=== PATIENT | female | born 1980 | race African-American/Black ===

== ENCOUNTER 2017-08-16 21:47 | Emergency (ER) | payer BC ==
--- OUTSIDE RECORDS SUMMARY | 2017-08-16 21:49 | XMS REPORT | Clinical Summary ---
:1980 Author Organization [facility] Address [address] [place] [address] Phone Care Team Providers Name Role Phone Unavailable Primary Care Provider Unavailable Allergies Not on File Current Medications Not on file Active Problems Not on file Social History Tobacco Use Types Packs/Day Years Used Date Never Assessed Sex Assigned at Date Recorded Not on file Last Filed Vital Signs Not on file Plan of Treatment Health Maintenance Due Date Last Done Comments INFLUENZA VACCINE 01/15/2018 Results Not on fileafter 08/15/2016
--- NOTE | 2017-08-16 23:08 | RAD REPORT ---
EXAM DESCRIPTION: RAD - Chest Single View - 08/16/2017 10:57 pm CLINICAL HISTORY: Chest pain. COMPARISON: 05/14/2017 FINDINGS: Portable technique limits examination quality. The lungs are underinflated but grossly clear. The heart is normal in size. No displaced fractures. IMPRESSION: No acute intrathoracic process suspected.
[2017-08-16] MEDS ORDERED: ONDANSETRON 4 MG/2 ML VIAL ONE (23:26)
[2017-08-16] MEDS ORDERED: NA CHLORIDE 0.9% 1,000 ML ONE (23:26)
[2017-08-16] MEDS ORDERED: METRONIDAZOLE 500mg IVPB 500 MG/100 ML BAG IV ONE (23:27)
[2017-08-16] MEDS ORDERED: CIPROFLOXACIN 400mg IV 400 MG/200 ML BAG IV ONE (23:27)
[2017-08-16] MEDS ORDERED: MORPHINE 4 MG/ML SYR ONE (23:28)
[2017-08-17 00:51] LABS: Absolute Lymphocytes (CBC) 3.3 K/uL (0.7-4.9); Absolute Monocytes 0.6 K/uL (0.1-1.3); Absolute Neutrophil 4.7 K/uL (1.8-8.0); Basophils % 0.9 % (0-1.3); Eosinophils % 1.9 % (0-4.4); Hematocrit 42.1 % (36.0-45.0); Lymphocytes % 36.8 % (15.3-44.8); MCH 29.6 pg (27.0-35.0); MCV 89.1 fL (80-100); MPV 8.8 fL (7.6-11.3); RBC Red Blood Cell Count 4.73 M/uL (3.86-4.86)
[2017-08-17 00:54] LABS: Protime INR 1.03
[2017-08-17] MEDS ORDERED: MORPHINE 4 MG/ML SYR ONE (01:13)
[2017-08-17 01:41] LABS: Bicarbonate 26 mEq/L (21-31); CKMB Creatine Kinase MB 1.3 ng/ml (0.3-4.0); Glucose Level 159 mg/dL (65-120); Lipase 40 U/L (22-51); Potassium 3.8 mEq/L (3.6-5.0); Sodium Level 138 mEq/L (135-145)
[2017-08-17 01:47] LABS: Albumin 4.3 g/dL (3.2-5.5); Alkaline Phosphatase 53 IU/L (42-121); BUN Blood Urea Nitrogen 10 mg/dL (6-20); Bilirubin Direct 0.2 mg/dL (0-0.2); Bilirubin Total 0.6 mg/dL (0.3-1.2); Protein, Total 7.6 g/dL (6.0-8.3)
[2017-08-17 01:53] LABS: ALT/SGPT 23 IU/L (10-60); AST/SGOT 30 IU/L (10-42); Creatine Phosphokinase 196 IU/L (22-269)
[2017-08-17 02:00] LABS: Urine Blood NEGATIVE (NEG); Urine Glucose NEGATIVE (NEG); Urine Protein NEGATIVE (NEG); Urine Specific Gravity >1.030 (1.005-1.030)
--- NOTE | 2017-08-17 03:31 | ER ---
Nurse's Notes [facility] Name: Silvina Cohen Age: 36 yrs Sex: Female : 1980 Arrival Date: 08/16/2017 Time: 21:50 Bed 28 Private MD: Diagnosis: Abdominal tenderness;Diarrhea, unspecified;Type 2 diabetes mellitus;Diverticular disease of intestine Presentation: 08/16 21:51 Presenting complaint: Patient states: Upper abdominal pain that started today. 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 Transition of care: patient was not received from another setting of care. Onset of symptoms was August 16, 2017. Initial Sepsis Screen: Does the patient meet any 2 criteria? No. Patient's initial sepsis screen is negative. Does the patient have a suspected source of infection? No. Patient's initial sepsis screen is negative. Care prior to arrival: None. 21:51 Method Of Arrival: Ambulatory aj 21:51 Acuity: CORTEZ 3 aj Triage Assessment: 21:55 General: Appears in no apparent distress. comfortable, Behavior is calm, cooperative, aj appropriate for age. Pain: Complains of pain in right upper quadrant and left upper quadrant. Neuro: Level of Consciousness is awake, alert, obeys commands, Oriented to person, place, time, situation. Respiratory: Airway is patent Trachea midline Respiratory effort is even, unlabored, Respiratory pattern is regular, symmetrical. GI: Abdomen is non-distended, obese, Reports upper abdominal pain, bloody stool. Derm: Skin is intact, is healthy with good turgor, Skin is pink, warm \T\ dry. normal. 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 aj Historical: - Allergies: 21:55 Codeine; aj 21:55 Flexeril; aj 21:55 Naproxen; aj - Home Meds: 21:55 gabapentin 300 mg Oral cap 1 cap daily [Active]; metformin 500 mg Oral Tb24 1 tab 2 aj times per day [Active]; metoprolol tartrate 50 mg Oral tab 1 tab once daily [Active]; [place] 10-325 mg Oral tab as needed [Active]; Phenergan Oral 25 mg as needed [Active]; Trulicity 0.75 mg/0.5 mL subcutaneous pnij 0.5 mL once wkly [Active]; Xanax 0.5 mg Oral tab 1 tab as needed [Active]; Victoza 2-Marvel subcutaneous subcutaneous [Active]; - PMHx: 21:55 Anxiety; Back pain; Diabetes - NIDDM; HYPERGLYCEMIA; Hypertension; aj - PSHx: 21:55 cyst removal; Cholecystectomy; Hernia repair; Hysterectomy; aj - Immunization history:: Adult Immunizations up to date. - Social history:: Smoking status: Patient/guardian denies using tobacco, Patient uses alcohol, occasionally. - Family history:: not pertinent. Screenin:30 Abuse screen: Denies threats or abuse. rk2 23:30 Nutritional screening: No deficits noted. Tuberculosis screening: No symptoms or risk rk2 factors identified. Fall Risk None identified. Assessment: 23:30 General: Appears in no apparent distress. well groomed, well developed, well nourished, rk2 Behavior is calm, cooperative. 23:30 Pain: Complains of pain in left lower quadrant and epigastric area and abdomen and left rk2 upper quadrant and right upper quadrant. Neuro: Level of Consciousness is alert, obeys commands, Oriented to person, place, time, situation. Cardiovascular: Rhythm is sinus rhythm. Respiratory: Airway is patent Respiratory effort is even, unlabored, Respiratory pattern is regular, symmetrical. GI: Bowel sounds Abd is soft Abdomen is tender to palpation in right upper quadrant and left upper quadrant. Derm: Skin is pink, warm \T\ dry. 23:37 Reassessment: Per queenie Monsivais to change pt. pain med order to morphine. rk2 08/17 01:18 Reassessment: Pt. resting in room, \T\ bedside... pt. called out c/o pain, same rk2 pain that she came in with. Verbal order given by Dr. Singer to repeat morphine 4mg. Pt. iv fluids and antibiotics infusing. No other needs \T\ this time. 01:56 Reassessment: Pt. taken to CT by tech. rk2 02:17 Reassessment: Pt. returned from CT. rk2 03:38 Reassessment: Patient appears in no apparent distress at this time. Patient is alert, aa1 oriented x 3, equal unlabored respirations, skin warm/dry/pink. Discussed d/c \T\ f/u instructions with pt and significant other; denies questions or concerns at this time Patient states feeling better. Vital Signs: 08/16 21:55 BP 150 / 97; Pulse 94; Resp 16; Temp 97.2; Pulse Ox 99% on R/A; Weight 142.88 kg; aj Height 5 ft. 10 in. (177.80 cm); Pain 7/10; 08/17 00:00 BP 138 / 93; Pulse 76; Resp 17; Pulse Ox 97% on R/A; rk2 00:30 BP 126 / 92; Pulse 76; Resp 16; Pulse Ox 97% on R/A; rk2 01:30 BP 135 / 81; Pulse 72; Resp 17; Pulse Ox 96% on R/A; rk2 08/16 21:55 Body Mass Index 45.20 (142.88 kg, 177.80 cm) aj ED Course: 08/16 21:50 Patient arrived in ED. aj 21:54 Triage completed. aj 21:55 Arm band placed on right wrist. Patient placed in an exam room. aj 22:30 Clementine Underwood RN is Primary Nurse. rk2 22:34 Alessandro Singer MD is Attending Physician. frandy 22:54 X-ray completed. Portable x-ray completed in exam room. Patient tolerated procedure kc2 well. 22:55 XRAY Chest (1 view) In Process Unspecified. EDMS 23:30 Patient has correct armband on for positive identification. Placed in gown. Bed in low rk2 position. Call light in reach. personnel monitor on. Pulse ox on. 08/17 00:16 Radiology exam delayed due to Still waiting for lab results to return for CT. vr 02:33 CT Abd/Pelvis - W/Contrast In Process Unspecified. EDMS 03:30 Fran Castano MD is Referral Physician. frandy 03:38 No provider procedures requiring assistance completed. IV discontinued, intact, aa1 bleeding controlled, No redness/swelling at site. Administered Medications: 08/16 23:36 CANCELLED (Not in stock): fentaNYL (PF) 25 mcg IVP once rk2 23:47 Drug: Flagyl 500 mg Volume: 100 ml; Route: IVPB; Rate: 200 ml/hr; Infused Over: 30 rk2 mins; Site: left forearm; 08/17 00:15 Follow up: Response: No adverse reaction; IV Status: Completed infusion rk2 08/16 23:47 Drug: morphine 4 mg Route: IVP; Site: left forearm; rk2 08/17 00:57 Follow up: Response: No adverse reaction; Pain is decreased rk2 08/16 23:48 Drug: Zofran 4 mg Route: IVP; Site: left forearm; rk2 08/17 00:58 Follow up: Response: No adverse reaction rk2 08/16 23:54 Drug: NS 0.9% 1000 ml Route: IV; Rate: 1 bolus; Site: left forearm; rk2 08/17 03:39 Follow up: IV Status: Completed infusion aa1 00:47 Drug: Cipro 400 mg Volume: 200 ml; Route: IVPB; Infused Over: 60 mins; Site: left rk2 forearm; 01:16 Drug: morphine 4 mg Route: IVP; Site: right forearm; rk2 01:56 Follow up: Response: No adverse reaction; Pain is decreased rk2 Outcome: 03:31 Discharge ordered by MD. wise 03:38 Discharged to home ambulatory, with significant other. aa1 03:38 Condition: good 03:38 Discharge instructions given to patient, significant other, Instructed on discharge instructions, follow up and referral plans. medication usage, Demonstrated understanding of instructions, follow-up care, medications, Prescriptions given X 5 03:39 Patient left the ED. aa1 Signatures: Dispatcher [employer] EDMS Felisha Clemente RN RN [email or web address] Risa Saul RN Alessandro Lisa MD MD cha Davis, Victoria vr Carr, Kelsie kc2 Kidder, Rhonda, RN RN rk2
--- NOTE | 2017-08-17 03:31 | EDPHYS ---
Physician Documentation [facility] Name: Silvina Cohen Age: 36 yrs Sex: Female : 1980 Arrival Date: 08/16/2017 Time: 21:50 Bed 28 Private MD: ED Physician Alessandro Singer HPI: 08/16 23:44 This 36 yrs old Black Female presents to ER via Ambulatory with complaints of Abdominal frandy Pain. 23:44 The patient presents with abdominal pain abdominal distention. Onset: The frandy symptoms/episode began/occurred just prior to arrival. The patient presents to the emergency department with rectal bleeding, with multiple such episodes. Onset: The symptoms/episode began/occurred just prior to arrival. Abdominal pain: none is appreciated. Modifying factors: The symptoms are alleviated by nothing, the symptoms are aggravated by nothing. Modifying factors: The symptoms are alleviated by nothing, the symptoms are aggravated by movement. 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/A - Hysterectomy aj Historical: - Allergies: 21:55 Codeine; aj 21:55 Flexeril; aj 21:55 Naproxen; aj - Home Meds: 21:55 gabapentin 300 mg Oral cap 1 cap daily [Active]; metformin 500 mg Oral Tb24 1 tab 2 aj times per day [Active]; metoprolol tartrate 50 mg Oral tab 1 tab once daily [Active]; [place] 10-325 mg Oral tab as needed [Active]; Phenergan Oral 25 mg as needed [Active]; Trulicity 0.75 mg/0.5 mL subcutaneous pnij 0.5 mL once wkly [Active]; Xanax 0.5 mg Oral tab 1 tab as needed [Active]; Victoza 2-Marvel subcutaneous subcutaneous [Active]; - PMHx: 21:55 Anxiety; Back pain; Diabetes - NIDDM; HYPERGLYCEMIA; Hypertension; aj - PSHx: 21:55 cyst removal; Cholecystectomy; Hernia repair; Hysterectomy; aj - Immunization history:: Adult Immunizations up to date. - Social history:: Smoking status: Patient/guardian denies using tobacco, Patient uses alcohol, occasionally. - Family history:: not pertinent. ROS: 23:44 Constitutional: Negative for fever, chills, and weight loss, Eyes: Negative for injury, frandy pain, redness, and discharge, ENT: Negative for injury, pain, and discharge, Neck: Negative for injury, pain, and swelling, Cardiovascular: Negative for chest pain, palpitations, and edema, Respiratory: Negative for shortness of breath, cough, wheezing, and pleuritic chest pain, Back: Negative for injury and pain, : Negative for injury, bleeding, discharge, and swelling, MS/Extremity: Negative for injury and deformity, Skin: Negative for injury, rash, and discoloration, Neuro: Negative for headache, weakness, numbness, tingling, and seizure, Psych: Negative for depression, anxiety, suicide ideation, homicidal ideation, and hallucinations, Allergy/Immunology: Negative for hives, rash, and allergies, Endocrine: Negative for neck swelling, polydipsia, polyuria, polyphagia, and marked weight changes, Hematologic/Lymphatic: Negative for swollen nodes, abnormal bleeding, and unusual bruising. 23:44 Abdomen/GI: Positive for abdominal pain, abdominal cramps, abdominal distension, rectal bleeding, of the epigastric area, right upper quadrant, left upper quadrant and left lower quadrant. Exam: 23:44 Constitutional: This is a well developed, well nourished patient who is awake, alert, frandy and in no acute distress. Head/Face: Normocephalic, atraumatic. Eyes: Pupils equal round and reactive to light, extra-ocular motions intact. Lids and lashes normal. Conjunctiva and sclera are non-icteric and not injected. Cornea within normal limits. Periorbital areas with no swelling, redness, or edema. ENT: Nares patent. No nasal discharge, no septal abnormalities noted. Tympanic membranes are normal and external auditory canals are clear. Oropharynx with no redness, swelling, or masses, exudates, or evidence of obstruction, uvula midline. Mucous membranes moist. Neck: Trachea midline, no thyromegaly or masses palpated, and no cervical lymphadenopathy. Supple, full range of motion without nuchal rigidity, or vertebral point tenderness. No Meningismus. Chest/axilla: Normal chest wall appearance and motion. Nontender with no deformity. No lesions are appreciated. Cardiovascular: Regular rate and rhythm with a normal S1 and S2. No gallops, murmurs, or rubs. Normal PMI, no JVD. No pulse deficits. Respiratory: Lungs have equal breath sounds bilaterally, clear to auscultation and percussion. No rales, rhonchi or wheezes noted. No increased work of breathing, no retractions or nasal flaring. Back: No spinal tenderness. No costovertebral tenderness. Full range of motion. Skin: Warm, dry with normal turgor. Normal color with no rashes, no lesions, and no evidence of cellulitis. MS/ Extremity: Pulses equal, no cyanosis. Neurovascular intact. Full, normal range of motion. Neuro: Awake and alert, GCS 15, oriented to person, place, time, and situation. Cranial nerves II-XII grossly intact. Motor strength 5/5 in all extremities. Sensory grossly intact. Cerebellar exam normal. Normal gait. Psych: Awake, alert, with orientation to person, place and time. Behavior, mood, and affect are within normal limits. 23:44 Abdomen/GI: Inspection: abdomen appears normal, Bowel sounds: normal, Palpation: mild abdominal tenderness, in the right upper quadrant, left upper quadrant and left lower quadrant, Liver: no appreciated palpable abnormalities, Hernia: not appreciated. Vital Signs: 21:55 BP 150 / 97; Pulse 94; Resp 16; Temp 97.2; Pulse Ox 99% on R/A; Weight 142.88 kg; aj Height 5 ft. 10 in. (177.80 cm); Pain 7/10; 08/17 00:00 BP 138 / 93; Pulse 76; Resp 17; Pulse Ox 97% on R/A; rk2 00:30 BP 126 / 92; Pulse 76; Resp 16; Pulse Ox 97% on R/A; rk2 01:30 BP 135 / 81; Pulse 72; Resp 17; Pulse Ox 96% on R/A; rk2 08/16 21:55 Body Mass Index 45.20 (142.88 kg, 177.80 cm) MDM: 08/16 22:37 Patient medically screened. [facility] 23:47 Data reviewed: vital signs, nurses notes, lab test result(s), EKG, radiologic studies, [facility] CT scan, plain films. 08/16 22:36 Order name: Basic Metabolic Panel [facility] 08/16 22:36 Order name: BNP [facility] 08/16 22:36 Order name: CBC with Diff [facility] 08/16 22:36 Order name: Ckmb [facility] 08/16 22:36 Order name: CPK [facility] 08/16 22:36 Order name: LFT's [facility] 08/16 22:36 Order name: Magnesium [facility] 08/16 22:36 Order name: PT-INR [facility] 08/16 22:36 Order name: Ptt, Activated; Complete Time: 01:43 [facility] 08/16 22:36 Order name: Troponin (emerg Dept Use Only); Complete Time: 01:14 [facility] 08/16 22:36 Order name: Lipase; Complete Time: 01:58 [facility] 08/16 22:36 Order name: Occult Blood [facility] 08/16 22:36 Order name: XRAY Chest (1 view); Complete Time: 23:48 [facility] 08/16 22:36 Order name: CT Abd/Pelvis - W/Contrast [facility] 08/16 22:37 Order name: Basic Metabolic Panel; Complete Time: 01:58 EDMS 08/16 22:37 Order name: BNP B-Type Natriuretic Peptide; Complete Time: 01:43 EDIL 08/16 22:37 Order name: CBC with Automated Diff; Complete Time: 01:43 [facility] 08/16 22:37 Order name: CKMB Creatine Kinase MB; Complete Time: 01:58 [facility]IL 08/16 22:37 Order name: Creatine Phosphokinase; Complete Time: 01:58 [facility]IL 08/16 22:37 Order name: Liver (Hepatic) Function; Complete Time: 01:58 EDMS 08/16 22:37 Order name: Magnesium; Complete Time: 01:58 [facility] 08/16 22:37 Order name: Protime (+INR); Complete Time: 01:43 [facility] 08/16 23:56 Order name: Urine Dipstick--Ancillary (enter results); Complete Time: 03:[address] [facility] 08/16 23:56 Order name: Urine --Ancillary (enter results); Complete Time: 03:[address] [facility] 08/16 22:36 Order name: EKG; Complete Time: 22:37 [facility] 08/16 22:36 Order name: Cardiac monitoring; Complete Time: 23:53 [facility] 08/16 22:36 Order name: EKG - Nurse/Tech; Complete Time: 23:53 [facility] 08/16 22:36 Order name: IV Saline Lock; Complete Time: 23:53 [facility] 08/16 22:36 Order name: Labs collected and sent; Complete Time: 23:53 [facility] 08/16 22:36 Order name: O2 Per Protocol; Complete Time: 23:53 [facility] 08/16 22:36 Order name: O2 Sat Monitoring; Complete Time: 23:53 [facility] 08/16 22:36 Order name: Urine Dipstick-Ancillary (obtain specimen); Complete Time: 23:53 [facility] Administered Medications: 23:36 CANCELLED (Not in stock): fentaNYL (PF) 25 mcg IVP once rk2 23:47 Drug: Flagyl 500 mg Volume: 100 ml; Route: IVPB; Rate: 200 ml/hr; Infused Over: 30 rk2 mins; Site: left forearm; 08/17 00:15 Follow up: Response: No adverse reaction; IV Status: Completed infusion rk2 08/16 23:47 Drug: morphine 4 mg Route: IVP; Site: left forearm; rk2 08/17 00:57 Follow up: Response: No adverse reaction; Pain is decreased 2 08/16 23:48 Drug: Zofran 4 mg Route: IVP; Site: left forearm; rk2 08/17 00:58 Follow up: Response: No adverse reaction [facility] 08/16 23:54 Drug: NS 0.9% 1000 ml Route: IV; Rate: 1 bolus; Site: left forearm; rk2 08/17 03:39 Follow up: IV Status: Completed infusion aa1 00:47 Drug: Cipro 400 mg Volume: 200 ml; Route: IVPB; Infused Over: 60 mins; Site: left rk2 forearm; 01:16 Drug: morphine 4 mg Route: IVP; Site: right forearm; rk2 01:56 Follow up: Response: No adverse reaction; Pain is decreased rk2 Disposition: 08/17/17 03:31 Discharged to Home. Impression: Abdominal tenderness, Diarrhea, unspecified, Type 2 diabetes mellitus, Diverticular disease of intestine. - Condition is Stable. - Discharge Instructions: Abdominal Pain, Adult, Food Choices to Help Relieve Diarrhea, Adult, Type 2 Diabetes Mellitus, Adult, Diarrhea, Hernia, Abdominal Pain, Adult, [id number], Diarrhea, [id number], Type 2 Diabetes Mellitus, Adult, [id number]. - Prescriptions for Bentyl 20 mg Oral Tablet - take 1 tablet by ORAL route every 6 hours As needed; 20 tablet. Flagyl 500 mg Oral Tablet - take 1 tablet by ORAL route every 8 hours for 7 days; 21 tablet. Pepcid 20 mg Oral Tablet - take 1 tablet by ORAL route every 12 hours for 10 days; 20 tablet. Zofran 4 mg Oral Tablet - take 1 tablet by ORAL route every 12 hours As needed; 20 tablet. Cipro 500 mg Oral Tablet - take 1 tablet by ORAL route every 12 hours for 7 days; 14 tablet. - Medication Reconciliation Form, Thank You Letter, Antibiotic Education, Prescription Opioid Use form. - Follow up: Private Physician; When: 2 - 3 days; Reason: Recheck today's complaints, Continuance of care, Re-evaluation by your physician. Follow up: Fran Castano; When: 2 - 3 days; Reason: Recheck today's complaints, Re-evaluation by your physician. - Problem is new. - Symptoms have improved. Signatures: Dispatcher [employer] EDMS Felisha Clemente RN RN aa1 Risa Saul RN RN aj Anderson, Corey, MD MD cha Kidder, Rhonda, RN RN rk2 Corrections: (The following items were deleted from the chart) 08/16 23:36 22:36 fentaNYL (PF) 25 mcg IVP once ordered. frandy perdue 08/17 03:39 03:31 08/17/2017 03:31 Discharged to Home. Impression: Abdominal tenderness; Diarrhea, aa1 unspecified; Type 2 diabetes mellitus; Diverticular disease of intestine. Condition is Stable. Discharge Instructions: Abdominal Pain, Adult, Food Choices to Help Relieve Diarrhea, Adult, Type 2 Diabetes Mellitus, Adult, Diarrhea, Abdominal Pain, Adult, [id number], Diarrhea, Fzfy-[id number], Type 2 Diabetes Mellitus, Adult, Mrgi-if-[id number]. Prescriptions for Bentyl 20 mg Oral Tablet - take 1 tablet by ORAL route every 6 hours As needed; 20 tablet, Flagyl 500 mg Oral Tablet - take 1 tablet by ORAL route every 8 hours for 7 days; 21 tablet, Pepcid 20 mg Oral Tablet - take 1 tablet by ORAL route every 12 hours for 10 days; 20 tablet, Zofran 4 mg Oral Tablet - take 1 tablet by ORAL route every 12 hours As needed; 20 tablet, Cipro 500 mg Oral Tablet - take 1 tablet by ORAL route every 12 hours for 7 days; 14 tablet. and Forms are Medication Reconciliation Form, Thank You Letter, Antibiotic Education, Prescription Opioid Use. Follow up: Private Physician; When: 2 - 3 days; Reason: Recheck today's complaints, Continuance of care, Re-evaluation by your physician. Follow up: Fran Castano; When: 2 - 3 days; Reason: Recheck today's complaints, Re-evaluation by your physician. Problem is new. Symptoms have improved. frandy
[2017-08-17 03:43] VITALS: TEMP 97.2
[2017-08-17 03:47] VITALS: BP 135/81; O2SAT 96
--- NOTE | 2017-08-17 08:49 | RAD REPORT ---
EXAM DESCRIPTION: CTAbdomen Pelvis W Contrast - 08/17/2017 7:31 am CLINICAL HISTORY: Abdominal pain. COMPARISON: 06/10/2017, 01/20/2017 TECHNIQUE: Biphasic CT imaging of the abdomen and pelvis was performed with 100 ml non-ionic IV cont rast. All CT scans are performed using dose optimization technique as appropriate and may include automated exposure control or mA/KV adjustment according to patient size. FINDINGS: The lung bases are clear. Diffuse fatty liver is present. The liver is also prominent in size. The spleen, adrenal glands and k idneys are within normal limits. 12 mm nonspecific cystic lesion in the pancreatic head appears uncha nged since comparative studies. No bowel obstruction, free air, free fluid or abscess. Fat containing ventral hernia is noted, unchan ged. The appendix is normal. No evidence of significant lymphadenopathy. No suspicious bony findings. IMPRESSION: Prominent fatty liver. 12 mm cystic lesion in the pancreatic head appears unchanged. Follow-up CT can be obtained for survei llance purposes in 6-12 months. Diverticulosis coli without diverticulitis.
--- NOTE | 2017-08-17 10:04 | EKG ---
Test Date: 2017-08-16 Test Time: 23:18:59 Card Seller: JEANNINE MEASUREMENT RESULTS: Intervals: Rate: 78 DE: 162 QRSD: 84 QT: 380 QTc: 433 [place]: P: 34 DE: 162 QRS: 53 T: 10 INTERPRETIVE STATEMENTS: Normal sinus rhythm T wave abnormality, consider anterior ischemia Abnormal ECG Compared to ECG 05/14/2017 18:13:16 Sinus tachycardia no longer present T-wave abnormality still present Possible ischemia still present Electronically Signed On 08-17-17 10:02:56 CDT by Kt Ernst
== END 2017-08-17 03:39 | disposition home or self-care (01) ==
LOC: ER 21:47
DX: R19.7 Diarrhea, unspecified (principal); K57.90 Diverticulosis of intestine, part unspecified, without perforation or abscess without bleeding; I10 Essential (primary) hypertension; E11.9 Type 2 diabetes mellitus without complications; Z79.4 Long term (current) use of insulin; F41.9 Anxiety disorder, unspecified; Z88.5 Allergy status to narcotic agent; Z88.6 Allergy status to analgesic agent; Z88.8 Allergy status to other drugs, medicaments and biological substances
CPT/HCPCS: 36415; 71045; 74177; 80048; 80076; 81003; 81025; 82550; 82553; 83690; 83735; 83880; 84484; 85025; 85610; 85730; 93005; 99284; J0744; J2405; J7030; Q9967

== ENCOUNTER 2018-01-01 16:44 | Emergency (ER) | payer BC, SELFPAY ==
--- OUTSIDE RECORDS SUMMARY | 2018-01-01 16:46 | XMS REPORT | Clinical Summary ---
:[address] [facility] Address [address] [place] [address] Phone Care Team Providers Name Role Phone [...] INFLUENZA VACCINE 01/15/2018 Results Not on fileafter 12/31/2016
[2018-01-01] MEDS ORDERED: ALBUTEROL 2.5 MG/3 ML NEB SOL ONE (18:02)
[2018-01-01] MEDS ORDERED: IPRATROPIUM BROM 0.5MG/2.5ML ONE (18:02)
[2018-01-01] MEDS ORDERED: NA CHLORIDE 0.9% 1,000 ML ONE (18:02)
[2018-01-01 19:20] LABS: Absolute Lymphocytes (CBC) 1.9 K/uL (0.7-4.9); Absolute Monocytes 0.8 K/uL (0.1-1.3); Absolute Neutrophil 5.5 K/uL (1.8-8.0); Basophils % 0.5 % (0-1.3); Eosinophils % 1.6 % (0-4.4); Hematocrit 47.3 % (36.0-45.0); Lymphocytes % 22.4 % (15.3-44.8); MCH 30.7 pg (27.0-35.0); MCV 92.1 fL (80-100); MPV 8.6 fL (7.6-11.3); Monocytes % 9.6 % (3.3-12.3); RBC Red Blood Cell Count 5.14 M/uL (3.86-4.86)
[2018-01-01 19:39] LABS: Albumin 4.2 g/dL (3.4-5.0); Bilirubin Direct 0.2 mg/dL (0-0.2); Bilirubin Total 0.6 mg/dL (0.2-1.0); Potassium 3.8 mmol/L (3.5-5.1); Protein, Total 8.8 g/dL (6.4-8.2)
[2018-01-01 20:04] LABS: Urine Blood NEGATIVE (NEG); Urine Glucose NEGATIVE (NEG); Urine Protein TRACE (NEG); Urine Specific Gravity >1.030 (1.005-1.030); Urine pH 5.5 (5.0-7.0)
[2018-01-01 20:05] LABS: Urine Bacteria 20-50 /HPF (<20); Urine Culture Reflex Order REFLEXED; Urine Mucus 2+ /HPF (NONE SEEN); Urine RBC NONE SEEN /HPF (NONE SEEN)
--- NOTE | 2018-01-01 20:06 | RAD REPORT ---
EXAM DESCRIPTION: RAD - Chest Pa And Lat (2 Views) - 01/01/2018 7:54 pm CLINICAL HISTORY: COUGH Chest pain. COMPARISON: Chest Single View dated 08/16/2017; Chest Single View dated 05/14/2017; Chest Single View d ated 01/20/2017; Chest Single View dated 11/14/2016 FINDINGS: Right lower lobe infiltrate is present compatible with developing pneumonia. The heart is normal in size. No displaced fractures. IMPRESSION: Right lower lobe developing pneumonia.
--- NOTE | 2018-01-01 20:18 | ER ---
Nurse's Notes [facility] Name: Silvina Cohen Age: 37 yrs Sex: Female : 1980 Arrival Date: 01/01/2018 Time: 16:45 Bed 16 Private MD: Elie Hyde H Diagnosis: Acute Right Lower Lobe Pneumonia Presentation: 01/01 17:09 Presenting complaint: Patient states: Having difficulty maintaining my blood sugar, at sg about one today it was 320, mohinder had fever tmax of 100, reports having taken tylenol and motrin, no relief to pain in body aches, denies cough/sob, reports dizziness. Transition of care: patient was not received from another setting of care. Onset of symptoms was January 01, 2018. Risk Assessment: Do you want to hurt yourself or someone else? Patient reports no desire to harm self or others. Initial Sepsis Screen: Does the patient meet any 2 criteria? HR > 90 bpm. Does the patient have a suspected source of infection? No. Patient's initial sepsis screen is negative. Care prior to arrival: None. 17:09 Method Of Arrival: Ambulatory sg 17:09 Acuity: CORTEZ 3 sg Triage Assessment: 17:15 General: Appears in no apparent distress. uncomfortable, obese, well groomed, Behavior kr2 is calm, cooperative, appropriate for age. Pain: Complains of pain in entire body. Historical: - Allergies: 16:54 Codeine; iw 16:54 Flexeril; iw 16:54 Naproxen; iw - PMHx: 16:54 Anxiety; Back pain; Diabetes - NIDDM; HYPERGLYCEMIA; Hypertension; iw - PSHx: 16:54 cyst removal; Cholecystectomy; Hysterectomy; Hernia repair; iw - Immunization history:: Adult Immunizations up to date. - Social history:: The patient lives with spouse, Smoking status: Patient/guardian denies using tobacco. - Ebola Screening: : Patient negative for fever greater than or equal to 101.5 degrees Fahrenheit, and additional compatible Ebola Virus Disease symptoms Patient denies exposure to infectious person Patient denies travel to an Ebola-affected area in the 21 days before illness onset No symptoms or risks identified at this time. - Family history:: not pertinent. - Hospitalizations: : No recent hospitalization is reported. Screenin:15 Abuse screen: Denies threats or abuse. Denies injuries from another. Nutritional kr2 screening: No deficits noted. Tuberculosis screening: No symptoms or risk factors identified. Fall Risk None identified. Assessment: 17:15 General: Appears in no apparent distress. uncomfortable, obese, well groomed, Behavior kr2 is calm, cooperative, appropriate for age. Pain: Complains of pain in entire body Pain currently is 8 out of 10 on a pain scale. Quality of pain is described as aching, Is continuous, Alleviated by rest, Aggravated by increased activity. Neuro: Level of Consciousness is awake, alert, obeys commands, Oriented to person, place, time, situation, Appropriate for age. Cardiovascular: Capillary refill < 3 seconds in bilateral fingers Patient's skin is warm and dry. Respiratory: Reports cough that is non-productive, Airway is patent Respiratory effort is even, unlabored, Respiratory pattern is regular, symmetrical. GI: Abdomen is non-distended, obese, Reports nausea, vomiting. : Urine is clear. EENT: Oral mucosa is moist. Derm: Skin is intact, is healthy with good turgor. Musculoskeletal: Circulation, motion, and sensation intact. 18:15 Reassessment: Patient appears in no apparent distress at this time. Patient and/or kr2 family updated on plan of care and expected duration. Pain level reassessed. Patient is alert, oriented x 3, equal unlabored respirations, skin warm/dry/pink. 19:15 Reassessment: Patient appears in no apparent distress at this time. Patient and/or kr2 family updated on plan of care and expected duration. Pain level reassessed. Patient is alert, oriented x 3, equal unlabored respirations, skin warm/dry/pink. MD aware of difficulty obtaining IV access and per Dr. Honeycutt hold IV access attempts at this time. 20:30 Reassessment: Patient appears in no apparent distress at this time. Patient and/or kr2 family updated on plan of care and expected duration. Pain level reassessed. Patient is alert, oriented x 3, equal unlabored respirations, skin warm/dry/pink. Vital Signs: 17:11 Pulse 102; Resp 18; Temp 97.7; Pulse Ox 96% on R/A; Weight 145.15 kg (R); Height 5 ft. sg 9 in. (175.26 cm); Pain 8/10; 17:11 Body Mass Index 47.26 (145.15 kg, 175.26 cm) ED Course: 16:45 Patient arrived in ED. sb2 16:46 Elie Hyde DO is Private Physician. sb2 16:54 Arm band placed on. iw 17:11 Triage completed. sg 17:15 Patient has correct armband on for positive identification. Bed in low position. Call kr2 light in reach. Side rails up X 1. Adult w/ patient. Pulse ox on. NIBP on. Door closed. Warm blanket given. Head of bed elevated. 17:22 Giuliano Honeycutt MD is Attending Physician. wa 17:40 Missed attempt(s): 22 gauge in left antecubital area. kr2 17:51 Crista Castaneda, ELLYN is Primary Nurse. kr2 18:15 Radiology exam delayed due to patient is not appropriately dressed for the exam at this jr1 time. 18:25 Missed attempt(s): 20 gauge in right forearm. Bleeding controlled, band aid applied, dh3 catheter tip intact. 18:28 Flu and/or RSV swab sent to lab. dh3 18:35 Missed attempt(s): 24 gauge in left antecubital area. Bleeding controlled, band aid iw applied, catheter tip intact. 19:54 Chest Pa And Lat (2 Views) XRAY In Process Unspecified. EDMS 20:40 No provider procedures requiring assistance completed. Patient did not have IV access kr2 during this emergency room visit. Administered Medications: 18:14 Drug: Albuterol 2.5 mg Route: Inhalation; kr2 18:14 Drug: AtroVENT Aerosol 0.5 mg Route: Inhalation; kr2 20:31 Drug: Zofran 4 mg Route: PO; kr2 20:32 Follow up: Response: Medication administered at discharge. kr2 20:32 Not Given (Physician Discretion): NS 0.9% 1000 ml IV at 1 bolus Per protocol; 1000 mL kr2 bolus 20:32 Drug: LevaQUIN 500 mg Route: PO; kr2 20:32 Follow up: Response: Medication administered at discharge. kr2 Outcome: 20:18 Discharge ordered by . wa 20:40 Discharged to home ambulatory, with family. kr2 20:40 Condition: stable 20:40 Discharge instructions given to patient, Instructed on discharge instructions, follow up and referral plans. medication usage, Demonstrated understanding of instructions, follow-up care, medications, Prescriptions given X 3. 20:46 Patient left the ED. kr2 Signatures: Dispatcher [employer] EDMS Regan Romero RN RN Claire Quinteros 1 Sarahi Cruz RN Charlene Hernandez 3 Giuliano Honeycutt MD MD wa Reaves, Karey, RN RN kr2 Natalee Barfield sb2 Corrections: (The following items were deleted from the chart) 01/02 00:48 01/01 18:15 General: Appears in no apparent distress. uncomfortable, obese, well kr2 groomed, Behavior is calm, cooperative, appropriate for age, kr2 01/02 00:48 01/01 18:15 Pain: Complains of pain in entire body Pain currently is 8 out of 10 on a kr2 pain scale. Quality of pain is described as aching, Is continuous, Alleviated by rest, Aggravated by increased activity, kr2 01/02 00:48 01/01 18:15 Neuro: Level of Consciousness is awake, alert, obeys commands, Oriented to kr2 person, place, time, situation, Appropriate for age kr2 01/02 00:48 01/01 18:15 Cardiovascular: Capillary refill < 3 seconds in bilateral fingers Patient's kr2 skin is warm and dry. kr2 01/02 00:48 01/01 18:15 Respiratory: Reports cough that is non-productive, Airway is patent kr2 Respiratory effort is even, unlabored, Respiratory pattern is regular, symmetrical, kr2 01/02 00:48 01/01 18:15 GI: Abdomen is non-distended, obese, Reports nausea, vomiting, kr2 kr2 01/02 00:48 01/01 18:15 : Urine is clear, kr2 kr2 01/02 00:48 01/01 18:15 EENT: Oral mucosa is moist. kr2 kr2 01/02 00:48 01/01 18:15 Derm: Skin is intact, is healthy with good turgor, kr2 kr2 01/02 00:48 01/01 18:15 Musculoskeletal: Circulation, motion, and sensation intact. kr2 kr2 01/02 00:56 01/01 17:40 Missed attempt(s): 22 gauge in left antecubital area. kr2 kr2
--- NOTE | 2018-01-01 20:18 | EDPHYS ---
Physician Documentation [facility] Name: Silvina Cohen Age: 37 yrs Sex: Female : 1980 Arrival Date: 01/01/2018 Time: 16:45 Bed 16 Private MD: Elie Hyde H ED Physician Giuliano Honeycutt HPI: 01/01 19:56 This 37 yrs old Black Female presents to ER via Ambulatory with complaints of Fever, wa BODY ACHES. 19:56 The patient reports fever, not measured (subjective). Onset: The symptoms/episode wa began/occurred 3 day(s) ago. Modifying factors: there are no obvious modifying factors. Associated signs and symptoms: Pertinent positives: cough, myalgias, runny nose, sinus congestion, sore throat, Pertinent negatives: abdominal pain, diarrhea. Severity of symptoms: At their worst the symptoms were moderate in the emergency department the symptoms are worse moderately. The patient has not experienced similar symptoms in the past. The patient has not recently seen a physician. states h/o DM. blood glucose is high. Historical: - Allergies: 16:54 Codeine; iw 16:54 Flexeril; iw 16:54 Naproxen; iw - PMHx: 16:54 Anxiety; Back pain; Diabetes - NIDDM; HYPERGLYCEMIA; Hypertension; iw - PSHx: 16:54 cyst removal; Cholecystectomy; Hysterectomy; Hernia repair; iw - Immunization history:: Adult Immunizations up to date. - Social history:: The patient lives with spouse, Smoking status: Patient/guardian denies using tobacco. - Ebola Screening: : Patient negative for fever greater than or equal to 101.5 degrees Fahrenheit, and additional compatible Ebola Virus Disease symptoms Patient denies exposure to infectious person Patient denies travel to an Ebola-affected area in the 21 days before illness onset No symptoms or risks identified at this time. - Family history:: not pertinent. - Hospitalizations: : No recent hospitalization is reported. ROS: 19:57 Eyes: Negative for injury, pain, redness, and discharge, Neck: Negative for injury, wa pain, and swelling, Cardiovascular: Negative for chest pain, palpitations, and edema, Abdomen/GI: Negative for abdominal pain, nausea, vomiting, diarrhea, and constipation, Back: Negative for injury and pain, : Negative for injury, bleeding, discharge, and swelling, MS/Extremity: Negative for injury and deformity, Skin: Negative for injury, rash, and discoloration, Neuro: Negative for headache, weakness, numbness, tingling, and seizure, Psych: Negative for depression, anxiety, suicide ideation, homicidal ideation, and hallucinations. 19:57 Constitutional: Positive for body aches, chills, fatigue, fever, malaise, Negative for weight loss. 19:57 ENT: Positive for rhinorrhea, sore throat, Negative for difficulty swallowing. Exam: 19:58 Constitutional: This is a well developed, well nourished patient who is awake, alert, wa and in no acute distress. Head/Face: Normocephalic, atraumatic. Eyes: Pupils equal round and reactive to light, extra-ocular motions intact. Lids and lashes normal. Conjunctiva and sclera are non-icteric and not injected. Cornea within normal limits. Periorbital areas with no swelling, redness, or edema. Neck: Trachea midline, no thyromegaly or masses palpated, and no cervical lymphadenopathy. Supple, full range of motion without nuchal rigidity, or vertebral point tenderness. No Meningismus. Cardiovascular: Regular rate and rhythm with a normal S1 and S2. No gallops, murmurs, or rubs. Normal PMI, no JVD. No pulse deficits. Abdomen/GI: Soft, non-tender, with normal bowel sounds. No distension or tympany. No guarding or rebound. No evidence of tenderness throughout. Back: No spinal tenderness. No costovertebral tenderness. Full range of motion. Skin: Warm, dry with normal turgor. Normal color with no rashes, no lesions, and no evidence of cellulitis. MS/ Extremity: Pulses equal, no cyanosis. Neurovascular intact. Full, normal range of motion. Neuro: Awake and alert, GCS 15, oriented to person, place, time, and situation. Cranial nerves II-XII grossly intact. Motor strength 5/5 in all extremities. Sensory grossly intact. Cerebellar exam normal. Normal gait. Psych: Awake, alert, with orientation to person, place and time. Behavior, mood, and affect are within normal limits. 19:58 ENT: Nose: nasal drainage, and is seen coming from both nares, that is clear. 19:58 Respiratory: the patient does not display signs of respiratory distress, Respirations: normal, Breath sounds: coarse bilaterally, Respiratory rate: normal Vital Signs: 17:11 Pulse 102; Resp 18; Temp 97.7; Pulse Ox 96% on R/A; Weight 145.15 kg (R); Height 5 ft. sg 9 in. (175.26 cm); Pain 8/10; 17:11 Body Mass Index 47.26 (145.15 kg, 175.26 cm) MDM: 17:22 Patient medically screened. pa 20:00 Differential diagnosis: viral Infection, bacterial infection, URI, pneumonia. Data pa reviewed: vital signs, nurses notes. 20:15 Test interpretation: by ED physician or midlevel provider: CXR: R lower lobe pneumonia. pa 20:15 Test interpretation: by ED physician or midlevel provider: labs noted within normal pa limits. Response to treatment: the patient's symptoms have markedly improved after treatment. ED course: po abx given. will d/c home with meds. advised close f/u. return for any worsening concerns. 01/01 17:47 Order name: Urine Microscopic Only; Complete Time: 20:08 pa 01/01 17:47 Order name: Basic Metabolic Panel; Complete Time: 19:41 pa 01/01 17:47 Order name: CBC with Diff; Complete Time: 19:41 pa 01/01 17:47 Order name: LFT's; Complete Time: 19:41 pa 01/01 17:47 Order name: Flu; Complete Time: 19:41 pa 01/01 19:52 Order name: Urine Dipstick--Ancillary (enter results); Complete Time: 20:08 [facility] 01/01 17:47 Order name: Urine Test (obtain specimen); Complete Time: 20:33 pa 01/01 17:47 Order name: Chest Pa And Lat (2 Views) XRAY; Complete Time: 20:08 pa 01/01 20:06 Order name: Urine Culture EDVT 01/01 17:47 Order name: Urine Dipstick-Ancillary (obtain specimen); Complete Time: 20:33 pa Administered Medications: 18:14 Drug: Albuterol 2.5 mg Route: Inhalation; kr2 18:14 Drug: AtroVENT Aerosol 0.5 mg Route: Inhalation; kr2 20:31 Drug: Zofran 4 mg Route: PO; kr2 20:32 Follow up: Response: Medication administered at discharge. kr2 20:32 Not Given (Physician Discretion): NS 0.9% 1000 ml IV at 1 bolus Per protocol; 1000 mL kr2 bolus 20:32 Drug: LevaQUIN 500 mg Route: PO; kr2 20:32 Follow up: Response: Medication administered at discharge. kr2 Disposition: 01/01/18 20:18 Discharged to Home. Impression: Acute Right Lower Lobe Pneumonia. - Condition is Stable. - Discharge Instructions: Community-Acquired Pneumonia, Adult, [id number]. - Prescriptions for Augmentin 875- 125 mg Oral Tablet - take 1 tablet by ORAL route 2 times per day for 7 days; 14 tablet. Zofran 4 mg Oral Tablet - take 1 tablet by ORAL route every 12 hours As needed; 20 tablet. Albuterol Sulfate 90 mcg/actuation - inhale 1-2 puff by INHALATION route every 4-6 hours; 1 Inhaler. - Medication Reconciliation Form, Thank You Letter, Antibiotic Education, Prescription Opioid Use form. - Follow up: Private Physician; When: 1 - 2 days; Reason: Recheck today's complaints. - Problem is new. - Symptoms have improved. - Notes: take antibiotics as prescribed. return to ER for any worsening concerns you may have. You need to be reassessed by your doctor within 1-2 days Signatures: Dispatcher [employer] Sarahi Flynn RN RN Giuliano Honeycutt MD MD wa Reaves, Karey, RN RN kr2 Corrections: (The following items were deleted from the chart) 20:33 17:47 IV Saline Lock ordered. pa kr2 20:46 20:18 01/01/2018 20:18 Discharged to Home. Impression: Acute Right Lower Lobe kr2 Pneumonia. Condition is Stable. Forms are Medication Reconciliation Form, Thank You Letter, Antibiotic Education, Prescription Opioid Use. Follow up: Private Physician; When: 1 - 2 days; Reason: Recheck today's complaints. Problem is new. Symptoms have improved. pa
[2018-01-01] MEDS ORDERED: ONDANSETRON 4 MG (ODT) TAB ONE (20:35)
[2018-01-01] MEDS ORDERED: levoFLOXacin 500 MG TAB ONE (20:35)
[2018-01-01 20:56] VITALS: TEMP 97.7; O2SAT 96
== END 2018-01-01 20:46 | disposition home or self-care (01) ==
LOC: ER 16:44
DX: J18.9 Pneumonia, unspecified organism (principal); Z88.6 Allergy status to analgesic agent; Z88.8 Allergy status to other drugs, medicaments and biological substances
CPT/HCPCS: 36415; 71046; 80048; 80076; 81003; 81015; 82962; 85025; 87086; 87088; 87804; 99284; J7030

== ENCOUNTER 2018-01-29 02:03 | Emergency (ER) | payer BC, SELFPAY ==
--- OUTSIDE RECORDS SUMMARY | 2018-01-29 02:04 | XMS REPORT | Clinical Summary ---
:1980 Author Organization [facility] Address [address] [place] [address] Phone Care Team Providers Name Role Phone [...] INFLUENZA VACCINE 01/15/2018 Results Not on fileafter 01/28/2017
[2018-01-29] MEDS ORDERED: DERMABOND SKIN ADHESIVE TOP ONE (02:28)
--- NOTE | 2018-01-29 02:39 | EDPHYS ---
Physician Documentation [facility] Name: Silvina Cohen Age: 37 yrs Sex: Female : 1980 Arrival Date: 01/29/2018 Time: 02:04 Bed 8 Private MD: Elie Hyde H ED Physician Damian Velasco HPI: 01/29 02:35 This 37 yrs old Black Female presents to ER via Ambulatory with complaints of gs Laceration - to Finger. 02:35 The patient has a laceration related to: cooking, from a knife, occurred at home. The gs laceration(s) is(are) located on the palmar aspect of distal phalanx of left little finger. Onset: The symptoms/episode began/occurred acutely, just prior to arrival. Associated signs and symptoms: Pertinent negatives: loss of consciousness, numbness distal to injury. The patient has not experienced similar symptoms in the past. Historical: - Allergies: 02:19 Codeine; aa1 02:19 Flexeril; aa1 02:19 Naproxen; aa1 - Home Meds: 02:19 gabapentin 300 mg Oral cap 1 cap daily [Active]; metformin 500 mg Oral Tb24 1 tab 2 aa1 times per day [Active]; metoprolol tartrate 50 mg Oral tab 1 tab once daily [Active]; [place] 10-325 mg Oral tab as needed [Active]; Phenergan Oral 25 mg as needed [Active]; Trulicity 0.75 mg/0.5 mL subcutaneous pnij 0.5 mL once wkly [Active]; Victoza 2-Marvel subcutaneous [Active]; Xanax 0.5 mg Oral tab 1 tab as needed [Active]; - PMHx: 02:19 Anxiety; Back pain; Diabetes - NIDDM; HYPERGLYCEMIA; Hypertension; aa1 - PSHx: 02:19 cyst removal; Cholecystectomy; Hysterectomy; Hernia repair; aa1 - Immunization history:: Last tetanus immunization: < 5 years ago. - Social history:: Smoking status: Patient/guardian denies using tobacco. - Ebola Screening: : No symptoms or risks identified at this time. ROS: 02:35 All other systems are negative. gs Exam: 02:35 Constitutional: The patient appears alert, awake. gs 02:35 Musculoskeletal/extremity: ROM: no acute changes, Circulation is intact in all extremities. Sensation intact. 02:35 Skin: injury, laceration(s), the wound is approximately 0.5 cm(s), with a depth of .25 cm(s), of the palmar aspect of distal phalanx of left little finger, small flap laceration. Vital Signs: 02:19 BP 150 / 103; Pulse 81; Resp 18; Temp 97.0; Pulse Ox 96% on R/A; Weight 167.83 kg; aa1 Height 5 ft. 9 in. (175.26 cm); Pain 3/10; 02:19 Body Mass Index 54.64 (167.83 kg, 175.26 cm) aa1 Laceration: 02:35 Wound Repair of .5cm ( 0.2in ) subcutaneous laceration to palmar aspect of distal gs phalanx of left little finger. Distal neuro/vascular/tendon intact. Wound prep: Wound irrigation by me. Skin closed with 1-0 Adhesive skin closure using simple sutures and sterile technique. Dressed with steri strips. Patient tolerated well. MDM: 02:29 Patient medically screened. 02:35 Differential diagnosis: superficial laceration. Data reviewed: vital signs, nurses gs notes. Response to treatment: the patient's symptoms have markedly improved after treatment, and as a result, I will discharge patient. 01/29 02:51 Order name: Dermabond; Complete Time: 02:52 lp1 Administered Medications: No medications were administered Disposition: 01/29/18 02:39 Discharged to Home. Impression: Laceration without foreign body of left hand. - Condition is Stable. - Discharge Instructions: Laceration Care, Adult, [id number]. - Prescriptions for Keflex 500 mg Oral Capsule - take 1 capsule by ORAL route every 12 hours .; 10 capsule. - Medication Reconciliation Form, Thank You Letter, Antibiotic Education, Prescription Opioid Use form. - Follow up: Emergency Department; When: 1 week; Reason: Re-evaluation by your physician. Signatures: Felisha Clemente RN RN aa1 Nicolasa Singh RN RN lp1 Damian Velasco MD MD Corrections: (The following items were deleted from the chart) 02:55 02:39 01/29/2018 02:39 Discharged to Home. Impression: Laceration without foreign body lp1 of left hand. Condition is Stable. Forms are Medication Reconciliation Form, Thank You Letter, Antibiotic Education, Prescription Opioid Use. Follow up: Emergency Department; When: 1 week; Reason: Re-evaluation by your physician. gs
--- NOTE | 2018-01-29 02:39 | ER ---
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 Small circular laceration noted with bleeding controlled. CMS intact. Transition of care: patient was not received from another setting of care. Complicating Factors: There are no complicating factors for this patient. Onset of symptoms was January 29, 2018. Risk Assessment: Do you want to hurt yourself or someone else? Patient reports no desire to harm self or others. Initial Sepsis Screen: Does the patient meet any 2 criteria? No. Patient's initial sepsis screen is negative. Does the patient have a suspected source of infection? Yes: Skin breakdown/wound. Care prior to arrival: None. 02:16 Method Of Arrival: Ambulatory aa1 02:16 Acuity: CORTEZ 4 aa1 Historical: - Allergies: 02:19 Codeine; aa1 02:19 Flexeril; aa1 02:19 Naproxen; aa1 - Home Meds: 02:19 gabapentin 300 mg Oral cap 1 cap daily [Active]; metformin 500 mg Oral Tb24 1 tab 2 aa1 times per day [Active]; metoprolol tartrate 50 mg Oral tab 1 tab once daily [Active]; [place] 10-325 mg Oral tab as needed [Active]; Phenergan Oral 25 mg as needed [Active]; Trulicity 0.75 mg/0.5 mL subcutaneous pnij 0.5 mL once wkly [Active]; Victoza 2-Marvel subcutaneous [Active]; Xanax 0.5 mg Oral tab 1 tab as needed [Active]; - PMHx: 02:19 Anxiety; Back pain; Diabetes - NIDDM; HYPERGLYCEMIA; Hypertension; aa1 - PSHx: 02:19 cyst removal; Cholecystectomy; Hysterectomy; Hernia repair; aa1 - Immunization history:: Last tetanus immunization: < 5 years ago. - Social history:: Smoking status: Patient/guardian denies using tobacco. - Ebola Screening: : No symptoms or risks identified at this time. Screenin:15 Abuse screen: Denies threats or abuse. Denies injuries from another. Nutritional aa1 screening: No deficits noted. Tuberculosis screening: No symptoms or risk factors identified. Fall Risk None identified. Assessment: 02:15 General: Appears in no apparent distress. comfortable, Behavior is calm, cooperative, aa1 appropriate for age. Pain: Complains of pain in palmar aspect of distal phalanx of left little finger. Neuro: Level of Consciousness is awake, alert, obeys commands, Oriented to person, place, time, situation. Respiratory: Respiratory effort is even, unlabored. Derm: Skin is intact, is healthy with good turgor, Skin is pink, warm \T\ dry. Musculoskeletal: Circulation, motion, and sensation intact. Capillary refill < 3 seconds, Range of motion: intact in all extremities. Injury Description: Laceration sustained to palmar aspect of distal phalanx of left little finger is clean, 0.5 to 2.5 cm long, not bleeding. Vital Signs: 02:19 BP 150 / 103; Pulse 81; Resp 18; Temp 97.0; Pulse Ox 96% on R/A; Weight 167.83 kg; aa1 Height 5 ft. 9 in. (175.26 cm); Pain 3/10; 02:19 Body Mass Index 54.64 (167.83 kg, 175.26 cm) aa1 ED Course: 02:04 Patient arrived in ED. ds1 02:04 Elie Hyde DO is Private Physician. ds1 02:10 Arm band placed on right wrist. Patient placed in an exam room, on a stretcher. aa1 02:15 Felisha Clemente, RN is Primary Nurse. aa1 02:15 Patient has correct armband on for positive identification. Bed in low position. Call aa1 light in reach. Pulse ox on. NIBP on. 02:16 Damian Velasco MD is Attending Physician. 02:17 Triage completed. aa1 02:52 No provider procedures requiring assistance completed. Patient did not have IV access lp1 during this emergency room visit. Administered Medications: No medications were administered Outcome: 02:39 Discharge ordered by . 02:52 Discharged to home ambulatory. lp1 02:52 Condition: good 02:52 Discharge instructions given to patient, Instructed on discharge instructions, follow up and referral plans. medication usage, Demonstrated understanding of instructions, follow-up care, medications, Prescriptions given X 1. 02:55 Patient left the ED. lp1 Signatures: Felisha Clemente, RN RN aa1 Ca Abernathy ds1 Nicolasa Singh RN RN lp1 Damian Velasco MD MD
[2018-01-30 14:19] VITALS: BP 150/103; TEMP 97; O2SAT 96
== END 2018-01-29 02:55 | disposition home or self-care (01) ==
LOC: ER 02:03
PROC: 0JQK0ZZ Repair Left Hand Subcutaneous Tissue and Fascia, Open Approach (ICD-10-PCS; principal; 2018-01-29)
DX: S61.217A Laceration without foreign body of left little finger without damage to nail, initial encounter (principal); W26.0XXA Contact with knife, initial encounter; Y93.G3 Activity, cooking and baking; Y92.009 Unspecified place in unspecified non-institutional (private) residence as the place of occurrence of the external cause; Z79.4 Long term (current) use of insulin; Z88.5 Allergy status to narcotic agent; Z88.6 Allergy status to analgesic agent; Z88.8 Allergy status to other drugs, medicaments and biological substances; I10 Essential (primary) hypertension; E11.9 Type 2 diabetes mellitus without complications; F41.9 Anxiety disorder, unspecified
CPT/HCPCS: 99283

== ENCOUNTER 2018-08-18 23:18 | Emergency (ER) | payer BC ==
--- OUTSIDE RECORDS SUMMARY | 2018-08-18 23:20 | XMS REPORT | Clinical Summary ---
:1980 Author Organization [facility] Address [address] [place] [address] Care Team Providers Name Role Phone Unavailable Primary Care Provider Unavailable Allergies Not on File Medications Not on file Active Problems Not on file Social History Tobacco Use Types Packs/Day Years Used Date Never Assessed Sex Assigned at Date Recorded Not on file Job Start Date Occupation Industry Not on file Not on file Not on file Travel History Travel Start Travel End No recent travel history available. Last Filed Vital Signs Not on file Plan of Treatment Health Maintenance Due Date Last Done Comments INFLUENZA VACCINE 01/15/2018 Results Not on fileafter 08/17/2017 Insurance Payer Benefit Plan / Subscriber ID Type Phone Address Group BLUE CROSS/BLUE BCBS PPO POS EPO xxxxxxxxxxxx PPO [phone] [address] [place] [address] (Home) [place] [address]
[2018-08-19] MEDS ORDERED: MEPERIDINE HCL 25 MG/0.5 ML ONE (00:54)
[2018-08-19] MEDS ORDERED: ONDANSETRON 4 MG/2 ML VIAL ONE (00:54)
[2018-08-19 01:32] LABS: Urine Blood NEGATIVE (NEG); Urine Glucose NEGATIVE (NEG); Urine Protein TRACE (NEG); Urine Specific Gravity 1.015 (1.005-1.030); Urine pH 5.5 (5.0-7.0)
[2018-08-19 01:36] LABS: Absolute Lymphocytes (CBC) 2.9 K/uL (0.7-4.9); Absolute Monocytes 0.6 K/uL (0.1-1.3); Absolute Neutrophil 4.5 K/uL (1.8-8.0); Eosinophils % 1.9 % (0-4.4); Hematocrit 42.9 % (36.0-45.0); Lymphocytes % 35.6 % (15.3-44.8); MPV 9.1 fL (7.6-11.3); Monocytes % 6.9 % (3.3-12.3); RBC Red Blood Cell Count 4.69 M/uL (3.86-4.86)
[2018-08-19 02:43] LABS: Albumin 3.8 g/dL (3.4-5.0); Bilirubin Direct 0.1 mg/dL (0-0.2); Bilirubin Total 0.6 mg/dL (0.2-1.0); Potassium 3.5 mmol/L (3.5-5.1); Protein, Total 7.5 g/dL (6.4-8.2)
[2018-08-19] MEDS ORDERED: MAGNE/ALUM HYDROXD 30 ML UCUP ONE (02:46)
[2018-08-19] MEDS ORDERED: LIDOCAINE VISCOUS 2% SOLN 15 ML UDC ONE (02:46)
--- NOTE | 2018-08-19 03:10 | ER ---
Nurse's Notes [facility] Name: Silvina Choen Age: 37 yrs Sex: Female : 1980 Arrival Date: 08/18/2018 Time: 23:29 Bed 8 Private MD: Diagnosis: Diarrhea, unspecified;Unspecified abdominal pain Presentation: 08/18 23:38 Presenting complaint: Patient states: My stomach started hurting two days ago and I am ed1 nauseated. Transition of care: patient was not received from another setting of care. Onset of symptoms was August 16, 2018. Risk Assessment: Do you want to hurt yourself or someone else? Patient reports no desire to harm self or others. Initial Sepsis Screen: Does the patient meet any 2 criteria? No. Patient's initial sepsis screen is negative. Does the patient have a suspected source of infection? No. Patient's initial sepsis screen is negative. Care prior to arrival: Medication(s) given: Motrin. 23:38 Method Of Arrival: Ambulatory ed1 23:38 Acuity: CORTEZ 3 ed1 Triage Assessment: 23:41 General: Appears uncomfortable, Behavior is calm, cooperative. Pain: Complains of pain ed1 in abdomen Pain currently is 7 out of 10 on a pain scale. GI: Reports nausea, Patient currently denies diarrhea, vomiting. 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 ed1 Historical: - Allergies: 23:41 Codeine; ed1 23:41 Flexeril; ed1 23:41 Naproxen; ed1 - Home Meds: 23:41 metoprolol tartrate 50 mg Oral tab 1 tab 2 times per day [Active]; Ambien 10 mg Oral ed1 tab 1 tab once daily [Active]; Xanax 2 mg oral tab 1 tab [Active]; Victoza 2-Marvel subcutaneous [Active]; metformin 500 mg Oral Tb24 1 tab 2 times per day [Active]; [place] 10-325 mg Oral tab as needed [Active]; - PMHx: 23:41 Anxiety; Back pain; Diabetes - NIDDM; HYPERGLYCEMIA; Hypertension; ed1 - PSHx: 23:41 Hysterectomy; Hernia repair; Cholecystectomy; cyst removal; ed1 - Immunization history:: Adult Immunizations up to date. - Social history:: Smoking status: Patient/guardian denies using tobacco. - Ebola Screening: : Patient negative for fever greater than or equal to 101.5 degrees Fahrenheit, and additional compatible Ebola Virus Disease symptoms Patient denies exposure to infectious person Patient denies travel to an Ebola-affected area in the 21 days before illness onset No symptoms or risks identified at this time. - Family history:: not pertinent. - Hospitalizations: : No recent hospitalization is reported. Screenin/05 00:45 Abuse screen: Denies threats or abuse. Denies injuries from another. Nutritional aa1 screening: No deficits noted. Tuberculosis screening: No symptoms or risk factors identified. Fall Risk None identified. Assessment: 00:45 General: Appears in no apparent distress. comfortable, Behavior is calm, cooperative, aa1 appropriate for age. Pain: Complains of pain in abdomen Pain began 2-3 days ago. Is continuous. Neuro: Level of Consciousness is awake, alert, obeys commands, Oriented to person, place, time, situation, Moves all extremities. Full function Gait is steady, Speech is normal. Cardiovascular: Denies chest pain, palpitations, shortness of breath. Respiratory: Airway is patent Respiratory effort is even, unlabored, Respiratory pattern is regular, symmetrical. GI: Abdomen is non-distended, Bowel sounds present X 4 quads. Abd is soft X 4 quads Reports lower abdominal pain, upper abdominal pain, nausea, Patient currently denies constipation, diarrhea, vomiting. : No signs and/or symptoms were reported regarding the genitourinary system. EENT: No signs and/or symptoms were reported regarding the EENT system. Derm: Skin is intact, is healthy with good turgor, Skin is pink, warm \T\ dry. Musculoskeletal: Circulation, motion, and sensation intact. Capillary refill < 3 seconds. 01:40 Reassessment: Patient appears in no apparent distress at this time. Patient and/or aa1 family updated on plan of care and expected duration. Pain level reassessed. Patient is alert, oriented x 3, equal unlabored respirations, skin warm/dry/pink. Labs sent, awaiting results. 02:16 Reassessment: Patient appears in no apparent distress at this time. Patient and/or aa1 family updated on plan of care and expected duration. Pain level reassessed. Patient is alert, oriented x 3, equal unlabored respirations, skin warm/dry/pink. Labs recollected and sent. 02:31 Reassessment: Patient appears in no apparent distress at this time. Patient and/or aa1 family updated on plan of care and expected duration. Pain level reassessed. Patient is alert, oriented x 3, equal unlabored respirations, skin warm/dry/pink. Pt requesting something else for pain since the demerol did not help. Dr. Francis notified. 03:29 Reassessment: Patient appears in no apparent distress at this time. Patient is alert, aa1 oriented x 3, equal unlabored respirations, skin warm/dry/pink. Discussed d/c \T\ f/u instructions with pt; denies questions or concerns at this time. Amb to lob with steady gait. Patient states feeling better. Vital Signs: 08/18 23:41 BP 114 / 87; Pulse 74; Resp 18; Temp 96.9(TE); Pulse Ox 99% on R/A; Weight 131.54 kg; ed1 Height 5 ft. 9 in. (175.26 cm); Pain 7/10; 08/19 01:40 BP 119 / 70; Pulse 69; Resp 14; Pulse Ox 100% on R/A; aa1 02:31 BP 111 / 76; Pulse 70; Resp 16; Temp 97.2; Pulse Ox 99% on R/A; Pain 7/10; aa1 03:29 BP 114 / 75; Pulse 73; Resp 16; Temp 97.0; Pulse Ox 100% on R/A; Pain 3/10; aa1 08/18 23:41 Body Mass Index 42.83 (131.54 kg, 175.26 cm) ed1 ED Course: 08/18 23:29 Patient arrived in ED. es 23:39 Triage completed. ed1 23:41 Arm band placed on left wrist. ed1 08/19 00:27 Steven Francis MD is Attending Physician. rn 00:27 Patient's name was called from ER [employer]. No response. aa1 00:29 Steven Francis MD is Attending Physician. rn 00:37 Felisha Cooper RN is Primary Nurse. aa1 00:45 Patient has correct armband on for positive identification. Placed in gown. Bed in low aa1 position. Call light in reach. Pulse ox on. NIBP on. 00:50 Missed attempt(s): 22 gauge in left antecubital area. kj1 01:20 Initial lab(s) drawn, by me, sent to lab. Inserted 18 gauge 10 cm midline to right fc basilic vein on first attempt. Line with good blood return and flushes well. 03:29 No provider procedures requiring assistance completed. IV discontinued, intact, aa1 bleeding controlled, No redness/swelling at site. Pressure dressing applied. Administered Medications: 01:37 Drug: Zofran 4 mg Route: IVP; Site: right upper arm; aa1 02:38 Follow up: Response: No adverse reaction; Nausea is decreased aa1 01:37 Drug: Demerol 25 mg Route: IVP; Site: right upper arm; aa1 02:38 Follow up: Response: No adverse reaction; Pain is unchanged, physician notified aa1 02:38 Drug: GI Cocktail without - (Maalox Suspension 30 ml, Lidocaine Liquid 2 % 15 aa1 ml) Route: PO; 03:28 Follow up: Response: No adverse reaction; Pain is decreased aa1 Outcome: 03:09 Discharge ordered by . rn 03:29 Discharged to home ambulatory. aa1 03:29 Condition: good 03:29 Discharge instructions given to patient, Instructed on discharge instructions, follow up and referral plans. Demonstrated understanding of instructions, follow-up care. 03:31 Patient left the ED. aa1 Signatures: Felisha Cooper RN RN aa1 Marlene Rosales Felicia, RN RN Steven Francis MD MD rn Riggs, Erika, RN RN ed1 Amber Gonzalez kj1
--- NOTE | 2018-08-19 03:10 | EDPHYS ---
Physician Documentation [facility] Name: Silvina Cohen Age: 37 yrs Sex: Female : 1980 Arrival Date: 08/18/2018 Time: 23:29 Bed 8 Private MD: ED Physician Steven Francis HPI: 08/19 01:00 This 37 yrs old Black Female presents to ER via Ambulatory with complaints of Abdominal rn Pain. 01:00 The patient presents with abdominal pain in the left upper quadrant. Onset: The rn symptoms/episode began/occurred 2 day(s) ago. The symptoms do not radiate. Associated signs and symptoms: Pertinent positives: diarrhea. The symptoms are described as achy, crampy, intermittent. Modifying factors: The symptoms are alleviated by nothing, the symptoms are aggravated by touching the area. Severity of pain: At its worst the pain was mild in the emergency department the pain has improved. The patient has not experienced similar symptoms in the past. The patient has not recently seen a physician. 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/A - Hysterectomy ed1 Historical: - Allergies: 23:41 Codeine; ed1 23:41 Flexeril; ed1 23:41 Naproxen; ed1 - Home Meds: 23:41 metoprolol tartrate 50 mg Oral tab 1 tab 2 times per day [Active]; Ambien 10 mg Oral ed1 tab 1 tab once daily [Active]; Xanax 2 mg oral tab 1 tab [Active]; Victoza 2-Marvel subcutaneous [Active]; metformin 500 mg Oral Tb24 1 tab 2 times per day [Active]; [place] 10-325 mg Oral tab as needed [Active]; - PMHx: 23:41 Anxiety; Back pain; Diabetes - NIDDM; HYPERGLYCEMIA; Hypertension; ed1 - PSHx: 23:41 Hysterectomy; Hernia repair; Cholecystectomy; cyst removal; ed1 - Immunization history:: Adult Immunizations up to date. - Social history:: Smoking status: Patient/guardian denies using tobacco. - Ebola Screening: : Patient negative for fever greater than or equal to 101.5 degrees Fahrenheit, and additional compatible Ebola Virus Disease symptoms Patient denies exposure to infectious person Patient denies travel to an Ebola-affected area in the 21 days before illness onset No symptoms or risks identified at this time. - Family history:: not pertinent. - Hospitalizations: : No recent hospitalization is reported. ROS: 08/19 01:00 Constitutional: Negative for fever, chills, and weight loss, Eyes: Negative for injury, rn pain, redness, and discharge, Neck: Negative for injury, pain, and swelling, Cardiovascular: Negative for chest pain, palpitations, and edema, Respiratory: Negative for shortness of breath, cough, wheezing, and pleuritic chest pain, Abdomen/GI: + LUQ abd pain Back: Negative for injury and pain, : Negative for injury, bleeding, discharge, and swelling, MS/Extremity: Negative for injury and deformity, Skin: Negative for injury, rash, and discoloration, Neuro: Negative for headache, weakness, numbness, tingling, and seizure. Exam: 01:00 Constitutional: This is a well developed, well nourished patient who is awake, alert, rn and in no acute distress. Walked to room without assistance Head/Face: Normocephalic, atraumatic. Eyes: Pupils equal round and reactive to light, extra-ocular motions intact. Lids and lashes normal. Conjunctiva and sclera are non-icteric and not injected. Cornea within normal limits. Periorbital areas with no swelling, redness, or edema. ENT: MMM Abdomen/GI: Soft, non-tender, non-distended Skin: Warm, dry with normal turgor. Normal color with no rashes, no lesions, and no evidence of cellulitis. MS/ Extremity: Pulses equal, no cyanosis. Neurovascular intact. Full, normal range of motion. Equal circumference. Neuro: Awake and alert, GCS 15, oriented to person, place, time, and situation. Cranial nerves II-XII grossly intact. Motor strength 5/5 in all extremities. Sensory grossly intact. Cerebellar exam normal. Normal gait. Vital Signs: 08/18 23:41 BP 114 / 87; Pulse 74; Resp 18; Temp 96.9(TE); Pulse Ox 99% on R/A; Weight 131.54 kg; ed1 Height 5 ft. 9 in. (175.26 cm); Pain 7/10; 08/19 01:40 BP 119 / 70; Pulse 69; Resp 14; Pulse Ox 100% on R/A; aa1 02:31 BP 111 / 76; Pulse 70; Resp 16; Temp 97.2; Pulse Ox 99% on R/A; Pain 7/10; aa1 03:29 BP 114 / 75; Pulse 73; Resp 16; Temp 97.0; Pulse Ox 100% on R/A; Pain 3/10; aa1 08/18 23:41 Body Mass Index 42.83 (131.54 kg, 175.26 cm) ed1 MDM: 00:27 Patient medically screened. rn 03:08 Differential diagnosis: diverticulitis, gastritis, gastroesophageal reflux disease, rn non-specific abd pain, pancreatitis, Peptic Ulcer Disease. Data reviewed: vital signs, nurses notes, lab test result(s), and as a result, I will discharge patient. 03:08 Counseling: I had a detailed discussion with the patient and/or guardian regarding: the rn historical points, exam findings, and any diagnostic results supporting the discharge/admit diagnosis, lab results, the need for outpatient follow up, to return to the emergency department if symptoms worsen or persist or if there are any questions or concerns that arise at home. Special discussion: Based on the patient's Hx, exam, and Dx evaluation, there is no indication for emergent surgery or inpatient Tx. It is understood by the patient/guardian that if the Sx's persist or worsen they need to return immediately for re-evaluation. I discussed with the patient/guardian in detail that at this point there is no indication for admission to the hospital. It is understood, however, that if the symptoms persist or worsen the patient needs to return immediately for re-evaluation. 03:08 ED course: Pt with diarrhea and intermittent abd cramping, most likely viral syndrome, rn normal WBC and other bloodwork, normal lipase, will dc home with return precautions.. 08/19 00:36 Order name: Basic Metabolic Panel; Complete Time: 03:08 rn 08/19 00:36 Order name: CBC with Diff; Complete Time: 01:55 rn 08/19 00:36 Order name: Hepatic Function; Complete Time: 03:08 rn 08/19 00:36 Order name: Lipase; Complete Time: 03:08 rn 08/19 01:12 Order name: Urine Dipstick--Ancillary (enter results); Complete Time: 01:55 mw2 08/19 01:12 Order name: Urine --Ancillary (enter results); Complete Time: 01:55 mw2 08/19 00:36 Order name: IV Saline Lock; Complete Time: 01:37 rn 08/19 00:36 Order name: Labs collected and sent; Complete Time: 01:37 rn 08/19 00:36 Order name: Urine Dipstick-Ancillary (obtain specimen); Complete Time: 01:10 rn 08/19 00:36 Order name: Urine Test (obtain specimen); Complete Time: 01:10 rn Administered Medications: 01:37 Drug: Zofran 4 mg Route: IVP; Site: right upper arm; aa1 02:38 Follow up: Response: No adverse reaction; Nausea is decreased aa1 01:37 Drug: Demerol 25 mg Route: IVP; Site: right upper arm; aa1 02:38 Follow up: Response: No adverse reaction; Pain is unchanged, physician notified aa1 02:38 Drug: GI Cocktail without - (Maalox Suspension 30 ml, Lidocaine Liquid 2 % 15 aa1 ml) Route: PO; 03:28 Follow up: Response: No adverse reaction; Pain is decreased aa1 Disposition: 08/19/18 03:09 Discharged to Home. Impression: Diarrhea, unspecified, Unspecified abdominal pain. - Condition is Stable. - Discharge Instructions: Abdominal Pain, Adult, Diarrhea, Adult. - Work release form, Medication Reconciliation Form, Thank You Letter, Antibiotic Education, Prescription Opioid Use form. - Follow up: Private Physician; When: As needed; Reason: Recheck today's complaints, Re-evaluation by your physician. - Problem is new. - Symptoms have improved. Signatures: Dispatcher [employer] EDMS Felisha Cooper RN RN aa1 Steven Francis MD MD rn Riggs, Erika, RN RN ed1 Corrections: (The following items were deleted from the chart) 03:31 03:09 08/19/2018 03:09 Discharged to Home. Impression: Diarrhea, unspecified; aa1 Unspecified abdominal pain. Condition is Stable. Forms are Medication Reconciliation Form, Thank You Letter, Antibiotic Education, Prescription Opioid Use. Follow up: Private Physician; When: As needed; Reason: Recheck today's complaints, Re-evaluation by your physician. Problem is new. Symptoms have improved. rn
[2018-08-19 03:59] VITALS: BP 114/75; TEMP 97; O2SAT 100
== END 2018-08-19 03:31 | disposition home or self-care (01) ==
LOC: ER 23:18
DX: R19.7 Diarrhea, unspecified (principal); I10 Essential (primary) hypertension; E11.9 Type 2 diabetes mellitus without complications; F41.9 Anxiety disorder, unspecified; Z88.6 Allergy status to analgesic agent; Z88.8 Allergy status to other drugs, medicaments and biological substances
CPT/HCPCS: 36415; 80048; 80076; 81003; 81025; 83690; 85025; 96374; 96375; 99284; J2175; J2405

== ENCOUNTER 2018-10-08 18:42 | Emergency (ER) | payer BC ==
--- OUTSIDE RECORDS SUMMARY | 2018-10-08 18:45 | XMS REPORT ---
:1980 [facility] Address [address] [place] [address] Dr. Morales [address] [place] [id number] Care Team Providers Name Role Phone Unavailable Unavailable Unavailable Problems This patient has no known problems. Allergies, Adverse Reactions, Alerts This patient has no known allergies or adverse reactions. Medications This patient has no known medications.
--- OUTSIDE RECORDS SUMMARY | 2018-10-08 18:45 | XMS REPORT | Clinical Summary ---
:1980 Author Organization [facility] Address [address] [place] [address] Care Team Providers Name Role Phone Unavailable [...] INFLUENZA VACCINE 01/15/2018 Results Not on fileafter 10/07/2017 Insurance Payer Benefit Plan / Subscriber ID Type Phone Address Group BLUE CROSS/BLUE BCBS PPO POS EPO xxxxxxxxxxxx PPO [phone] [address] [place] [address] (Home) [place] [address]
[2018-10-08] MEDS ORDERED: METHYLPREDNISOLONE 125 MG INJ ONE (19:50)
[2018-10-08] MEDS ORDERED: LEVALBUTEROL 1.25 MG/3 ML NEB ONE (19:50)
[2018-10-08] MEDS ORDERED: NA CHLORIDE 0.9% 2,000 ML ONE (19:51)
[2018-10-08 20:11] LABS: Absolute Lymphocytes (CBC) 2.8 K/uL (0.7-4.9); Eosinophils % 2.2 % (0-4.4); Hematocrit 47.8 % (36.0-45.0); Lymphocytes % 33.6 % (15.3-44.8); MPV 9.2 fL (7.6-11.3); Monocytes % 6.7 % (3.3-12.3); RBC Red Blood Cell Count 5.21 M/uL (3.86-4.86)
[2018-10-08 20:15] LABS: Protime INR 0.96
[2018-10-08 20:30] LABS: ALT/SGPT 26 U/L (12-78); AST/SGOT 17 U/L (15-37); Albumin 4.2 g/dL (3.4-5.0); Alkaline Phosphatase 62 U/L (45-117); BUN Blood Urea Nitrogen 9 mg/dL (7-18); Bicarbonate 25 mmol/L (21-32); Bilirubin Direct 0.1 mg/dL (0-0.2); Bilirubin Total 0.4 mg/dL (0.2-1.0); CKMB Creatine Kinase MB < 1.0 ng/mL (0.3-3.6); Creatine Phosphokinase 122 U/L (26-192); Glucose Level 141 mg/dL (74-106); Lipase 142 U/L (73-393); Potassium 3.6 mmol/L (3.5-5.1); Protein, Total 8.4 g/dL (6.4-8.2); Sodium Level 141 mmol/L (136-145)
[2018-10-08] MEDS ORDERED: KETOROLAC 30 MG/ML INJ ONE (20:45)
[2018-10-08] MEDS ORDERED: MORPHINE 4 MG/ML SYR ONE (21:01)
[2018-10-08] MEDS ORDERED: ENOXAPARIN 100 MG/ML SYR SQ ONE (21:19)
[2018-10-08] MEDS ORDERED: ENOXAPARIN 30 MG/0.3 ML SQ ONE (21:19)
[2018-10-08] MEDS ORDERED: HYDROMORPHONE HCL 1 MG/ML INJ ONE ×2 (22:01→23:21)
[2018-10-08] MEDS ORDERED: LORazepam 2 MG/ML VIAL ONE (22:13)
--- NOTE | 2018-10-08 22:52 | ER ---
Nurse's Notes [facility] Name: Silvina Cohen Age: 37 yrs Sex: Female : 1980 Arrival Date: 10/08/2018 Time: 18:45 Bed 15 Private MD: Diagnosis: Chest pain, unspecified-wall;Type 2 diabetes mellitus;Anxiety disorder, unspecified Presentation: 10/08 18:45 Presenting complaint: Patient states: when i cough, my chest hurts and it started today hj and my L lower back hurts; reports nausea; denies fever and chills;. Transition of care: patient was not received from another setting of care. Onset of symptoms was October 08, 2018. Risk Assessment: Do you want to hurt yourself or someone else? Patient reports no desire to harm self or others. Initial Sepsis Screen: Does the patient meet any 2 criteria? No. Patient's initial sepsis screen is negative. Does the patient have a suspected source of infection? No. Patient's initial sepsis screen is negative. Care prior to arrival: None. 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 - Social history:: Smoking status: unknown. - Ebola Screening: : Patient negative for fever greater than or equal to 101.5 degrees Fahrenheit, and additional compatible Ebola Virus Disease symptoms. Screenin:27 Abuse screen: Denies threats or abuse. Nutritional screening: No deficits noted. jd3 Tuberculosis screening: No symptoms or risk factors identified. Fall Risk Ambulatory Aid- None/Bed Rest/Nurse Assist (0 pts). Gait- Normal/Bed Rest/Wheelchair (0 pts) Mental Status- Oriented to own ability (0 pts). Total Thomas Fall Scale indicates No Risk (0-24 pts). Assessment: 19:40 General: Appears uncomfortable, Behavior is cooperative, appropriate for age, anxious. jd3 Pain: Complains of pain in chest Pain does not radiate. Quality of pain is described as sharp, Pain began gradually. Neuro: Level of Consciousness is awake, alert, obeys commands, Oriented to person, place, time, situation. Cardiovascular: Reports chest pain, Heart tones S1 S2 present Capillary refill < 3 seconds Patient's skin is warm and dry. Rhythm is regular. Respiratory: Reports shortness of breath at rest Airway is patent Respiratory effort is even, unlabored, Respiratory pattern is regular, symmetrical, Breath sounds are clear bilaterally. GI: Abdomen is round non-distended, obese, Abd is soft and non tender X 4 quads. Reports nausea, Patient currently denies constipation, diarrhea. : No signs and/or symptoms were reported regarding the genitourinary system. EENT: No signs and/or symptoms were reported regarding the EENT system. Derm: Skin is intact, Skin is dry, Skin is normal, Skin temperature is warm. Musculoskeletal: Circulation, motion, and sensation intact. Range of motion: intact in all extremities. 20:45 Reassessment: Patient and/or family updated on plan of care and expected duration. Pain jd3 level reassessed. pt reporting worsening chest pain and difficulty breathing. nurse and provider at bedside. non-rebreathe mask applied. oxygen at 100%. 21:15 Reassessment: Patient and/or family updated on plan of care and expected duration. Pain jd3 level reassessed. Patient is alert, oriented x 3, equal unlabored respirations, skin warm/dry/pink. pt reporting easing of shortness of breath. nurse and sister at bedside. pt took off non- re breather mask, oxygen at 100% room air. pt agreed to be placed on nasal canula. 100% on 2 L. 22:03 Reassessment: pt reporting extreme anxiety at CT with oil bay technician. provider notified. new jd3 order received. pt medicated in CT room. 22:26 Reassessment: Patient and/or family updated on plan of care and expected duration. Pain jd3 level reassessed. Patient is alert, oriented x 3, equal unlabored respirations, skin warm/dry/pink. reporting decreased anxiety and decreased pain. 23:29 Reassessment: Patient appears in no apparent distress at this time. Patient and/or jd3 family updated on plan of care and expected duration. Pain level reassessed. Patient is alert, oriented x 3, equal unlabored respirations, skin warm/dry/pink. pt with even and steady gait. even and unlabored respirations. reported decreased pain. reported understanding of discharge instructions. Vital Signs: 18:47 BP 132 / 92; Pulse 69; Resp 18; Temp 97.9(O); Pulse Ox 97% on R/A; Weight 131.09 kg; hj Height 5 ft. 9 in. (175.26 cm); Pain 9/10; 19:31 BP 102 / 61; Pulse 63; Resp 19 S; Pulse Ox 94% on R/A; Pain 9/10; jd3 20:37 BP 137 / 71; Pulse 72; Resp 18 S; Pulse Ox 100% on R/A; jd3 21:25 BP 116 / 68; Pulse 91; Resp 18 S; Pulse Ox 100% on R/A; Pain 8/10; jd3 22:27 BP 138 / 70; Pulse 83; Resp 19 S; Pulse Ox 97% on R/A; jd3 23:26 BP 145 / 81; Pulse 71; Resp 19 S; Pulse Ox 96% on R/A; Pain 5/10; jd3 18:47 Body Mass Index 42.68 (131.09 kg, 175.26 cm) ED Course: 18:45 Patient arrived in ED. hj 18:46 Triage completed. hj 18:47 Arm band placed on left wrist. hj 19:16 Brad Del Valle MD is Attending Physician. kdr 19:32 Xavi Jj, ELLYN is Primary Nurse. jd3 19:46 Chest Single View XRAY In Process Unspecified. EDMS 19:50 monitoring analyst on. Pulse ox on. NIBP on. jd3 20:32 Inserted saline lock: 18 gauge in right antecubital area, using aseptic technique. bb Missed attempt(s): 20 gauge in right antecubital area. Bleeding controlled, band aid applied, catheter tip intact. 21:[address] nj 21:52 Attending Physician role handed off by Brad Del Valle MD frandy 21:52 Alessandro Singer MD is Attending Physician. frandy 22:19 CT Chest For PE Angio In Process Unspecified. EDMS 23:27 Patient has correct armband on for positive identification. Placed in gown. Bed in low jd3 position. Call light in reach. Side rails up X2. Adult w/ patient. 23:28 No provider procedures requiring assistance completed. IV discontinued, intact, jd3 bleeding controlled, No redness/swelling at site. Pressure dressing applied. Patient maintains SpO2 saturation greater than 95% on room air. Administered Medications: 19:43 Drug: Xopenex (3) 1.25 mg Route: Inhalation; jd3 21:40 Follow up: Response: No adverse reaction jd3 20:32 Drug: SOLU-Medrol 125 mg Route: IVP; Site: right antecubital; bb 21:30 Follow up: Response: No adverse reaction jd3 20:33 Drug: NS 0.9% (30 ml/kg) 30 ml/kg Route: IV; Rate: bolus; Site: right antecubital; bb 23:30 Follow up: Response: No adverse reaction; IV Status: Order to discontinue infusion; IV jd3 Intake: 2000ml 20:41 Drug: TORadol - Ketorolac 15 mg Route: IVP; Site: right antecubital; jd3 21:40 Follow up: Response: No change in condition jd3 20:59 Drug: morphine 2 mg Route: IVP; Site: right antecubital; jd3 21:55 Follow up: Response: No adverse reaction jd3 21:09 Drug: Lovenox 1 mg/kg Route: Sub-Q; Site: abdomen; jd3 22:05 Follow up: Response: No adverse reaction jd3 22:01 Drug: Dilaudid 1 mg Route: IVP; Site: right antecubital; jd3 23:00 Follow up: Response: No adverse reaction jd3 22:03 Drug: Ativan 1 mg Route: IVP; Site: right antecubital; jd3 23:00 Follow up: Response: No adverse reaction; Anxiety decreased jd3 23:11 Drug: Dilaudid 1 mg Route: IVP; Site: right antecubital; jd3 23:30 Follow up: Response: No adverse reaction jd3 23:12 Drug: Aspirin 81 mg Route: PO; jd3 23:30 Follow up: Response: No adverse reaction jd3 23:12 Drug: Zofran 4 mg Route: IVP; Site: right antecubital; jd3 23:30 Follow up: Response: No adverse reaction jd3 Intake: 23:30 IV: 2000ml; Total: 2000ml. jd3 Outcome: 22:51 Discharge ordered by . frandy 23:28 Discharged to home ambulatory, with family. jd3 23:28 Condition: stable 23:28 Discharge instructions given to patient, family, Instructed on discharge instructions, follow up and referral plans. medication usage, Demonstrated understanding of instructions, follow-up care, medications, Prescriptions given X 2. 23:30 Patient left the ED. jd3 Signatures: Dispatcher [employer] EDMS Alessandro Singer MD MD cha Rittger, Kevin, MD MD kdr Ballard, Brenda RN RN Denver Brunson RN RN Lucius Aragon Jonathon, RN RN jd3 Corrections: (The following items were deleted from the chart) 18:49 18:47 Pulse 69bpm; Resp 18bpm; Pulse Ox 97% RA; Temp 97.9F Oral; 131.09 kg; Height 5 hj ft. 9 in.; BMI: 42.6; Pain 9/10; hj 21:34 20:58 Reassessment: pt reporting easing of shortness of breath. nurse and sister at [facility] bedside. pt took off non- re breather mask, oxygen at 100% room air. jd3 22:06 20:45 Reassessment: pt reporting worsening chest pain and difficulty breathing. nurse [facility] and provider at bedside. non-rebreathe mask applied. oxygen at 100%. jd3 22:06 21:15 Reassessment: Patient and/or family updated on plan of care and expected jd3 duration. Pain level reassessed. Patient is alert, oriented x 3, equal unlabored respirations, skin warm/dry/pink. pt reporting easing of shortness of breath. nurse and sister at bedside. pt took off non- re breather mask, oxygen at 100% room air. pt agreed to be placed on nasal canula. 100% on 2 L. jd3
--- NOTE | 2018-10-08 22:52 | EDPHYS ---
Physician Documentation [facility] Name: Silvina Cohen Age: 37 yrs Sex: Female : 1980 Arrival Date: 10/08/2018 Time: 18:45 Bed 15 Private MD: ED Physician Alessandro Singer HPI: 10/08 20:43 This 37 yrs old Black Female presents to ER via Ambulatory with complaints of Chest kdr Pain, Shortness Of Breath. 20:43 The patient or guardian reports chest pain that is located primarily in the substernal kdr area. The pain does not radiate. Associated signs and symptoms: Pertinent positives: None. headache, Pertinent negatives: abdominal pain, cough, diaphoresis, dizziness, lower extremity pain, lightheadedness, nausea, near syncope, palpitations, recent travel, shortness of breath, syncope. The chest pain is described as aching. Duration: The patient or guardian reports a single episode, that is still ongoing, and unchanged. Modifying factors: The symptoms are alleviated by nothing. the symptoms are aggravated by breathing, cough, deep breath, emotionally stressful situations. Severity of pain: At its worst the pain was moderate in the emergency department the pain. 20:55 The patient has not experienced similar symptoms in the past. The patient has not kdr recently seen a physician. 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 - Social history:: Smoking status: unknown. - Ebola Screening: : Patient negative for fever greater than or equal to 101.5 degrees Fahrenheit, and additional compatible Ebola Virus Disease symptoms. ROS: 20:55 Constitutional: Negative for fever, chills, and weight loss, Eyes: Negative for injury, kdr pain, redness, and discharge, Neck: Negative for injury, pain, and swelling, Abdomen/GI: Negative for abdominal pain, nausea, vomiting, diarrhea, and constipation, : Negative for injury, bleeding, discharge, and swelling, MS/Extremity: Negative for injury and deformity, Skin: Negative for injury, rash, and discoloration, Neuro: Negative for headache, weakness, numbness, tingling, and seizure activity. Psych: Negative for depression, anxiety, suicide ideation, homicidal ideation, and hallucinations, Allergy/Immunology: Negative for hives, rash, and allergies, Endocrine: Negative for neck swelling, polydipsia, polyuria, polyphagia, and marked weight changes, Hematologic/Lymphatic: Negative for swollen nodes, abnormal bleeding, and unusual bruising. 20:55 Cardiovascular: Positive for chest pain, with cough, with movement, of the mid-sternal area, Negative for edema, orthopnea, palpitations. 20:55 Respiratory: Positive for dyspnea on exertion, shortness of breath, at rest. Negative for hemoptysis, orthopnea. 20:55 Back: Positive for flank pain, on the left. Exam: 20:55 Constitutional: This is a well developed, well nourished patient who is awake, alert, kdr and in mild to moderate distress. Head/Face: Normocephalic, atraumatic. Eyes: Pupils equal round and reactive to light, extra-ocular motions intact. Lids and lashes normal. Conjunctiva and sclera are non-icteric and not injected. Cornea within normal limits. Periorbital areas with no swelling, redness, or edema. Neck: Trachea midline, no thyromegaly or masses palpated, and no cervical lymphadenopathy. Supple, full range of motion without nuchal rigidity, or vertebral point tenderness. No Meningismus. Chest/axilla: Normal chest wall appearance and motion. Nontender with no deformity. No lesions are appreciated. Abdomen/GI: Soft, non-tender, with normal bowel sounds. No distension or tympany. No guarding or rebound. No evidence of tenderness throughout. Back: No spinal tenderness. No costovertebral tenderness. Full range of motion. Skin: Warm, dry with normal turgor. Normal color with no rashes, no lesions, and no evidence of cellulitis. MS/ Extremity: Pulses equal, no cyanosis. Neurovascular intact. Full, normal range of motion. Neuro: Awake and alert, GCS 15, oriented to person, place, time, and situation. Cranial nerves II-XII grossly intact. Motor strength 5/5 in all extremities. Sensory grossly intact. Cerebellar exam normal. Normal gait. Psych: Awake, alert, with orientation to person, place and time. Behavior, mood, and affect are within normal limits. 20:55 Cardiovascular: Rate: normal, Rhythm: regular, Pulses: no pulse deficits are appreciated, Heart sounds: normal, Edema: is not appreciated. 20:55 Respiratory: mild respiratory distress is noted, Respirations: labored breathing, that is mild, Breath sounds: are clear throughout. 21:02 ECG was reviewed by the Attending Physician. kdr 22:48 Musculoskeletal/extremity: Extremities: all appear grossly normal, with no appreciated frandy pain with palpation, ROM: intact in all extremities, full active range of motion, full passive range of motion, Circulation is intact in all extremities. Sensation intact. Compartment Syndrome exam of affected extremity: is normal. no pain, no numbness, no tingling, no sensation deficit, no palor, no weak pulses, DVT Exam: No signs of deep vein thrombosis. no pain, no swelling, no tenderness, negative Homans' sign noted on exam, no appreciated bluish discoloration, no erythema, no increased warmth. Vital Signs: 18:47 BP 132 / 92; Pulse 69; Resp 18; Temp 97.9(O); Pulse Ox 97% on R/A; Weight 131.09 kg; hj Height 5 ft. 9 in. (175.26 cm); Pain 9/10; 19:31 BP 102 / 61; Pulse 63; Resp 19 S; Pulse Ox 94% on R/A; Pain 9/10; jd3 20:37 BP 137 / 71; Pulse 72; Resp 18 S; Pulse Ox 100% on R/A; jd3 21:25 BP 116 / 68; Pulse 91; Resp 18 S; Pulse Ox 100% on R/A; Pain 8/10; jd3 22:27 BP 138 / 70; Pulse 83; Resp 19 S; Pulse Ox 97% on R/A; jd3 23:26 BP 145 / 81; Pulse 71; Resp 19 S; Pulse Ox 96% on R/A; Pain 5/10; jd3 18:47 Body Mass Index 42.68 (131.09 kg, 175.26 cm) MDM: 20:55 Data reviewed: vital signs, nurses notes, lab test result(s), EKG, radiologic studies. kdr 21:52 Patient medically screened. [facility] 10/08 19:23 Order name: Basic Metabolic Panel [facility] 10/08 19:23 Order name: Blood Culture Adult (2) kdr 10/08 19:23 Order name: CBC with Diff [facility] 10/08 19:23 Order name: Ckmb [facility] 10/08 19:23 Order name: CPK [facility] 10/08 19:23 Order name: Lactate [facility] 10/08 19:23 Order name: LFT's [facility] 10/08 19:23 Order name: Lipase; Complete Time: 20:54 [facility] 10/08 19:23 Order name: Procalcitonin; Complete Time: 22:08 [facility] 10/08 19:23 Order name: Protime (+inr); Complete Time: 22:08 [facility] 10/08 19:23 Order name: Ptt, Activated; Complete Time: 22:08 [facility] 10/08 19:23 Order name: Troponin (emerg Dept Use Only); Complete Time: 20:54 [facility] 10/08 19:24 Order name: Basic Metabolic Panel; Complete Time: 20:54 [facility] 10/08 19:23 Order name: Chest Single View XRAY [facility] 10/08 19:24 Order name: Blood Culture [facility] 10/08 19:24 Order name: CBC with Automated Diff; Complete Time: 20:54 ED[facility] 10/08 19:24 Order name: CKMB Creatine Kinase MB; Complete Time: 20:54 [facility] 10/08 19:24 Order name: Creatine Phosphokinase; Complete Time: 20:54 [facility] 10/08 19:24 Order name: Lactate; Complete Time: 20:54 [facility] 10/08 19:24 Order name: Liver (Hepatic) Function; Complete Time: 20:54 [facility] 10/08 20:54 Order name: CT Chest For PE Angio [facility] 10/08 20:59 Order name: D-Dimer; Complete Time: 22:08 [facility] 10/08 19:23 Order name: Cardiac monitoring; Complete Time: 20:43 [facility] 10/08 19:23 Order name: EKG - Nurse/Tech; Complete Time: 20:43 [facility] 10/08 19:23 Order name: IV Saline Lock - Large Bore; Complete Time: 20:34 [facility] 10/08 19:23 Order name: Labs collected and sent; Complete Time: 20:03 [facility] 10/08 19:23 Order name: O2 Per Protocol; Complete Time: 20:03 [facility] 10/08 19:23 Order name: O2 Sat Monitoring; Complete Time: 20:03 kdr EC:02 Rate is 82 beats/min. Rhythm is regular. Left axis deviation noted. VA interval is kdr normal. QRS interval is normal. QT interval is normal. No Q waves. Clinical impression: NSR w/ Non-specific ST/T Changes. Administered Medications: 19:43 Drug: Xopenex (3) 1.25 mg Route: Inhalation; jd3 21:40 Follow up: Response: No adverse reaction jd3 20:32 Drug: SOLU-Medrol 125 mg Route: IVP; Site: right antecubital; bb 21:30 Follow up: Response: No adverse reaction jd3 20:33 Drug: NS 0.9% (30 ml/kg) 30 ml/kg Route: IV; Rate: bolus; Site: right antecubital; bb 23:30 Follow up: Response: No adverse reaction; IV Status: Order to discontinue infusion; IV jd3 Intake: 2000ml 20:41 Drug: TORadol - Ketorolac 15 mg Route: IVP; Site: right antecubital; jd3 21:40 Follow up: Response: No change in condition jd3 20:59 Drug: morphine 2 mg Route: IVP; Site: right antecubital; jd3 21:55 Follow up: Response: No adverse reaction jd3 21:09 Drug: Lovenox 1 mg/kg Route: Sub-Q; Site: abdomen; jd3 22:05 Follow up: Response: No adverse reaction jd3 22:01 Drug: Dilaudid 1 mg Route: IVP; Site: right antecubital; jd3 23:00 Follow up: Response: No adverse reaction jd3 22:03 Drug: Ativan 1 mg Route: IVP; Site: right antecubital; jd3 23:00 Follow up: Response: No adverse reaction; Anxiety decreased jd3 23:11 Drug: Dilaudid 1 mg Route: IVP; Site: right antecubital; jd3 23:30 Follow up: Response: No adverse reaction jd3 23:12 Drug: Aspirin 81 mg Route: PO; jd3 23:30 Follow up: Response: No adverse reaction jd3 23:12 Drug: Zofran 4 mg Route: IVP; Site: right antecubital; jd3 23:30 Follow up: Response: No adverse reaction jd3 Disposition: 10/08/18 22:51 Discharged to Home. Impression: Chest pain, unspecified - wall, Type 2 diabetes mellitus, Anxiety disorder, unspecified. - Condition is Stable. - Discharge Instructions: Chest Wall Pain, [id number], Aspirin and Your Heart. - Prescriptions for Skelaxin 800 mg Oral Tablet - take 1 tablet by ORAL route every 8 hours As needed; 21 tablet. Tramadol 50 mg Oral Tablet - take 1 tablet by ORAL route every 8 hours as needed; 24 tablet. - Medication Reconciliation Form, Thank You Letter, Antibiotic Education, Prescription Opioid Use, Work release form form. - Follow up: Private Physician; When: 2 - 3 days; Reason: Recheck today's complaints, Continuance of care, Re-evaluation by your physician. - Problem is new. - Symptoms have improved. Signatures: Dispatcher [employer] [facility] Alessandro Singer MD MD cha Rittger, Kevin, MD MD kdr Ballard, Brenda, RN RN Denver Brunson RN RN hj Davies, Jonathon, RN RN jd3 Corrections: (The following items were deleted from the chart) 20:59 20:55 D-DIMER+[id number].LAB.BRZ ordered. [facility] 23:30 22:51 10/08/2018 22:51 Discharged to Home. Impression: Chest pain, unspecified - wall; jd3 Type 2 diabetes mellitus; Anxiety disorder, unspecified. Condition is Stable. Forms are Medication Reconciliation Form, Thank You Letter, Antibiotic Education, Prescription Opioid Use. Follow up: Private Physician; When: 2 - 3 days; Reason: Recheck today's complaints, Continuance of care, Re-evaluation by your physician. Problem is new. Symptoms have improved. frandy
[2018-10-08] MEDS ORDERED: ASPIRIN 81 MG CHEWABLE TABLET ONE (23:20)
[2018-10-08] MEDS ORDERED: ONDANSETRON 4 MG/2 ML VIAL ONE (23:21)
[2018-10-09 01:20] VITALS: TEMP 97.9
[2018-10-09 01:29] VITALS: BP 145/81; O2SAT 96
--- NOTE | 2018-10-09 08:38 | RAD REPORT ---
EXAM DESCRIPTION: RAD - Chest Single View - 10/08/2018 7:46 pm CLINICAL HISTORY: Chest pain COMPARISON: December 2017 TECHNIQUE: AP portable chest image was obtained 1934 hours . FINDINGS: Lungs are clear. Heart and vasculature are normal. No measurable pleural effusion and no p neumothorax. No acute bony abnormality seen. No acute aortic findings suspected. IMPRESSION: No acute cardiopulmonary process. No suspicious change from comparison.
--- NOTE | 2018-10-09 11:21 | RAD REPORT ---
EXAM DESCRIPTION: CT - Chest For Pe Angio - 10/09/2018 1:16 am CLINICAL HISTORY: 37 years Female, Chest pain;SOB COMPARISON: 05/06/2017.. TECHNIQUE: 3 mm axial images of the thorax were obtained with IV contrast. 3 mm coronal and sagittal reformatted images were obtained. 2 mm right and left coronal oblique images were obtained. This exam was performed according to our departmental dose-optimization program, which includes autom ated exposure control, adjustment of the mA and/or kV according to patient size and/or use of iterati ve reconstruction technique.. INTRAVENOUS CONTRAST: Not documented. Please refer to medical record. FINDINGS: LUNG MALDONADO: No active infiltrates. No mass lesions. Minimal MEDIASTINAL STRUCTURES: There is no evidence of aortic aneurysm or dissection. There is no evidence of pericardial effusion. There is no adenopathy. PULMONARY ARTERIES: No evidence of pulmonary embolus. PLEURAL SPACE: Normal. UPPER ABDOMEN: Hepatomegaly with diffuse fatty liver infiltration. AXILLAE: No adenopathy. BONY STRUCTURES: Unremarkable. IMPRESSION: 1. Normal study. Electronically signed by: Dashawn Rowland MD 10/08/2018 10:27 PM CDT Due to temporary technical issues with the PACS/Fluency reporting system, reports are being signed by the in house radiologist as a courtesy to ensure prompt reporting. The interpreting radiologist is f ully responsible for the content of the report.
--- NOTE | 2018-10-09 14:50 | EKG ---
Test Date: 2018-10-08 Test Time: 20:34:11 Cook Frozen Dessert: NICKOLAS MEASUREMENT RESULTS: Intervals: Rate: 85 AK: 162 QRSD: 86 QT: 390 QTc: 464 Willis: P: 33 AK: 162 QRS: 30 T: 5 INTERPRETIVE STATEMENTS: Normal sinus rhythm Possible Left atrial enlargement Cannot rule out Anterior infarct, age undetermined Abnormal ECG Compared to ECG 08/16/2017 23:18:59 Myocardial infarct finding now present T-wave abnormality no longer present Possible ischemia no longer present Electronically Signed On 10-09-18 14:47:25 CDT by Kt Ernst
== END 2018-10-08 23:30 | disposition home or self-care (01) ==
LOC: ER 18:42
DX: R07.9 Chest pain, unspecified (principal); F41.9 Anxiety disorder, unspecified; E11.9 Type 2 diabetes mellitus without complications; I10 Essential (primary) hypertension; Z88.5 Allergy status to narcotic agent; Z88.8 Allergy status to other drugs, medicaments and biological substances
CPT/HCPCS: 36415; 71045; 71275; 80048; 80076; 82550; 82553; 83605; 83690; 84145; 84484; 85025; 85379; 85610; 85730; 87040; 93005; 96365; 96366; 96372; 96375; 99285; J1170; J1650; J2405; J2930; J7030; Q9967

== ENCOUNTER 2019-04-08 07:34 | Emergency (ER) | payer BC ==
--- OUTSIDE RECORDS SUMMARY | 2019-04-08 07:35 | XMS REPORT ---
:1980 [facility] Address [address] [place] [address] Dr. Morales [address] [place] [id number] Care Team Providers Name Role Phone Unavailable Unavailable Unavailable Payers Payer Name Policy Type Policy Number Effective Date Expiration Date Problems This patient has no known problems. Allergies, Adverse Reactions, Alerts Allergy Allergy Status Severity Reaction(s) Onset Inactive Treating Comments Name Type Date Date Clinician NAPROXEN DA Active U 2007-04 00:00:0 0 No Known DA Active U 2007-04 Contrast -20 Allergies 00:00:0 0 No Known DA Active U 2007-04 Food -20 Allergies 00:00:0 0 No Known DA Active U 2007-04 Other -20 Allergies 00:00:0 0 ZOFRAN DA Active U 2007-04 00:00:0 0 Medications This patient has no known medications.
[2019-04-08] MEDS ORDERED: ONDANSETRON 4 MG/2 ML VIAL ONE (09:34)
[2019-04-08] MEDS ORDERED: MORPHINE 2 MG/ML SYR ONE ×2 (09:34→10:33)
[2019-04-08] MEDS ORDERED: NA CHLORIDE 0.9% 1,000 ML ONE (09:34)
[2019-04-08] MEDS ORDERED: MAGNE/ALUM HYDROXD 30 ML UCUP ONE (09:34)
[2019-04-08] MEDS ORDERED: LIDOCAINE VISCOUS 2% SOLN 15 ML UDC ONE (09:35)
[2019-04-08] MEDS ORDERED: FAMOTIDINE 20 MG/2 ML VIAL IV ONE (09:35)
--- NOTE | 2019-04-08 11:21 | ER ---
Nurse's Notes [facility] Name: Silvina Cohen Age: 38 yrs Sex: Female : 1980 Arrival Date: 04/08/2019 Time: 07:35 Bed 5 Private MD: Diagnosis: Gastritis, unspecified Presentation: 04/08 07:44 Presenting complaint: Patient states: RUQ pain, N/V and diarrhea since 0100, states, " ph There was some bright red in my stool at first and then it got dark looking." Reports hx of diverticulitis. Transition of care: patient was not received from another setting of care. Onset of symptoms was April 08, 2019. Risk Assessment: Do you want to hurt yourself or someone else? Patient reports no desire to harm self or others. Initial Sepsis Screen: Does the patient meet any 2 criteria? No. Patient's initial sepsis screen is negative. Does the patient have a suspected source of infection? No. Patient's initial sepsis screen is negative. Care prior to arrival: None. 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 ph Historical: - Allergies: 07:51 Flexeril; ph 07:51 Naproxen; ph - Home Meds: 07:51 Ambien 10 mg Oral tab 1 tab once daily [Active]; gabapentin 300 mg Oral cap 1 cap daily ph [Active]; metformin 500 mg Oral Tb24 1 tab 2 times per day [Active]; metoprolol tartrate 50 mg Oral tab 1 tab 2 times per day [Active]; [place] 10-325 mg Oral tab as needed [Active]; Phenergan Oral 25 mg as needed [Active]; Trulicity 0.75 mg/0.5 mL subcutaneous pnij 0.5 mL once wkly [Active]; Victoza 2-Marvel subcutaneous [Active]; Xanax 2 mg Oral tab 1 tab [Active]; - PMHx: 07:51 Anxiety; Back pain; Diabetes - NIDDM; HYPERGLYCEMIA; Hypertension; ph - PSHx: 07:51 Hysterectomy; Hernia repair; Cholecystectomy; cyst removal; ph - Immunization history:: Adult Immunizations unknown. - Social history:: Smoking status: Patient/guardian denies using tobacco, Patient/guardian denies using alcohol, street drugs, The patient lives with family. - Ebola Screening: : No symptoms or risks identified at this time. - Family history:: not pertinent. Screenin:52 Abuse screen: Denies threats or abuse. Denies injuries from another. Nutritional ph screening: No deficits noted. Tuberculosis screening: No symptoms or risk factors identified. Fall Risk None identified. Assessment: 07:55 General: Appears in no apparent distress. uncomfortable, obese, well groomed, Behavior ph is calm, cooperative, appropriate for age, Reports chills for 0-12 hours. 07:55 Pain: Complains of pain in right upper quadrant Pain radiates to left upper quadrant ph Pain began at approx 1 am. Neuro: Level of Consciousness is awake, alert, obeys commands, Oriented to person, place, time, situation. Cardiovascular: Capillary refill < 3 seconds in bilateral fingers Patient's skin is warm and dry. Respiratory: Airway is patent Respiratory effort is even, unlabored, Respiratory pattern is regular, symmetrical. GI: Abdomen is non-distended, obese, Bowel sounds present X 4 quads. Abd is soft X 4 quads Reports upper abdominal pain, diarrhea, bloody stool, nausea, vomiting. Derm: Skin is intact, Skin is pink, warm \\T\\ dry. Musculoskeletal: Circulation, motion, and sensation intact. Range of motion: intact in all extremities. 09:00 Reassessment: Patient appears in no apparent distress at this time. Patient and/or ph family updated on plan of care and expected duration. Pain level reassessed. Patient is alert, oriented x 3, equal unlabored respirations, skin warm/dry/pink. Having difficulty obtaining IV access, ERP notified. 09:55 Reassessment: Patient appears in no apparent distress at this time. Patient and/or ph family updated on plan of care and expected duration. Pain level reassessed. Patient is alert, oriented x 3, equal unlabored respirations, skin warm/dry/pink. Sheep Sorter at bedside to draw blood. 10:30 Reassessment: Lab remains at bedside, attempting to collect blood, dripping from finger ph into pediatric tubes. 11:06 Reassessment: Responded to pt call light, pt states, " I rolled over and my IV came ph out." IV appears intact, bleeding controlled, pt states, " I don't want to be poked again. Recollect also ordered for labs, ERP notified. Vital Signs: 07:51 BP 141 / 76; Pulse 63; Resp 20; Temp 97.7; Pulse Ox 98% on R/A; Weight 130.63 kg; ph Height 5 ft. 9 in. (175.26 cm); Pain 8/10; 08:50 BP 149 / 84; Pulse 65; Resp 18; Pulse Ox 97% on R/A; ph 09:54 BP 138 / 78; Pulse 67; Resp 18; Pulse Ox 99% on R/A; ph 11:12 BP 147 / 78; Pulse 65; Resp 18; Pulse Ox 99% on R/A; ph 07:51 Body Mass Index 42.53 (130.63 kg, 175.26 cm) ph ED Course: 07:35 Patient arrived in ED. as 07:37 Louise Francisco, RN is Primary Nurse. ph 07:38 Reny Salazar MD is Attending Physician. ma2 07:48 Triage completed. ph 07:52 Arm band placed on. ph 07:53 Patient has correct armband on for positive identification. Bed in low position. Call ph light in reach. Side rails up X 1. Pulse ox on. NIBP on. Door closed. Noise minimized. Warm blanket given. Pillow given. 08:11 Missed attempt(s): 22 gauge in left antecubital area. Bleeding controlled, band aid ph applied, catheter tip intact. 08:30 Missed attempt(s): 22 gauge in right antecubital area. vc 08:35 Missed attempt(s): 24 gauge in right antecubital area. vc 09:15 Missed attempt(s): 22 gauge in left antecubital area. Bleeding controlled, band aid sv applied, catheter tip intact. 09:35 Accessed peripheral vein via ultrasound, utilizing dynamic ultrasound technique using ph 20G Nexia IV catheter ,sterile technique, per hospital protocol. Clean \\T\\ dry. Dressing intact. No blood return. Flushes easily. inserted by Dr Salazar. 11:37 No provider procedures requiring assistance completed. IV discontinued, intact, ph bleeding controlled, No redness/swelling at site. Pressure dressing applied. Administered Medications: 09:47 Drug: NS 0.9% 1000 ml Route: IV; Rate: 1 bolus; Site: left antecubital; ph 11:15 Follow up: Response: No adverse reaction; IV Status: IV infiltrated; IV Intake: 600ml ph 09:48 Drug: Zofran 4 mg Route: IVP; Site: left antecubital; ph 10:30 Follow up: Response: No adverse reaction; Nausea is decreased ph 09:49 Drug: Pepcid 20 mg Route: IVP; Site: left antecubital; ph 10:30 Follow up: Response: No adverse reaction ph 09:49 Drug: morphine 2 mg Route: IVP; Site: left antecubital; ph 10:33 Drug: morphine 2 mg Route: IVP; Site: left antecubital; ph 11:00 Follow up: Response: No adverse reaction; Pain is decreased; RASS: Alert and Calm (0) ph 10:45 Drug: GI Cocktail without - (Maalox Suspension 30 ml, Lidocaine Liquid 2 % 15 ph ml) Route: PO; 11:15 Follow up: Response: No adverse reaction ph Intake: 11:15 IV: 600ml; Total: 600ml. ph Outcome: 11:19 Discharge ordered by . montse 11:37 Patient left the ED. ph 11:37 Discharged to home ambulatory. ph 11:37 Condition: good 11:37 Discharge instructions given to patient, Instructed on discharge instructions, follow up and referral plans. medication usage, Demonstrated understanding of instructions, follow-up care, medications, Prescriptions given X 4. Signatures: Audrey Robert RN Ángela Raman Patricia, RN RN Reny Salazar MD MD ma2 Calcote, Vanessa, RN RN vc Corrections: (The following items were deleted from the chart) 09:52 07:55 General: Appears in no apparent distress. uncomfortable, obese, well groomed, ph Behavior is calm, cooperative, appropriate for age, Reports chills for ph
--- NOTE | 2019-04-08 11:21 | EDPHYS ---
Physician Documentation [facility] Name: Silvina Cohen Age: 38 yrs Sex: Female : 1980 Arrival Date: 04/08/2019 Time: 07:35 Bed 5 Private MD: ED Physician Reny Salazar HPI: 04/08 11:17 This 38 yrs old Black Female presents to ER via Ambulatory with complaints of Abdominal ma2 Pain, Nausea/Vomiting. 11:17 The patient presents to the emergency department with nausea, vomiting. Onset: The ma2 symptoms/episode began/occurred gradually, 1 day(s) ago. Associated signs and symptoms: Pertinent negatives: belching, diarrhea, fever, GI bleeding, hematuria. Severity of symptoms: At their worst the symptoms were mild in the emergency department the symptoms are unchanged. The patient has not experienced similar symptoms in the past. 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 - Hysterectomy ph Historical: - Allergies: 07:51 Flexeril; ph 07:51 Naproxen; ph - Home Meds: 07:51 Ambien 10 mg Oral tab 1 tab once daily [Active]; gabapentin 300 mg Oral cap 1 cap daily ph [Active]; metformin 500 mg Oral Tb24 1 tab 2 times per day [Active]; metoprolol tartrate 50 mg Oral tab 1 tab 2 times per day [Active]; [place] 10-325 mg Oral tab as needed [Active]; Phenergan Oral 25 mg as needed [Active]; Trulicity 0.75 mg/0.5 mL subcutaneous pnij 0.5 mL once wkly [Active]; Victoza 2-Marvel subcutaneous [Active]; Xanax 2 mg Oral tab 1 tab [Active]; - PMHx: 07:51 Anxiety; Back pain; Diabetes - NIDDM; HYPERGLYCEMIA; Hypertension; ph - PSHx: 07:51 Hysterectomy; Hernia repair; Cholecystectomy; cyst removal; ph - Immunization history:: Adult Immunizations unknown. - Social history:: Smoking status: Patient/guardian denies using tobacco, Patient/guardian denies using alcohol, street drugs, The patient lives with family. - Ebola Screening: : No symptoms or risks identified at this time. - Family history:: not pertinent. ROS: 11:17 Constitutional: Negative for fever, chills, and weight loss. ma2 11:17 All other systems are negative. Exam: 11:17 Constitutional: This is a well developed, well nourished patient who is awake, alert, ma2 and in no acute distress. Chest/axilla: Normal chest wall appearance and motion. Nontender with no deformity. No lesions are appreciated. Cardiovascular: Regular rate and rhythm with a normal S1 and S2. No gallops, murmurs, or rubs. Normal PMI, no JVD. No pulse deficits. Respiratory: Lungs have equal breath sounds bilaterally, clear to auscultation and percussion. No rales, rhonchi or wheezes noted. No increased work of breathing, no retractions or nasal flaring. Abdomen/GI: Soft, non-tender, with normal bowel sounds. No distension or tympany. No guarding or rebound. No evidence of tenderness throughout. Female : Normal external genitalia. Skin: Warm, dry with normal turgor. Normal color with no rashes, no lesions, and no evidence of cellulitis. MS/ Extremity: Pulses equal, no cyanosis. Neurovascular intact. Full, normal range of motion. Vital Signs: 07:51 BP 141 / 76; Pulse 63; Resp 20; Temp 97.7; Pulse Ox 98% on R/A; Weight 130.63 kg; ph Height 5 ft. 9 in. (175.26 cm); Pain 8/10; 08:50 BP 149 / 84; Pulse 65; Resp 18; Pulse Ox 97% on R/A; ph 09:54 BP 138 / 78; Pulse 67; Resp 18; Pulse Ox 99% on R/A; ph 11:12 BP 147 / 78; Pulse 65; Resp 18; Pulse Ox 99% on R/A; ph 07:51 Body Mass Index 42.53 (130.63 kg, 175.26 cm) ph MDM: 07:38 Patient medically screened. ma2 11:17 Differential diagnosis: Nonspecific abd pain, gastritis, viral gastroenteritis, ma2 gastroenteritis. Data reviewed: vital signs, nurses notes. Counseling: I had a detailed discussion with the patient and/or guardian regarding: the historical points, exam findings, and any diagnostic results supporting the discharge/admit diagnosis, the presence of at least one elevated blood pressure reading (>120/80) during this emergency department visit, the need for outpatient follow up. Response to treatment: the patient's symptoms have resolved after treatment. 04/08 07:55 Order name: Creatinine for Radiology ma2 04/08 07:55 Order name: IV Saline Lock; Complete Time: 09:50 ma2 Administered Medications: 09:47 Drug: NS 0.9% 1000 ml Route: IV; Rate: 1 bolus; Site: left antecubital; ph 11:15 Follow up: Response: No adverse reaction; IV Status: IV infiltrated; IV Intake: 600ml ph 09:48 Drug: Zofran 4 mg Route: IVP; Site: left antecubital; ph 10:30 Follow up: Response: No adverse reaction; Nausea is decreased ph 09:49 Drug: Pepcid 20 mg Route: IVP; Site: left antecubital; ph 10:30 Follow up: Response: No adverse reaction ph 09:49 Drug: morphine 2 mg Route: IVP; Site: left antecubital; ph 10:33 Drug: morphine 2 mg Route: IVP; Site: left antecubital; ph 11:00 Follow up: Response: No adverse reaction; Pain is decreased; RASS: Alert and Calm (0) ph 10:45 Drug: GI Cocktail without - (Maalox Suspension 30 ml, Lidocaine Liquid 2 % 15 ph ml) Route: PO; 11:15 Follow up: Response: No adverse reaction ph Disposition: 04/08/19 11:19 Discharged to Home. Impression: Gastritis, unspecified. - Condition is Stable. - Discharge Instructions: Gastritis, Adult. - Prescriptions for Pepcid 20 mg Oral Tablet - take 1 tablet by ORAL route every 12 hours for 10 days; 20 tablet. Zofran 4 mg Oral Tablet - take 1 tablet by ORAL route every 12 hours As needed; 6 tablet. Tylenol- Codeine #3 300-30 mg Oral Tablet - take 2 tablet by ORAL route every 6 hours As needed; 30 tablet. promethazine 25 mg Oral Tablet - take 1 tablet by ORAL route every 6 hours As needed; 20 tablet. - Work release form, Medication Reconciliation Form, Thank You Letter, Antibiotic Education, Prescription Opioid Use form. - Follow up: Private Physician; When: Tomorrow; Reason: Continuance of care. Signatures: Dispatcher [employer] EDSjeal Navarro Patricia, RN RN ph Reny Salazar MD MD ma2 Corrections: (The following items were deleted from the chart) 11:37 11:19 04/08/2019 11:19 Discharged to Home. Impression: Gastritis, unspecified. ph Condition is Stable. Prescriptions for Pepcid 20 mg Oral Tablet - take 1 tablet by ORAL route every 12 hours for 10 days; 20 tablet, Zofran 4 mg Oral Tablet - take 1 tablet by ORAL route every 12 hours As needed; 6 tablet. and Forms are Medication Reconciliation Form, Thank You Letter, Antibiotic Education, Prescription Opioid Use. Follow up: Private Physician; When: Tomorrow; Reason: Continuance of care. ma2
[2019-04-08 11:50] VITALS: TEMP 97.7
[2019-04-08 11:53] VITALS: O2SAT 99
[2019-04-08 11:54] VITALS: BP 147/78
== END 2019-04-08 11:37 | disposition home or self-care (01) ==
LOC: ER 07:34
DX: K29.70 Gastritis, unspecified, without bleeding (principal); I10 Essential (primary) hypertension; E11.9 Type 2 diabetes mellitus without complications; F41.9 Anxiety disorder, unspecified; Z88.6 Allergy status to analgesic agent
CPT/HCPCS: 96361; 96375; 96374; 99284; J2270 ×2; J7030; J2405

== ENCOUNTER 2019-06-29 00:23 | Emergency (ER) | payer BC ==
--- OUTSIDE RECORDS SUMMARY | 2019-06-29 00:28 | XMS REPORT ---
:1980 [facility] [address] [place] [address] Care Team Providers Name Role Phone POWER BUCK Unavailable Unavailable Payers Payer Name Policy Type Policy Number Effective Date Expiration Date Problems This patient has no known problems. Allergies, Adverse Reactions, Alerts Allergy Allergy Status Severity Reaction(s) Onset Inactive Treating Comments Name Type Date Date Clinician NAPROXEN DA Active U 2007-04 00:00:0 0 No Known DA Active U 2007-04 Contrast - Allergies 00:00:0 0 No Known DA Active U 2007-04 Food -20 Allergies 00:00:0 0 No Known DA Active U 2007-04 Other - Allergies 00:00:0 0 ZOFRAN DA Active U 2007-04 00:00:0 0 Medications This patient has no known medications. Results Test Description Test Time Test Comments Text Results Atomic Results Result Comments BLOOD CULTURE 2019-06-24 14:00:00 Test Item Value Reference Range Comments CULTURE (BEAKER) (test wlsu=0941) No growth in 5 days BLOOD [id number] 14:00:00 Test Item Value Reference Range Comments CULTURE (BEAKER) (test pkss=1050) No growth in 5 days ANG, NON-TUNNELED CATH/PICC >5 Y.O. WITH [id number] 15:20:00Reason for exam:->FDC antibioticsFINAL REPORT PICC LINE PLACEMENT, UNDER FLUOROSCOPY History provided: Need for long-term IV antibiotics PROCEDURE: Informed consent was obtained. Patient's medication list was reviewed. Timeout procedure was performed. All elements of strict sterile barrier were employed, including cap, mask, sterile gloves, and sterile drape. Skin was prepped with ChloraPrep. 1% Xylocaine anesthesia utilized. Ultrasound evaluation of potential access sites was performed. Sterile ultrasound techniques were employed, including sterile gel and sterile probe cover. After successfully identifyinga patent right basilic vein , real-time ultrasound guidance was used to puncture the vessel. A permanent recording was created for the patient's record. Over a guidewire, a peel-away sheath was placed, through which a dual lumen 5 American PICC line trimmed to 43 cm length was advanced and positioned with tip at the cavoatrial junction. Spot film performed for documentation. Catheter flushed and secured in place with 2-0 silk sutures. Sterile dressing applied. Catheter is ready for immediate use. Fluoroscopy time: 0.9 minutes Number of exposures performed: Two Radiation dose (Ka,r): 56.83 mGy Signed: Jorge Alberto Byrnes MDReport Verified Date/Time: 06/21/2019 15:20:38 Reading Location: [facility] Radiology Reading Room POCT-GLUCOSE [id number] 12: 29:00 Test Item Value Reference Range Comments POC-GLUCOSE METER (BEAKER) 140 mg/dL 70-110 : TESTED AT [address] (test gogp=7991) [place] [address]: Cement Conveyor Operator/Body Wirer [id number] for Yasmin Major POCT-GLUCOSE [id number] 07:52:00 Test Item Value Reference Range Comments POC-GLUCOSE METER (BEAKER) 157 mg/dL 70-110 : TESTED AT [address] (test fkdq=8463) [place] [id number]: Cement Conveyor Operator/Body Wirer [id number] for Yasmin Major BASIC METABOLIC [id number] 06:16:00 Test Item Value Reference Range Comments SODIUM (BEAKER) (test 140 meq/L 135-148 priz=218) POTASSIUM (BEAKER) (test 3.7 meq/L 3.6-5.5 roet=359) CHLORIDE (BEAKER) (test 104 meq/L 98-106 amzg=430) CO2 (BEAKER) (test 26 meq/L 20-29 huxm=701) BLOOD UREA NITROGEN 4 mg/dL 10-26 (BEAKER) (test pbsx=474) CREATININE (BEAKER) (test 0.81 mg/dL 0.50-1.20 pibm=032) GLUCOSE RANDOM (BEAKER) 156 mg/dL 70-110 (test gyyt=713) CALCIUM (BEAKER) (test 9.0 mg/dL 8.5-10.5 tnyx=912) EGFR (BEAKER) (test 95 mL/min/1.73 sq m ESTIMATED GFR IS NOT eepn=8471) ACCURATE CREATININE CLEARANCE IN PREDICTING GLOMERULAR FILTRATION RATE. ESTIMATED GFR IS NOT APPLICABLE FOR DIALYSIS PATIENTS. Cement Conveyor Operator ID - [id number] W/PLT COUNT & AUTO [id number] 05:55:00 Test Item Value Reference Range Comments WHITE BLOOD CELL COUNT (BEAKER) (test kyry=955) 6.6 K/ L 4.0-10.0 RED BLOOD CELL COUNT (BEAKER) (test sjxa=823) 4.32 M/ L 4.00-5.00 HEMOGLOBIN (BEAKER) (test emmy=628) 13.2 GM/DL 12.0-15.5 HEMATOCRIT (BEAKER) (test csex=463) 39.5 % 36.0-46.0 MEAN CORPUSCULAR VOLUME (BEAKER) (test zybf=090) 91.4 fL 82.0-99.0 MEAN CORPUSCULAR HEMOGLOBIN (BEAKER) (test 30.6 pg 27.0-33.0 fjyb=103) MEAN CORPUSCULAR HEMOGLOBIN CONC (BEAKER) (test 33.4 GM/DL 32.0-36.0 wvhe=034) RED CELL DISTRIBUTION WIDTH (BEAKER) (test 12.4 % 12.0-15.0 snut=570) PLATELET COUNT (BEAKER) (test anln=816) 278 K/CU MM 150-430 MEAN PLATELET VOLUME (BEAKER) (test fqig=589) 10.3 fL 6.0-11.5 NUCLEATED RED BLOOD CELLS (BEAKER) (test 0 /100 WBC 0-0 bbbl=866) NEUTROPHILS RELATIVE PERCENT (BEAKER) (test 60 % yajm=097) LYMPHOCYTES RELATIVE PERCENT (BEAKER) (test 26 % fpjx=259) MONOCYTES RELATIVE PERCENT (BEAKER) (test 10 % rbha=721) EOSINOPHILS RELATIVE PERCENT (BEAKER) (test 3 % chkr=613) BASOPHILS RELATIVE PERCENT (BEAKER) (test 1 % vpge=154) NEUTROPHILS ABSOLUTE COUNT (BEAKER) (test 3.96 K/ L 1.80-8.00 dnle=174) LYMPHOCYTES ABSOLUTE COUNT (BEAKER) (test 1.70 K/ L 1.48-4.50 petg=850) MONOCYTES ABSOLUTE COUNT (BEAKER) (test 0.65 K/ L 0.00-1.30 enhx=206) EOSINOPHILS ABSOLUTE COUNT (BEAKER) (test 0.22 K/ L 0.00-0.50 ujad=098) BASOPHILS ABSOLUTE COUNT (BEAKER) (test 0.04 K/ L 0.00-0.20 jdgu=497) IMMATURE GRANULOCYTES-RELATIVE PERCENT (BEAKER) 0 % 0-0 (test eume=0624) POCT-GLUCOSE [id number] 22:16:00 Test Item Value Reference Range Comments POC-GLUCOSE METER (BEAKER) 161 mg/dL 70-110 : TESTED AT [address] (test vkuz=2512) [place] [address]: Cement Conveyor Operator/Body Wirer KF=[id number] for virginia Melchoricity POCT-GLUCOSE [id number] 17:08:00 Test Item Value Reference Range Comments POC-GLUCOSE METER (BEAKER) 196 mg/dL 70-110 : Notified RN/MD: TESTED AT (test ssfo=9454) [place] [id number]: Cement Conveyor Operator/Body Wirer JC=[id number] for Austin Milanben POCT-GLUCOSE [id number] 12:11:00 Test Item Value Reference Range Comments POC-GLUCOSE METER (BEAKER) 162 mg/dL 70-110 : Notified RN/MD: TESTED AT (test djta=6719) [place] [address]: Cement Conveyor Operator/Body Wirer ZQ=[id number] for Kayli, Jermainitaben POCT-GLUCOSE [id number] 08:57:00 Test Item Value Reference Range Comments POC-GLUCOSE METER (BEAKER) 203 mg/dL 70-110 : Notified RN/MD: TESTED AT (test cfba=9958) [address] [address]: Cement Conveyor Operator/Body Wirer BF=[id number] for Adelaide Milan BASIC METABOLIC [id number] 06:22:00 Test Item Value Reference Range Comments SODIUM (BEAKER) (test 139 meq/L 135-148 ovcy=192) POTASSIUM (BEAKER) (test 4.1 meq/L 3.6-5.5 Specimen slightly wyrb=074) hemolyzed CHLORIDE (BEAKER) (test 108 meq/L 98-106 wfma=237) CO2 (BEAKER) (test 22 meq/L 20-29 hnla=109) BLOOD UREA NITROGEN 3 mg/dL 10-26 (BEAKER) (test aaco=907) CREATININE (BEAKER) (test 0.77 mg/dL 0.50-1.20 Specimen slightly tvcq=128) hemolyzed GLUCOSE RANDOM (BEAKER) 112 mg/dL 70-110 (test pgss=436) CALCIUM (BEAKER) (test 9.1 mg/dL 8.5-10.5 ycww=180) EGFR (BEAKER) (test 101 mL/min/1.73 sq m ESTIMATED GFR IS NOT pbpq=7591) ACCURATE CREATININE CLEARANCE IN PREDICTING GLOMERULAR FILTRATION RATE. ESTIMATED GFR IS NOT APPLICABLE FOR DIALYSIS PATIENTS. Cement Conveyor Operator ID - [id number] 21:15:00 Test Item Value Reference Range Comments POC-GLUCOSE METER (BEAKER) 132 mg/dL 70-110 : TESTED AT [address] (test qevu=5570) [facility] [address]: Cement Conveyor Operator/Body Wirer OU=[id number] for Sharyn Cruz CT, CHEST WITH IV CONTRAST- PE TEST [id number] 17:05:00FINAL REPORT History: Dyspnea. TECHNIQUE: Helical CT of the chest was performed following the uneventful administration of intravenous contrast utilizing a pulmonary embolus protocol, multiple windows, sagittal and coronal reformations. This exam was performed according to our departmental dose optimization program which includes automated exposure control, adjustment of the mAand/or KV according to the patient's size and/or use of iterative reconstruction technique. FINDINGS: Chest CT: No previous chest CTs are available for comparison. The heart, mediastinum and great vessels are unremarkable. Specifically, there are no filling defects identified in the pulmonary arteriesto suggest acute pulmonary embolus. However, the contrast bolus is suboptimal and therefore, only large central emboli can be excluded. More distal segmental or subsegmental pulmonary emboli would be difficult to exclude. No mediastinal or hilar adenopathy. Central airways are patent. Thyroid gland isunremarkable. The lungs are clear, free of edema, focal consolidation or visible effusions. No pneumothorax. Bones are unremarkable. Images obtained through the upper abdomen are except for mild nondependent pneumobilia and diffusely decreased attenuation the liver, likely fatty infiltration. IMPRESSION: 1. No acute cardiopulmonary abnormalities. No large central pulmonary emboli are present. More distal emboli would be impossible to exclude due to suboptimal contrast bolus. Signed: Nicolás Leonardo Verified Date/Time: 06/19/2019 17:05:27 Reading Location: [facility] Radiology Reading Room POCT-GLUCOSE [id number] 16:56:00 Test Item Value Reference Range Comments POC-GLUCOSE METER (BEAKER) 147 mg/dL 70-110 : TESTED AT [address] (test ikcy=0081) [facility] [address]: Cement Conveyor Operator/Body Wirer IY=[id number] for Charlene Branch BLOOD [id number] 09:46:00 Test Item Value Reference Range Comments CULTURE (BEAKER) From Aerobic And Anaerobic (test xrfx=4912) Bottles Same organism has been isolated from culture(s) of the same body site and collection date. Repeat identification performed only after consultation with the clinical microbiology laboratory.Refer to previous culture ofEscherichia coli GRAM STAIN RESULT From aerobic and (BEAKER) (test anaerobic bottles: ekss=1126) gram negative rods BLOOD [id number] 09:45:00 Test Item Value Reference Range Comments CULTURE (BEAKER) (test ESCHERICHIA COLI From Aerobic And vrwt=5945) Anaerobic Bottles Escherichia coli Amikacin (test code=1) Ampicillin + Sulbactam (test code=6) Aztreonam (test code=32) Cefazolin (test code=9) Cefepime (test code=51) Cefoxitin (test code=68) Ceftazidime (test code=27) Ceftriaxone (test code=52) Ertapenem (test code=38) Gentamicin (test code=18) Levofloxacin (test code=22) Meropenem (test code=34) Nitrofurantoin (test code=23) Piperacillin + Tazobactam (test code=29) Tetracycline (test code=2) Tigecycline (test kvxc=871) Tobramycin (test code=25) Trimethoprim + Sulfamethoxazole (test code=47) GRAM STAIN RESULT (BEAKER) From aerobic and (test hxod=5052) anaerobic bottles: gram negative rods POCT-GLUCOSE [id number] 07:53:00 Test Item Value Reference Range Comments POC-GLUCOSE METER (BEAKER) 131 mg/dL 70-110 : TESTED AT [address] (test adlo=4982) [facility] [address]: Cement Conveyor Operator/Body Wirer PX=[id number] for Charlene Branch COMPREHENSIVE METABOLIC [id number] 06:08:00 Test Item Value Reference Range Comments TOTAL PROTEIN (BEAKER) 6.4 gm/dL 6.0-8.5 (test ckvm=047) ALBUMIN (BEAKER) (test 3.5 g/dL 3.5-5.0 wlju=9846) ALKALINE PHOSPHATASE 56 U/L 30-115 (BEAKER) (test zdxr=579) BILIRUBIN TOTAL (BEAKER) 0.4 mg/dL 0.1-1.2 (test ihok=968) SODIUM (BEAKER) (test 140 meq/L 135-148 ltji=306) POTASSIUM (BEAKER) (test 3.5 meq/L 3.6-5.5 kyhk=982) CHLORIDE (BEAKER) (test 108 meq/L 98-106 xemq=191) CO2 (BEAKER) (test 21 meq/L 20-29 hzfu=220) BLOOD UREA NITROGEN 7 mg/dL 10-26 (BEAKER) (test mtaa=407) CREATININE (BEAKER) (test 0.89 mg/dL 0.50-1.20 ruwf=923) GLUCOSE RANDOM (BEAKER) 195 mg/dL 70-110 (test povl=310) CALCIUM (BEAKER) (test 8.2 mg/dL 8.5-10.5 rhys=019) AST (SGOT) (BEAKER) (test 41 U/L 5-40 vdlz=765) ALT (SGPT) (BEAKER) (test 52 U/L 5-50 xjod=605) EGFR (BEAKER) (test 86 mL/min/1.73 sq m ESTIMATED GFR IS NOT gtun=6093) ACCURATE CREATININE CLEARANCE IN PREDICTING GLOMERULAR FILTRATION RATE. ESTIMATED GFR IS NOT APPLICABLE FOR DIALYSIS PATIENTS. Cement Conveyor Operator ID - [id number] W/PLT COUNT & AUTO [id number] 05:43:00 Test Item Value Reference Range Comments WHITE BLOOD CELL COUNT (BEAKER) (test vwak=713) 9.5 K/ L 4.0-10.0 RED BLOOD CELL COUNT (BEAKER) (test swaf=114) 3.83 M/ L 4.00-5.00 HEMOGLOBIN (BEAKER) (test dmxn=871) 11.9 GM/DL 12.0-15.5 HEMATOCRIT (BEAKER) (test ldoc=226) 36.0 % 36.0-46.0 MEAN CORPUSCULAR VOLUME (BEAKER) (test goxn=107) 94.0 fL 82.0-99.0 MEAN CORPUSCULAR HEMOGLOBIN (BEAKER) (test 31.1 pg 27.0-33.0 psdt=438) MEAN CORPUSCULAR HEMOGLOBIN CONC (BEAKER) (test 33.1 GM/DL 32.0-36.0 prbm=576) RED CELL DISTRIBUTION WIDTH (BEAKER) (test 12.9 % 12.0-15.0 qkdl=576) PLATELET COUNT (BEAKER) (test jdmi=861) 198 K/CU MM 150-430 MEAN PLATELET VOLUME (BEAKER) (test idyu=663) 11.0 fL 6.0-11.5 NUCLEATED RED BLOOD CELLS (BEAKER) (test 0 /100 WBC 0-0 hfmf=868) NEUTROPHILS RELATIVE PERCENT (BEAKER) (test 70 % wqoo=066) LYMPHOCYTES RELATIVE PERCENT (BEAKER) (test 19 % msdv=505) MONOCYTES RELATIVE PERCENT (BEAKER) (test 9 % kdzy=422) EOSINOPHILS RELATIVE PERCENT (BEAKER) (test 1 % kcgd=236) BASOPHILS RELATIVE PERCENT (BEAKER) (test 0 % zwyn=783) NEUTROPHILS ABSOLUTE COUNT (BEAKER) (test 6.64 K/ L 1.80-8.00 myji=403) LYMPHOCYTES ABSOLUTE COUNT (BEAKER) (test 1.81 K/ L 1.48-4.50 utdp=577) MONOCYTES ABSOLUTE COUNT (BEAKER) (test 0.87 K/ L 0.00-1.30 fmyw=194) EOSINOPHILS ABSOLUTE COUNT (BEAKER) (test 0.09 K/ L 0.00-0.50 ymck=540) BASOPHILS ABSOLUTE COUNT (BEAKER) (test 0.03 K/ L 0.00-0.20 heqk=502) IMMATURE GRANULOCYTES-RELATIVE PERCENT (BEAKER) 0 % 0-0 (test enir=9925) POCT-GLUCOSE [id number] 21:12:00 Test Item Value Reference Range Comments POC-GLUCOSE METER (BEAKER) 195 mg/dL 70-110 : TESTED AT [address] (test ybrk=0832) [place] [address]: Cement Conveyor Operator/Body Wirer JX=[id number] for Anthony Sharyn POCT-GLUCOSE [id number] 18:06:00 Test Item Value Reference Range Comments POC-GLUCOSE METER (BEAKER) 109 mg/dL 70-110 : TESTED AT [address] (test dljq=8000) [place] [address]: Cement Conveyor Operator/Body Wirer UQ=[id number] for Charlene Branch TROPONIN [id number] 14:37:00 Test Item Value Reference Range Comments TROPONIN I (BEAKER) (test nsds=756) < ng/mL 0.00-0.15 Troponin I (TnI) levels must be interpreted in the context of the presenting symptoms and the clinical findings. Elevated TnI levels indicate myocardial damage, but are not specific for ischemic heart disease. Elevated TnI levels are seen in patients with other cardiac conditions (including myocarditis and congestive heart failure), and slight TnI elevations occur in patients with other conditions, including sepsis, renal failure, acidosis, acute neurological disease, and persistent tachyarrhythmia.Cement Conveyor Operator ID - [id number] 11:28:00 Test Item Value Reference Range Comments POC-GLUCOSE METER (BEAKER) 135 mg/dL 70-110 : TESTED AT [address] (test oxzg=3729) [place] [address]: Cement Conveyor Operator/Body Wirer KD=[id number] for Charlene Branch POCT-GLUCOSE [id number] 07:54:00 Test Item Value Reference Range Comments POC-GLUCOSE METER (BEAKER) 243 mg/dL 70-110 : TESTED AT [facility] (test aztg=2548) [facility] [address]: Cement Conveyor Operator/Body Wirer VL=[id number] for Charlene Branch BASIC METABOLIC [id number] 04:55:00 Test Item Value Reference Range Comments SODIUM (BEAKER) (test 137 meq/L 135-148 vvxb=119) POTASSIUM (BEAKER) (test 3.4 meq/L 3.6-5.5 wgws=284) CHLORIDE (BEAKER) (test 103 meq/L 98-106 tbbj=994) CO2 (BEAKER) (test 23 meq/L 20-29 kibh=339) BLOOD UREA NITROGEN 9 mg/dL 10-26 (BEAKER) (test eqfy=972) CREATININE (BEAKER) (test 1.13 mg/dL 0.50-1.20 soot=753) GLUCOSE RANDOM (BEAKER) 197 mg/dL 70-110 (test htoo=601) CALCIUM (BEAKER) (test 8.5 mg/dL 8.5-10.5 ujef=717) EGFR (BEAKER) (test 65 mL/min/1.73 sq m ESTIMATED GFR IS NOT xpkk=3482) ACCURATE CREATININE CLEARANCE IN PREDICTING GLOMERULAR FILTRATION RATE. ESTIMATED GFR IS NOT APPLICABLE FOR DIALYSIS PATIENTS. COMPREHENSIVE METABOLIC [id number] 04:54:00 Test Item Value Reference Range Comments TOTAL PROTEIN (BEAKER) 6.9 gm/dL 6.0-8.5 (test pzcd=393) ALBUMIN (BEAKER) (test 3.9 g/dL 3.5-5.0 gjsa=5688) ALKALINE PHOSPHATASE 59 U/L 30-115 (BEAKER) (test hdwa=864) BILIRUBIN TOTAL (BEAKER) 1.1 mg/dL 0.1-1.2 (test wvre=827) SODIUM (BEAKER) (test 137 meq/L 135-148 izug=487) POTASSIUM (BEAKER) (test 3.4 meq/L 3.6-5.5 ukpl=186) CHLORIDE (BEAKER) (test 103 meq/L 98-106 mqgz=947) CO2 (BEAKER) (test 23 meq/L 20-29 gala=445) BLOOD UREA NITROGEN 9 mg/dL 10-26 (BEAKER) (test wdsc=707) CREATININE (BEAKER) (test 1.13 mg/dL 0.50-1.20 lvtu=656) GLUCOSE RANDOM (BEAKER) 197 mg/dL 70-110 (test nnoz=842) CALCIUM (BEAKER) (test 8.5 mg/dL 8.5-10.5 dhsr=284) AST (SGOT) (BEAKER) (test 76 U/L 5-40 qmoy=932) ALT (SGPT) (BEAKER) (test 77 U/L 5-50 ieso=071) EGFR (BEAKER) (test 65 mL/min/1.73 sq m ESTIMATED GFR IS NOT ybzj=4840) ACCURATE CREATININE CLEARANCE IN PREDICTING GLOMERULAR FILTRATION RATE. ESTIMATED GFR IS NOT APPLICABLE FOR DIALYSIS PATIENTS. Cement Conveyor Operator ID - [id number] 04:47:00 Test Item Value Reference Range Comments PROTIME (BEAKER) (test jwwn=205) 13.7 sec 9.3-12.0 INR (BEAKER) (test ffms=326) 1.3 <=5.9 RECOMMENDED COUMADIN/WARFARIN INR THERAPY RANGESSTANDARD DOSE: 2.0 - 3.0 Includes: PROPHYLAXIS forvenous thrombosis, systemic embolization; TREATMENT for venous thrombosis and/or pulmonary embolus.HIGH RISK: Target INR is 2.5-3.5 for patients with mechanical heart valves.Final Information (Auto Output)Final Information (Auto Output)[id number] 04:47:00 Test Item Value Reference Range Comments PARTIAL THROMBOPLASTIN TIME (BEAKER) (test 31.2 sec 23.0-35.0 jshr=596) Final Information (Auto Output)CBC W/PLT COUNT & AUTO [id number] 04:34:00 Test Item Value Reference Range Comments WHITE BLOOD CELL COUNT (BEAKER) (test sbfe=227) 13.8 K/ L 4.0-10.0 RED BLOOD CELL COUNT (BEAKER) (test ssjx=312) 4.36 M/ L 4.00-5.00 HEMOGLOBIN (BEAKER) (test zniw=258) 13.3 GM/DL 12.0-15.5 HEMATOCRIT (BEAKER) (test jtvh=183) 40.2 % 36.0-46.0 MEAN CORPUSCULAR VOLUME (BEAKER) (test xmnm=752) 92.2 fL 82.0-99.0 MEAN CORPUSCULAR HEMOGLOBIN (BEAKER) (test 30.5 pg 27.0-33.0 cdmp=817) MEAN CORPUSCULAR HEMOGLOBIN CONC (BEAKER) (test 33.1 GM/DL 32.0-36.0 qqup=303) RED CELL DISTRIBUTION WIDTH (BEAKER) (test 12.7 % 12.0-15.0 isfu=810) PLATELET COUNT (BEAKER) (test zlxh=163) 242 K/CU MM 150-430 MEAN PLATELET VOLUME (BEAKER) (test rqhs=478) 10.2 fL 6.0-11.5 NUCLEATED RED BLOOD CELLS (BEAKER) (test 0 /100 WBC 0-0 ujxf=706) NEUTROPHILS RELATIVE PERCENT (BEAKER) (test 82 % dcmp=690) LYMPHOCYTES RELATIVE PERCENT (BEAKER) (test 10 % spdc=854) MONOCYTES RELATIVE PERCENT (BEAKER) (test 7 % ajvz=442) EOSINOPHILS RELATIVE PERCENT (BEAKER) (test 0 % mncr=137) BASOPHILS RELATIVE PERCENT (BEAKER) (test 0 % gkmv=567) NEUTROPHILS ABSOLUTE COUNT (BEAKER) (test 11.29 K/ L 1.80-8.00 gzbg=721) LYMPHOCYTES ABSOLUTE COUNT (BEAKER) (test 1.37 K/ L 1.48-4.50 ywja=608) MONOCYTES ABSOLUTE COUNT (BEAKER) (test 0.99 K/ L 0.00-1.30 ggwl=897) EOSINOPHILS ABSOLUTE COUNT (BEAKER) (test 0.02 K/ L 0.00-0.50 qymw=374) BASOPHILS ABSOLUTE COUNT (BEAKER) (test 0.03 K/ L 0.00-0.20 xvtc=089) IMMATURE GRANULOCYTES-RELATIVE PERCENT (BEAKER) 1 % 0-0 (test jwco=9197) LACTIC ACID, [id number] 04:23:00 Test Item Value Reference Range Comments LACTATE BLOOD VENOUS (2) 1.7 mmol/L 0.5-2.0 Specimen slightly hemolyzed (BEAKER) (test ryql=4059) Cement Conveyor Operator ID - [id number] 21:15:00 Test Item Value Reference Range Comments POC-GLUCOSE METER (BEAKER) 201 mg/dL 70-110 : TESTED AT [address] (test mywz=9333) [place] [address]: Cement Conveyor Operator/Body Wirer [id number] for Sharyn Cruz POCT-GLUCOSE [id number] 17:16:00 Test Item Value Reference Range Comments POC-GLUCOSE METER (BEAKER) 163 mg/dL 70-110 : Notified RN/MD: TESTED AT (test apfc=0278) [place] [id number]: Cement Conveyor Operator/Body Wirer EV=[id number] for Vince Milann POCT-GLUCOSE [id number] 13:42:00 Test Item Value Reference Range Comments POC-GLUCOSE METER (BEAKER) 224 mg/dL 70-110 : Notified RN/MD: TESTED AT (test bsxv=8427) [place] [address]: Cement Conveyor Operator/Body Wirer JN=[id number] for Vince Milanboubacar LACTIC ACID, [id number] 13:12:00 Test Item Value Reference Range Comments LACTATE BLOOD VENOUS (2) (AKER) (test 8.8 mmol/L 0.5-2.0 inum=5012) Cement Conveyor Operator ID - [id number], [id number] 10:42:00Reason for exam:-> epigastric pain left flank painReason for exam:->CHILLSReason for exam:-> FEVERReason for exam:->ABDOMINAL PAINReason for exam:->EMESISIs the patient ?->UnknownWhat is the patient's sedation requirement?->No SedationFINAL REPORT CT abdomen and pelvis without contrast History: Epigastric pain,left flank pain Comparison: none Technique: serial axial imaging was performed without intravenous contrast as per departmental protocol. Multiplanar images are reconstructed and reviewed when indicated. This CT examination is performed using one or more of the following dose reduction techniques: Automated exposure control, adjustment of the mA and /or kV according to patient size, and/or use of iterative reconstruction technique. Findings:Evaluation limited by lack of intravenous contrast. Diffuse fatty infiltration of the liver is noted. The gallbladder is not visualized. Grossly unremarkable appearance of unenhanced pancreas, spleen, and adrenal glands. No urinary calculus. No hydronephrosis. No apparent bladder wall thickening. A small focus of air within the nondependent bladder is probably related to recent instrumentation. No small or large bowel obstruction. No apparent bowel wall thickening. No findings to indicate acute appendicitis. No free fluid or adenopathy. Small fat-containing umbilical hernia. No aggressive osseous lesion. Impression: 1. No acute findings in the abdomen or pelvis by unenhanced CT scan.2. Diffuse fatty infiltration of the liver.3. The gallbladder is absent.4. Small focus of air within the nondependent bladder is probably related to recent instrumentation. Suggest clinical correlation. Signed: Reagan De Dios Verified Date/Time: 05/2019 10:42:41 Reading Location: [facility] Diagnostic Imaging Reading Room - [place] [id number] RAD, CHEST, 1 VIEW, NON [id number] 10:26:00Reason for exam:-> CHILLSReason for exam:->FEVERReason for exam:->ABDOMINAL PAINReason for exam:->EMESISIs the patient ?->UnknownShould this be performed at the bedside?->YesFINAL REPORT INDICATION: CHILLSFEVERABDOMINAL PAINEMESIS COMPARISON: None TECHNIQUE: Single frontal view of the chest. FINDINGS: Lungs and pleura: Hazy airspace opacity throughout the right lung. No effusion.Heart and mediastinum: Normal heart size. Unremarkable mediastinal contours.Osseous structures: No acute abnormality.Other: None. IMPRESSION: Hazy airspace opacity throughout the right lung which may represent lobar pneumonia and/or asymmetric edema Signed: Justin rByant Verified Date/Time: 06/17/2019 10:26:56 Reading Location: [facility] Radiology ReadingRoom RAPID INFLUENZA A&B [id number] 10:22:00 Test Item Value Reference Range Comments RAPID INFLUENZA A AG (BEAKER) (test Negative Negative, Inconclusive umrt=9491) RAPID INFLUENZA B AG (BEAKER) (test Negative Negative, Inconclusive nsnz=5788) LACTIC ACID, [id number] 10:20:00 Test Item Value Reference Range Comments LACTATE BLOOD VENOUS (2) 2.7 mmol/L 0.5-2.0 Specimen slightly hemolyzed (BEAKER) (test hgpe=1848) [employer] Conveyor Operator ID - [id number] METABOLIC [id number] 10:20:00 Test Item Value Reference Range Comments TOTAL PROTEIN (BEAKER) 8.0 gm/dL 6.0-8.5 (test osmm=416) ALBUMIN (BEAKER) (test 4.5 g/dL 3.5-5.0 fxwy=5709) ALKALINE PHOSPHATASE 74 U/L 30-115 (BEAKER) (test agop=633) BILIRUBIN TOTAL (BEAKER) 1.2 mg/dL 0.1-1.2 (test xbkp=054) SODIUM (BEAKER) (test 136 meq/L 135-148 jugs=176) POTASSIUM (BEAKER) (test 3.8 meq/L 3.6-5.5 kypx=287) CHLORIDE (BEAKER) (test 102 meq/L 98-106 uolv=553) CO2 (BEAKER) (test 21 meq/L 20-29 iomg=579) BLOOD UREA NITROGEN 7 mg/dL 10-26 (BEAKER) (test xkkq=527) CREATININE (BEAKER) (test 0.93 mg/dL 0.50-1.20 ipvv=450) GLUCOSE RANDOM (BEAKER) 230 mg/dL 70-110 (test rnvp=604) CALCIUM (BEAKER) (test 9.2 mg/dL 8.5-10.5 aauq=752) AST (SGOT) (BEAKER) (test 62 U/L 5-40 ssmm=255) ALT (SGPT) (BEAKER) (test 49 U/L 5-50 vgfw=802) EGFR (BEAKER) (test 81 mL/min/1.73 sq m ESTIMATED GFR IS NOT bxwi=6504) ACCURATE CREATININE CLEARANCE IN PREDICTING GLOMERULAR FILTRATION RATE. ESTIMATED GFR IS NOT APPLICABLE FOR DIALYSIS PATIENTS. Cement Conveyor Operator ID - [id number] 10:12:00 Test Item Value Reference Range Comments PARTIAL THROMBOPLASTIN TIME (BEAKER) (test 22.4 sec 23.0-35.0 xltk=884) Final Information (Auto Output)PROTHROMBIN [id number] 10:11:00 Test Item Value Reference Range Comments PROTIME (BEAKER) (test ykui=969) 10.7 sec 9.3-12.0 INR (BEAKER) (test weuo=123) 1.0 <=5.9 RECOMMENDED COUMADIN/WARFARIN INR THERAPY RANGESSTANDARD DOSE: 2.0 - 3.0 Includes: PROPHYLAXIS forvenous thrombosis, systemic embolization; TREATMENT for venous thrombosis and/or pulmonary embolus.HIGH RISK: Target INR is 2.5-3.5 for patients with mechanical heart valves.Final Information (Auto Output)Final Information (Auto Output)URINALYSIS W/ [id number] 10:10:00 Test Item Value Reference Range Comments COLOR (BEAKER) (test hxih=666) Yellow CLARITY (BEAKER) (test vaqd=323) Clear SPECIFIC GRAVITY UA (BEAKER) (test pncv=608) 1.010 1.001-1.035 PH UA (BEAKER) (test gmpk=491) 6.0 5.0-8.0 PROTEIN UA (BEAKER) (test fctt=579) Negative Negative GLUCOSE UA (BEAKER) (test lfqg=657) Negative Negative KETONES UA (BEAKER) (test gqlj=225) Negative Negative BILIRUBIN UA (BEAKER) (test ifnp=632) Negative Negative BLOOD UA (BEAKER) (test yafo=230) Negative Negative NITRITE UA (BEAKER) (test dsmt=927) Negative Negative LEUKOCYTE ESTERASE UA (BEAKER) (test tqcu=238) Negative Negative UROBILINOGEN UA (BEAKER) (test azir=372) 0.2 mg/dL 0.2-1.0 BACTERIA (BEAKER) (test fkxp=495) Occasional RBC UA-MANUAL (BEAKER) (test obgy=4101) <5 /HPF WBC UA-MANUAL (BEAKER) (test difm=8133) <5 /HPF SQUAMOUS EPITHELIAL MANUAL (BEAKER) (test <5 /HPF dgga=1843) SOURCE(BEAKER) (test qbur=0814) RAPID STREP A [id number] 10:09:00 Test Item Value Reference Range Comments STREP A ANTIGEN (BEAKER) (test fmhm=388) Negative SCREEN, [id number] 10:06:00 Test Item Value Reference Range Comments TEST URINE (BEAKER) (test jzxt=255) Negative CBC W/PLT COUNT & AUTO [id number] 09:58:00 Test Item Value Reference Range Comments WHITE BLOOD CELL COUNT (BEAKER) (test xymz=457) 10.7 K/ L 4.0-10.0 RED BLOOD CELL COUNT (BEAKER) (test faxm=179) 4.99 M/ L 4.00-5.00 HEMOGLOBIN (BEAKER) (test ldkg=548) 15.3 GM/DL 12.0-15.5 HEMATOCRIT (BEAKER) (test rjcs=720) 45.3 % 36.0-46.0 MEAN CORPUSCULAR VOLUME (BEAKER) (test kqtd=709) 90.8 fL 82.0-99.0 MEAN CORPUSCULAR HEMOGLOBIN (BEAKER) (test 30.7 pg 27.0-33.0 pawe=251) MEAN CORPUSCULAR HEMOGLOBIN CONC (BEAKER) (test 33.8 GM/DL 32.0-36.0 tddx=021) RED CELL DISTRIBUTION WIDTH (BEAKER) (test 12.4 % 12.0-15.0 vwbw=537) PLATELET COUNT (BEAKER) (test xhnm=886) 289 K/CU MM 150-430 MEAN PLATELET VOLUME (BEAKER) (test ydtm=977) 10.4 fL 6.0-11.5 NUCLEATED RED BLOOD CELLS (BEAKER) (test 0 /100 WBC 0-0 uzvn=770) NEUTROPHILS RELATIVE PERCENT (BEAKER) (test 89 % oeyj=591) LYMPHOCYTES RELATIVE PERCENT (BEAKER) (test 8 % gnxt=106) MONOCYTES RELATIVE PERCENT (BEAKER) (test 1 % oddo=740) EOSINOPHILS RELATIVE PERCENT (BEAKER) (test 1 % lvel=484) BASOPHILS RELATIVE PERCENT (BEAKER) (test 0 % hiqw=085) NEUTROPHILS ABSOLUTE COUNT (BEAKER) (test 9.50 K/ L 1.80-8.00 ixau=449) LYMPHOCYTES ABSOLUTE COUNT (BEAKER) (test 0.90 K/ L 1.48-4.50 lnyc=680) MONOCYTES ABSOLUTE COUNT (BEAKER) (test 0.14 K/ L 0.00-1.30 ixyo=812) EOSINOPHILS ABSOLUTE COUNT (BEAKER) (test 0.07 K/ L 0.00-0.50 ykkz=759) BASOPHILS ABSOLUTE COUNT (BEAKER) (test 0.03 K/ L 0.00-0.20 zbes=585) IMMATURE GRANULOCYTES-RELATIVE PERCENT (BEAKER) 0 % 0-0 (test vvzq=4423)
[2019-06-29] MEDS ORDERED: HEPARIN 500 UNIT/5 ML SYR IV ONE (01:01)
--- NOTE | 2019-06-29 01:02 | ER ---
Nurse's Notes [facility] Name: Silvina Cohen Age: 38 yrs Sex: Female : 1980 Arrival Date: 06/29/2019 Time: 00:26 Bed 14 Private MD: Diagnosis: Displacement of infusion catheter Presentation: 06/28 00:34 Chief complaint: Patient states: I was taking a long sleeved shirt off, when the sleeve sg caught the dressing and tugged the PICC line from the insertion site, there is redness but I do not think that it has moved, the sutures are still intact, denies pain or bleeding. Coronavirus screen: The patient has NOT traveled to a country currently being monitored by the [facility] within the last 14 days. The patient has NOT had contact with any known and/or suspected case of coronavirus. Ebola Screen: Patient negative for fever greater than or equal to 101.5 degrees Fahrenheit, and additional compatible Ebola Virus Disease symptoms Patient denies exposure to infectious person. Patient denies travel to an Ebola-affected area in the 21 days before illness onset. No symptoms or risks identified at this time. Initial Sepsis Screen: Does the patient meet any 2 criteria? No. Patient's initial sepsis screen is negative. Does the patient have a suspected source of infection? No. Patient's initial sepsis screen is negative. Risk Assessment: Do you want to hurt yourself or someone else? Patient reports no desire to harm self or others. 00:34 Method Of Arrival: Ambulatory sg 00:34 Acuity: CORTEZ 4 sg Triage Assessment: 00:36 General: Appears in no apparent distress. well groomed, well developed, well nourished, sg Behavior is calm, cooperative, appropriate for age. Pain: Denies pain. Historical: - Allergies: 00:37 Flexeril; sg 00:37 Naproxen; sg - PMHx: 00:37 Anxiety; Back pain; Diabetes - NIDDM; HYPERGLYCEMIA; Hypertension; sg - PSHx: 00:37 Hysterectomy; Hernia repair; Cholecystectomy; cyst removal; sg - Immunization history:: Adult Immunizations. - Social history:: Smoking status: Patient denies any tobacco usage or history of. Screenin:09 Abuse screen: Denies threats or abuse. Denies injuries from another. Nutritional lw1 screening: No deficits noted. Tuberculosis screening: No symptoms or risk factors identified. Fall Risk IV access (20 points). Assessment: 00:30 General: Appears in no apparent distress. well groomed, well developed, well nourished, sg Behavior is calm, cooperative, appropriate for age. Pain: Denies pain. Neuro: Level of Consciousness is awake, alert, obeys commands, Oriented to person, place, time, Pug Mill Operator Helper are equal bilaterally Moves all extremities. Full function Gait is steady, Speech is normal, Facial symmetry appears normal. Cardiovascular: Capillary refill is brisk in bilateral fingers Patient's skin is warm and dry. Chest pain is denied. Respiratory: Airway is patent Respiratory effort is even, unlabored, Respiratory pattern is regular, symmetrical. GI: No signs and/or symptoms were reported involving the gastrointestinal system. : No signs and/or symptoms were reported regarding the genitourinary system. EENT: No signs and/or symptoms were reported regarding the EENT system. Derm: Skin is pink, warm \T\ dry. Musculoskeletal: Circulation, motion, and sensation intact. Range of motion: intact in all extremities. 01:00 Reassessment: Patient appears in no apparent distress at this time. at bedside assessing PICC line, and insertion site. Orders to clean and apply new dressing per hospital protocol to the [facility] PICC pt reports having HEP lock to bilateral ports at home with 5 mL of heparin, verbal order received to HEP lock as performed at home. Vital Signs: 00:37 BP 135 / 95; Pulse 88; Resp 20; Temp 99.0(O); Pulse Ox 98% ; lt1 ED Course: 00:26 Patient arrived in ED. es 00:29 Shira Childs, RN is Primary Nurse. lw1 00:36 Triage completed. sg 00:36 Arm band placed on. sg 00:36 Accessed PICC line. Clean \T\ dry. Dressing loose. Site reddened. Good blood return. sg Flushes easily. 00:56 Joni Flores MD is Attending Physician. tw4 01:09 No provider procedures requiring assistance completed. IV is patent, is intact, is lw1 reddened, with fluids infusing freely, with good blood return, Changed dressing on right PICC line 01:13 Patient has correct armband on for positive identification. Side rails up X 1. lw1 01:20 Dressings: RUE cleaned with Chlorahexidene, allowed to dry, biopatch applied, tegaderm sg x1 applied, marizol wrap x1 to RUE. Administered Medications: No medications were administered Outcome: 01:02 Discharge ordered by . tw4 01:11 Discharged to home ambulatory. lw1 01:11 Condition: stable 01:11 Discharge instructions given to patient, Instructed on discharge instructions, follow up and referral plans. Demonstrated understanding of instructions, follow-up care. 01:13 Patient left the ED. mg2 Signatures: Regan Romero RN RN sg Marlene Rosales Terrence, MD MD tw4 Octavio Joseph RN RN mg2 Esparza, [place] 1 Shira Childs RN RN lw1 Corrections: (The following items were deleted from the chart) 01:11 01:09 Patient did not have IV access during this emergency room visit. lw1 lw1
[2019-06-29 01:19] VITALS: BP 135/95; TEMP 99; O2SAT 98
--- NOTE | 2019-06-30 01:19 | EDPHYS ---
Physician Documentation [facility] Name: Silvina Cohen Age: 38 yrs Sex: Female : 1980 Arrival Date: 06/29/2019 Time: 00:26 Bed 14 Private MD: ED Physician Joni Flores HPI: 06/28 07:18 This 38 yrs old Black Female presents to ER via Ambulatory with complaints of PIC LINE tw4 COMING OUT. 07:18 Onset: The symptoms/episode began/occurred today. Severity of symptoms: At their worst tw4 the symptoms were mild in the emergency department the symptoms are unchanged. The patient has not experienced similar symptoms in the past. Historical: - Allergies: 00:37 Flexeril; sg 00:37 Naproxen; sg - PMHx: 00:37 Anxiety; Back pain; Diabetes - NIDDM; HYPERGLYCEMIA; Hypertension; sg - PSHx: 00:37 Hysterectomy; Hernia repair; Cholecystectomy; cyst removal; sg - Immunization history:: Adult Immunizations. - Social history:: Smoking status: Patient denies any tobacco usage or history of. ROS: 07:18 Constitutional: Negative for fever, chills, and weight loss, Eyes: Negative for injury, tw4 pain, redness, and discharge, Cardiovascular: Negative for chest pain, palpitations, and edema, Respiratory: Negative for shortness of breath, cough, wheezing, and pleuritic chest pain, Abdomen/GI: Negative for abdominal pain, nausea, vomiting, diarrhea, and constipation, Skin: Negative for injury, rash, and discoloration, Neuro: Negative for headache, weakness, numbness, tingling, and seizure. 07:18 MS/extremity: Positive for picc line dysfucntion. Exam: 07:18 Constitutional: This is a well developed, well nourished patient who is awake, alert, tw4 and in no acute distress. Head/Face: Normocephalic, atraumatic. Chest/axilla: Normal chest wall appearance and motion. Nontender with no deformity. No lesions are appreciated. Cardiovascular: Regular rate and rhythm with a normal S1 and S2. No gallops, murmurs, or rubs. Normal PMI, no JVD. No pulse deficits. Respiratory: Lungs have equal breath sounds bilaterally, clear to auscultation and percussion. No rales, rhonchi or wheezes noted. No increased work of breathing, no retractions or nasal flaring. Abdomen/GI: Soft, non-tender, with normal bowel sounds. No distension or tympany. No guarding or rebound. No evidence of tenderness throughout. 07:18 Musculoskeletal/extremity: Extremities: PICC line right AC site appears well, ROM: no acute changes, Circulation is intact in all extremities. Vital Signs: 00:37 BP 135 / 95; Pulse 88; Resp 20; Temp 99.0(O); Pulse Ox 98% ; lt1 MDM: 00:56 Patient medically screened. tw4 07:18 Differential Diagnosis altered mental status. Data reviewed: vital signs, nurses notes. tw4 Data interpreted: Pulse oximetry: Interpretation: normal. Counseling: I had a detailed discussion with the patient and/or guardian regarding: the historical points, exam findings, and any diagnostic results supporting the discharge/admit diagnosis. Special discussion: I discussed with the patient/guardian in detail that at this point there is no indication for admission to the hospital. It is understood, however, that if the symptoms persist or worsen the patient needs to return immediately for re-evaluation. ED course: PICC line flushes well and draws blood without difficulty . Administered Medications: No medications were administered Disposition: 07:25 Chart complete. tw Disposition: 06/29/19 01:02 Discharged to Home. Impression: Displacement of infusion catheter. - Condition is Stable. - Discharge Instructions: PICC Home Guide, PICC Insertion, Care After, PICC Insertion. - Medication Reconciliation Form, Thank You Letter, Antibiotic Education, Prescription Opioid Use form. - Follow up: Private Physician; When: Upon discharge from the Emergency Department; Reason: Recheck today's complaints, Continuance of care. - Problem is new. - Symptoms have improved. Signatures: Regan Romero RN RN sg Joni Flores MD MD tw4 Octavio Joseph RN RN mg2 Corrections: (The following items were deleted from the chart) 01:13 01:02 06/29/2019 01:02 Discharged to Home. Impression: Displacement of infusion mg2 catheter. Condition is Stable. Forms are Medication Reconciliation Form, Thank You Letter, Antibiotic Education, Prescription Opioid Use. Follow up: Private Physician; When: Upon discharge from the Emergency Department; Reason: Recheck today's complaints, Continuance of care. Problem is new. Symptoms have improved. tw4
== END 2019-06-29 01:13 | disposition home or self-care (01) ==
LOC: ER 00:23
DX: T82.524A Displacement of infusion catheter, initial encounter (principal); Z88.8 Allergy status to other drugs, medicaments and biological substances
CPT/HCPCS: 99284; J1642

== ENCOUNTER 2019-08-13 01:25 | Emergency (ER) | payer BC ==
--- OUTSIDE RECORDS SUMMARY | 2019-08-13 01:30 | XMS REPORT ---
:1980 Author Organization [facility] t Address Formerly [facility]3 Jaiden Morales [address] [place] [id number] Care Team Providers Name Role Phone NEGRA BUCK Unavailable Unavailable Payers Payer Name Policy Type Policy Number Effective Date Expiration D ate Problems This patient has no known problems. Allergies, Adverse Reactions, Alerts Allergy Allergy Status Severity Reaction(s) Onset Inactive Treating C omments Name Type Date Date Clinician NAPROXEN DA [...] Value Reference Range Comments CULTURE (BEAKER) (test code = 1095) No growth in 5 days BLOOD [id number] 14:00:00 Test Item Value Reference Range Comments CULTURE (BEAKER) (test code = 1095) No growth in 5 days ANG, NON-TUNNELED CATH/PICC >5 Y.O. WITH [id number] 15:20:00Reason for exam:->MCC antibioticsFINAL REPORT PICC LINE PLACEMENT, UNDER FLUOROSCOPY History provided: Need for long-term IV antibiotics PROCEDURE: Informed consent was obtained. Patient's medication list was rev iewed. Timeout procedure was performed. All elements of [...] placed, through which a dual lumen 5 Salvadorean PICC line trimmed to 43 cm length was advanced and positioned wi th tip at the cavoatrial junction. Spot film performed for documentation. Catheter flushed and secured in place with 2-0 silk sutures. Sterile dressing applied. Catheter is ready for immediate use. Fluoroscopy time: 0.9 minutes Number of exposures performed: Two Radiation dose (Ka,r): 56.83 mGy Signed: Jorge Alberto Byrnes MDRepsaint mary's [facility] Verified Date/Time: 06/21/2019 15:20:38 Reading Location: [facility] Radiology Reading Room POCT-GLUCOSE [id number] 12:29:00 Test Item Value Reference Range Comments POC-GLUCOSE METER (BEAKER) 140 mg/dL 70-110 : CRISTEL DARELL AT [address] (test code = 1538) [facility] [address]: Correspondence Representative/Technic kalli ID = [id number] for Elaina Major POCT-GLUCOSE [id number] 07:52:00 Test Item Value Reference Range Comments POC-GLUCOSE METER (BEAKER) 157 mg/dL 70-110 : CRISTEL DARELL AT [address] (test code = 1538) [facility] [address]: Correspondence Representative/Technic kalli ID = [id number] for Elaina Major n BASIC METABOLIC [id number] 06:16:00 Test Item Value Reference Range Comments SODIUM (BEAKER) (test 140 meq/L 135-148 code = 381) POTASSIUM (BEAKER) (test 3.7 meq/L 3.6-5.5 code = 379) CHLORIDE (BEAKER) (test 104 meq/L 98-106 code = 382) CO2 (BEAKER) (test code = 26 meq/L 20-29 355) BLOOD UREA NITROGEN 4 mg/dL 10-26 (BEAKER) (test code = 354) CREATININE (BEAKER) (test 0.81 mg/dL 0.50-1.20 code = 358) GLUCOSE RANDOM (BEAKER) 156 mg/dL 70-110 (test code = 652) CALCIUM (BEAKER) (test 9.0 mg/dL 8.5-10.5 code = 697) EGFR (BEAKER) (test code 95 mL/min/1.73 sq m EST IMATED GFR IS NOT = 1092) ACCURATE CREA TININE CLEARANCE IN PRE DICTING GLOMERULAR FILTR ATION RATE. ESTIMATED GFR IS NOT APPLICABLE F OR DIALYSIS PATIENT S. Correspondence Representative ID - [id number] W/PLT COUNT & AUTO [id number] 05:55:00 Test Item Value Reference Range Comments WHITE BLOOD CELL COUNT (BEAKER) (test code = 6.6 K/ L 4.0 -10.0 775) RED BLOOD CELL COUNT (BEAKER) (test code = 761) 4.32 M/ L 4.00-5.00 HEMOGLOBIN (BEAKER) (test code = 410) 13.2 GM/DL 12.0-15.5 HEMATOCRIT (BEAKER) (test code = 411) 39.5 % 36.0-46.0 MEAN CORPUSCULAR VOLUME (BEAKER) (test code = 91.4 fL 82 .0-99.0 753) MEAN CORPUSCULAR HEMOGLOBIN (BEAKER) (test code 30.6 pg 27.0-33.0 = 751) MEAN CORPUSCULAR HEMOGLOBIN CONC (BEAKER) (test 33.4 GM/DL 32.0-36.0 code = 752) RED CELL DISTRIBUTION WIDTH (BEAKER) (test code 12.4 % 12.0-15.0 = 412) PLATELET COUNT (BEAKER) (test code = 756) 278 K/CU MM 150-43 0 MEAN PLATELET VOLUME (BEAKER) (test code = 754) 10.3 fL 6.0-11.5 NUCLEATED RED BLOOD CELLS (BEAKER) (test code = 0 /100 WBC 0-0 413) NEUTROPHILS RELATIVE PERCENT (BEAKER) (test code 60 % = 429) LYMPHOCYTES RELATIVE PERCENT (BEAKER) (test code 26 % = 430) MONOCYTES RELATIVE PERCENT (BEAKER) (test code = 10 % 431) EOSINOPHILS RELATIVE PERCENT (BEAKER) (test code 3 % = 432) BASOPHILS RELATIVE PERCENT (BEAKER) (test code = 1 % 437) NEUTROPHILS ABSOLUTE COUNT (BEAKER) (test code = 3.96 K/ L 1.80-8.00 670) LYMPHOCYTES ABSOLUTE COUNT (BEAKER) (test code = 1.70 K/ L 1.48-4.50 414) MONOCYTES ABSOLUTE COUNT (BEAKER) (test code = 0.65 K/ L 0 .00-1.30 415) EOSINOPHILS ABSOLUTE COUNT (BEAKER) (test code = 0.22 K/ L 0.00-0.50 416) BASOPHILS ABSOLUTE COUNT (BEAKER) (test code = 0.04 K/ L 0 .00-0.20 417) IMMATURE GRANULOCYTES-RELATIVE PERCENT (BEAKER) 0 % 0-0 (test code = 2801) POCT-GLUCOSE [id number] 22:16:00 Test Item Value Reference Range Comments POC-GLUCOSE METER (BEAKER) 161 mg/dL 70-110 : CRISTEL DARELL AT [address] (test code = 1538) [facility] [address]: Correspondence Representative/Technic kalli ID = [id number] for gio Melchor POCT-GLUCOSE [id number] 17:08:00 Test Item Value Reference Range Comments POC-GLUCOSE METER (BEAKER) 196 mg/dL 70-110 : Not ified RN/MD: TESTED AT (test code = 1538) [facility] [address] [place] [address]: Correspondence Representative/Technic kalli ID = [id number] for Neelima Milan POCT-GLUCOSE [id number] 12:11:00 Test Item Value Reference Range Comments POC-GLUCOSE METER (BEAKER) 162 mg/dL 70-110 : Not ified RN/MD: TESTED AT (test code = 1538) [facility] [address] [place] [address] 78: Correspondence Representative/Technic kalli ID = [id number] for Neelima Milan taben POCT-GLUCOSE [id number] 08:57:00 Test Item Value Reference Range Comments POC-GLUCOSE METER (BEAKER) 203 mg/dL 70-110 : Not ified RN/MD: TESTED AT (test code = 1538) [facility] [address] [facility] [place] [address]: Correspondence Representative/Technic kalli ID = [id number] for Neelima Milan BASIC METABOLIC [id number] 06:22:00 Test Item Value Reference Range Comments SODIUM (BEAKER) (test 139 meq/L 135-148 code = 381) POTASSIUM (BEAKER) (test 4.1 meq/L 3.6-5.5 Specime n slightly code = 379) hemolyzed CHLORIDE (BEAKER) (test 108 meq/L 98-106 code = 382) CO2 (BEAKER) (test code = 22 meq/L 20-29 355) BLOOD UREA NITROGEN 3 mg/dL 10-26 (BEAKER) (test code = 354) CREATININE (BEAKER) (test 0.77 mg/dL 0.50-1.20 Specim en slightly code = 358) hemolyzed GLUCOSE RANDOM (BEAKER) 112 mg/dL 70-110 (test code = 652) CALCIUM (BEAKER) (test 9.1 mg/dL 8.5-10.5 code = 697) EGFR (BEAKER) (test code 101 mL/min/1.73 sq m ES TIMATED GFR IS NOT = 1092) ACCURATE CREA TININE CLEARANCE IN PRE DICTING GLOMERULAR FILTR ATION RATE. ESTIMATED GFR IS NOT APPLICABLE F OR DIALYSIS PATIENT S. Correspondence Representative ID - [id number] 21:15:00 Test Item Value Reference Range Comments POC-GLUCOSE METER (BEAKER) 132 mg/dL 70-110 : CRISTEL DARELL AT [facility] [address] (test code = 1538) [facility] [place] [address]: Correspondence Representative/Technic kalli ID = [id number] for Do bhavin Cruz CT, CHEST WITH IV CONTRAST- PE TEST [id number] 17:05:00FINAL REPORT History: Dyspnea. TECHNIQUE: Helical CT [...] decreased attenuation the liver, likely fatty infiltration. IMPRESSIO N: 1. No acute cardiopulmonary abnormalities. No large central pulmonary emboli are present. More distal emboli would be impossible to exclude due to suboptimal contrast bolus. Signed: Nicolás Esparzaeport Verified Date/Time: 06/19/2019 17:05:27 Reading Location: [facility] Radiology Reading Room POCT-GLUCOSE METER 2019-06-19 16:56:00 Test Item Value Reference Range Comments POC-GLUCOSE METER (BEAKER) 147 mg/dL 70-110 : CRISTEL DARELL AT [address] (test code = 1538) [facility] [place] [address]: Correspondence Representative/Technic kalli ID = [id number] for Glenna Branch mitchell BLOOD [id number] 09:46:00 Test Item Value Reference Range Comments CULTURE (BEAKER) From Aerobic An d Anaerobic (test code = 1095) Bottles Same organism has been isolated fr om culture(s) of th e same body site and collect ion date. Repeat identific ation performed only a fter consultation wit the [facility].Refer to previous culture ofEscherichia co li GRAM STAIN RESULT From aerobic and (BEAKER) (test code anaerobic bottles: = 1123) gram negative rods BLOOD [id number] 09:45:00 Test Item Value Reference Range Comments CULTURE (BEAKER) (test code ESCHERICHIA COLI Fro m Aerobic And = 1095) Anaerobic Bottle s Escherichia coli Amikacin (test code = 1) Ampicillin + Sulbactam (test code = 6) Aztreonam (test code = 32) Cefazolin (test code = 9) Cefepime (test code = 51) Cefoxitin (test code = 68) Ceftazidime (test code = 27) Ceftriaxone (test code = 52) Ertapenem (test code = 38) Gentamicin (test code = 18) Levofloxacin (test code = 22) Meropenem (test code = 34) Nitrofurantoin (test code = 23) Piperacillin + Tazobactam (test code = 29) Tetracycline (test code = 2) Tigecycline (test code = 133) Tobramycin (test code = 25) Trimethoprim + Sulfamethoxazole (test code = 47) GRAM STAIN RESULT (BEAKER) From aerobic and (test code = 1123) anaerobic bottles: gram negative rods POCT-GLUCOSE [id number] 07:53:00 Test Item Value Reference Range Comments POC-GLUCOSE METER (BEAKER) 131 mg/dL 70-110 : CRISTEL DARELL AT [facility] (test code = 1538[facility] [place] [address]: Correspondence Representative/Technic kalli ID = [id number] for Glenna Branch COMPREHENSIVE METABOLIC [id number] 06:08:00 Test Item Value Reference Range Comments TOTAL PROTEIN (BEAKER) 6.4 gm/dL 6.0-8.5 (test code = 770) ALBUMIN (BEAKER) (test 3.5 g/dL 3.5-5.0 code = 1145) ALKALINE PHOSPHATASE 56 U/L 30-115 (BEAKER) (test code = 346) BILIRUBIN TOTAL (BEAKER) 0.4 mg/dL 0.1-1.2 (test code = 377) SODIUM (BEAKER) (test code 140 meq/L 135-148 = 381) POTASSIUM (BEAKER) (test 3.5 meq/L 3.6-5.5 code = 379) CHLORIDE (BEAKER) (test 108 meq/L 98-106 code = 382) CO2 (BEAKER) (test code = 21 meq/L 20-29 355) BLOOD UREA NITROGEN 7 mg/dL 10-26 (BEAKER) (test code = 354) CREATININE (BEAKER) (test 0.89 mg/dL 0.50-1.20 code = 358) GLUCOSE RANDOM (BEAKER) 195 mg/dL 70-110 (test code = 652) CALCIUM (BEAKER) (test 8.2 mg/dL 8.5-10.5 code = 697) AST (SGOT) (BEAKER) (test 41 U/L 5-40 code = 353) ALT (SGPT) (BEAKER) (test 52 U/L 5-50 code = 347) EGFR (BEAKER) (test code = 86 mL/min/1.73 sq m E STIMATED GFR IS NOT 1092) ACCURATE CREA TININE CLEARANCE IN PRE DICTING GLOMERULAR FILTR ATION RATE. ESTIMATED GFR IS NOT APPLICABLE F OR DIALYSIS PATIENT S. Correspondence Representative ID - [id number] W/PLT COUNT & AUTO [id number] 05:43:00 Test Item Value Reference Range Comments WHITE BLOOD CELL COUNT (BEAKER) (test code = 9.5 K/ L 4.0 -10.0 775) RED BLOOD CELL COUNT (BEAKER) (test code = 761) 3.83 M/ L 4.00-5.00 HEMOGLOBIN (BEAKER) (test code = 410) 11.9 GM/DL 12.0-15.5 HEMATOCRIT (BEAKER) (test code = 411) 36.0 % 36.0-46.0 MEAN CORPUSCULAR VOLUME (BEAKER) (test code = 94.0 fL 82 .0-99.0 753) MEAN CORPUSCULAR HEMOGLOBIN (BEAKER) (test code 31.1 pg 27.0-33.0 = 751) MEAN CORPUSCULAR HEMOGLOBIN CONC (BEAKER) (test 33.1 GM/DL 32.0-36.0 code = 752) RED CELL DISTRIBUTION WIDTH (BEAKER) (test code 12.9 % 12.0-15.0 = 412) PLATELET COUNT (BEAKER) (test code = 756) 198 K/CU MM 150-43 0 MEAN PLATELET VOLUME (BEAKER) (test code = 754) 11.0 fL 6.0-11.5 NUCLEATED RED BLOOD CELLS (BEAKER) (test code = 0 /100 WBC 0-0 413) NEUTROPHILS RELATIVE PERCENT (BEAKER) (test code 70 % = 429) LYMPHOCYTES RELATIVE PERCENT (BEAKER) (test code 19 % = 430) MONOCYTES RELATIVE PERCENT (BEAKER) (test code = 9 % 431) EOSINOPHILS RELATIVE PERCENT (BEAKER) (test code 1 % = 432) BASOPHILS RELATIVE PERCENT (BEAKER) (test code = 0 % 437) NEUTROPHILS ABSOLUTE COUNT (BEAKER) (test code = 6.64 K/ L 1.80-8.00 670) LYMPHOCYTES ABSOLUTE COUNT (BEAKER) (test code = 1.81 K/ L 1.48-4.50 414) MONOCYTES ABSOLUTE COUNT (BEAKER) (test code = 0.87 K/ L 0 .00-1.30 415) EOSINOPHILS ABSOLUTE COUNT (BEAKER) (test code = 0.09 K/ L 0.00-0.50 416) BASOPHILS ABSOLUTE COUNT (BEAKER) (test code = 0.03 K/ L 0 .00-0.20 417) IMMATURE GRANULOCYTES-RELATIVE PERCENT (BEAKER) 0 % 0-0 (test code = 2801) POCT-GLUCOSE [id number] 21:12:00 Test Item Value Reference Range Comments POC-GLUCOSE METER (BEAKER) 195 mg/dL 70-110 : CRISTEL LOZOYA AT [address] (test code = 1538) [facility] [address]: Correspondence Representative/Technic kalli ID = [id number] for Do bhavin Cruz POCT-GLUCOSE [id number] 18:06:00 Test Item Value Reference Range Comments POC-GLUCOSE METER (BEAKER) 109 mg/dL 70-110 : CRISTEL LOZOYA AT [address] (test code = 1538) [facility] [address]: Correspondence Representative/Technic kalli ID = [id number] for Glenna Branch TROPONIN [id number] 14:37:00 Test Item Value Reference Range Comments TROPONIN I (BEAKER) (test code = 397) < ng/mL 0.00-0.15 Troponin I (TnI) levels [...] failure, acidosis, acute neurological disease, and persistent tachyarrhythmia.Correspondence Representative ID - [id number] [id number] 2019-06-18 11:28:00 Test Item Value Reference Range Comments POC-GLUCOSE METER (BEAKER) 135 mg/dL 70-110 : CRISTEL DARELL AT [facility] (test code = 1538) [facility] [address]: Correspondence Representative/Technic kalli ID = [id number] for Glenna Branch a POCT-GLUCOSE [id number] 07:54:00 Test Item Value Reference Range Comments POC-GLUCOSE METER (BEAKER) 243 mg/dL 70-110 : CRISTEL DARELL AT [facility] [address] (test code = 1538) [facility] [address]: Correspondence Representative/Technic kalli ID = [id number] for Glenna Branch BASIC METABOLIC [id number] 04:55:00 Test Item Value Reference Range Comments SODIUM (BEAKER) (test 137 meq/L 135-148 code = 381) POTASSIUM (BEAKER) (test 3.4 meq/L 3.6-5.5 code = 379) CHLORIDE (BEAKER) (test 103 meq/L 98-106 code = 382) CO2 (BEAKER) (test code = 23 meq/L 20-29 355) BLOOD UREA NITROGEN 9 mg/dL 10-26 (BEAKER) (test code = 354) CREATININE (BEAKER) (test 1.13 mg/dL 0.50-1.20 code = 358) GLUCOSE RANDOM (BEAKER) 197 mg/dL 70-110 (test code = 652) CALCIUM (BEAKER) (test 8.5 mg/dL 8.5-10.5 code = 697) EGFR (BEAKER) (test code 65 mL/min/1.73 sq m EST IMATED GFR IS NOT = 1092) ACCURATE CREA TININE CLEARANCE IN PRE DICTING GLOMERULAR FILTR ATION RATE. ESTIMATED GFR IS NOT APPLICABLE F OR DIALYSIS PATIENT S. COMPREHENSIVE METABOLIC [id number] 04:54:00 Test Item Value Reference Range Comments TOTAL PROTEIN (BEAKER) 6.9 gm/dL 6.0-8.5 (test code = 770) ALBUMIN (BEAKER) (test 3.9 g/dL 3.5-5.0 code = 1145) ALKALINE PHOSPHATASE 59 U/L 30-115 (BEAKER) (test code = 346) BILIRUBIN TOTAL (BEAKER) 1.1 mg/dL 0.1-1.2 (test code = 377) SODIUM (BEAKER) (test code 137 meq/L 135-148 = 381) POTASSIUM (BEAKER) (test 3.4 meq/L 3.6-5.5 code = 379) CHLORIDE (BEAKER) (test 103 meq/L 98-106 code = 382) CO2 (BEAKER) (test code = 23 meq/L 20-29 355) BLOOD UREA NITROGEN 9 mg/dL 10-26 (BEAKER) (test code = 354) CREATININE (BEAKER) (test 1.13 mg/dL 0.50-1.20 code = 358) GLUCOSE RANDOM (BEAKER) 197 mg/dL 70-110 (test code = 652) CALCIUM (BEAKER) (test 8.5 mg/dL 8.5-10.5 code = 697) AST (SGOT) (BEAKER) (test 76 U/L 5-40 code = 353) ALT (SGPT) (BEAKER) (test 77 U/L 5-50 code = 347) EGFR (BEAKER) (test code = 65 mL/min/1.73 sq m E STIMATED GFR IS NOT 1092) ACCURATE CREA TININE CLEARANCE IN PRE DICTING GLOMERULAR FILTR ATION RATE. ESTIMATED GFR IS NOT APPLICABLE F OR DIALYSIS PATIENT S. Correspondence Representative ID - [id number] 04:47:00 Test Item Value Reference Range Comments PROTIME (BEAKER) (test code = 759) 13.7 sec 9.3-12.0 INR (BEAKER) (test code = 370) 1.3 <=5.9 RECOMMENDED COUMADIN/WARFARIN INR THERAPY RANGESSTANDARD DOSE: 2.0 - 3.0 Includes: PROPHYLAXIS forvenous thrombosis, systemic embolization; TREATMENT for venous thrombosis and/or pulmonary embolus.HIGH RISK: Target INR is 2.5-3.5 for patients with mechanical heart valves.Final Information (Auto Output)Final Information (Auto Output)[id number] 04:47:00 Test Item Value Reference Range Comments PARTIAL THROMBOPLASTIN TIME (BEAKER) (test code = 31.2 sec 23.0-35.0 760) Final Information (Auto Output)CBC W/PLT COUNT & AUTO [id number] 04:34:00 Test Item Value Reference Range Comments WHITE BLOOD CELL COUNT (BEAKER) (test code = 13.8 K/ L 4.0 -10.0 775) RED BLOOD CELL COUNT (BEAKER) (test code = 761) 4.36 M/ L 4.00-5.00 HEMOGLOBIN (BEAKER) (test code = 410) 13.3 GM/DL 12.0-15.5 HEMATOCRIT (BEAKER) (test code = 411) 40.2 % 36.0-46.0 MEAN CORPUSCULAR VOLUME (BEAKER) (test code = 92.2 fL 82 .0-99.0 753) MEAN CORPUSCULAR HEMOGLOBIN (BEAKER) (test code 30.5 pg 27.0-33.0 = 751) MEAN CORPUSCULAR HEMOGLOBIN CONC (BEAKER) (test 33.1 GM/DL 32.0-36.0 code = 752) RED CELL DISTRIBUTION WIDTH (BEAKER) (test code 12.7 % 12.0-15.0 = 412) PLATELET COUNT (BEAKER) (test code = 756) 242 K/CU MM 150-43 0 MEAN PLATELET VOLUME (BEAKER) (test code = 754) 10.2 fL 6.0-11.5 NUCLEATED RED BLOOD CELLS (BEAKER) (test code = 0 /100 WBC 0-0 413) NEUTROPHILS RELATIVE PERCENT (BEAKER) (test code 82 % = 429) LYMPHOCYTES RELATIVE PERCENT (BEAKER) (test code 10 % = 430) MONOCYTES RELATIVE PERCENT (BEAKER) (test code = 7 % 431) EOSINOPHILS RELATIVE PERCENT (BEAKER) (test code 0 % = 432) BASOPHILS RELATIVE PERCENT (BEAKER) (test code = 0 % 437) NEUTROPHILS ABSOLUTE COUNT (BEAKER) (test code = 11.29 K/ L 1.80-8.00 670) LYMPHOCYTES ABSOLUTE COUNT (BEAKER) (test code = 1.37 K/ L 1.48-4.50 414) MONOCYTES ABSOLUTE COUNT (BEAKER) (test code = 0.99 K/ L 0 .00-1.30 415) EOSINOPHILS ABSOLUTE COUNT (BEAKER) (test code = 0.02 K/ L 0.00-0.50 416) BASOPHILS ABSOLUTE COUNT (BEAKER) (test code = 0.03 K/ L 0 .00-0.20 417) IMMATURE GRANULOCYTES-RELATIVE PERCENT (BEAKER) 1 % 0-0 (test code = 2801) LACTIC ACID, [id number] 04:23:00 Test Item Value Reference Range Comments LACTATE BLOOD VENOUS (2) 1.7 mmol/L 0.5-2.0 Specime n slightly hemolyzed (BEAKER) (test code = 2872) Correspondence Representative ID - [id number] 21:15:00 Test Item Value Reference Range Comments POC-GLUCOSE METER (BEAKER) 201 mg/dL 70-110 : CRISTEL DARELL AT [address] (test code = 1538) [facility] [address]: Correspondence Representative/Technic kalli ID = [id number] for Do bhavin Cruz POCT-GLUCOSE [id number] 17:16:00 Test Item Value Reference Range Comments POC-GLUCOSE METER (BEAKER) 163 mg/dL 70-110 : Not ified RN/MD: TESTED AT (test code = 1538) [place] [address]: Correspondence Representative/Technic kalli ID = [id number] for Neelima Milan POCT-GLUCOSE [id number] 13:42:00 Test Item Value Reference Range Comments POC-GLUCOSE METER (BEAKER) 224 mg/dL 70-110 : Not ified RN/MD: TESTED AT (test code = 1538) [place] [address]: Correspondence Representative/Technic kalli ID = [id number] for KayliNeelima shearerdalia LACTIC ACID, [id number] 13:12:00 Test Item Value Reference Range Comments LACTATE BLOOD VENOUS (2) (BEAKER) (test code = 8.8 mmol/L 0 .5-2.0 2872) Correspondence Representative ID - [id number], [id number] 10:42:00Reason for exam:- >epigastric pain left flank painReason for exam:->CHILLSReason for exam:->FEVERReason for exam:->ABDOMINAL PAINReason for exam:->EMESISIs the patient ?->UnknownWhat is the patient's sedation requirement?- >No SedationFINAL REPORT CT abdomen and pelvis without [...] Findings:Evaluation limited by lack of intravenous contrast. Di ffuse fatty infiltration of the liver is noted. [...] Suggest clinical correlation. Signed: Reagan De Dios MDReport Verified Date/Time: 06/17/2019 10:42:41 Reading Location: [facility] Diagnostic Imaging Reading Room - [place] [address] RAD, CHEST, 1 VIEW, NON [id number] 10:26:00Reason for exam:->CHILLSReason for exam:- >FEVERReason for exam:->ABDOMINAL PAINReason for exam:->EMESISIs the patient ?->UnknownShould this be performed at the bedside?->Yes FINAL REPORT INDICATION: CHILLSFEVERABDOMINAL PAINEMESIS COMPARISON: None TECHNIQUE: Single frontal view of the chest. FINDINGS: Lungs and pleura: Hazy airspace opacity throughout the right lung. No effusion.Heart and mediastinum: Normal heart size. Unremarkable mediastinal contours.Osseous structures: No acute abnormality.Other: None. IMPRESSION: Hazy airspace opacity throughout the right lung which may represent lobar pneumonia and/or asymmetric edema Signed: Justin Durán MDReport Verified Date/Time: 06/17/2019 10:26:56 Reading Location: [facility] Radiology ReadingRoom RAPID INFLUENZA A&B [id number] 10:22:00 Test Item Value Reference Range Comments RAPID INFLUENZA A AG (BEAKER) (test code = Negative Negat mohinder, Inconclusive 1622) RAPID INFLUENZA B AG (BEAKER) (test code = Negative Negat mohinder, Inconclusive 1623) LACTIC ACID, [id number] 10:20:00 Test Item Value Reference Range Comments LACTATE BLOOD VENOUS (2) 2.7 mmol/L 0.5-2.0 Specime n slightly hemolyzed (BEAKER) (test code = 2872) Correspondence Representative ID - [id number] METABOLIC [id number] 10:20:00 Test Item Value Reference Range Comments TOTAL PROTEIN (BEAKER) 8.0 gm/dL 6.0-8.5 (test code = 770) ALBUMIN (BEAKER) (test 4.5 g/dL 3.5-5.0 code = 1145) ALKALINE PHOSPHATASE 74 U/L 30-115 (BEAKER) (test code = 346) BILIRUBIN TOTAL (BEAKER) 1.2 mg/dL 0.1-1.2 (test code = 377) SODIUM (BEAKER) (test code 136 meq/L 135-148 = 381) POTASSIUM (BEAKER) (test 3.8 meq/L 3.6-5.5 code = 379) CHLORIDE (BEAKER) (test 102 meq/L 98-106 code = 382) CO2 (BEAKER) (test code = 21 meq/L 20-29 355) BLOOD UREA NITROGEN 7 mg/dL 10-26 (BEAKER) (test code = 354) CREATININE (BEAKER) (test 0.93 mg/dL 0.50-1.20 code = 358) GLUCOSE RANDOM (BEAKER) 230 mg/dL 70-110 (test code = 652) CALCIUM (BEAKER) (test 9.2 mg/dL 8.5-10.5 code = 697) AST (SGOT) (BEAKER) (test 62 U/L 5-40 code = 353) ALT (SGPT) (BEAKER) (test 49 U/L 5-50 code = 347) EGFR (BEAKER) (test code = 81 mL/min/1.73 sq m E STIMATED GFR IS NOT 1092) ACCURATE CREA TININE CLEARANCE IN PRE DICTING GLOMERULAR FILTR ATION RATE. ESTIMATED GFR IS NOT APPLICABLE F OR DIALYSIS PATIENT S. Correspondence Representative ID - [id number] 10:12:00 Test Item Value Reference Range Comments PARTIAL THROMBOPLASTIN TIME (BEAKER) (test code = 22.4 sec 23.0-35.0 760) Final Information (Auto Output)PROTHROMBIN [id number] 10:11:00 Test Item Value Reference Range Comments PROTIME (BEAKER) (test code = 759) 10.7 sec 9.3-12.0 INR (BEAKER) (test code = 370) 1.0 <=5.9 RECOMMENDED COUMADIN/WARFARIN INR THERAPY RANGESSTANDARD DOSE: 2.0 - 3.0 Includes: PROPHYLAXIS forvenous thrombosis, systemic embolization; TREATMENT for venous thrombosis and/or pulmonary embolus.HIGH RISK: Target INR is 2.5-3.5 for patients with mechanical heart valves.Final Information (Auto Output)Final Information (Auto Output)URINALYSIS W/ [id number] 10:10:00 Test Item Value Reference Range Comments COLOR (BEAKER) (test code = 470) Yellow CLARITY (BEAKER) (test code = 469) Clear SPECIFIC GRAVITY UA (BEAKER) (test code = 468) 1.010 1 .001-1.035 PH UA (BEAKER) (test code = 467) 6.0 5.0-8.0 PROTEIN UA (BEAKER) (test code = 464) Negative Negative GLUCOSE UA (BEAKER) (test code = 365) Negative Negative KETONES UA (BEAKER) (test code = 371) Negative Negative BILIRUBIN UA (BEAKER) (test code = 462) Negative Negative BLOOD UA (BEAKER) (test code = 461) Negative Negative NITRITE UA (BEAKER) (test code = 465) Negative Negative LEUKOCYTE ESTERASE UA (BEAKER) (test code = 466) Negative Negative UROBILINOGEN UA (BEAKER) (test code = 463) 0.2 mg/dL 0.2-1 .0 BACTERIA (BEAKER) (test code = 517) Occasional RBC UA-MANUAL (BEAKER) (test code = 1659) <5 /HPF WBC UA-MANUAL (BEAKER) (test code = 1661) <5 /HPF SQUAMOUS EPITHELIAL MANUAL (BEAKER) (test code = <5 /HPF 1663) SOURCE(BEAKER) (test code = 2795) RAPID STREP A [id number] 10:09:00 Test Item Value Reference Range Comments STREP A ANTIGEN (BEAKER) (test code = 556) Negative SCREEN, [id number] 10:06:00 Test Item Value Reference Range Comments TEST URINE (BEAKER) (test code = 583) Negative CBC W/PLT COUNT & AUTO [id number] 09:58:00 Test Item Value Reference Range Comments WHITE BLOOD CELL COUNT (BEAKER) (test code = 10.7 K/ L 4.0 -10.0 775) RED BLOOD CELL COUNT (BEAKER) (test code = 761) 4.99 M/ L 4.00-5.00 HEMOGLOBIN (BEAKER) (test code = 410) 15.3 GM/DL 12.0-15.5 HEMATOCRIT (BEAKER) (test code = 411) 45.3 % 36.0-46.0 MEAN CORPUSCULAR VOLUME (BEAKER) (test code = 90.8 fL 82 .0-99.0 753) MEAN CORPUSCULAR HEMOGLOBIN (BEAKER) (test code 30.7 pg 27.0-33.0 = 751) MEAN CORPUSCULAR HEMOGLOBIN CONC (BEAKER) (test 33.8 GM/DL 32.0-36.0 code = 752) RED CELL DISTRIBUTION WIDTH (BEAKER) (test code 12.4 % 12.0-15.0 = 412) PLATELET COUNT (BEAKER) (test code = 756) 289 K/CU MM 150-43 0 MEAN PLATELET VOLUME (BEAKER) (test code = 754) 10.4 fL 6.0-11.5 NUCLEATED RED BLOOD CELLS (BEAKER) (test code = 0 /100 WBC 0-0 413) NEUTROPHILS RELATIVE PERCENT (BEAKER) (test code 89 % = 429) LYMPHOCYTES RELATIVE PERCENT (BEAKER) (test code 8 % = 430) MONOCYTES RELATIVE PERCENT (BEAKER) (test code = 1 % 431) EOSINOPHILS RELATIVE PERCENT (BEAKER) (test code 1 % = 432) BASOPHILS RELATIVE PERCENT (BEAKER) (test code = 0 % 437) NEUTROPHILS ABSOLUTE COUNT (BEAKER) (test code = 9.50 K/ L 1.80-8.00 670) LYMPHOCYTES ABSOLUTE COUNT (BEAKER) (test code = 0.90 K/ L 1.48-4.50 414) MONOCYTES ABSOLUTE COUNT (BEAKER) (test code = 0.14 K/ L 0 .00-1.30 415) EOSINOPHILS ABSOLUTE COUNT (BEAKER) (test code = 0.07 K/ L 0.00-0.50 416) BASOPHILS ABSOLUTE COUNT (BEAKER) (test code = 0.03 K/ L 0 .00-0.20 417) IMMATURE GRANULOCYTES-RELATIVE PERCENT (BEAKER) 0 % 0-0 (test code = 2801)
--- NOTE | 2019-08-13 02:25 | EDPHYS ---
Physician Documentation [facility] Name: Silvina Cohen Age: 38 yrs Sex: Female : 1980 Arrival Date: 08/13/2019 Time: 01:27 Bed 19 Private MD: LESLIE Physician Alessandro Singer HPI: 08/12 01:38 This 38 yrs old Black Female presents to ER via Unassigned with complaints of Pelvic pm1 Pain, Low Back Pain. 01:38 The patient presents with pain that is acute, with no known mechanism of injury. The pm1 symptoms are located in the low back. The pain radiates to the suprapubic area. The problem was sustained from unknown cause. Onset: The symptoms/episode began/occurred this morning. Modifying factors: The patient symptoms are alleviated by nothing, the patient symptoms are aggravated by nothing. Associated signs and symptoms: Pertinent negatives: abdominal pain, chest pain, dysuria, fever, nausea, vomiting. Severity of symptoms: in the emergency department the symptoms are actually worse. The patient has not experienced similar symptoms in the past. 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 - Social history:: Smoking status: Patient denies any tobacco usage or history of. Patient uses alcohol, occasionally. Patient/guardian denies using street drugs, IV drugs. ROS: 01:39 Constitutional: Negative for fever, chills, and weight loss, Cardiovascular: Negative pm1 for chest pain, palpitations, and edema, Respiratory: Negative for shortness of breath, cough, wheezing, and pleuritic chest pain. 01:39 MS/Extremity: Negative for injury and deformity, Skin: Negative for injury, rash, and discoloration. 01:39 Neuro: Negative for headache, weakness, numbness, tingling, and seizure. 01:39 Abdomen/GI: Positive for abdominal pain, of the suprapubic area, Negative for nausea, vomiting, and diarrhea, constipation. 01:39 Back: Positive for flank pain, bilaterally. 01:39 : Positive for pelvic pain, Negative for burning with urination. Exam: 01:40 Constitutional: This is a well developed, well nourished patient who is awake, alert, pm1 and in no acute distress. Head/Face: Normocephalic, atraumatic. Chest/axilla: Normal chest wall appearance and motion. Nontender with no deformity. No lesions are appreciated. 01:40 Back: No spinal tenderness. No costovertebral tenderness. Full range of motion. Skin: Warm, dry with normal turgor. Normal color with no rashes, no lesions, and no evidence of cellulitis. MS/ Extremity: Pulses equal, no cyanosis. Neurovascular intact. Full, normal range of motion. 01:40 Cardiovascular: Exam negative for acute changes, Rate: normal, Pulses: no pulse deficits are appreciated. 01:40 Respiratory: Exam negative for acute changes, the patient does not display signs of respiratory distress. 01:40 Abdomen/GI: Inspection: obese Palpation: soft, mild abdominal tenderness, in the suprapubic area, mass, is not appreciated, rebound tenderness, is not appreciated. 01:40 Neuro: Exam negative for acute changes, Orientation: is normal, Mentation: is normal, Motor: is normal, moves all fours, Sensation: is normal, no obvious gross deficits. Vital Signs: 01:47 BP 125 / 78; Pulse 78; Resp 18; Temp 98.2; Pulse Ox 100% on R/A; Weight 138.35 kg; mg2 Height 5 ft. 7 in. (170.18 cm); Pain 8/10; 01:47 Body Mass Index 47.77 (138.35 kg, 170.18 cm) mg2 MDM: 01:30 Patient medically screened. frandy 02:20 Refusal of service: The patient/guardian displays adequate decision making capability pm1 and despite a detailed discussion of alternatives, benefits, risks, and consequences refuses: CT Scan, blood work. Patient just wants to provide urine sample because she believes that it is a urinary tract infection. Will treat for UTI. Educated on return precautions . 02:23 Data reviewed: vital signs. Data interpreted: Pulse oximetry: on room air is 100 %. pm1 Interpretation: normal. Counseling: I had a detailed discussion with the patient and/or guardian regarding: the historical points, exam findings, and any diagnostic results supporting the discharge/admit diagnosis, the need for outpatient follow up, to return to the emergency department if symptoms worsen or persist or if there are any questions or concerns that arise at home. 08/12 01:37 Order name: Urine Microscopic Only pm1 08/12 01:37 Order name: Urine Dipstick-Ancillary (obtain specimen) pm1 08/12 01:37 Order name: IV Saline Lock pm1 08/12 01:37 Order name: Labs collected and sent pm08/12 02:07 Order name: Urine Dipstick--Ancillary (enter results) mt 08/12 02:07 Order name: Urine --Ancillary (enter results) mt Administered Medications: 02:25 Drug: Rocephin (cefTRIAXone) 1 grams Route: IM; Site: right gluteus; mg2 02:47 Follow up: Response: No adverse reaction; Medication administered at discharge. mg2 02:41 Not Given (Patient Refused): NS 0.9% 1000 ml IV at 1000 ml once mg2 Disposition: 11:06 Co-signature as Attending Physician, Alessandro Singer MD I agree with the assessment and main campus medical center plan of care. Disposition: 08/13/19 02:24 Discharged to Home. Impression: Urinary tract infection, site not specified. - Condition is Stable. - Discharge Instructions: Urinary Tract Infection, Adult. - Prescriptions for Macrobid 100 mg Oral Capsule - take 1 capsule by ORAL route every 12 hours for 10 days; 20 capsule. - Medication Reconciliation Form, Thank You Letter, Antibiotic Education, Prescription Opioid Use, Work release form form. - Follow up: Emergency Department; When: As needed; Reason: Worsening of condition. Follow up: Private Physician; When: 2 - 3 days; Reason: Recheck today's complaints, Continuance of care, Re-evaluation by your physician. - Problem is new. - Symptoms have improved. Signatures: Dispatcher [employer] Alessandro Benjamin MD MD cha Marinas, Patrick, MEDICATION NURSE MEDICATION NURSE pm1 Octavio Joseph RN RN mg2 Corrections: (The following items were deleted from the chart) 02:48 02:24 08/13/2019 02:24 Discharged to Home. Impression: Urinary tract infection, site mg2 not specified. Condition is Stable. Forms are Medication Reconciliation Form, Thank You Letter, Antibiotic Education, Prescription Opioid Use. Follow up: Emergency Department; When: As needed; Reason: Worsening of condition. Follow up: Private Physician; When: 2 - 3 days; Reason: Recheck today's complaints, Continuance of care, Re-evaluation by your physician. Problem is new. Symptoms have improved. pm1
--- NOTE | 2019-08-13 02:25 | ER ---
Nurse's Notes [facility] Name: Silvina Cohen Age: 38 yrs Sex: Female : 1980 Arrival Date: 08/13/2019 Time: : Bed 19 Private MD: Diagnosis: Urinary tract infection, site not specified Presentation: 08/12 01:47 Chief complaint: Patient states: i have lower back pain and suprapubic pain since mg2 yesterday. denies nausea. she vomited once yesterday. Coronavirus screen: Proceed with normal triage. Patient denies a cough. Patient denies shortness of breath or difficulty breathing. Patient denies measured and/or subjective temperature greater than 100.4F prior to today's visit. Patient denies travel on a cruise ship or to a country the [facility] currently lists as an affected area. Patient denies contact with known and/or suspected case of COVID-19. Ebola Screen: No symptoms or risks identified at this time. Initial Sepsis Screen: Does the patient meet any 2 criteria? No. Patient's initial sepsis screen is negative. Does the patient have a suspected source of infection? No. Patient's initial sepsis screen is negative. Risk Assessment: Do you want to hurt yourself or someone else? Patient reports no desire to harm self or others. Onset of symptoms was August 12, 2019. 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 - Social history:: Smoking status: Patient denies any tobacco usage or history of. Patient uses alcohol, occasionally. Patient/guardian denies using street drugs, IV drugs. Screenin:20 Abuse screen: Denies threats or abuse. Denies injuries from another. Nutritional mg2 screening: No deficits noted. Tuberculosis screening: No symptoms or risk factors identified. Fall Risk None identified. Assessment: 02:10 General: Appears in no apparent distress. comfortable, Behavior is calm, cooperative. mg2 Pain: Complains of pain in back and abdomen. Neuro: Level of Consciousness is awake, alert, obeys commands, Oriented to person, place, time, situation. Cardiovascular: Capillary refill < 3 seconds Patient's skin is warm and dry. Respiratory: Airway is patent Respiratory effort is even, Respiratory pattern is regular, symmetrical. GI: Reports lower abdominal pain. : Reports pain in lower back. EENT: No signs and/or symptoms were reported regarding the EENT system. Derm: Skin is intact, is healthy with good turgor, Skin is pink, warm \T\ dry. normal. Musculoskeletal: Circulation, motion, and sensation intact. Capillary refill < 3 seconds. 02:20 Reassessment: patient refused blood work and ct scan. provider informed. mg2 Vital Signs: 01:47 BP 125 / 78; Pulse 78; Resp 18; Temp 98.2; Pulse Ox 100% on R/A; Weight 138.35 kg; mg2 Height 5 ft. 7 in. (170.18 cm); Pain 8/10; 01:47 Body Mass Index 47.77 (138.35 kg, 170.18 cm) mg2 ED Course: 01:27 Patient arrived in ED. ds1 01:29 Maldonado Coreas NP is PHCP. pm1 01:29 Alessandro Singer MD is Attending Physician. pm1 01:30 Octavio Joseph, ELLYN is Primary Nurse. mg2 01:50 Triage completed. mg2 01:50 Arm band placed on. mg2 02:21 Patient has correct armband on for positive identification. mg2 02:21 No provider procedures requiring assistance completed. Patient did not have IV access mg2 during this emergency room visit. Administered Medications: 02:25 Drug: Rocephin (cefTRIAXone) 1 grams Route: IM; Site: right gluteus; mg2 02:47 Follow up: Response: No adverse reaction; Medication administered at discharge. mg2 02:41 Not Given (Patient Refused): NS 0.9% 1000 ml IV at 1000 ml once mg2 Outcome: 02:24 Discharge ordered by . pm1 02:48 Discharged to home ambulatory. mg2 02:48 Condition: stable 02:48 Discharge instructions given to patient, Instructed on discharge instructions, follow up and referral plans. medication usage, Demonstrated understanding of instructions, follow-up care, medications, Prescriptions given X 1. 02:48 Patient left the ED. mg2 Signatures: Ca Abernathy ds1 Maldonado Coreas NP JOB SERVICE CONSULTANT pm1 Octavio Joseph, RN RN mg2 Corrections: (The following items were deleted from the chart) 02:48 01:47 Pulse 78bpm; Resp 18bpm; Pulse Ox 100% RA; Temp 98.2F; 138.35 kg; Height 5 ft. 7 mg2 in.; BMI: 47.7; Pain 8/10; mg2
[2019-08-13] MEDS ORDERED: CEFTRIAXONE 1000 MG/VIAL ONE (02:37)
[2019-08-13] MEDS ORDERED: WATER FOR INJ,STERILE 10 ML ONE (02:37)
[2019-08-13 03:05] VITALS: BP 125/78; TEMP 98.2; O2SAT 100
[2019-08-13 03:51] LABS: Urine Bacteria >50 /HPF (<20); Urine Culture Reflex Order REFLEXED; Urine RBC <5 /HPF (NONE SEEN)
[2019-08-13 03:52] LABS: Urine Blood NEGATIVE (NEG); Urine Glucose NEGATIVE (NEG); Urine Protein 1+ (NEG); Urine Specific Gravity >1.030 (1.005-1.030); Urine pH 5.5 (5.0-7.0)
== END 2019-08-13 02:48 | disposition home or self-care (01) ==
LOC: ER 01:25
DX: N39.0 Urinary tract infection, site not specified (principal); I10 Essential (primary) hypertension; E11.9 Type 2 diabetes mellitus without complications; Z88.5 Allergy status to narcotic agent; Z88.6 Allergy status to analgesic agent
CPT/HCPCS: 81003; 81015; 81025; 87086; 87088; 96372; 99283

== ENCOUNTER 2019-08-23 07:09 | Emergency (ER) | payer BC, OTHER ==
--- OUTSIDE RECORDS SUMMARY | 2019-08-23 07:25 | XMS REPORT | Clinical Summary ---
:1980 Author Organization [facility] Address [address] [place] [address] Care Team Providers Name Role Phone Pcp Primary Care Provider Unavailable Allergies Active Allergy Reactions Severity Noted Date Comments Naproxen 06/17/2019 Medications Medication Sig Dispensed Refills Start Date End Date Status ALPRAZolam (XANAX) Take 1 tablet 2 06/11/2019 Active 2 MG tablet by mouth every 8 (eight) hours as needed. metoprolol tartrate Take 1 tablet 5 06/03/2019 Active (LOPRESSOR) 50 MG by mouth tablet daily. omeprazole Take 20 mg by 0 Activ e (PRILOSEC) 20 MG mouth daily. capsule promethazine Take 1 tablet 0 04/29/2019 Ac tive (PHENERGAN) 25 MG by mouth tablet every 8 (eight) hours as needed. zolpidem (AMBIEN) Take 1 tablet 5 06/11/2019 Active 10 mg tablet by mouth every night as needed. liraglutide 0.6 Inject 0 Acti ve mg/0.1 mL (18 mg/3 subcutaneousl mL) PnIj y. HYDROcodone-acetami Take 1 tablet 0 12/18/200806/20 Discontinued nophen (NORCO by mouth 10-325) 10-325 mg every 6 (six) per tablet hours as needed. senna-docusate Take 2 120 tablet 0 06/21/2019 07/21/2019 Ex pired (SENOKOT S) 8.6-50 tablets by mg per tablet mouth 2 (two) times daily for 30 days. metroNIDAZOLE Take 1 tablet 42 tablet 0 06/21/2019 07/05/2019 (FLAGYL) 500 MG (500 mg tablet total) by mouth 3 (three) times daily for 14 days. Active Problems Problem Noted Date Sinus tachycardia 06/17/2019 Pneumonia 06/17/2019 Sepsis 06/17/2019 Febrile illness 06/17/2019 Encounters Date Type Specialty Care Team Description 06/17/2019 - Hospital Encounter General Internal Terrance Quiroz ebrile illness (Primary Dx); 06/21/2019 Medicine MD Lynn Sepsis (HCC); Roro Schroeder Dehydration; MD Lisa Pneumonia of right middle lobe due to infectious organism (HCC); Cough; Sinus tachycard ia; Sepsis without acute organ dysfunction, due to unspecified organism (HCC) 06/17/2019 Orders Only General Internal Medicine 06/17/2019 Travel after 08/22/2018 Social History Tobacco Use Types Packs/Day Years Used Date Never Smoker Smokeless Tobacco: Never Used Alcohol Use Drinks/Week oz/Week Comments No Alcohol Habits Answer Date Recorded How often do you have a drink containing alcohol? Never 06/17/2019 How many drinks containing alcohol do you have on a typical Not asked day when you are drinking? How often do you have six or more drinks on one occasion? No t asked Sex Assigned at Date Recorded Not on file Job Start Date Occupation Industry Not on file Not on file Not on file Travel History Travel Start Travel End No recent travel history available. Last Filed Vital Signs Vital Sign Reading Time Taken Blood Pressure 128/89 06/21/2019 12:00 PM BUSINESS DEVELOPMENT DIRECTOR Pulse 78 06/21/2019 2:25 PM BUSINESS DEVELOPMENT DIRECTOR Temperature 37.3 C (99.1 F) 06/21/2019 12:00 PM BUSINESS DEVELOPMENT DIRECTOR Respiratory Rate 18 06/21/2019 2:25 PM BUSINESS DEVELOPMENT DIRECTOR Oxygen Saturation 99% 06/21/2019 2:25 PM BUSINESS DEVELOPMENT DIRECTOR Inhaled Oxygen Concentration 21% 06/21/2019 2:25 PM BUSINESS DEVELOPMENT DIRECTOR Weight 127 kg (280 lb) 06/17/2019 9:05 AM BUSINESS DEVELOPMENT DIRECTOR Height 177.8 cm (5' 10") 06/17/2019 9:05 AM BUSINESS DEVELOPMENT DIRECTOR Body Mass Index 40.18 06/17/2019 9:05 AM BUSINESS DEVELOPMENT DIRECTOR Plan of Treatment Health Maintenance Due Date Last Done Comments PNEUMOCOCCAL VACCINE 2-64 YEARS AT RISK (1 of 1 - 11/08/1985 PPSV23) CERVICAL CANCER SCREENING PAP ONLY (Age 21-65) 11/08/2000 INFLUENZA VACCINE (#1) 2018 Procedures Procedure Name Priority Date/Time Associated Comments Diagnosis RHYTHM STRIP - SCAN 06/24/2019 3:12 PM CDT IR PICC LINE PLACEMENT Routine 06/21/2019 2:50 R esults for this OLDER THAN 5 YRS PM BUSINESS DEVELOPMENT DIRECTOR procedure a re in the results section. POCT-GLUCOSE METER Routine 06/21/2019 12:17 Resul ts for this PM BUSINESS DEVELOPMENT DIRECTOR procedure are i n the results section. POCT-GLUCOSE METER Routine 06/21/2019 7:40 Resul ts for this AM BUSINESS DEVELOPMENT DIRECTOR procedure are i n the results section. CBC W/PLT COUNT & AUTO Routine 06/21/2019 5:43 R esults for this DIFFERENTIAL AM BUSINESS DEVELOPMENT DIRECTOR procedure are i n the results section. BASIC METABOLIC PANEL Routine 06/21/2019 5:43 Re sults for this (7) AM BUSINESS DEVELOPMENT DIRECTOR procedure are i n the results section. CBC W/PLT COUNT & AUTO Routine 06/21/2019 5:43 R esults for this DIFFERENTIAL AM BUSINESS DEVELOPMENT DIRECTOR procedure are i n the results section. POCT-GLUCOSE METER Routine 06/20/2019 10:04 Resul ts for this PM BUSINESS DEVELOPMENT DIRECTOR procedure are i n the results section. POCT-GLUCOSE METER Routine 06/20/2019 4:41 Resul ts for this PM BUSINESS DEVELOPMENT DIRECTOR procedure are i n the results section. POCT-GLUCOSE METER Routine 06/20/2019 11:59 Resul ts for this AM BUSINESS DEVELOPMENT DIRECTOR procedure are i n the results section. POCT-GLUCOSE METER Routine 06/20/2019 8:46 Resul ts for this AM BUSINESS DEVELOPMENT DIRECTOR procedure are i n the results section. BASIC METABOLIC PANEL Routine 06/20/2019 4:50 Re sults for this (7) AM BUSINESS DEVELOPMENT DIRECTOR procedure are i n the results section. ECHOCARDIOGRAM REPORT - 06/19/2019 9:12 SCAN PM BUSINESS DEVELOPMENT DIRECTOR POCT-GLUCOSE METER Routine 06/19/2019 8:58 Resul ts for this PM BUSINESS DEVELOPMENT DIRECTOR procedure are i n the results section. POCT-GLUCOSE METER Routine 06/19/2019 4:44 Resul ts for this PM BUSINESS DEVELOPMENT DIRECTOR procedure are i n the results section. CT CHEST PE TEST DESIGN Routine 06/19/2019 3:23 Results for this PM BUSINESS DEVELOPMENT DIRECTOR procedure are i n the results section. REPORT OF PROCEDURE - 06/19/2019 10:52 ENDOSCOPY SCAN AM BUSINESS DEVELOPMENT DIRECTOR BLOOD CULTURE Routine 06/19/2019 9:31 Results fo r this AM BUSINESS DEVELOPMENT DIRECTOR procedure are i n the results section. BLOOD CULTURE Routine 06/19/2019 9:31 Results fo r this AM BUSINESS DEVELOPMENT DIRECTOR procedure are i n the results section. 2D ECHO W/ DOPPLER Routine 06/19/2019 7:41 Resul ts for this (CW/PW/COLOR) AM BUSINESS DEVELOPMENT DIRECTOR procedure are in the results section. POCT-GLUCOSE METER Routine 06/19/2019 7:41 Resul ts for this AM BUSINESS DEVELOPMENT DIRECTOR procedure are i n the results section. CBC W/PLT COUNT & AUTO Routine 06/19/2019 4:08 R esults for this DIFFERENTIAL AM BUSINESS DEVELOPMENT DIRECTOR procedure are i n the results section. COMPREHENSIVE METABOLIC Routine 06/19/2019 4:08 Results for this PANEL AM BUSINESS DEVELOPMENT DIRECTOR procedure are i n the results section. CBC W/PLT COUNT & AUTO Routine 06/19/2019 4:08 R esults for this DIFFERENTIAL AM BUSINESS DEVELOPMENT DIRECTOR procedure are i n the results section. POCT-GLUCOSE METER Routine 06/18/2019 9:01 Resul ts for this PM BUSINESS DEVELOPMENT DIRECTOR procedure are i n the results section. POCT-GLUCOSE METER Routine 06/18/2019 5:54 Resul ts for this PM BUSINESS DEVELOPMENT DIRECTOR procedure are i n the results section. POCT-GLUCOSE METER Routine 06/18/2019 11:17 Resul ts for this AM BUSINESS DEVELOPMENT DIRECTOR procedure are i n the results section. POCT-GLUCOSE METER Routine 06/18/2019 7:43 Resul ts for this AM BUSINESS DEVELOPMENT DIRECTOR procedure are i n the results section. CBC W/PLT COUNT & AUTO STAT 06/18/2019 3:59 R esults for this DIFFERENTIAL AM BUSINESS DEVELOPMENT DIRECTOR procedure are i n the results section. TROPONIN I Add-On 06/18/2019 3:59 Results for this AM BUSINESS DEVELOPMENT DIRECTOR procedure are i n the results section. COMPREHENSIVE METABOLIC STAT 06/18/2019 3:59 Results for this PANEL AM BUSINESS DEVELOPMENT DIRECTOR procedure are i n the results section. BASIC METABOLIC PANEL Routine 06/18/2019 3:59 Re sults for this (7) AM BUSINESS DEVELOPMENT DIRECTOR procedure are i n the results section. CBC W/PLT COUNT & AUTO STAT 06/18/2019 3:59 R esults for this DIFFERENTIAL AM BUSINESS DEVELOPMENT DIRECTOR procedure are i n the results section. LACTIC ACID, VENOUS Routine 06/18/2019 3:59 Resu lts for this AM BUSINESS DEVELOPMENT DIRECTOR procedure are i n the results section. APTT STAT 06/18/2019 3:33 Results for this AM BUSINESS DEVELOPMENT DIRECTOR procedure are i n the results section. PROTHROMBIN TIME/INR STAT 06/18/2019 3:33 Res ults for this AM BUSINESS DEVELOPMENT DIRECTOR procedure are i n the results section. POCT-GLUCOSE METER Routine 06/17/2019 9:00 Resul ts for this PM BUSINESS DEVELOPMENT DIRECTOR procedure are i n the results section. POCT-GLUCOSE METER Routine 06/17/2019 5:04 Resul ts for this PM BUSINESS DEVELOPMENT DIRECTOR procedure are i n the results section. POCT-GLUCOSE METER Routine 06/17/2019 1:31 Resul ts for this PM BUSINESS DEVELOPMENT DIRECTOR procedure are i n the results section. LACTIC ACID, VENOUS STAT 06/17/2019 12:39 Resu lts for this PM BUSINESS DEVELOPMENT DIRECTOR procedure are i n the results section. CT ABDOMEN/PELVIS STAT 06/17/2019 10:25 Result s for this WITHOUT IV CONTRAST AM BUSINESS DEVELOPMENT DIRECTOR procedur e are in the results section. XR CHEST 1 VIEW STAT 06/17/2019 9:49 Results for this PORTABLE/BEDSIDE AM BUSINESS DEVELOPMENT DIRECTOR procedure a re in the results section. SCREEN, URINE STAT 06/17/2019 9:38 Results for this AM BUSINESS DEVELOPMENT DIRECTOR procedure are i n the results section. URINALYSIS W/ STAT 06/17/2019 9:38 Results fo r this MICROSCOPIC AM BUSINESS DEVELOPMENT DIRECTOR procedure are i n the results section. CBC W/PLT COUNT & AUTO STAT 06/17/2019 9:37 R esults for this DIFFERENTIAL AM BUSINESS DEVELOPMENT DIRECTOR procedure are i n the results section. APTT STAT 06/17/2019 9:37 Results for this AM BUSINESS DEVELOPMENT DIRECTOR procedure are i n the results section. PROTHROMBIN TIME/INR STAT 06/17/2019 9:37 Res ults for this AM BUSINESS DEVELOPMENT DIRECTOR procedure are i n the results section. COMPREHENSIVE METABOLIC STAT 06/17/2019 9:37 Results for this PANEL AM BUSINESS DEVELOPMENT DIRECTOR procedure are i n the results section. LACTIC ACID, VENOUS STAT 06/17/2019 9:37 Resu lts for this AM BUSINESS DEVELOPMENT DIRECTOR procedure are i n the results section. CBC W/PLT COUNT & AUTO STAT 06/17/2019 9:37 R esults for this DIFFERENTIAL AM BUSINESS DEVELOPMENT DIRECTOR procedure are i n the results section. RAPID STREP A SCREEN STAT 06/17/2019 9:37 Res ults for this AM BUSINESS DEVELOPMENT DIRECTOR procedure are i n the results section. RAPID INFLUENZA A&B STAT 06/17/2019 9:37 Resu lts for this SCREEN AM BUSINESS DEVELOPMENT DIRECTOR procedure are i n the results section. BLOOD CULTURE STAT 06/17/2019 9:37 Results fo r this AM BUSINESS DEVELOPMENT DIRECTOR procedure are i n the results section. BLOOD CULTURE STAT 06/17/2019 9:36 Results fo r this AM BUSINESS DEVELOPMENT DIRECTOR procedure are i n the results section. after 08/22/2018 Results RHYTHM STRIP - SCAN (06/24/2019 3:12 PM CDT) Narrative Performed At This result has an attachment that is no t available. IR PICC line placement older than 5 yrs (06/21/2019 2:50 PM BUSINESS DEVELOPMENT DIRECTOR) Specimen Narrative Performed At FINAL REPORT [facility] PICC LINE PLACEMENT, UNDER FLUOROSCOPY History provided: Need for long-term IV antibiotics PROCEDURE: Informed consent was obtained. Patient's medication list was reviewed. Timeout procedure was performe d. All elements of strict sterile barrier were employed, including cap, mask, sterile gloves, and sterile drape. Skin was prepped with ChloraPrep. 1% Xylocaine anesthesia utilized. Ultrasound evaluation of potential acces s sites was performed. Sterile ultrasound techniques were emplo yed, including sterile gel and sterile probe cover. After successfu lly identifying a patent right basilic vein , real-time ultrasoun d guidance was used to puncture the vessel.A permanent darrel rding was created for the patient's record. Over a guidewire, a peel-away sheath was placed, through which a dual lumen 5 Turkmen PICC line trimmed to 43 c m length was advanced and positioned with tip at the cavoatrial ju nction. Spot film performed for documentation. Catheter flushed and secured in place with 2-0 silk sutures. Sterile dressing applied. Catheter is ready for immediate use. Fluoroscopy time: 0.9 minutes Number of exposures performed: Two Radiation dose (Ka,r): 56.83 mGy Signed: Jorge Alberto Byrnes MD Report Verified Date/Time:06/21/2019 15:20:38 Reading Location: [facility] Radiology [facility] Room Procedure Note Interface, External Ris In - 06/21/2019 3:22 PM BUSINESS DEVELOPMENT DIRECTOR FINAL REPORT PICC LINE PLACEMENT, UNDER FLUOROSCOPY History provided: Need for long-term IV antibiotics PROCEDURE: Informed consent was obtained. Patient's medication list was reviewed. Timeout procedure was performe d. All elements of strict sterile barrier were employed, including cap, mask, sterile gloves, and sterile drape. Skin was prepped with ChloraPrep. 1% Xylocaine anesthesia utilized. Ultrasound evaluation of potential acces s sites was performed. Sterile ultrasound techniques were emplo yed, including sterile gel and sterile probe cover. After successfu lly identifying a patent right basilic vein , real-time ultrasoun d guidance was used to puncture the vessel. A permanent record ing was created for the patient's record. Over a guidewire, a peel-away sheath was placed, through which a dual lumen 5 Turkmen PICC line trimmed to 43 c m length was advanced and positioned with tip at the cavoatrial ju nction. Spot film performed for documentation. Catheter flushed and secured in place with 2-0 silk sutures. Sterile dressing applied. Catheter is ready for immediate use. Fluoroscopy time: 0.9 minutes Number of exposures performed: Two Radiation dose (Ka,r): 56.83 mGy Signed: Jorge Alberto Byrnes MD Report Verified Date/Time: 06/21/2019 1 5:20:38 Reading Location: [facility] Radiology [facility] Room Performing Organization Address City/[facility]/Zipcode Phone Number [employer] POC-Glucose meter (06/21/2019 12:17 PM BUSINESS DEVELOPMENT DIRECTOR)Only the most recent of16 results within the time period is included. POC-Glucose Meter 140 (H)Comment: : TESTED 70 - 110 mg/dL [facility] [address] [place], [place] [address]: Job Spotter/Supervisor [employer] ID = [id number] for Yasmin Major Specimen Blood Performing Organization Address City/[facility]/Zipcode Phone Number [facility] [address] [place] [phone] CENTER CBC with platelet count + automated diff (06/21/2019 5:43 AM BUSINESS DEVELOPMENT DIRECTOR)Only the most recent of4 resultswithin the time period is included. WBC 6.6 4.0 - 10.0 K/L [facility] RBC 4.32 4.00 - 5.00 M/L [facility] Hemoglobin 13.2 12.0 - 15.5 GM/DL [facility] Hematocrit 39.5 36.0 - 46.0 % [facility] MCV 91.4 82.0 - 99.0 fL [facility] MCH 30.6 27.0 - 33.0 pg [facility] MCHC 33.4 32.0 - 36.0 GM/DL [facility] RDW 12.4 12.0 - 15.0 % [facility] Platelets 278 150 - 430 K/CU MM [facility] MPV 10.3 6.0 - 11.5 fL [facility] nRBC 0 0 - 0 /100 WBC [facility] % Neutros 60 % [facility] % Lymphs 26 % [facility] % Monos 10 % [facility] % Eos 3 % [facility] % Baso 1 % [facility] # Neutros 3.96 1.80 - 8.00 K/L [facility] # Lymphs 1.70 1.48 - 4.50 K/L [facility] # Monos 0.65 0.00 - 1.30 K/L [facility] # Eos 0.22 0.00 - 0.50 K/L [facility] # Baso 0.04 0.00 - 0.20 K/L [facility] Immature Granulocytes-Relative 0 0 - 0 % S [facility] Specimen Blood Performing Organization Address City/State/Zipcode Phone Number [facility] [address] [phone] Basic Metabolic Panel (06/21/2019 5:43 AM BUSINESS DEVELOPMENT DIRECTOR)Only the most recent of3 results within the time period is included. Sodium 140 135 - 148 meq/L [facility] Potassium 3.7 3.6 - 5.5 meq/L [facility] Chloride 104 98 - 106 meq/L [facility] CO2 26 20 - 29 meq/L [facility] BUN 4 (L) 10 - 26 mg/dL [facility] Creatinine 0.81 0.50 - 1.20 mg/dL [facility] Glucose 156 (H) 70 - 110 mg/dL [facility] Calcium 9.0 8.5 - 10.5 mg/dL [facility] EGFR 95Comment: ESTIMATED GFR IS NOT mL/min/1.73 s q m [facility] ACCURATE CREATININE CLEARANCE IN PREDICTING GLOMERULAR FILTRATION RATE. ESTIMATED GFR IS NOT APPLICABLE FOR DIALYSIS PATIENTS. Specimen Blood Narrative Performed At Job Spotter ID - [id number] [facility] Performing Organization Address City/State/Zipcode Phone Number [facility] [address] [facility] Yanelis Higgins [place] [phone] ECHOCARDIOGRAM REPORT - SCAN (06/19/2019 9:12 PM BUSINESS DEVELOPMENT DIRECTOR) Narrative Performed At This result has an attachment that is no t available. CT chest for pulmonary embolus (06/19/2019 3:23 PM BUSINESS DEVELOPMENT DIRECTOR) Specimen Narrative Performed At FINAL REPORT [employer] History: Dyspnea. TECHNIQUE: Helical CT of the chest was performed fo llowing the uneventful administration of intravenous contrast u tilizing a pulmonary embolus protocol, multiple windows, sagittal and coronal reformations. This exam was performed according to our departmental dose optimization program which includes auto mated exposure control, adjustment of the mA and/or KV according to the patient's size and/or use of iterative reconstruction techniqu e. FINDINGS: Chest CT: No previous chest CTs are avai lable for comparison. The heart, mediastinum and great vessels are unremarkable. Specifically, there are no filling defec ts identified in the pulmonary arteries to suggest acute pulm onary embolus. However, the contrast bolus is suboptimal and therefo re, only large central emboli can be excluded. More distal segmental o r subsegmental pulmonary emboli would be difficult to exclude. No mediastinal or hilar adenopathy. Central airways are patent. Thyroid gland is unremarkable. The lungs are clear, free of edema, focal consolidation or visible effusions. No pneumothorax. B ones are unremarkable. Images obtained through the upper abdomen are e xcept for mild nondependent pneumobilia and diffusely decreased atte nuation the liver, likely fatty infiltration. IMPRESSION: 1. No acute cardiopulmonary abnormalitie s. No large central pulmonary emboli are present. More distal emboli w ould be impossible to exclude due to suboptimal contrast bolus. Signed: Nicolás Esparza MD Report Verified Date/Time:06/19/2019 17:05:27 Reading Location: [facility] Radiology [facility] Room Procedure Note Interface, External Ris In - 06/19/2019 5:07 PM BUSINESS DEVELOPMENT DIRECTOR FINAL REPORT History: Dyspnea. TECHNIQUE: Helical CT of the chest was performed fo llowing the uneventful administration of intravenous contrast u tilizing a pulmonary embolus protocol, multiple windows, sagittal and coronal reformations. This exam was performed according to our departmental dose optimization program which includes auto mated exposure control, adjustment of the mA and/or KV according to the patient's size and/or use of iterative reconstruction techniqu e. FINDINGS: Chest CT: No previous chest CTs are avai lable for comparison. The heart, mediastinum and great vessels are unremarkable. Specifically, there are no filling defec ts identified in the pulmonary arteries to suggest acute pulm onary embolus. However, the contrast bolus is suboptimal and therefo re, only large central emboli can be excluded. More distal segmental o r subsegmental pulmonary emboli would be difficult to exclude. No mediastinal or hilar adenopathy. Central airways are patent. Thyroid gland is unremarkable. The lungs are clear, free of edema, focal consolidation or visible effusions. No pneumothorax. B ones are unremarkable. Images obtained through the upper abdomen are e xcept for mild nondependent pneumobilia and diffusely decreased atte nuation the liver, likely fatty infiltration. IMPRESSION: 1. No acute cardiopulmonary abnormalitie s. No large central pulmonary emboli are present. More distal emboli w ould be impossible to exclude due to suboptimal contrast bolus. Signed: Nicolás Esparza MD Report Verified Date/Time: 06/19/2019 7:05:27 Reading Location: [facility] Performing Organization Address City/State/Zipcode Phone Number [employer] RIS [id number] (06/19/2019 10:52 AM BUSINESS DEVELOPMENT DIRECTOR) Narrative Performed At This result has an attachment that is no t available. Blood culture (06/19/2019 9:31 AM BUSINESS DEVELOPMENT DIRECTOR)Only the most recent of4 resultswithin the time period is included. Result No growth in 5 days [employer] [facility] Specimen Blood Performing Organization Address City/State/Zipcode Phone Number [employer] [facility] [address] [facility] [place] [phone] Echo W/Doppler(CW/PW/Color) (06/19/2019 7:41 AM BUSINESS DEVELOPMENT DIRECTOR) Ejection Fraction [facility] ECHO HEAR [facility] Specimen Narrative Performed At Transthoracic Echocardiography Report (T TE) [facility] ECHO HEART[facility] Demographics Patient Name Shayna PIMENTEL of Study 06/19/2020 MADINA [id number] Gender Female Visit Number [id number] Jaya [id number] Room Number [id number] Number Date of Birth1980Referring Physician Age38 year(s)Jumpbasting Machine Operator Izabella Mario [facility] Interpreting Kal Zepeda, Physician . Procedure Type of Study TTE procedure:2DECHO W DOPPLER(CW/PW/COLOR) (Routine) Indications:Suspected infective endocarditis with positive cultures or new murmur. Clinical History DM HTN Height: 69 inches Weight: 132.9 kg (293 lbs) BSA: 2.43 m^2 BMI: 43.27 kg/m^2 HR: 90 bpm Summary Technically difficult study with poor endocardial delineation and limited views. Grossly normal LV systolic function with an estimated LVEF of 60-64%. Indeterminate left ventricular filling dynamics. Poor valve visualization and evaluation . No evidence of pulmonary hypertension; estimated PA systolic pressure of 25 mm Hg, assuming an RA pressure of 3 mm Hg. No pericardial effusion. No previous study to compare from. Signature Findings Technical Quality: Limited visualization due to body habitus. Left Ventricle The left ventricle is normal in size, wall th ickness, and contractility. Th e visual ejection fraction was estimated 60-64 %. In determinate left ventricular filling dyn amics. Left AtriumThe left atrium is not well visualized. LA is incompletely visualized, size based o n qu alitative assessment. Right VentricleThe right ventricular chamber size and systolic fu nction are within normal limits. Right Atrium RA size is indeterminate (not well seen). Aortic Valve The aortic valve is not well visualized. Mitral Valve The mitral valve is not well visualized. Tricuspid ValveThe tricuspid valve is not well visualized. Mi ld tricuspid regurgitation. Es timated peak systolic PA pressure is 20- 25 mmHg . Pulmonic Valve PV is not well visualized. AortaAortic root size (SInus of Valsalva diameter) i s no rmal . PericardiumNo pericardial effusion is visualized. IVC/SVC/PA/PV/PleuralThe inferior vena cava is not visualized. Chambers/Structures Left Atrium LA Dimension: 3.71 cm Left Ventricle LVIDd: 4.42 cm LVEDV:8 8.58 ml LVIDs: 3.1 cm LVES V:37.98 ml LV Septum Diastolic: 1.08 cm LV Septum Systolic: 1.23 cm LV PW Diastolic: 1.74 cm LV FS: 29.9 % LV PW Systolic: 1.37 cm LVOT Diameter: 1.69 cm LVEF: 57.1 % Right Atrium RA Systolic Pressure: 10 mmHg Right Ventricle RV Diast Dim.: 2.02 cm RV Systolic Pressure: 27.5 2 mmHg Aorta Ao Root S of Denae.: 2.61 cm Doppler/Quantitative Measurements Aortic Valve Cusp Separation: 1.36 cm LVOT LVOT Diameter: 1.69 cm LVOT Area: 2.24 cm^2 Tricuspid Valve Estimated RVSP: 27.52 mmHg Estimated RAP: 10 mmHg TR Velocity: 2.09 m/s TR Gradient: 17.52 mmHg Pulmonic Valve Peak Velocity: 0.8 m/s Peak Gradient: 2.54 mmHg Estimated PASP: 27.52 mmHg Procedure Note Interface, External Ris In - 06/19/2019 12:55 PM BUSINESS DEVELOPMENT DIRECTOR Transthoracic Echocardiography Report (TTE) Demographics Patient Name EMILEE PIMENTEL Date of Study 06/19/2019 MADINA Gend er Female Visit Number [id number] Race Black Room Number [id number] Number Date of 1980 Refe rring Physician Age 38 year(s) Sono germaine Truj[place]pec [facility] Inte rpreting Ankur Hand MD. Procedure Type of Study TTE procedure:2DECHO W DOPPLE R(CW/PW/COLOR) (Routine) Indications:Suspected infective endocard itis with positive cultures or new murmur. Clinical History DM HTN Height: 69 inches Weight: 132.9 kg (293 lbs) BSA: 2.43 m^2 BMI: 43.27 kg/m^2 HR: 90 bpm Summary Technically difficult study with poor e ndocardial delineation and limited views. Grossly normal LV systolic function wit h an estimated LVEF of 60-64%. Indeterminate left ventricular filling dynamics. Poor valve visualization and evaluation . No evidence of pulmonary hypertension; estimated PA systolic pressure of 25 mm Hg, assuming an RA pressure of 3 mm Hg. No pericardial effusion. No previous study to compare from. Signature Findings Technical Quality: Limited visualization due to body habitus. Left Ventricle The left ventric le is normal in size, wall thickness, and c ontractility. The visual eject ion fraction was estimated 60-64 %. Indeterminate le ft ventricular filling dynamics. Left Atrium The left atrium is not well visualized. LA is incomplete ly visualized, size based on qualitative asse ssment. Right Ventricle The right ventri cular chamber size and systolic function are wit hin normal limits. Right Atrium RA size is indet erminate (not well seen). Aortic Valve The aortic valve is not well visualized. Mitral Valve The mitral valve is not well visualized. Tricuspid Valve The tricuspid va lve is not well visualized. Mild tricuspid r egurgitation. Estimated peak s ystolic PA pressure is 20-25 mmHg . Pulmonic Valve PV is not well v isualized. Aorta Aortic root size (SInus of Valsalva diameter) is normal . Pericardium No pericardial e ffusion is visualized. IVC/SVC/PA/PV/Pleural The inferior domitila a cava is not visualized. Chambers/Structures Left Atrium LA Dimension: 3.71 cm Left Ventricle LVIDd: 4.42 cm LVEDV:88.58 ml LVIDs: 3.1 cm LVESV:37.98 ml LV Septum Diastolic: 1.08 cm LV Septum Systolic: 1.23 cm LV PW Diastolic: 1.74 cm LV FS: 29.9 % LV PW Systolic: 1.37 cm LVOT Diameter: 1.69 cm LVEF: 57.1 % Right Atrium RA Systolic Pressure: 10 mmHg Right Ventricle RV Diast Dim.: 2.02 cm RV Systo lic Pressure: 27.52 mmHg Aorta Ao Root S of Denae.: 2.61 cm Doppler/Quantitative Measurements Aortic Valve Cusp Separation: 1.36 cm LVOT LVOT Diameter: 1.69 cm LVOT Area: 2.24 cm^2 Tricuspid Valve Estimated RVSP: 27.52 mmHg Estimated RAP: 10 mmHg TR Velocity: 2.09 m/s TR Gradient: 17.52 mmHg Pulmonic Valve Peak Velocity: 0.8 m/s Peak G radient: 2.54 mmHg Estima delta PASP: 27.52 mmHg Performing Organization Address City/State/Zipcode Phone Number [facility] Comprehensive metabolic panel (06/19/2019 4:08 AM BUSINESS DEVELOPMENT DIRECTOR)Only the most recent of3 resultswithin the time period is included. Protein, Total 6.4 6.0 - 8.5 gm/dL [facility] Albumin 3.5 3.5 - 5.0 g/dL [facility] Alkaline Phosphatase 56 30 - 115 U/L [facility] Total Bilirubin 0.4 0.1 - 1.2 mg/dL [facility] Sodium 140 135 - 148 meq/L [facility] Potassium 3.5 (L) 3.6 - 5.5 meq/L [facility] Chloride 108 (H) 98 - 106 meq/L [facility] CO2 21 20 - 29 meq/L [facility] BUN 7 (L) 10 - 26 mg/dL [facility] Creatinine 0.89 0.50 - 1.20 mg/dL [facility] Glucose 195 (H) 70 - 110 mg/dL [facility] Calcium 8.2 (L) 8.5 - 10.5 mg/dL [facility] AST 41 (H) 5 - 40 U/L [facility] ALT 52 (H) 5 - 50 U/L [facility] EGFR 86Comment: ESTIMATED GFR mL/min/1.73 sq m [facility] IS NOT ACCURATE CREATININE CLEARANCE IN PREDICTING GLOMERULAR FILTRATION RATE. ESTIMATED GFR IS NOT APPLICABLE FOR DIALYSIS PATIENTS. Specimen Blood Narrative Performed At Job Spotter ID - [id number] [facility] Performing Organization Address [facility]/Zipcode Phone Number [facility] [address] [place], [place] [address] Troponin I (06/18/2019 3:59 AM BUSINESS DEVELOPMENT DIRECTOR) Troponin I <0.03 0.00 - 0.15 ng/mL [facility] Specimen Blood Narrative Performed At Troponin I (TnI) levels must be interpreted in the con text of [facility] the presenting symptoms and the clinical findings. Lazara vated TnI levels indicate myocardial damage, but are not specifi c for ischemic heart disease. Elevated TnI levels are seen i n patients with other cardiac conditions (including myoc arditis and congestive heart failure), and slight TnI elevatio ns occur in patients with other conditions, including sepsis, r enal failure, acidosis, acute neurological disease, and per sistent tachyarrhythmia. Job Spotter ID - [id number] Performing Organization Address [facility]/Zipcode Phone Number [facility] [address] [place], [place] [address] Lactic acid, venous (06/18/2019 3:59 AM BUSINESS DEVELOPMENT DIRECTOR)Only the most recent of3 results within the time period is included. Lactate, Venous 1.7Comment: Specimen slightly 0.5 - 2.0 mmol/L [facility] hemolyzed Specimen Blood Narrative Performed At Job Spotter ID - [id number] [facility] Performing Organization Address [facility]/Zipcode Phone Number [facility] [address], [place] [address] aPTT (06/18/2019 3:33 AM BUSINESS DEVELOPMENT DIRECTOR)Only the most recent of2 resultswithin the time period is included. PTT 31.2 23.0 - 35.0 sec [email or web address] Specimen Blood Narrative Performed At Final Information (Auto Output) [facility] Performing Organization Address [facility]/Zipcode Phone Number [facility] [address], [place] [address] Prothrombin time/INR (06/18/2019 3:33 AM BUSINESS DEVELOPMENT DIRECTOR)Only the most recent of2 results within the time period is included. Protime 13.7 (H) 9.3 - 12.0 sec [facility] INR 1.3 <=5.9 [email or web address] Specimen Blood Narrative Performed At RECOMMENDED COUMADIN/WARFARIN INR THERAP Y RANGES [facility] STANDARD DOSE: 2.0 - 3.0 Includes: PROPHYLAXIS for venous thrombosis, systemic embolization; TREATMENT for venou s thrombosis and/or pulmonary embolus. HIGH RISK: Target INR is 2.5-3.5 for patients with mec hanical heart valves. Final Information (Auto Output) Final Information (Auto Output) Performing Organization Address City/[facility]/Zipcode Phone Number [facility] [address] [place], [place] [address] CT abdomen pelvis without contrast (06/17/2019 10:25 AM BUSINESS DEVELOPMENT DIRECTOR) Specimen Narrative Performed At FINAL REPORT [employer] [facility] CT abdomen and pelvis without contrast History: Epigastric pain, left flank sarahy n Comparison: none Technique: serial axial imaging was perf ormed without intravenous contrast as per departmental protocol. Multiplanar images are reconstructed and reviewed when indicate d. This CT examination is performed using o ne or more of the following dose reduction techniques: Automated exposure control, adjustment o f the mA and /or kV according to patient size, and/or use of iterative reconstruction technique. Findings: Evaluation limited by lack of intravenou s contrast. Diffuse fatty infiltration of the liver is noted. The gallbladder is not visualized. Grossly unremarkable appearance of unenh anced pancreas, spleen, and adrenal glands. No urinary calculus.No hydronephrosi s.No apparent bladder wall thickening.A small focus of air with in the nondependent bladder is probably related to recent instrumentati on. No small or large bowel obstruction. No apparent bowel wall thickening.No findings to indicate a cute appendicitis. No free fluid or adenopathy. Small fat-containing umbilical hernia. No aggressive osseous lesion. Impression: 1. No acute findings in the abdomen or p [place] by unenhanced CT scan. 2. Diffuse fatty infiltration of the clover er. 3. The gallbladder is absent. 4. Small focus of air within the nondepe ndent bladder is probably related to recent instrumentation. Maribell iyer clinical correlation. Signed: Reagan De Dios MD Report Verified Date/Time:06/17/2019 10:42:41 Reading Location: [facility] BTC Trip[facility] Reading Room - [place] [id number] Procedure Note Interface, External Ris In - 06/17/2019 10:44 AM BUSINESS DEVELOPMENT DIRECTOR FINAL REPORT CT abdomen and pelvis without contrast History: Epigastric pain, left flank sarahy n Comparison: none Technique: serial axial imaging was perf ormed without intravenous contrast as per departmental protocol. Multiplanar images are reconstructed and reviewed when indicate d. This CT examination is performed using o ne or more of the following dose reduction techniques: Automated exposure control, adjustment o f the mA and /or kV according to patient size, and/or use of iterative reconstruction technique. Findings: Evaluation limited by lack of intravenou s contrast. Diffuse fatty infiltration of the liver is noted. The gallbladder is not visualized. Grossly unremarkable appearance of unenh anced pancreas, spleen, and adrenal glands. No urinary calculus. No hydronephrosis. No apparent bladder wall thickening. A small focus of air within the nondependent bladder is probably related to recent instrumentati on. No small or large bowel obstruction. No apparent bowel wall thickening. No findings to indicate acu te appendicitis. No free fluid or adenopathy. Small fat-containing umbilical hernia. No aggressive osseous lesion. Impression: 1. No acute findings in the abdomen or p [place] by unenhanced CT scan. 2. Diffuse fatty infiltration of the clover er. 3. The gallbladder is absent. 4. Small focus of air within the nondepe ndent bladder is probably related to recent instrumentation. Maribell iyer clinical correlation. Signed: Reagan De Dios MD Report Verified Date/Time: 06/17/2019 1 0:42:41 Reading Location: [facility] Diagnostic Imagin g Reading Room - [facility] F1 [id number] Performing Organization Address City/State/Zipcode Phone Number [facility] XR chest 1 view portable / bedside (06/17/2019 9:49 AM BUSINESS DEVELOPMENT DIRECTOR) Specimen Narrative Performed At FINAL REPORT [facility] INDICATION: CHILLS FEVER ABDOMINAL PAIN EMESIS COMPARISON: None TECHNIQUE: Single frontal view of the ch est. FINDINGS: Lungs and pleura: Hazy airspace opacity throughout the right lung. No effusion. Heart and mediastinum: Normal heart size . Unremarkable mediastinal contours. Osseous structures: No acute abnormality . Other: None. IMPRESSION: Hazy airspace opacity throughout the rig ht lung which may represent lobar pneumonia and/or asymmetric edema Signed: Justin Durán MD Report Verified Date/Time:06/17/2019 10:26:56 Reading Location: [facility] y Reading Room Procedure Note Interface, External Ris In - 06/17/2019 10:29 AM BUSINESS DEVELOPMENT DIRECTOR FINAL REPORT INDICATION: CHILLS FEVER ABDOMINAL PAIN EMESIS COMPARISON: None TECHNIQUE: Single frontal view of the ch est. FINDINGS: Lungs and pleura: Hazy airspace opacity throughout the right lung. No effusion. Heart and mediastinum: Normal heart size . Unremarkable mediastinal contours. Osseous structures: No acute abnormality . Other: None. IMPRESSION: Hazy airspace opacity throughout the rig ht lung which may represent lobar pneumonia and/or asymmetric edema Signed: Justin Durán MD Report Verified Date/Time: 06/17/2019 1 0:26:56 Reading Location: [employer] y Reading Room Performing Organization Address City/State/Zipcode Phone Number [facility] screen, urine (06/17/2019 9:38 AM BUSINESS DEVELOPMENT DIRECTOR) Preg Test, Ur Negative [facility] Specimen Urine Performing Organization Address City/State/Zipcode Phone Number [facility] [address], [place] [address] [facility] [phone] Urinalysis w/Microscopic (06/17/2019 9:38 AM BUSINESS DEVELOPMENT DIRECTOR) Color, UA Yellow [facility] Clarity, UA Clear [facility] Specific [place], UA 1.010 1.001 - 1.035 [facility] pH, UA 6.0 5.0 - 8.0 [facility] Protein, UA Negative Negative [facility] Glucose, UA Negative Negative [facility] Ketones, UA Negative Negative [facility] Bilirubin, UA Negative Negative [facility] Blood, UA Negative Negative [facility] Nitrite, UA Negative Negative [facility] Leukocytes, UA Negative Negative [facility] Urobilinogen, UA 0.2 0.2 - 1.0 mg/dL [facility] Bacteria, UA Occasional [facility] RBC, UA <5 /HPF [facility] WBC, UA <5 /HPF [facility] SQUAMOUS EPITHELIAL <5 /HPF [facility] Specimen Source [facility] Specimen Urine Performing Organization Address City/[facility]/Zipcode Phone Number [facility] [address] [place] [address] [facility] [phone] Rapid Strep A screen (06/17/2019 9:37 AM BUSINESS DEVELOPMENT DIRECTOR) Strep A Ag Negative [facility] Specimen Throat Performing Organization Address [facility]/Zipcode Phone Number [facility] [address] [place] [address] [facility] [phone] Rapid Influenza A&B Screen (06/17/2019 9:37 AM BUSINESS DEVELOPMENT DIRECTOR) Rapid Influenza A Antigen Negative Negative, Inconclusive [facility] Rapid influenza B Antigen Negative Negative, Inconclusive [facility] Specimen Nasopharyngeal Performing Organization Address [facility]/Zipcode Phone Number [facility] [address] [place] [address] after 08/22/2018 Insurance Payer Benefit Plan / Subscriber ID Type Phone Address Group BLUE CROSS/BLUE BCBS HMO xxxxxxxxxxxx HMO/POS [phone] [id number] SHIELD BL[employer]/[place] [phone] Advance Directives For more information, please contact:[address] [place], [place] [phone] Code Status Date Activated Date Inactivated Comments Full Code 06/17/2019 1:48 PM 06/21/2019 6:51 PM This code status was determined by: Patient Full Code 06/17/2019 10:39 AM 06/17/2019 1:48 PM This code status was determined by: Patient
--- OUTSIDE RECORDS SUMMARY | 2019-08-23 07:27 | XMS REPORT ---
:1980 Author Organization [facility] t Address [facility]3 Jaiden Morales [address] [place] [id number] Care Team Providers Name Role Phone NEGRA [...] 1095) No growth in 5 days BLOOD [id number] 14:00:00 Test Item Value Reference Range Comments CULTURE (BEAKER) (test code = 1095) No growth in 5 days ANG, NON-TUNNELED CATH/PICC >4 Y.O. WITH [id number] 15:20:00Reason for exam:->terminal superintendent antibioticsFINAL REPORT PICC LINE PLACEMENT, UNDER FLUOROSCOPY [...] placed, through which a dual lumen 5 Mosotho PICC line trimmed to 43 cm length was advanced and positioned wi th tip at the cavoatrial junction. Spot film performed for documentation. Catheter flushed and secured in place with 2-0 silk sutures. Sterile dressing applied. Catheter is ready for immediate use. Fluoroscopy time: 0.9 minutes Number of exposures performed: Two Radiation dose (Ka,r): 56.83 mGy Signed: Jorge Alberto Byrnes [facility] Verified Date/Time: 06/21/2019 15:20:38 Reading Location: [facility] Radiology Reading Room POCT-GLUCOSE [id number] 12:29:00 Test Item Value Reference Range Comments POC-GLUCOSE METER (BEAKER) 140 mg/dL 70-110 : CRISTEL DARELL AT [address] (test code = 1538) [facility] [place] [address]: Tactical Debriefer Officer/Technic kalli ID = [id number] for Elaina Major POCT-GLUCOSE [id number] 07:52:00 Test Item Value Reference Range Comments POC-GLUCOSE METER (BEAKER) 157 mg/dL 70-110 : CRISTEL DARELL AT [address] (test code = 1538) [facility] [place] [address]: Tactical Debriefer Officer/Technic kalli ID = [id number] for Elaina Major n BASIC METABOLIC [id number] 06:16:00 Test Item Value Reference Range Comments [...] NOT APPLICABLE F OR DIALYSIS PATIENT S. Tactical Debriefer Officer ID - [id number] W/PLT COUNT & AUTO [id number] 05:55:00 Test Item Value Reference Range Comments [...] % 0-0 (test code = 2801) POCT-GLUCOSE [id number] 22:16:00 Test Item Value Reference Range Comments POC-GLUCOSE METER (BEAKER) 161 mg/dL 70-110 : CRISTEL DARELL AT [address] (test code = 1538) [facility] [place] [address]: Tactical Debriefer Officer/Technic kalli ID = [id number] for gio Melchor POCT-GLUCOSE [id number] 17:08:00 Test Item Value Reference Range Comments POC-GLUCOSE METER (BEAKER) 196 mg/dL 70-110 : Not ified RN/MD: TESTED AT (test code = 1538) [facility] [address] [place] [address] 78: Tactical Debriefer Officer/Technic kalli ID = [id number] for Neelima Milan POCT-GLUCOSE [id number] 12:11:00 Test Item Value Reference Range Comments POC-GLUCOSE METER (BEAKER) 162 mg/dL 70-110 : Not ified RN/MD: TESTED AT (test code = 1538) [facility] [address] [place] [address] 78: Tactical Debriefer Officer/Technic kalli ID = [id number] for Neelima Milan taben POCT-GLUCOSE [id number] 08:57:00 Test Item Value Reference Range Comments POC-GLUCOSE METER (BEAKER) 203 mg/dL 70-110 : Not ified RN/MD: TESTED AT (test code = 1538) [facility] [address] [facility] [place] [address]: Tactical Debriefer Officer/Technic kalli ID = [id number] for Neelima Milan BASIC METABOLIC [id number] 06:22:00 Test Item Value Reference Range Comments [...] NOT APPLICABLE F OR DIALYSIS PATIENT S. Tactical Debriefer Officer ID - [id number] 21:15:00 Test Item Value Reference Range Comments POC-GLUCOSE METER (BEAKER) 132 mg/dL 70-110 : CRISTLE DARELL AT [facility] [address] (test code = 1538) [facility], [place] [address]: Tactical Debriefer Officer/Technic kalli ID = [id number] for Do bhavin Cruz CT, CHEST WITH IV CONTRAST- PE TEST [id number] 17:05:00FINAL REPORT History: Dyspnea. TECHNIQUE: Helical CT [...] [place] Verified Date/Time: 06/19/2019 17:05:27 Reading Location: [facility] Radiology Reading Room POCT-GLUCOSE METER 2019-06-19 16:56:00 Test Item Value Reference Range Comments POC-GLUCOSE METER (BEAKER) 147 mg/dL 70-110 : CRISTEL DARELL AT [address] (test code = 1538) [facility] [address]: Tactical Debriefer Officer/Technic kalli ID = [id number] for Glenna Branch mitchell BLOOD [id number] 09:46:00 Test Item Value Reference Range Comments CULTURE (BEAKER) From Aerobic An d Anaerobic (test code = 1095) Bottles Same organism has been isolated fr om culture(s) of th e same body site and collect ion date. Repeat identific ation performed only a fter consultation wit the clinical [facility] ology laboratory.Refer to previous culture ofEscherichia co li GRAM STAIN RESULT From aerobic and (BEAKER) (test code anaerobic bottles: = 1123) gram negative rods BLOOD [id number] 09:45:00 Test Item Value Reference Range Comments [...] 1123) anaerobic bottles: gram negative rods POCT-GLUCOSE [id number] 07:53:00 Test Item Value Reference Range Comments POC-GLUCOSE METER (BEAKER) 131 mg/dL 70-110 : CRISTEL DARELL AT [facility] (test code = 1538) [facility] [address]: Tactical Debriefer Officer/Technic kalli ID = [id number] for Glenna Branch COMPREHENSIVE METABOLIC [id number] 06:08:00 Test Item Value Reference Range Comments [...] NOT APPLICABLE F OR DIALYSIS PATIENT S. Tactical Debriefer Officer ID - [id number] W/PLT COUNT & AUTO [id number] 05:43:00 Test Item Value Reference Range Comments [...] % 0-0 (test code = 2801) POCT-GLUCOSE [id number] 21:12:00 Test Item Value Reference Range Comments POC-GLUCOSE METER (BEAKER) 195 mg/dL 70-110 : CRISTEL LOZOYA AT [address] (test code = 1538) [facility] [place] [address]: Tactical Debriefer Officer/Technic kalli ID = [id number] for Do bhavin Cruz POCT-GLUCOSE [id number] 18:06:00 Test Item Value Reference Range Comments POC-GLUCOSE METER (BEAKER) 109 mg/dL 70-110 : CRISTEL LOZOYA AT [address] (test code = 1538) [facility] [place] [address]: Tactical Debriefer Officer/Technic kalli ID = [id number] for Glenna Branch TROPONIN [id number] 14:37:00 Test Item Value Reference Range Comments [...] failure, acidosis, acute neurological disease, and persistent tachyarrhythmia.Tactical Debriefer Officer ID - [id number] [id number] 2019-06-18 11:28:00 Test Item Value Reference Range Comments POC-GLUCOSE METER (BEAKER) 135 mg/dL 70-110 : CRISTEL DARELL AT [facility] (test code = 1538) [facility] [place] [address]: Tactical Debriefer Officer/Technic kalli ID = [id number] for Glenna Branch a POCT-GLUCOSE [id number] 07:54:00 Test Item Value Reference Range Comments POC-GLUCOSE METER (BEAKER) 243 mg/dL 70-110 : CRISTEL DARELL AT [facility] (test code = 1538) [facility] [place] [address]: Tactical Debriefer Officer/Technic kalli ID = [id number] for Glenna Branch BASIC METABOLIC [id number] 04:55:00 Test Item Value Reference Range Comments [...] F OR DIALYSIS PATIENT S. COMPREHENSIVE METABOLIC [id number] 04:54:00 Test Item Value Reference Range Comments [...] NOT APPLICABLE F OR DIALYSIS PATIENT S. Tactical Debriefer Officer ID - [id number] 04:47:00 Test Item Value Reference Range Comments PROTIME (BEAKER) (test code = 759) 13.7 sec 9.3-12.0 INR (BEAKER) (test code = 370) 1.3 <=5.9 RECOMMENDED COUMADIN/WARFARIN INR THERAPY RANGESSTANDARD DOSE: 2.0 - 3.0 Includes: PROPHYLAXIS forvenous thrombosis, systemic embolization; TREATMENT for venous thrombosis and/or pulmonary embolus.HIGH RISK: Target INR is 2.5-3.5 for patients with mechanical heart valves.Final Information (Auto Output)Final Information (Auto Output)[id number] 04:47:00 Test Item Value Reference Range Comments PARTIAL THROMBOPLASTIN TIME (BEAKER) (test code = 31.2 sec 23.0-35.0 760) Final Information (Auto Output)CBC W/PLT COUNT & AUTO [id number] 04:34:00 Test Item Value Reference Range Comments [...] 0-0 (test code = 2801) LACTIC ACID, [id number] 04:23:00 Test Item Value Reference Range Comments LACTATE BLOOD VENOUS (2) 1.7 mmol/L 0.5-2.0 Specime n slightly hemolyzed (BEAKER) (test code = 2872) Tactical Debriefer Officer ID - [id number] 21:15:00 Test Item Value Reference Range Comments POC-GLUCOSE METER (BEAKER) 201 mg/dL 70-110 : CRISTEL DARELL AT [address] (test code = 1538) [facility] [place] [address]: Tactical Debriefer Officer/Technic kalli ID = [id number] for Do bhavin Cruz POCT-GLUCOSE [id number] 17:16:00 Test Item Value Reference Range Comments POC-GLUCOSE METER (BEAKER) 163 mg/dL 70-110 : Not ified RN/MD: TESTED AT (test code = 1538) [place] [address] 78: Tactical Debriefer Officer/Technic kalli ID = [id number] for Neelima Milan POCT-GLUCOSE [id number] 13:42:00 Test Item Value Reference Range Comments POC-GLUCOSE METER (BEAKER) 224 mg/dL 70-110 : Not ified RN/MD: TESTED AT (test code = 1538) [place] [address] 78: Tactical Debriefer Officer/Technic kalli ID = [id number] for KayliNeelima shearerdalia LACTIC ACID, [id number] 13:12:00 Test Item Value Reference Range Comments LACTATE BLOOD VENOUS (2) (BEAKER) (test code = 8.8 mmol/L 0 .5-2.0 2872) Tactical Debriefer Officer ID - [id number], [id number] 10:42:00Reason for exam:- >epigastric pain left flank [...] MDReport Verified Date/Time: 06/17/2019 10:42:41 Reading Location: [facility] Diagnostic Imaging Reading Room - [place] [address] RAD, CHEST, 1 VIEW, NON [id number] 10:26:00Reason for exam:->CHILLSReason for exam:- >FEVERReason for [...] MDReport Verified Date/Time: 06/17/2019 10:26:56 Reading Location: [facility] Radiology ReadingRoom RAPID INFLUENZA A&B [id number] 10:22:00 Test Item Value Reference Range Comments RAPID INFLUENZA A AG (BEAKER) (test code = Negative Negat mohinder, Inconclusive 1622) RAPID INFLUENZA B AG (BEAKER) (test code = Negative Negat mohinder, Inconclusive 1623) LACTIC ACID, [id number] 10:20:00 Test Item Value Reference Range Comments LACTATE BLOOD VENOUS (2) 2.7 mmol/L 0.5-2.0 Specime n slightly hemolyzed (BEAKER) (test code = 2872) Tactical Debriefer Officer ID - [id number] METABOLIC [id number] 10:20:00 Test Item Value Reference Range Comments [...] NOT APPLICABLE F OR DIALYSIS PATIENT S. Tactical Debriefer Officer ID - [id number] 10:12:00 Test Item Value Reference Range Comments PARTIAL THROMBOPLASTIN TIME (BEAKER) (test code = 22.4 sec 23.0-35.0 760) Final Information (Auto Output)PROTHROMBIN [id number] 10:11:00 Test Item Value Reference Range Comments [...] Information (Auto Output)Final Information (Auto Output)URINALYSIS W/ [id number] 10:10:00 Test Item Value Reference Range Comments [...] (test code = 2795) RAPID STREP A [id number] 10:09:00 Test Item Value Reference Range Comments STREP A ANTIGEN (BEAKER) (test code = 556) Negative SCREEN, [id number] 10:06:00 Test Item Value Reference Range Comments TEST URINE (BEAKER) (test code = 583) Negative CBC W/PLT COUNT & AUTO [id number] 09:58:00 Test Item Value Reference Range Comments [...]
[2019-08-23] MEDS ORDERED: NA CHLORIDE 0.9% 1,000 ML ONE (07:43)
[2019-08-23] MEDS ORDERED: ACETAMINOPHEN 500 MG TAB ONE ×2 (07:48→08:05)
[2019-08-23 08:25] LABS: Absolute Lymphocytes (CBC) 2.2 K/uL (0.7-4.9); Hematocrit 46.7 % (36.0-45.0); Lymphocytes % 36.6 % (15.3-44.8); RBC Red Blood Cell Count 5.21 M/uL (3.86-4.86)
[2019-08-23 08:38] LABS: ALT/SGPT 31 U/L (12-78); AST/SGOT 25 U/L (15-37); Albumin 3.9 g/dL (3.4-5.0); Alkaline Phosphatase 54 U/L (45-117); BUN Blood Urea Nitrogen 6 mg/dL (7-18); Bicarbonate 28 mmol/L (21-32); Bilirubin Total 0.4 mg/dL (0.2-1.0); Glucose Level 235 mg/dL (74-106); Potassium 3.9 mmol/L (3.5-5.1); Protein, Total 8.5 g/dL (6.4-8.2); Sodium Level 138 mmol/L (136-145)
--- NOTE | 2019-08-23 09:01 | RAD REPORT ---
EXAM DESCRIPTION: RAD - Chest Single View - 08/23/2019 8:49 am CLINICAL HISTORY: shortness of breath, feber Chest pain. COMPARISON: Chest Single View dated 10/08/2018; Chest Pa And Lat (2 Views) dated 01/01/2018; Chest Sin gle View dated 08/16/2017; Chest Single View dated 05/14/2017 FINDINGS: Portable technique limits examination quality. The lungs are grossly clear. The heart is normal in size. No displaced fractures. IMPRESSION: No acute intrathoracic process suspected.
[2019-08-23] MEDS ORDERED: ONDANSETRON 4 MG/2 ML VIAL ONE (09:18)
[2019-08-23] MEDS ORDERED: LORazepam 2 MG/ML VIAL ONE (09:18)
--- NOTE | 2019-08-23 09:53 | RAD REPORT ---
EXAM DESCRIPTION: CT - Chest For Pe Angio - 08/23/2019 9:41 am CLINICAL HISTORY: Chest pain. cough, shortness of breath, fever COMPARISON: Chest For Pe Angio dated 10/08/2018 TECHNIQUE: CT angiogram of the pulmonary arteries was performed with MIP. All CT scans are performed using dose optimization technique as appropriate and may include automated exposure control or mA/KV adjustment according to patient size. FINDINGS: No evidence of pulmonary thromboembolism. No acute aortic finding demonstrated. Multiple areas of focal ground-glass opacity is present in both lungs greatest in the lower lobes. No significant pericardial or pleural fluid. No concerning bony finding. IMPRESSION: No evidence of pulmonary thromboembolism. Multiple areas ground-glass opacity in both lungs, most pronounced in the lower lobes. This could rep resent interstitial pneumonitis or COVID pneumonia.
[2019-08-23] MEDS ORDERED: CEFTRIAXONE/SWI 1gm 1 GM/10 ML SYR ONE (10:15)
[2019-08-23] MEDS ORDERED: AZITHROMYCIN IV 500 MG in NA CHLORIDE 0.9% 250 ML IVPB ONE (10:15)
[2019-08-23 10:55] LABS: Urine Blood NEGATIVE (NEG); Urine Glucose NEGATIVE (NEG); Urine Protein NEGATIVE (NEG)
--- NOTE | 2019-08-23 11:52 | EDPHYS ---
Physician Documentation [facility] Name: Silvina Cohen Age: 38 yrs Sex: Female : 1980 Arrival Date: 08/23/2019 Time: 07:11 Bed 14 Private MD: Elie Hyde H ED Physician Alessandro Singer HPI: 08/22 07:52 This 38 yrs old Black Female presents to ER via Ambulatory with complaints of Cough, jmm Fever, Chills,Body aches. 07:52 The patient or guardian reports cough. Onset: The symptoms/episode began/occurred jmm gradually, 3 day(s) ago. Modifying factors: The symptoms are alleviated by nothing, the symptoms are aggravated by nothing. The patient has experienced similar episodes in the past. This is a 38 year old female with a history of dm, htn that presents to the ED with complaints of cough, back pain beginning approx 3 days ago. Patient states having similar symptoms when diagnosed with pneumonia approx 1 month ago. . Historical: - Allergies: 07:23 Codeine; aa5 07:23 Flexeril; aa5 07:23 Naproxen; aa5 - PMHx: 07:23 Anxiety; Back pain; Diabetes - NIDDM; Hypertension; aa5 - PSHx: 07:23 Hysterectomy; aa5 - Immunization history:: Flu vaccine is up to date. - Social history:: Smoking status: Patient denies any tobacco usage or history of. ROS: 07:52 Constitutional: Positive for body aches, fever. jmm 07:52 Respiratory: Positive for cough. 07:52 Back: Positive for pain at rest. 07:52 All other systems are negative. Exam: 07:52 Constitutional: This is a well developed, well nourished patient who is awake, alert, jmm and in no acute distress. Head/Face: atraumatic. Eyes: EOMI, no conjunctival erythema appreciated ENT: Moist Mucus Membranes Neck: Trachea midline, Supple Chest/axilla: Normal chest wall appearance and motion. 07:52 Cardiovascular: Rate: normal, Rhythm: regular. 07:52 Respiratory: the patient does not display signs of respiratory distress, Respirations: normal, Breath sounds: are clear throughout. 07:52 Abdomen/GI: Inspection: abdomen appears normal, Bowel sounds: normal. 07:52 Musculoskeletal/extremity: ROM: intact in all extremities. 07:52 Skin: Appearance: Color: normal in color. 07:52 Neuro: Orientation: is normal, Mentation: is normal, Memory: is normal. 07:52 Psych: Behavior/mood is pleasant, cooperative. Vital Signs: 07:23 BP 129 / 86; Pulse 98; Resp 20 S; Temp 100.6(O); Pulse Ox 95% on R/A; Weight 138.35 kg aa5 (R); Height 5 ft. 8 in. (172.72 cm) (R); Pain 8/10; 08:47 BP 109 / 82; Pulse 92; Resp 16; Pulse Ox 96% on R/A; em 10:00 BP 113 / 81; Pulse 90; Resp 18; Pulse Ox 97% on R/A; em 11:01 BP 120 / 78; Pulse 88; Resp 20; Temp 99.7(O); Pulse Ox 97% on R/A; em 07:23 Body Mass Index 46.37 (138.35 kg, 172.72 cm) aa5 MDM: 07:29 Patient medically screened. [facility] 11:49 Data reviewed: vital signs, nurses notes. Counseling: I had a detailed discussion with samir the patient and/or guardian regarding: the historical points, exam findings, and any diagnostic results supporting the discharge/admit diagnosis, lab results, radiology results, the need for outpatient follow up, to return to the emergency department if symptoms worsen or persist or if there are any questions or concerns that arise at home. ED course: Patient is alert and non toxic in appearance in the ED. Patient is advised to self quarantine for suspect COVID 19. Patient given strict return precautions for increased SHORTNESS OF BREATH. . 08/22 07:27 Order name: CBC with Diff [facility] 08/22 07:27 Order name: CMP [facility] 08/22 07:27 Order name: Procalcitonin; Complete Time: 09:13 [facility] 08/22 07:27 Order name: Lactate; Complete Time: 08:53 [facility] 08/22 07:28 Order name: CBC with Automated Diff; Complete Time: 08:53 [facility] 08/22 07:28 Order name: Comprehensive Metabolic Panel; Complete Time: 08:53 [facility] 08/22 07:28 Order name: Chest Single View XRAY; Complete Time: 09:02 [facility] 08/22 07:28 Order name: Flu; Complete Time: 08:53 [facility] 08/22 07:29 Order name: COVID-19 [facility] 08/22 09:14 Order name: CT Chest For PE Angio; Complete Time: 09:55 [facility] 08/22 09:53 Order name: Urine Microscopic Only [facility] 08/22 10:43 Order name: Urine Dipstick--Ancillary (enter results); Complete Time: 10:56 08/22 10:56 Order name: Blood Culture Adult (2) [facility] 08/22 07:27 Order name: Saline Lock; Complete Time: 08:15 [facility] 08/22 07:28 Order name: Urine Dipstick-Ancillary (obtain specimen); Complete Time: 10:41 [facility] Administered Medications: 07:55 Drug: Tylenol 1000 mg Route: PO; em 10:58 Follow up: Response: No adverse reaction; Temperature is decreased em 08:14 Not Given (Duplicate Order): Tylenol 1000 mg PO once em 08:16 Drug: NS 0.9% 1000 ml Route: IV; Rate: 1 bolus; Site: left forearm; em 10:42 Follow up: IV Status: Completed infusion; IV Intake: 1000ml em 09:14 Drug: Zofran (Ondansetron) 4 mg Route: IVP; Site: left forearm; em 10:41 Follow up: Response: No adverse reaction; Marked relief of symptoms; Nausea is decreasedem 09:16 Drug: Ativan 0.5 mg Route: IVP; Site: left forearm; em 10:41 Follow up: Response: No adverse reaction; Marked relief of symptoms; Pain is decreased em 11:00 Drug: Rocephin - (cefTRIAXone) 1 grams Route: IVPB; Infused Over: 30 mins; Site: left em forearm; 11:15 Follow up: Response: No adverse reaction; IV Status: Completed infusion; IV Intake: 10mlem 11:02 Drug: AZITHromycin 500 mg Route: IVPB; Infused Over: 1 hrs; Site: left forearm; em 12:10 Follow up: Response: No adverse reaction; IV Status: Completed infusion; IV Intake: em 250ml Disposition: 16:02 Co-signature as Attending Physician, Alessandro HOBBS I agree with the assessment and frandy plan of care. Disposition: 08/23/19 11:52 Discharged to Home. Impression: Other viral infections of unspecified site. - Condition is Stable. - Discharge Instructions: Viral Respiratory Infection. - Prescriptions for Zithromax Z- Marvel 250 mg Oral Tablet - take 1 tablet by ORAL route once daily for 3 days; 3 tablet. - Medication Reconciliation Form, Thank You Letter, Antibiotic Education, Prescription Opioid Use, Work release form form. - Follow up: Elie Hyde DO; When: 2 - 3 days; Reason: Recheck today's complaints, Continuance of care, Re-evaluation by your physician. Signatures: Dispatcher [employer] EDMS Alessandro Singer MD MD cha Mickail, Joel, PA PA jmm Munoz, Edgar, RN RN Ashley Francis RN RN aa5 Corrections: (The following items were deleted from the chart) 12:18 11:52 08/23/2019 11:52 Discharged to Home. Impression: Other viral infections of em unspecified site. Condition is Stable. Forms are Medication Reconciliation Form, Thank You Letter, Antibiotic Education, Prescription Opioid Use. Follow up: Elie Hyde; When: 2 - 3 days; Reason: Recheck today's complaints, Continuance of care, Re-evaluation by your physician. samir
--- NOTE | 2019-08-23 11:52 | ER ---
Nurse's Notes [facility] Name: Silvina Cohen Age: 38 yrs Sex: Female : 1980 Arrival Date: 08/23/2019 Time: 07:11 Bed 14 Private MD: Elie Hyde H Diagnosis: Other viral infections of unspecified site Presentation: 08/22 07:23 Chief complaint: Patient states: fever up to 104.0 F, chills, cough, body aches, and aa5 decreased appetite x 3 days. Pt denies SOB, denies sore throat. Pt states "I had Pneumonia back in June and they tested me for the coronavirus and it was negative", pt reports she did not follow-up. 07:23 Coronavirus screen: Surgical mask placed on patient. Patient moved to private room, aa5 placed in contact and droplet isolation with eye protection until further assessment. Patient reports a cough. Patient denies shortness of breath or difficulty breathing. Patient reports a measured and/or subjective temperature greater than 100.4F. Patient denies travel on a cruise ship or to a country the [facility] currently lists as an affected area. Patient denies contact with known and/or suspected case of COVID-19. Ebola Screen: Patient negative for fever greater than or equal to 101.5 degrees Fahrenheit, and additional compatible Ebola Virus Disease symptoms. Initial Sepsis Screen: Does the patient meet any 2 criteria? HR > 90 bpm. Does the patient have a suspected source of infection? Yes:. Risk Assessment: Do you want to hurt yourself or someone else? Patient reports no desire to harm self or others. Onset of symptoms was August 2019. 07:23 Acuity: CORTEZ 3 aa5 07:23 Method Of Arrival: Ambulatory aa5 Historical: - Allergies: 07:23 Codeine; aa5 07:23 Flexeril; aa5 07:23 Naproxen; aa5 - PMHx: 07:23 Anxiety; Back pain; Diabetes - NIDDM; Hypertension; aa5 - PSHx: 07:23 Hysterectomy; aa5 - Immunization history:: Flu vaccine is up to date. - Social history:: Smoking status: Patient denies any tobacco usage or history of. Screenin:50 Abuse screen: Denies threats or abuse. Nutritional screening: No deficits noted. em Tuberculosis screening: No symptoms or risk factors identified. Fall Risk None identified. Assessment: 07:50 General: Appears in no apparent distress. uncomfortable, Behavior is calm, cooperative, em appropriate for age, Reports fever for 2-3 days, fatigue for 2-3 days, body aches. Pain: Complains of pain in "body aches" Pain currently is 8 out of 10 on a pain scale. Neuro: Level of Consciousness is awake, alert, obeys commands, Oriented to person, place, time, situation, Appropriate for age. Cardiovascular: Denies chest pain, shortness of breath, Capillary refill < 3 seconds Patient's skin is warm and dry. Respiratory: Reports cough that is Airway is patent Respiratory effort is even, unlabored, Respiratory pattern is regular, symmetrical. GI: Abdomen is round non-distended. EENT: Nares with drainage noted bilaterally Reports nasal discharge. Derm: Skin is intact, is healthy with good turgor, Skin is pink, warm \\T\\ dry. Musculoskeletal: Capillary refill < 3 seconds, Range of motion: intact in all extremities. 09:00 Reassessment: reports nausea and back pain, pt crying, provider notified. em 11:00 Reassessment: Patient appears in no apparent distress at this time. Patient and/or em family updated on plan of care and expected duration. Pain level reassessed. Patient is alert, oriented x 3, equal unlabored respirations, skin warm/dry/pink. nausea and back pain have improved Patient states feeling better. Patient states symptoms have improved. 12:00 Reassessment: Patient appears in no apparent distress at this time. Patient and/or em family updated on plan of care and expected duration. Pain level reassessed. Patient is alert, oriented x 3, equal unlabored respirations, skin warm/dry/pink. Vital Signs: 07:23 BP 129 / 86; Pulse 98; Resp 20 S; Temp 100.6(O); Pulse Ox 95% on R/A; Weight 138.35 kg aa5 (R); Height 5 ft. 8 in. (172.72 cm) (R); Pain 8/10; 08:47 BP 109 / 82; Pulse 92; Resp 16; Pulse Ox 96% on R/A; em 10:00 BP 113 / 81; Pulse 90; Resp 18; Pulse Ox 97% on R/A; em 11:01 BP 120 / 78; Pulse 88; Resp 20; Temp 99.7(O); Pulse Ox 97% on R/A; em 07:23 Body Mass Index 46.37 (138.35 kg, 172.72 cm) aa5 ED Course: 07:11 Patient arrived in ED. mr 07:12 Mary Ellen Sylwia-NadeemDO [place] is Private Physician. mr 07:23 Arm band placed on Patient placed in an exam room, on a stretcher. aa5 07:24 Juan A Avila PA is PHCP. jmm 07:24 Alessandro Singer MD is Attending Physician. jmm 07:29 Triage completed. aa5 07:30 Shay Cool, RN is Primary Nurse. em 07:50 Patient has correct armband on for positive identification. Placed in gown. Bed in low em position. Call light in reach. Adult w/ patient. Pulse ox on. NIBP on. 08:05 Initial lab(s) drawn, by me, sent to lab. Inserted saline lock: 22 gauge in left em forearm, using aseptic technique. Blood collected. 08:50 Chest Single View XRAY In Process Unspecified. EDMS 09:41 CT Chest For PE Angio In Process Unspecified. EDMS 10:04 Urine Microscopic Only Sent. em 11:51 Elie Hyde DO is Referral Physician. [facility] 12:12 No provider procedures requiring assistance completed. IV discontinued, intact, em bleeding controlled, No redness/swelling at site. Pressure dressing applied. Administered Medications: 07:55 Drug: Tylenol 1000 mg Route: PO; em 10:58 Follow up: Response: No adverse reaction; Temperature is decreased em 08:14 Not Given (Duplicate Order): Tylenol 1000 mg PO once em 08:16 Drug: NS 0.9% 1000 ml Route: IV; Rate: 1 bolus; Site: left forearm; em 10:42 Follow up: IV Status: Completed infusion; IV Intake: 1000ml em 09:14 Drug: Zofran (Ondansetron) 4 mg Route: IVP; Site: left forearm; em 10:41 Follow up: Response: No adverse reaction; Marked relief of symptoms; Nausea is decreasedem 09:16 Drug: Ativan 0.5 mg Route: IVP; Site: left forearm; em 10:41 Follow up: Response: No adverse reaction; Marked relief of symptoms; Pain is decreased em 11:00 Drug: Rocephin - (cefTRIAXone) 1 grams Route: IVPB; Infused Over: 30 mins; Site: left em forearm; 11:15 Follow up: Response: No adverse reaction; IV Status: Completed infusion; IV Intake: 10mlem 11:02 Drug: AZITHromycin 500 mg Route: IVPB; Infused Over: 1 hrs; Site: left forearm; em 12:10 Follow up: Response: No adverse reaction; IV Status: Completed infusion; IV Intake: em 250ml Intake: 10:42 IV: 1000ml; Total: 1000ml. em 11:15 IV: 10ml; Total: 1010ml. em 12:10 IV: 250ml; Total: 1260ml. em Outcome: 11:52 Discharge ordered by MD. [facility] 12:13 Discharged to home ambulatory. em 12:13 Condition: good 12:13 Discharge instructions given to patient, Instructed on discharge instructions, follow up and referral plans. the need for admit, Demonstrated understanding of instructions, follow-up care, medications, Prescriptions given X 1. 12:18 Patient left the ED. em Addendum: 08/27/2019 11:00 Addendum: Other pt called looking for COVID -19 swab results. I spoke with Risa in [facility] our lab to find out if we have received results yet on this patient as she was swabbed several days ago. Risa stated that [facility], reference lab, was closed on Monday for Mother's Day and that results have been delayed because of this. Pt notified of delay and that results are expected today. 16:48 Addendum: Other attempt to call pt with COVID results, pt did not answer, left voice i w mail with call back number. 17:57 Addendum: Other Dr. Singer spoke with pt about positive COVID result, pt advised to i w remain in isolation, follow up with her PCP and come back to ER for worsening symptoms. Signatures: Dispatcher [employer] Cristiana Temple RN RN dm5 Juan A Avila PA PA jmm Rivera, Mary mr Munoz, Edgar, RN RN em aSrahi Cruz RN RN Ashley Hannon RN RN aa5 Corrections: (The following items were deleted from the chart) 08/22 07 07:23 Chief complaint: Patient states: fever up to 104.0 F, chills, cough, body aches, aa5 and decreased appetite x 3 days. Pt denies SOB, denies sore throat. aa5 07:23 Initial Sepsis Screen: Does the patient meet any 2 criteria? HR > 90 bpm. Does aa5 the patient have a suspected source of infection? Yes: aa5 09:52 08:47 BP 129 / 86; Pulse 92bpm; Resp 16bpm; Pulse Ox 96% RA; em em 11:00 10:00 BP 113 / 81; Pulse 90bpm; Resp 100bpm; Pulse Ox 97% RA; em em
[2019-08-23 11:58] LABS: Urine Bacteria 20-50 /HPF (<20); Urine Culture Reflex Order REFLEXED; Urine RBC <5 /HPF (NONE SEEN)
[2019-08-23 12:45] VITALS: O2SAT 97
[2019-08-23 12:46] VITALS: BP 120/78; TEMP 99.7
== END 2019-08-23 12:18 | disposition home or self-care (01) ==
LOC: ER 07:09
DX: U07.1 COVID-19 (principal); B34.8 Other viral infections of unspecified site; I10 Essential (primary) hypertension; Z88.5 Allergy status to narcotic agent; Z88.6 Allergy status to analgesic agent
CPT/HCPCS: 96365; 96361; 87040; 85025; 36415; 83605; 80053; 84145; 87804 ×2; 71275; 71045; 96375; 99284; U0001; Q9967; J0456; J0696; J7030 ×2; J2405; 81003; 81015

== ENCOUNTER 2019-11-04 22:34 | Emergency (ER) | payer BC, OTHER ==
--- OUTSIDE RECORDS SUMMARY | 2019-11-04 22:37 | XMS REPORT | Clinical Summary ---
:1980 Author Organization [facility] Address [address] [place] [address] Care Team Providers Name Role Phone Pcp [...] Only General Internal Medicine 06/17/2019 Travel after 11/03/2018 Social History Tobacco Use Types Packs/Day Years [...] Taken Blood Pressure 128/89 06/21/2019 12:00 PM [facility] Pulse 78 06/21/2019 2:25 PM [facility] Temperature 37.3 C (99.1 F) 06/21/2019 12:00 PM [facility] Respiratory Rate 18 06/21/2019 2:25 PM [facility] Oxygen Saturation 99% 06/21/2019 2:25 PM [facility] Inhaled Oxygen Concentration 21% 06/21/2019 2:25 PM [facility] Weight 127 kg (280 lb) 06/17/2019 9:05 AM [facility] Height 177.8 cm (5' 10") 06/17/2019 9:05 AM [facility] Body Mass Index 40.18 06/17/2019 9:05 AM [facility] Plan of Treatment Health Maintenance Due Date Last Done Comments PNEUMOCOCCAL VACCINE 2-64 YEARS AT RISK (1 of 1 - 11/08/1985 PPSV23) CERVICAL CANCER SCREENING PAP ONLY (Age 21-65) 11/08/2000 INFLUENZA VACCINE (#1) 2019 Procedures Procedure Name Priority Date/Time Associated Comments Diagnosis RHYTHM STRIP - SCAN 06/24/2019 3:12 PM CDT IR PICC LINE PLACEMENT Routine 06/21/2019 2:50 R esults for this OLDER THAN 5 YRS PM [facility] procedure a re in the results section. POCT-GLUCOSE METER Routine 06/21/2019 12:17 Resul ts for this PM [facility] procedure are i n the results section. POCT-GLUCOSE METER Routine 06/21/2019 7:40 Resul ts for this AM [facility] procedure are i n the results section. CBC W/PLT COUNT & AUTO Routine 06/21/2019 5:43 R esults for this DIFFERENTIAL AM [facility] procedure are i n the results section. BASIC METABOLIC PANEL Routine 06/21/2019 5:43 Re sults for this (7) AM [facility] procedure are i n the results section. CBC W/PLT COUNT & AUTO Routine 06/21/2019 5:43 R esults for this DIFFERENTIAL AM [facility] procedure are i n the results section. POCT-GLUCOSE METER Routine 06/20/2019 10:04 Resul ts for this PM [facility] procedure are i n the results section. POCT-GLUCOSE METER Routine 06/20/2019 4:41 Resul ts for this PM [facility] procedure are i n the results section. POCT-GLUCOSE METER Routine 06/20/2019 11:59 Resul ts for this AM [facility] procedure are i n the results section. POCT-GLUCOSE METER Routine 06/20/2019 8:46 Resul ts for this AM [facility] procedure are i n the results section. BASIC METABOLIC PANEL Routine 06/20/2019 4:50 Re sults for this (7) AM [facility] procedure are i n the results section. ECHOCARDIOGRAM REPORT - 06/19/2019 9:12 SCAN PM [facility] POCT-GLUCOSE METER Routine 06/19/2019 8:58 Resul ts for this PM [facility] procedure are i n the results section. POCT-GLUCOSE METER Routine 06/19/2019 4:44 Resul ts for this PM [facility] procedure are i n the results section. CT CHEST PE TEST DESIGN Routine 06/19/2019 3:23 Results for this PM [facility] procedure are i n the results section. REPORT OF PROCEDURE - 06/19/2019 10:52 ENDOSCOPY SCAN AM [facility] BLOOD CULTURE Routine 06/19/2019 9:31 Results fo r this AM [facility] procedure are i n the results section. BLOOD CULTURE Routine 06/19/2019 9:31 Results fo r this AM [facility] procedure are i n the results section. 2D ECHO W/ DOPPLER Routine 06/19/2019 7:41 Resul ts for this (CW/PW/COLOR) AM [facility] procedure are in the results section. POCT-GLUCOSE METER Routine 06/19/2019 7:41 Resul ts for this AM [facility] procedure are i n the results section. CBC W/PLT COUNT & AUTO Routine 06/19/2019 4:08 R esults for this DIFFERENTIAL AM [facility] procedure are i n the results section. COMPREHENSIVE METABOLIC Routine 06/19/2019 4:08 Results for this PANEL AM [facility] procedure are i n the results section. CBC W/PLT COUNT & AUTO Routine 06/19/2019 4:08 R esults for this DIFFERENTIAL AM [facility] procedure are i n the results section. POCT-GLUCOSE METER Routine 06/18/2019 9:01 Resul ts for this PM [facility] procedure are i n the results section. POCT-GLUCOSE METER Routine 06/18/2019 5:54 Resul ts for this PM [facility] procedure are i n the results section. POCT-GLUCOSE METER Routine 06/18/2019 11:17 Resul ts for this AM [facility] procedure are i n the results section. POCT-GLUCOSE METER Routine 06/18/2019 7:43 Resul ts for this AM [facility] procedure are i n the results section. CBC W/PLT COUNT & AUTO STAT 06/18/2019 3:59 R esults for this DIFFERENTIAL AM [facility] procedure are i n the results section. TROPONIN I Add-On 06/18/2019 3:59 Results for this AM [facility] procedure are i n the results section. COMPREHENSIVE METABOLIC STAT 06/18/2019 3:59 Results for this PANEL AM [facility] procedure are i n the results section. BASIC METABOLIC PANEL Routine 06/18/2019 3:59 Re sults for this (7) AM [facility] procedure are i n the results section. CBC W/PLT COUNT & AUTO STAT 06/18/2019 3:59 R esults for this DIFFERENTIAL AM [facility] procedure are i n the results section. LACTIC ACID, VENOUS Routine 06/18/2019 3:59 Resu lts for this AM [facility] procedure are i n the results section. APTT STAT 06/18/2019 3:33 Results for this AM [facility] procedure are i n the results section. PROTHROMBIN TIME/INR STAT 06/18/2019 3:33 Res ults for this AM [facility] procedure are i n the results section. POCT-GLUCOSE METER Routine 06/17/2019 9:00 Resul ts for this PM [facility] procedure are i n the results section. POCT-GLUCOSE METER Routine 06/17/2019 5:04 Resul ts for this PM [facility] procedure are i n the results section. POCT-GLUCOSE METER Routine 06/17/2019 1:31 Resul ts for this PM [facility] procedure are i n the results section. LACTIC ACID, VENOUS STAT 06/17/2019 12:39 Resu lts for this PM [facility] procedure are i n the results section. CT ABDOMEN/PELVIS STAT 06/17/2019 10:25 Result s for this WITHOUT IV CONTRAST AM [facility] procedur e are in the results section. XR CHEST 1 VIEW STAT 06/17/2019 9:49 Results for this PORTABLE/BEDSIDE AM [facility] procedure a re in the results section. SCREEN, URINE STAT 06/17/2019 9:38 Results for this AM [facility] procedure are i n the results section. URINALYSIS W/ STAT 06/17/2019 9:38 Results fo r this MICROSCOPIC AM [facility] procedure are i n the results section. CBC W/PLT COUNT & AUTO STAT 06/17/2019 9:37 R esults for this DIFFERENTIAL AM [facility] procedure are i n the results section. APTT STAT 06/17/2019 9:37 Results for this AM [facility] procedure are i n the results section. PROTHROMBIN TIME/INR STAT 06/17/2019 9:37 Res ults for this AM [facility] procedure are i n the results section. COMPREHENSIVE METABOLIC STAT 06/17/2019 9:37 Results for this PANEL AM [facility] procedure are i n the results section. LACTIC ACID, VENOUS STAT 06/17/2019 9:37 Resu lts for this AM [facility] procedure are i n the results section. CBC W/PLT COUNT & AUTO STAT 06/17/2019 9:37 R esults for this DIFFERENTIAL AM [facility] procedure are i n the results section. RAPID STREP A SCREEN STAT 06/17/2019 9:37 Res ults for this AM [facility] procedure are i n the results section. RAPID INFLUENZA A&B STAT 06/17/2019 9:37 Resu lts for this SCREEN AM [facility] procedure are i n the results section. BLOOD CULTURE STAT 06/17/2019 9:37 Results fo r this AM [facility] procedure are i n the results section. BLOOD CULTURE STAT 06/17/2019 9:36 Results fo r this AM [facility] procedure are i n the results section. after 11/03/2018 Results RHYTHM STRIP - SCAN (06/24/2019 3:12 PM CDT) Narrative Performed At This result has an attachment that is no t available. IR PICC line placement older than 5 yrs (06/21/2019 2:50 PM [facility]) Specimen Narrative Performed At [facility] PICC LINE PLACEMENT, UNDER FLUOROSCOPY History [...] placed, through which a dual lumen 5 Citizen [place] PICC line trimmed to 43 c m [...] MD Report Verified Date/Time:06/21/2019 15:20:38 Reading Location: [facility] Room Procedure Note Interface, External Ris In - 06/21/2019 3:22 PM [facility] FINAL REPORT PICC LINE PLACEMENT, UNDER FLUOROSCOPY [...] placed, through which a dual lumen 5 Citizen [place] PICC line trimmed to 43 c m [...] Verified Date/Time: 06/21/2019 1 5:20:38 Reading Location: [facility] Room Performing Organization Address City/[facility]/Zipcode Phone Number [employer] POC-Glucose meter (06/21/2019 12:17 PM [facility])Only the most recent of16 results within the time period is included. POC-Glucose Meter 140 (H)Comment: : TESTED 70 - 110 mg/dL [facility] [address] [place], [place] [address]: Acid Painter/Accounting Manager ID = [id number] for Yasmin Major Specimen Blood Performing Organization Address City/[facility]/Zipcode Phone Number [facility] [address] [place] [phone] CENTER CBC with platelet count + automated diff (06/21/2019 5:43 AM [facility])Only the most recent of4 resultswithin the time [...] City/State/Zipcode Phone Number [facility] [address] [phone] Basic Metabolic Panel (06/21/2019 5:43 AM [facility])Only the most recent of3 results within the [...] DIALYSIS PATIENTS. Specimen Blood Narrative Performed At Acid Painter ID - [id number] [facility] Performing Organization Address City/State/Zipcode Phone Number [facility] [address] [facility] Yanelis Higgins [place] [phone] ECHOCARDIOGRAM REPORT - SCAN (06/19/2019 9:12 PM [facility]) Narrative Performed At This result has an attachment that is no t available. CT chest for pulmonary embolus (06/19/2019 3:23 PM [facility]) Specimen Narrative Performed At FINAL REPORT [employer] History: Dyspnea. TECHNIQUE: Helical CT of the [...] MD Report Verified Date/Time:06/19/2019 17:05:27 Reading Location: [facility] Room Procedure Note Interface, External Ris In - 06/19/2019 5:07 PM [facility] FINAL REPORT History: Dyspnea. TECHNIQUE: Helical CT [...] Report Verified Date/Time: 06/19/2019 7:05:27 Reading Location: [facility] Performing Organization Address City/State/Zipcode Phone Number [facility] EKG-SCANNED (06/19/2019 10:52 AM [facility]) Narrative Performed At This result has an attachment that is no t available. Blood culture (06/19/2019 9:31 AM [facility])Only the most recent of4 resultswithin the time period is included. Result No growth in 5 days [facility] Specimen Blood Performing Organization Address City/State/Zipcode Phone Number [facility] [address] [facility] [place] [phone] Echo W/Doppler(CW/PW/Color) (06/19/2019 7:41 AM [facility]) Ejection Fraction [facility] ECHO HEAR [facility] Specimen Narrative Performed At Transthoracic Echocardiography Report (T TE) [facility] ECHO HEARTLAB [facility] Demographics Patient Name Shayna PIMENTEL of Study 06/19/2019 MADINA [id number] Gender Female Visit Number [id number] Jaya [id number] Room Number [id number] Number Date of Birth1980Referring Physician Age38 year(s)Scrap Preparation Supervisor Izabella Mario [facility] Interpreting Kal Zepeda, Physician . [...] External Ris In - 06/19/2019 12:55 PM [facility] Transthoracic Echocardiography Report (TTE) Demographics Patient Name EMILEE PIMENTEL Date of Study 06/19/2019 MADINA Gend er Female Visit Number [id number] Race Black Room Number [id number] Number Date of 1980 Refe rring Physician Age 38 year(s) Sono germaine Trujillopec [facility] Inte rpreting Ankur Hand MD. [...] City/State/Zipcode Phone Number [facility] HEART[facility] Comprehensive metabolic panel (06/19/2019 4:08 AM [facility])Only the most recent of3 resultswithin the time [...] 86Comment: ESTIMATED GFR mL/min/1.73 sq m [facility] IS NOT ACCURATE CREATININE CLEARANCE IN PREDICTING GLOMERULAR FILTRATION RATE. ESTIMATED GFR IS NOT APPLICABLE FOR DIALYSIS PATIENTS. Specimen Blood Narrative Performed At Acid Painter ID - [id number] [facility] Performing Organization Address [facility]/Zipcode Phone Number [facility] [address] [place], [place] [phone] Troponin I (06/18/2019 3:59 AM [facility]) Troponin I <0.03 0.00 - 0.15 ng/mL [facility] Specimen Blood Narrative Performed At Troponin I (TnI) levels must be interpreted in the con text of [facility] the presenting symptoms and the clinical [...] acute neurological disease, and per sistent tachyarrhythmia. Acid Painter ID - [id number] Performing Organization Address [facility]/Zipcode Phone Number [facility] [address] [place], [place] [phone] Lactic acid, venous (06/18/2019 3:59 AM [facility])Only the most recent of3 results within the time period is included. Lactate, Venous 1.7Comment: Specimen slightly 0.5 - 2.0 mmol/L S [facility] hemolyzed Specimen Blood Narrative Performed At Acid Painter ID - [id number] [facility] Performing Organization Address [facility]/Zipcode Phone Number [facility] [address] [place], [place] [phone] aPTT (06/18/2019 3:33 AM [facility])Only the most recent of2 resultswithin the time period is included. PTT 31.2 23.0 - 35.0 sec [facility] Specimen Blood Narrative Performed At Final Information (Auto Output) [facility] Performing Organization Address [facility]/Zipcode Phone Number [facility] [address] [place], [place] [phone] Prothrombin time/INR (06/18/2019 3:33 AM [facility])Only the most recent of2 results within the time period is included. Protime 13.7 (H) 9.3 - 12.0 sec [facility] INR 1.3 <=5.9 [employer] [facility] Specimen Blood Narrative Performed At RECOMMENDED COUMADIN/WARFARIN INR THERAP Y RANGES [facility] STANDARD DOSE: 2.0 - 3.0 Includes: PROPHYLAXIS for venous thrombosis, systemic embolization; TREATMENT for venou s thrombosis and/or pulmonary embolus. HIGH RISK: Target INR is 2.5-3.5 for patients with mec hanical heart valves. Final Information (Auto Output) Final Information (Auto Output) Performing Organization Address City/[facility]/Zipcode Phone Number [facility] [address] [place], [place] [phone] [address] abdomen pelvis without contrast (06/17/2019 10:25 AM [facility]) Specimen Narrative Performed At FINAL REPORT [facility] CT abdomen and pelvis without contrast [...] MD Report Verified Date/Time:06/17/2019 10:42:41 Reading Location: [facility] [employer] [facility] Reading Room - [place] [id number] Procedure Note Interface, External Ris In - 06/17/2019 10:44 AM [facility] FINAL REPORT CT abdomen and pelvis without [...] Verified Date/Time: 06/17/2019 1 0:42:41 Reading Location: [facility] Diagnostic Imagin g Reading Room - [facility] F1 [id number] Performing Organization Address City/State/Zipcode Phone Number [facility] XR chest 1 view portable / bedside (06/17/2019 9:49 AM [facility]) Specimen Narrative Performed At FINAL REPORT GE [...] Report Verified Date/Time:06/17/2019 10:26:56 Reading Location: [facility] y Reading Room Procedure Note Interface, External Ris In - 06/17/2019 10:29 AM [facility] FINAL REPORT INDICATION: CHILLS FEVER ABDOMINAL PAIN [...] Verified Date/Time: 06/17/2019 1 0:26:56 Reading Location: [facility] y Reading Room Performing Organization Address City/State/Zipcode Phone Number [facility] screen, urine (06/17/2019 9:38 AM [facility]) Preg Test, Ur Negative [facility] Specimen Urine Performing Organization Address City/State/Zipcode Phone Number [facility] [address] [place], [place] [address] [facility] [phone] Urinalysis w/Microscopic (06/17/2019 9:38 AM [facility]) Color, UA Yellow [facility] Clarity, UA Clear [facility] Specific [place], UA 1.010 1.001 - 1.035 [facility] [...] [facility] Specimen Urine Performing Organization Address City/[facility]/Zipcode Phone Number [facility] [address] [place] [address] [facility] [phone] Rapid Strep A screen (06/17/2019 9:37 AM [facility]) Strep A Ag Negative [facility] Specimen Throat Performing Organization Address [facility]/Zipcode Phone Number [facility] [address] [place] [address] [facility] [phone] Rapid Influenza A&B Screen (06/17/2019 9:37 AM [facility]) Rapid Influenza A Antigen Negative Negative, Inconclusive [facility] Rapid influenza B Antigen Negative Negative, Inconclusive [facility] Specimen Nasopharyngeal Performing Organization Address [facility]/Zipcode Phone Number [facility] [address] [place] [address] after 11/03/2018 Insurance Payer Benefit Plan / Subscriber ID Type Phone Address Group BLUE CROSS/BLUE BCBS HMO xxxxxxxxxxxx HMO/POS [phone] [address] X [phone] SHIELD BLUE/ESSENTIALS [place], [place] [address] Advance Directives For more information, please contact:[address] [place], [place] [phone] Code Status Date Activated Date Inactivated Comments Full Code 06/17/2019 1:48 PM 06/21/2019 6:51 PM This code status was determined by: Patient Full Code 06/17/2019 10:39 AM 06/17/2019 1:48 PM This code status was determined by: Patient
--- OUTSIDE RECORDS SUMMARY | 2019-11-04 22:39 | XMS REPORT | Continuity of Care Document ---
:1980 Author Organization [facility] t Address [address] [place] [address] Care Team Providers Name Role Phone Pcp Primary Care Physician Unavailable NEGRA QUIROZ Attending Clinician Unavailable Richie HOBBS, Negra Attending Clinician Citlalli Schroeder MD Attending Clinician CITLALLI SCHROEDER Admitting Clinician Unavailable Payers Payer Name Policy Type Policy Number Effective Date Expiration Date S ource BLUE CROSS/BLUE xxxxxxxxxxxx [facility] Medical BLUE/ESSENTIALSx Center xxxxxxxxxxxHMO/P [id number], [place] [address] Problems Condition Condition Condition Status Onset Resolution Last Treating Co mments Source Name Details Category Date Date Treatment Clinician Date Sinus Sinus Disease Active 2019- [facility]-02 Kellie kes - a a 00:00: Medical 00 Center Pneumonia Pneumonia Disease Active [facility] Sepsis Sepsis Disease Active 2020-[address] [facility] Febrile Febrile Disease Active 2020-[address] [facility] illness illness 3-02 [facility] - 00:[facility] 00 Center Allergies, Adverse Reactions, Alerts Allergy Allergy Status Severity Reaction(s) Onset Inactive Treating Comm ents Source Name Type Date Date Clinician Naproxen Propensi Active [facility] 06-16 [facility] - adverse 00:00: Medical reaction 00 Center s NAPROXEN DA Active U [facility]- [facility] [place] No Known DA Active U [facility] Contrast [facility]-20 [facility] [place] No Known DA Active U [facility] Food 1-20 [facility] [place] No Known DA Active U [facility] Other 1-20 [facility] [place] ZOFRAN DA Active U [facility] 1[facility] [place] Social History Social Habit Start Date Stop Date Quantity Comments Source History SDOH Alcohol [facility] Std Drinks [facility] History ALOH Alcohol [facility] Binge [facility] Sex Assigned At [facility] History SDOH Alcohol 2019-06-17 2019-06-17 1 [facility] - Frequency 00:00:00 00:00:00 [facility] Center Smoking Status Start Date Stop Date Source Never smoker [facility] edical [place] Medications Ordered Filled Start Stop Current Ordering Indication Dosage Frequency Signature Comments Components Source Medication Medication Date Date Medication? Clinician (SIG) Name Name christie 2020- No 2{tbl} Q.5D Take [address] ate 06-20 04-05 tablets by [facility] - (SENOKOT S) 00:00: 23:59 mouth 2 Me dical 8.6-50 mg 00 :00 (two) Center per tablet times daily for 30 days. metroNIDAZO 0 2020- No 500mg Q.[id number] Take [address] LE (FLAGYL) 06-20- [id number] tablet [facility] - 500 MG 00:00: 23:59 3D (500 mg Medical tablet 00 :00 total) by Center mouth 3 (three) times daily for 14 days. liraglutide Yes Inject [facility] 0.6 mg/0.1 06-16 subcutaneo Kim es - mL (18 mg/3 13:48: usly. Medic al mL) PnIj 42 Center omeprazole Yes 20mg QD Take [address] (PRILOSEC) 3-02 by mouth [facility] - 20 MG 09:08: daily. Medical capsule 15 Center ALPRAZolam Yes 1{tbl} Take [address] (XANAX) 2 2-25 tablet by [facility] - MG tablet 00:00: mouth Medical 00 every 8 Center (eight) hours as needed. zolpidem Yes 1{tbl} Take 1 [facility] t (AMBIEN) 10 2-25 tablet by Kim es - mg tablet 00:00: mouth Medical 00 every Center night as needed. metoprolol Yes 1{tbl} QD Take [address] tartrate 2-17 tablet by [facility] - (LOPRESSOR) 00:00: mouth Medic al 50 MG 00 daily. Center tablet promethazin Yes 1{tbl} Take [address] e 1-13 tablet by [facility] - (PHENERGAN) 00:00: mouth Medic al 25 MG 00 every 8 Center tablet (eight) hours as needed. HYDROcodone 2020- No 1{tbl} Take [address] -acetaminop -06 tablet by Kellie glynn (NORCO 00:00: 00:00 mouth Medic al 10-325) 00 :00 every 6 Center 10-325 mg (six) per tablet hours as needed. Vital Signs Vital Name Observation Time Observation Value Comments Source Heart rate 2019-06-21 14:25:00 78 /min [facility] Respiratory rate 2019-06-21 14:25:00 18 /min [facility] Oxygen saturation in 2019-06-21 14:25:00 99 /min [facility] - Arterial blood by Medical Ce nter Pulse oximetry Systolic blood 2019-06-21 12:00:00 128 mm[Hg] [facility] pressure [facility] Diastolic blood 2019-06-21 12:00:00 89 mm[Hg] [facility] Body temperature 2019-06-21 12:00:00 37.28 Lyndsay [facility] Body height 2019-06-17 09:05:00 177.8 cm [facility] Body weight Measured 2019-06-17 09:05:00 127.007 kg [facility] BMI 2019-06-17 09:05:00 40.18 kg/m2 [facility] Procedures Procedure Date / Time Performing Clinician Source Performed RHYTHM STRIP - SCAN 2019-06-24 15:12:10 Provider, Default [facility] IR PICC LINE PLACEMENT 2019-06-21 14:50:00 Kayden Fishma [facility] - OLDER THAN 5 YRS [facility] POCT-GLUCOSE METER 2019-06-21 12:17:00 Schroeder [facility] POCT-GLUCOSE METER 2019-06-21 07:40:00 Schroeder, [facility] BASIC METABOLIC PANEL (7) 2019-06-21 05:43:00 Amaya Tirado [facility] CBC W/PLT COUNT & AUTO 2019-06-21 05:43:00 Amaya Tirado [facility] POCT-GLUCOSE METER 2019-06-20 22:04:00 Schroeder, [facility] POCT-GLUCOSE METER 2019-06-20 16:41:00 Alexandre [facility] POCT-GLUCOSE METER 2019-06-20 11:59:00 Alexandre [facility] POCT-GLUCOSE METER 2019-06-20 08:46:00 Alexandre [facility] BASIC METABOLIC PANEL (7) 2019-06-20 04:50:00 Amaya Tirado [facility] ECHOCARDIOGRAM REPORT - 2019-06-19 21:12:00 Provider, Default I [facility] POCT-GLUCOSE METER 2019-06-19 20:58:00 Schroeder, [facility] POCT-GLUCOSE METER 2019-06-19 16:44:00 [facility] TEST DESIGN 2019-06-19 15:23:00 Jose Deng [facility] REPORT OF PROCEDURE - 2019-06-19 10:52:[address] [facility] ENDOSCOPY SCAN Scanning [facility] BLOOD CULTURE 2019-06-19 09:31:00 Edilma Fish [place] 2D ECHO W/ DOPPLER 2019-06-19 07:41:28 Johnny Tiradomitchell [facility] (CW/PW/COLOR) [facility] POCT-GLUCOSE METER 2019-06-19 07:41:00 Alexandre [facility] COMPREHENSIVE METABOLIC 2019-06-19 04:08:00 Johnny Tiradomitchell [facility] CBC W/PLT COUNT & AUTO 2019-06-19 04:08:00 Jose Deng [facility] POCT-GLUCOSE METER 2019-06-18 21:01:00 Schroeder [facility] POCT-GLUCOSE METER 2019-06-18 17:54:00 Schroeder, [facility] POCT-GLUCOSE METER 2019-06-18 11:17:00 Schroeder, [facility] POCT-GLUCOSE METER 2019-06-18 07:43:00 Schroeder, [facility] LACTIC ACID, VENOUS 2019-06-18 03:59:00 Schroeder, [facility] BASIC METABOLIC PANEL (7) 2019-06-18 03:59:00 Amaya Tirado [facility] COMPREHENSIVE METABOLIC 2019-06-18 03:59:00 Schroeder, [facility] TROPONIN I 2019-06-18 03:59:00 [facility] W/PLT COUNT & AUTO 2019-06-18 03:59:00 Richie [facility] DIFFERENTIAL [facility] PROTHROMBIN TIME/INR 2019-06-18 03:33:00 Schroeder, [facility] APTT 2019-06-18 03:33:00 Schroeder, [facility] POCT-GLUCOSE METER 2019-06-17 21:00:00 Schroeder, [facility] POCT-GLUCOSE METER 2019-06-17 17:04:00 Schroeder, [facility] POCT-GLUCOSE METER 2019-06-17 13:31:00 Schroeder, [facility] LACTIC ACID, VENOUS 2019-06-17 12:39:00 Richie [facility] CT ABDOMEN/PELVIS WITHOUT 2019-06-17 10:25:00 Terrance Quiroz [facility] CONTRAST [facility] XR CHEST 1 VIEW 2019-06-17 09:49:00 [facility] URINALYSIS W/ MICROSCOPIC 2019-06-17 09:38:00 Terrance Quiroz [facility] SCREEN, URINE 2019-06-17 09:38:00 Richie [facility] BLOOD CULTURE 2019-06-17 09:37:00 Richie [facility] RAPID INFLUENZA A&B 2019-06-17 09:37:00 Richie [facility] RAPID STREP A SCREEN 2019-06-17 09:37:00 Richie [facility] LACTIC ACID, VENOUS 2019-06-17 09:37:00 Richie [facility] COMPREHENSIVE METABOLIC 2019-06-17 09:37:00 Terrance Quiroz [facility] PROTHROMBIN TIME/INR 2019-06-17 09:37:00 Richie [facility] APTT 2019-06-17 09:37:00 [place], [facility] CBC W/PLT COUNT & AUTO 2019-06-17 09:37:00 [place] [facility] BLOOD CULTURE 2019-06-17 09:36:00 [place] [facility] Plan of Care Planned Activity Planned Date Details Comments Source Future Scheduled 2019-12-17 INFLUENZA VACCINE (#1) [facility] Test 00:00:00 [code = INFLUENZA Medical Ce nter VACCINE (#1)] Future Scheduled 2000-11-08 Screening for [facility] - Test 00:00:00 malignant neoplasm of [facility] cervix (procedure) [code = 897457526] Future Scheduled 1985-11-08 [facility]00 2-64 YEARS AT RIS[facility] PPSV23[facility] [code = PNEUMOCOCCAL VACCINE 2-64 YEARS AT RISK (1 of 1 - PPSV23)] Results Test Description Test Time Test Comments Results Result Comments Source Blood culture 2019-06-24 14:00:00 Test Item Value Reference Range Interpretation Comme nts Result (test code = 6463-4) No growth in 5 days [facility] [id number] 14:00:00 Test Item Value Reference Range Interpretation Comments CULTURE (BEAKER) (test No growth in 5 days code = 1095) BLOOD [id number] 14:00:00 Test Item Value Reference Range Interpretation Comments CULTURE (BEAKER) (test No growth in 5 days code = 1095) ANG, NON-TUNNELED CATH/PICC >5 Y.O. WITH [id number] 15:20:00Reason for exam:->care home antibioticsFINAL REPORT PICC LINE PLACEMENT, UNDER FLUOROSCOPY [...] placed, through which a dual lumen 5 [place] PICC line trimmed to 43 cm length [...] MDReport Verified Date/Time: 06/21/2019 15:20:38 Reading Location: [facility] Radiology Reading Room IR PICC line placement older than 5 [id number] 15:20:00 Interface, External Ris In - 06/21/2019 3:22 PM CSTFINAL REPORT PICC LINE PLACEMENT, UNDER FLUOROSCOPY History provided: Need for long- term IV antibiotics PROCEDURE: Informed consent was obtained. Patient's medication list was reviewed. Timeout procedure was performed. All elements of strict sterile barrier were employed, including cap, mask, sterile gloves, and sterile drape.Skin was prepped with ChloraPrep. 1% Xylocaine anesthesia utilized. Ultrasound evaluation of potential access sites was performed. Sterile ultrasound techniques were employed, including sterile gel andsterile probe cover. After successfully identifying a patent right basilic vein , real-time ultrasound guidance was used to puncture the vessel. A permanent recording was created for the patient's record. Over a guidewire, a peel-away sheath was placed, through which a dual lumen 5 [place] PICC line trimmed to 43 cm length was advanced and positioned with tip at the cavoatrial junction. Spot film perf ormed for documentation. Catheter flushed and secured in place with 2-0 silk sutures. Sterile dressing applied. Catheter is ready for immediate use. Fluoroscopy time: 0.9 minutes Number of exposures performed: Two Radiation dose (Ka,r): 56.83 mGy Signed: Jorge Alberto Byrnes Verified Date/Time: 06/21/2019 15:20:38 Reading Location: [facility] Radiology Reading Room [facility] POC-Glucose [id number] 12:29:00 Test Item Value Reference Range Interpretation Comments POC-Glucose Meter (test 140 mg/dL 70-110 H : TE STED AT [facility] code = 1538) [address] [place] [id number]: Hand Ii Tube Bender/Techni estrellita ID = [id number] for Yasmin Major Lab Interpretation (test Abnormal code = 86418-0) [facility] [id number] 12:29:00 Test Item Value Reference Range Interpretation Comments POC-GLUCOSE METER 140 mg/dL 70-110 H : [facility] (test code [place] [address] [facility], = 1538) [place] [id number]: Hand Ii Tube Bender/Techni estrellita ID = [id number] for Sloane u Yasmin POCT-GLUCOSE [id number] 07:52:00 Test Item Value Reference Range Interpretation Comments POC-GLUCOSE METER 157 mg/dL 70-110 H : [facility] ([facility]ER) (test code [place] [facility], = 1538) [place] [id number]: Hand Ii Tube Bender/Techni estrellita ID = [id number] for Sloane u Yasmin Basic Metabolic [id number] 06:16:00 Test Item Value Reference Range Interpretation Comments Sodium (test code = 140 meq/L 366-592 2267-2) Potassium (test code = 3.7 meq/L 3.6-5.5 2823-3) Chloride (test code = 104 meq/L 98-106 2075-0) CO2 (test code = 26 meq/L 20-29 2028-9) BUN (test code = 4 mg/dL 10-26 L 3094-0) Creatinine (test code 0.81 mg/dL 0.5-1.2 = 2160-0) Glucose (test code = 156 mg/dL 70-110 H 2345-7) Calcium (test code = 9.0 mg/dL 8.5-10.5 28330-2) EGFR (test code = 95 mL/min/1.73 [place] [address]-6) NOT ACCURATE CREATININE CLEARANCE IN PREDICTING GLOMERULAR FILTRATION RATE . ESTIMATED GFR I S NOT APPLICABLE FOR DIALYSIS PATIENTS. TESHA (test code = TESHA) Hand Ii Tube Bender ID - [id number] Lab Interpretation Abnormal (test code = 49485-2) [facility] METABOLIC [id number] 06:16:00 Test Item Value Reference Range Interpretation Comments SODIUM (BEAKER) 140 meq/L 135-148 (test code = 381) POTASSIUM (BEAKER) 3.7 meq/L 3.6-5.5 (test code = 379) CHLORIDE (BEAKER) 104 meq/L 98-106 (test code = 382) CO2 (BEAKER) (test 26 meq/L 20-29 code = 355) BLOOD UREA NITROGEN 4 mg/dL 10-26 L (BEAKER) (test code = 354) CREATININE (BEAKER) 0.81 mg/dL 0.50-1.20 (test code = 358) GLUCOSE RANDOM 156 mg/dL 70-110 H (BEAKER) (test code = 652) CALCIUM (BEAKER) 9.0 mg/dL 8.5-10.5 (test code = 697) EGFR (BEAKER) (test 95 mL/min/1.73 ESTIMA DARELL GFR IS code = 1092) sq m NOT ACCURATE CREATININE CLEARANCE IN PREDICTING GLOMERULAR FILTRATION RATE . ESTIMATED GFR I S NOT APPLICABLE FOR DIALYSIS PATIEN TS. Hand Ii Tube Bender ID - [id number] with platelet count + automated [id number] 05:55:00 Test Item Value Reference Range Interpretation Comments WBC (test code = 6690-2) 6.6 4.0- 10.0 K/L RBC (test code = 789-8) 4.32 4.00- 5.00 M/L MCHC (test code = 786-4) 33.4 32.0- 36.0 GM/DL Hematocrit (test code = 4544-3) 39.5 % 36-46 MCV (test code = 787-2) 91.4 fL 82-99 MCH (test code = 785-6) 30.6 pg 27-33 RDW (test code = 788-0) 12.4 % 12-15 Platelets (test code = 777-3) 278 150- 430 K/CU MM MPV (test code = 58443-8) 10.3 fL 6-11.5 nRBC (test code = 413) 0 0- 0 /100 WBC % Neutros (test code = 429) 60 % % Lymphs (test code = 430) 26 % % Monos (test code = 431) 10 % % Eos (test code = 432) 3 % % Baso (test code = 437) 1 % # Neutros (test code = 670) 3.96 1.80- 8.00 K/L # Lymphs (test code = 414) 1.70 1.48- 4.50 K/L # Monos (test code = 415) 0.65 0.00- 1.30 K/L # Eos (test code = 416) 0.22 0.00- 0.50 K/L # Baso (test code = 417) 0.04 0.00- 0.20 K/L Immature Granulocytes-Relative (test 0 % 0-0 code = 2801) [facility] W/PLT COUNT & AUTO [id number] 05:55:00 Test Item Value Reference Range Interpretation Comments WHITE BLOOD CELL COUNT (BEAKER) 6.6 K/ L 4.0-10.0 (test code = 775) RED BLOOD CELL COUNT (BEAKER) 4.32 M/ L 4.00-5.00 (test code = 761) HEMOGLOBIN (BEAKER) (test code = 13.2 GM/DL 12.0-15.5 410) HEMATOCRIT (BEAKER) (test code = 39.5 % 36.0-46.0 411) MEAN CORPUSCULAR VOLUME (BEAKER) 91.4 fL 82.0-99.0 (test code = 753) MEAN CORPUSCULAR HEMOGLOBIN 30.6 pg 27.0-33.0 (BEAKER) (test code = 751) MEAN CORPUSCULAR HEMOGLOBIN CONC 33.4 GM/DL 32.0-36.0 (BEAKER) (test code = 752) RED CELL DISTRIBUTION WIDTH 12.4 % 12.0-15.0 (BEAKER) (test code = 412) PLATELET COUNT (BEAKER) (test 278 K/CU MM 150-430 code = 756) MEAN PLATELET VOLUME (BEAKER) 10.3 fL 6.0-11.5 (test code = 754) NUCLEATED RED BLOOD CELLS 0 /100 WBC 0-0 (BEAKER) (test code = 413) NEUTROPHILS RELATIVE PERCENT 60 % (BEAKER) (test code = 429) LYMPHOCYTES RELATIVE PERCENT 26 % (BEAKER) (test code = 430) MONOCYTES RELATIVE PERCENT 10 % (BEAKER) (test code = 431) EOSINOPHILS RELATIVE PERCENT 3 % (BEAKER) (test code = 432) BASOPHILS RELATIVE PERCENT 1 % (BEAKER) (test code = 437) NEUTROPHILS ABSOLUTE COUNT 3.96 K/ L 1.80-8.00 (BEAKER) (test code = 670) LYMPHOCYTES ABSOLUTE COUNT 1.70 K/ L 1.48-4.50 (BEAKER) (test code = 414) MONOCYTES ABSOLUTE COUNT (BEAKER) 0.65 K/ L 0.00-1.30 (test code = 415) EOSINOPHILS ABSOLUTE COUNT 0.22 K/ L 0.00-0.50 (BEAKER) (test code = 416) BASOPHILS ABSOLUTE COUNT (BEAKER) 0.04 K/ L 0.00-0.20 (test code = 417) IMMATURE GRANULOCYTES-RELATIVE 0 % 0-0 PERCENT (BEAKER) (test code = 2801) POCT-GLUCOSE [id number] 22:16:00 Test Item Value Reference Range Interpretation Comments POC-GLUCOSE METER 161 mg/dL 70-110 H : TESTED A T [facility] 1317 (BEAKER) (test code [facility], = 1538) [facility] [address]: Hand Ii Tube Bender/Techni estrellita ID = [id number] for Maicol amadoriliana POCT-GLUCOSE [id number] 17:08:00 Test Item Value Reference Range Interpretation Comments POC-GLUCOSE METER 196 mg/dL 70-110 H : Notified RN/MD: TESTED (BEAKER) (test code AT [facility] [address] = 1538) [facility] [address]: Hand Ii Tube Bender/Techni estrellita ID = [id number] for Thak er, Nikitaben POCT-GLUCOSE [id number] 12:11:00 Test Item Value Reference Range Interpretation Comments POC-GLUCOSE METER 162 mg/dL 70-110 H : Notified RN/MD: TESTED (BEAKER) (test code AT [facility] [address] = 1538) [facility] [address]: Hand Ii Tube Bender/Techni estrelliat ID = [id number] for Austin Beasleyben POCT-GLUCOSE [id number] 08:57:00 Test Item Value Reference Range Interpretation Comments POC-GLUCOSE METER 203 mg/dL 70-110 H : Notified RN/MD: TESTED (BEAKER) (test code AT [facility] [address] = 1538) [place] [id number]: Hand Ii Tube Bender/Techni estrellita ID = [id number] for Austin Beasleyben BASIC METABOLIC [id number] 06:22:00 Test Item Value Reference Range Interpretation Comments SODIUM (BEAKER) 139 meq/L 135-148 (test code = 381) POTASSIUM (BEAKER) 4.1 meq/L 3.6-5.5 Specimen slightly (test code = 379) hemolyzed CHLORIDE (BEAKER) 108 meq/L 98-106 H (test code = 382) CO2 (BEAKER) (test 22 meq/L 20-29 code = 355) BLOOD UREA NITROGEN 3 mg/dL 10-26 L (BEAKER) (test code = 354) CREATININE (BEAKER) 0.77 mg/dL 0.50-1.20 Specimen slightly (test code = 358) hemolyzed GLUCOSE RANDOM 112 mg/dL 70-110 H (BEAKER) (test code = 652) CALCIUM (BEAKER) 9.1 mg/dL 8.5-10.5 (test code = 697) EGFR (BEAKER) (test 101 mL/min/1.73 ESTIM ATED GFR IS code = 1092) sq m NOT ACCURATE CREATININE CLEARANCE IN PREDICTING GLOMERULAR FILTRATION RATE . ESTIMATED GFR I S NOT APPLICABLE FOR DIALYSIS PATIEN TS. Hand Ii Tube Bender ID - [id number] 21:15:00 Test Item Value Reference Range Interpretation Comments POC-GLUCOSE METER 132 mg/dL 70-110 H : TESTED A T [facility] 1317 (BEAKER) (test code [address] [address] [facility], = 1538) [facility] 77 478: Hand Ii Tube Bender/Techni estrellita ID = [id number] for Will iams, Sharyn CT, CHEST WITH IV CONTRAST- PE TEST [id number] 17:05:00FINAL REPORT History: Dyspnea. TECHNIQUE: Helical CT [...] to suboptimal contrast bolus. Signed: Nicolás Esparza MDReport Verified Date/Time: 06/19/2019 17:05:27 Reading Location: [facility] Radiology Reading Room CT chest for pulmonary [id number] 17:05:00Interface, External Ris In - 06/19/2019 5:07 PM CSTFINAL REPORT History: Dyspnea. TECHNIQUE: Helical CT of the chest was performed following the uneventful administration of intr avenous contrast utilizing a pulmonary embolus protocol, multiple windows, sagittal and coronal reformations. This exam was performed according to our departmental dose optimization program which includes automated exposure control, adjustment of the mA and/or KV according to the patient's size and/or use of iterative reconstruction technique. FINDINGS: Chest CT: No previous chest CTs are available for comparison. The heart, mediastinum and great vessels are unremarkable. Specifically, there are no filling defects identified in the pulmonary arteries to suggest acute pulmonary embolus. However, thecontrast bolus is suboptimal and therefore, only large central emboli can be excluded. More distal segmental or subsegmental pulmonary emboli would be difficult to exclude. No mediastinal or hilar adenopathy. Central airways are patent. Thyroid gland is unremarkable. The lungs are clear, free of edema, focal consolidation or visible effusions. No pneumothorax. Bones are unremarkable. Images obtained t hrough the upper abdomen are except for mild nondependent pneumobilia and diffusely decreased attenuation the liver, likely fatty infiltration. IMPRESSION: 1. No acute cardiopulmonary abnormalities. Nolarge central pulmonary emboli are present. More distal emboli would be impossible to exclude due to suboptimal contrast bolus. Signed: Nicolás Esparza Verified Date/Time: 06/19/2019 17:05:27 Reading Location: [facility] Radiology Reading [facility] [id number] 16:56:00 Test Item Value Reference Range Interpretation Comments POC-GLUCOSE METER 147 mg/dL 70-110 H : TESTED A T [facility] 1317 (BEAKER) (test code [address], = 1538) 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 Procedure Type of Study TTE procedure:2DECHO W DOPPLER(CW/PW/COLOR) (Routine) Indications:Suspected infective endocarditis with positive cultures or newmurmur.Clinical HistoryDM HTNHeight: 69 inches Weight: 132.9 kg (293 lbs) BSA: 2.43 m^2 BMI: 43.27 kg/m^2HR: 90 bpm Summary Technically difficult study with poor endocardial delineation and limited views. Grossly normal LV systolic function with an estimated LVEF of 60-64%. Indeterminate left ventricular filling dynamics. Poor valve visualization and evaluation. No evidence of pulmonary hypertension; estimated PA systolic pressure of 25 mm Hg, assuming an RA pressure of 3 mm Hg. No pericardial effusion. No previous study to compare from. Signature Findings Technical Quality: Limited visualization due to body habitus. Left Ventricle The left ventricle is normal in size, wall thickness, and contractility. The visual ejection fraction was estimated 60-64 %. Indeterminate left ventricular filling dynamics. Left Atrium The left atrium is not well visualized. LA is incompletely visualized, size based on qualitative assessment. Right Ventricle The right ventricular chamber size and systolic function are within normal limits. Right Atrium RA size is indeterminate (not well seen). Aortic Valve The aortic valve is not well visualized. Mitral Valve The mitral valve is not well visualized. Tricuspid Valve The tricuspid valve is not well visualized. Mild tricuspid regurgitation. Estimated peak systolic PA pressure is 20- 25 mmHg . Pulmonic Valve PV is not well visualized. Aorta Aortic root size (SInus of Valsalva diameter) is shelli l . Pericardium No pericardial effusion is visualized. IVC/SVC/PA/PV/Pleural The inferior vena cava is not visualized. Chambers/Structures [...] Diast Dim.: 2.02 cm RV Systolic Pressure: 27.52 mmHg Aorta Ao Root S of Denae.: 2.61 cm Doppler/Quantitative Measurements Aortic Valve Cusp Separation: 1.36 cm LVOT LVOT Diameter: 1.69 cm LVOT Area: 2.24 cm^2 Tricuspid Valve Estimated RVSP: 27.52 mmHg Estimated RAP: 10 mmHgTR Velocity: 2.09 m/s TR Gradient: 17.52 mmHg Pulmonic Valve Peak Velocity: 0.8 m/s PeakGradient: 2.54 mmHg Estimated PASP: 27.52 mmHgCentury City HospitalBLOOD [id number] 09:46:00 Test Item Value Reference Range Interpretation Comments CULTURE A From Aerobic An d (BEAKER) (test Anaerobic Bot tles Same code = 1095) organism has be en isolated from culture(s) of t he same body site and collection date . Repeat identifi cation performed only after consultation wi th the clinical microb iology laboratory.Refe r to previous cultur e ofEscherichia c neptali GRAM STAIN From aerobic and RESULT (BEAKER) anaerobic (test code = bottles: gram 1123) negative rods BLOOD [id number] 09:45:00 Test Item Value Reference Range Interpretation Comments CULTURE (BEAKER) (test ESCHERICHIA COLI A F rom Aerobic And code = 1095) Anaerobic Bottles Escherichia col i Amikacin (test code = S 1) Ampicillin + Sulbactam I (test code = 6) Aztreonam (test code = S 32) Cefazolin (test code = S 9) Cefepime (test code = S 51) Cefoxitin (test code = S 68) Ceftazidime (test code S = 27) Ceftriaxone (test code S = 52) Ertapenem (test code = S 38) Gentamicin (test code R = 18) Levofloxacin (test R code = 22) Meropenem (test code = S 34) Nitrofurantoin (test S code = 23) Piperacillin + S Tazobactam (test code = 29) Tetracycline (test S code = 2) Tigecycline (test code S = 133) Tobramycin (test code I = 25) Trimethoprim + S Sulfamethoxazole (test code = 47) GRAM STAIN RESULT From aerobic and (BEAKER) (test code = anaerobic 1123) bottles: gram negative rods POCT-GLUCOSE [id number] 07:53:00 Test Item Value Reference Range Interpretation Comments POC-GLUCOSE METER 131 mg/dL 70-110 H : TESTED A T [address] (BEAKER) (test code [address], = 1538) [facility] [address]: Hand Ii Tube Bender/Techni estrellita ID = [id number] for Butch Charlene lester Comprehensive metabolic [id number] 06:08:00 Test Item Value Reference Range Interpretation Comments Protein, Total (test 6.4 6.0- 8.5 gm/dL code = 2885-2) Albumin (test code = 3.5 g/dL 3.5-5 13908-3) Alkaline Phosphatase 56 U/L 30-115 (test code = 6768-6) Total Bilirubin (test 0.4 mg/dL 0.1-1.2 code = 1975-2) Sodium (test code = 140 meq/L 143-914 2230-2) Potassium (test code = 3.5 meq/L 3.6-5.5 L 2823-3) Chloride (test code = 108 meq/L 98-106 H 2075-0) CO2 (test code = 21 meq/L 20-29 8-9) BUN (test code = 7 mg/dL 10-26 L 3094-0) Creatinine (test code 0.89 mg/dL 0.5-1.2 = 2160-0) Glucose (test code = 195 mg/dL 70-110 H 2345-7) Calcium (test code = 8.2 mg/dL 8.5-10.5 L 44610-7) AST (test code = 41 U/L 5-40 H 1920-8) ALT (test code = 52 U/L 5-50 H 1742-6) EGFR (test code = 86 mL/min/1.73 [place] [address]-4) NOT ACCURATE CREATININE CLEARANCE IN PREDICTING GLOMERULAR FILTRATION RATE . ESTIMATED GFR I S NOT APPLICABLE FOR DIALYSIS PATIENTS. TESHA (test code = TESHA) Hand Ii Tube Bender ID - [id number] Lab Interpretation Abnormal (test code = 69194-6) [facility] HospitalCOMPRE[facility]ENSIVE METABOLIC [id number] 06:08:00 Test Item Value Reference Range Interpretation Comments TOTAL PROTEIN 6.4 gm/dL 6.0-8.5 (BEAKER) (test code = 770) ALBUMIN (BEAKER) 3.5 g/dL 3.5-5.0 (test code = 1145) ALKALINE PHOSPHATASE 56 U/L 30-115 (BEAKER) (test code = 346) BILIRUBIN TOTAL 0.4 mg/dL 0.1-1.2 (BEAKER) (test code = 377) SODIUM (BEAKER) (test 140 meq/L 135-148 code = 381) POTASSIUM (BEAKER) 3.5 meq/L 3.6-5.5 L (test code = 379) CHLORIDE (BEAKER) 108 meq/L 98-106 H (test code = 382) CO2 (BEAKER) (test 21 meq/L 20-29 code = 355) BLOOD UREA NITROGEN 7 mg/dL 10-26 L (BEAKER) (test code = 354) CREATININE (BEAKER) 0.89 mg/dL 0.50-1.20 (test code = 358) GLUCOSE RANDOM 195 mg/dL 70-110 H (BEAKER) (test code = 652) CALCIUM (BEAKER) 8.2 mg/dL 8.5-10.5 L (test code = 697) AST (SGOT) (BEAKER) 41 U/L 5-40 H (test code = 353) ALT (SGPT) (BEAKER) 52 U/L 5-50 H (test code = 347) EGFR (BEAKER) (test 86 mL/min/1.73 ESTIMA DARELL GFR IS code = 1092) sq m NOT ACCURATE CREATININE CLEARANCE IN PREDICTING GLOMERULAR FILTRATION RATE . ESTIMATED GFR I S NOT APPLICABLE FOR DIALYSIS PATIEN TS. Hand Ii Tube Bender ID - [id number] W/PLT COUNT & AUTO [id number] 05:43:00 Test Item Value Reference Range Interpretation Comments WHITE BLOOD CELL COUNT (BEAKER) 9.5 K/ L 4.0-10.0 (test code = 775) RED BLOOD CELL COUNT (BEAKER) 3.83 M/ L 4.00-5.00 L (test code = 761) HEMOGLOBIN (BEAKER) (test code = 11.9 GM/DL 12.0-15.5 L 410) HEMATOCRIT (BEAKER) (test code = 36.0 % 36.0-46.0 411) MEAN CORPUSCULAR VOLUME (BEAKER) 94.0 fL 82.0-99.0 (test code = 753) MEAN CORPUSCULAR HEMOGLOBIN 31.1 pg 27.0-33.0 (BEAKER) (test code = 751) MEAN CORPUSCULAR HEMOGLOBIN CONC 33.1 GM/DL 32.0-36.0 (BEAKER) (test code = 752) RED CELL DISTRIBUTION WIDTH 12.9 % 12.0-15.0 (BEAKER) (test code = 412) PLATELET COUNT (BEAKER) (test 198 K/CU MM 150-430 code = 756) MEAN PLATELET VOLUME (BEAKER) 11.0 fL 6.0-11.5 (test code = 754) NUCLEATED RED BLOOD CELLS 0 /100 WBC 0-0 (BEAKER) (test code = 413) NEUTROPHILS RELATIVE PERCENT 70 % (BEAKER) (test code = 429) LYMPHOCYTES RELATIVE PERCENT 19 % (BEAKER) (test code = 430) MONOCYTES RELATIVE PERCENT 9 % (BEAKER) (test code = 431) EOSINOPHILS RELATIVE PERCENT 1 % (BEAKER) (test code = 432) BASOPHILS RELATIVE PERCENT 0 % (BEAKER) (test code = 437) NEUTROPHILS ABSOLUTE COUNT 6.64 K/ L 1.80-8.00 (BEAKER) (test code = 670) LYMPHOCYTES ABSOLUTE COUNT 1.81 K/ L 1.48-4.50 (BEAKER) (test code = 414) MONOCYTES ABSOLUTE COUNT (BEAKER) 0.87 K/ L 0.00-1.30 (test code = 415) EOSINOPHILS ABSOLUTE COUNT 0.09 K/ L 0.00-0.50 (BEAKER) (test code = 416) BASOPHILS ABSOLUTE COUNT (BEAKER) 0.03 K/ L 0.00-0.20 (test code = 417) IMMATURE GRANULOCYTES-RELATIVE 0 % 0-0 PERCENT (BEAKER) (test code = 2801) POCT-GLUCOSE [id number] 21:12:00 Test Item Value Reference Range Interpretation Comments POC-GLUCOSE METER 195 mg/dL 70-110 H : TESTED A T [address] (BEAKER) (test code [address], = 1538) [place] [address]: Hand Ii Tube Bender/Techni estrellita ID = [id number] for Sharyn Shin POCT-GLUCOSE [id number] 18:06:00 Test Item Value Reference Range Interpretation Comments POC-GLUCOSE METER 109 mg/dL 70-110 : TESTED A T [address] (BEAKER) (test code [address], = 1538) [place] [address]: Hand Ii Tube Bender/Techni estrellita ID = [id number] for Charlene Funk Troponin [id number] 14:37:00 Test Item Value Reference Range Interpretation Comments Troponin I (test code = <0.03 0-0.15 89696-5) TESHA (test code = TESHA) Troponin I (TnI) levels must be interpreted [...] failure, acidosis, acute neurological disease, and persistent tachyarrhythmia.Opera tor ID - [id number] Lab Interpretation (test Normal code = 88718-7) [facility]TR[facility] [id number] 14:37:00 Test Item Value Reference Range Interpretation Comments TROPONIN I (BEAKER) (test code = [...] failure, acidosis, acute neurological disease, and persistent tachyarrhythmia.Hand Ii Tube Bender ID - [id number] METER 2019-06-18 11:28:00 Test Item Value Reference Range Interpretation Comments POC-GLUCOSE METER 135 mg/dL 70-110 H : TESTED A T [address] (BEAKER) (test code [address], = 1538) [facility] 77 [address]: Hand Ii Tube Bender/Techni estrellita ID = [id number] for Butch h, Charlene POCT-GLUCOSE [id number] 07:54:00 Test Item Value Reference Range Interpretation Comments POC-GLUCOSE METER 243 mg/dL 70-110 H : TESTED A T [address] (BEAKER) (test code [address], = 1538) [facility] 77 [address]: Hand Ii Tube Bender/Techni estrellita ID = [id number] for Butch h, Charlene BASIC METABOLIC [id number] 04:55:00 Test Item Value Reference Range Interpretation Comments SODIUM (BEAKER) 137 meq/L 135-148 (test code = 381) POTASSIUM (BEAKER) 3.4 meq/L 3.6-5.5 L (test code = 379) CHLORIDE (BEAKER) 103 meq/L 98-106 (test code = 382) CO2 (BEAKER) (test 23 meq/L 20-29 code = 355) BLOOD UREA NITROGEN 9 mg/dL 10-26 L (BEAKER) (test code = 354) CREATININE (BEAKER) 1.13 mg/dL 0.50-1.20 (test code = 358) GLUCOSE RANDOM 197 mg/dL 70-110 H (BEAKER) (test code = 652) CALCIUM (BEAKER) 8.5 mg/dL 8.5-10.5 (test code = 697) EGFR (BEAKER) (test 65 mL/min/1.73 ESTIMA DARELL GFR IS code = 1092) sq m NOT ACCURATE CREATININE CLEARANCE IN PREDICTING GLOMERULAR FILTRATION RATE . ESTIMATED GFR I S NOT APPLICABLE FOR DIALYSIS PATIEN TS. COMPREHENSIVE METABOLIC [id number] 04:54:00 Test Item Value Reference Range Interpretation Comments TOTAL PROTEIN 6.9 gm/dL 6.0-8.5 (BEAKER) (test code = 770) ALBUMIN (BEAKER) 3.9 g/dL 3.5-5.0 (test code = 1145) ALKALINE PHOSPHATASE 59 U/L 30-115 (BEAKER) (test code = 346) BILIRUBIN TOTAL 1.1 mg/dL 0.1-1.2 (BEAKER) (test code = 377) SODIUM (BEAKER) (test 137 meq/L 135-148 code = 381) POTASSIUM (BEAKER) 3.4 meq/L 3.6-5.5 L (test code = 379) CHLORIDE (BEAKER) 103 meq/L 98-106 (test code = 382) CO2 (BEAKER) (test 23 meq/L 20-29 code = 355) BLOOD UREA NITROGEN 9 mg/dL 10-26 L (BEAKER) (test code = 354) CREATININE (BEAKER) 1.13 mg/dL 0.50-1.20 (test code = 358) GLUCOSE RANDOM 197 mg/dL 70-110 H (BEAKER) (test code = 652) CALCIUM (BEAKER) 8.5 mg/dL 8.5-10.5 (test code = 697) AST (SGOT) (BEAKER) 76 U/L 5-40 H (test code = 353) ALT (SGPT) (BEAKER) 77 U/L 5-50 H (test code = 347) EGFR (BEAKER) (test 65 mL/min/1.73 ESTIMA DARELL GFR IS code = 1092) sq m NOT ACCURATE CREATININE CLEARANCE IN PREDICTING GLOMERULAR FILTRATION RATE . ESTIMATED GFR I S NOT APPLICABLE FOR DIALYSIS PATIEN TS. Hand Ii Tube Bender ID - [id number] time/[id number] 04:47:00 Test Item Value Reference Range Interpretation Comments Protime (test code = 13.7 9.3- 12.0 sec H 5902-2) INR (test code = 1.3 <=5.9 6301-6) TESHA (test code = TESHA) RECOMMENDED COUMADIN/WARFARIN INR THERAPY RANGESSTANDARD DOSE: 2.0 - 3.0 Includes: PROPHYLAXIS for venous thrombosis, systemic embolization; TREATMENT for venous thrombosis and/or pulmonary embolus.HIGH RISK: Target INR is 2.5-3.5 for patients with mechanical heart valves.Final Information (Auto Output)Final Information (Auto Output) Lab Interpretation Abnormal (test code = 74810-3) [facility]aPTT[facility] 04:47:00 Test Item Value Reference Range Interpretation Comments PTT (test code = 31.2 23.0- 35.0 sec 82658-0) TESHA (test code = TESHA) Final Information (Auto Output) Lab Interpretation (test Normal code = 61879-9) [facility] HospitalPROTHROMBIN [id number] 04:47:00 Test Item Value Reference Range Interpretation Comments PROTIME (BEAKER) (test code = 759) 13.7 sec 9.3-12.0 H INR (BEAKER) (test code = 370) 1.3 <=5.9 RECOMMENDED COUMADIN/WARFARIN INR THERAPY RANGESSTANDARD DOSE: 2.0 - 3.0 Includes: PROPHYLAXIS forvenous thrombosis, systemic embolization; TREATMENT for venous thrombosis and/or pulmonary embolus.HIGH RISK: Target INR is 2.5-3.5 for patients with mechanical heart valves.Final Information (Auto Output)Final Information (Auto Output)[id number] 04:47:00 Test Item Value Reference Range Interpretation Comments PARTIAL THROMBOPLASTIN TIME (BEAKER) 31.2 sec 23.0-35.0 (test code = 760) Final Information (Auto Output)CBC W/PLT COUNT & AUTO [id number] 04:34:00 Test Item Value Reference Range Interpretation Comments WHITE BLOOD CELL COUNT (BEAKER) 13.8 K/ L 4.0-10.0 H (test code = 775) RED BLOOD CELL COUNT (BEAKER) 4.36 M/ L 4.00-5.00 (test code = 761) HEMOGLOBIN (BEAKER) (test code = 13.3 GM/DL 12.0-15.5 410) HEMATOCRIT (BEAKER) (test code = 40.2 % 36.0-46.0 411) MEAN CORPUSCULAR VOLUME (BEAKER) 92.2 fL 82.0-99.0 (test code = 753) MEAN CORPUSCULAR HEMOGLOBIN 30.5 pg 27.0-33.0 (BEAKER) (test code = 751) MEAN CORPUSCULAR HEMOGLOBIN CONC 33.1 GM/DL 32.0-36.0 (BEAKER) (test code = 752) RED CELL DISTRIBUTION WIDTH 12.7 % 12.0-15.0 (BEAKER) (test code = 412) PLATELET COUNT (BEAKER) (test 242 K/CU MM 150-430 code = 756) MEAN PLATELET VOLUME (BEAKER) 10.2 fL 6.0-11.5 (test code = 754) NUCLEATED RED BLOOD CELLS 0 /100 WBC 0-0 (BEAKER) (test code = 413) NEUTROPHILS RELATIVE PERCENT 82 % (BEAKER) (test code = 429) LYMPHOCYTES RELATIVE PERCENT 10 % (BEAKER) (test code = 430) MONOCYTES RELATIVE PERCENT 7 % (BEAKER) (test code = 431) EOSINOPHILS RELATIVE PERCENT 0 % (BEAKER) (test code = 432) BASOPHILS RELATIVE PERCENT 0 % (BEAKER) (test code = 437) NEUTROPHILS ABSOLUTE COUNT 11.29 K/ L 1.80-8.00 H (BEAKER) (test code = 670) LYMPHOCYTES ABSOLUTE COUNT 1.37 K/ L 1.48-4.50 L (BEAKER) (test code = 414) MONOCYTES ABSOLUTE COUNT (BEAKER) 0.99 K/ L 0.00-1.30 (test code = 415) EOSINOPHILS ABSOLUTE COUNT 0.02 K/ L 0.00-0.50 (BEAKER) (test code = 416) BASOPHILS ABSOLUTE COUNT (BEAKER) 0.03 K/ L 0.00-0.20 (test code = 417) IMMATURE GRANULOCYTES-RELATIVE 1 % 0-0 H PERCENT (BEAKER) (test code = 2801) Lactic acid, [id number] 04:23:00 Test Item Value Reference Range Interpretation Comments Lactate, Venous (test 1.7 mmol/L 0.5-2 Specim en code = 2872) slightly hemolyzed TESHA (test code = TESHA) Hand Ii Tube Bender ID - [id number] Lab Interpretation Normal (test code = 54265-4) [facility]LACT[facility] ACID, [id number] 04:23:00 Test Item Value Reference Range Interpretation Comments LACTATE BLOOD VENOUS 1.7 mmol/L 0.5-2.0 Specime n slightly (2) (BEAKER) (test hemolyzed code = 2872) Hand Ii Tube Bender ID - [id number] 21:15:00 Test Item Value Reference Range Interpretation Comments POC-GLUCOSE METER 201 mg/dL 70-110 H : TESTED A T [address] (BEAKER) (test code [facility] [address], = 1538) [facility] [address]: Hand Ii Tube Bender/Techni estrellita ID = [id number] for Sharyn Shin POCT-GLUCOSE [id number] 17:16:00 Test Item Value Reference Range Interpretation Comments POC-GLUCOSE METER 163 mg/dL 70-110 H : Notified RN/MD: TESTED [facility] (test code [facility] [address] = [address]38) [facility] [address]: Hand Ii Tube Bender/Techni estrellita ID = [id number] for Thak er, Nikitaben POCT-GLUCOSE [id number] 13:42:00 Test Item Value Reference Range Interpretation Comments POC-GLUCOSE METER 224 mg/dL 70-110 H : Notified RN/MD: TESTED (BEAKER) (test code AT [facility] [address] = [address]38) [facility] [address]: Hand Ii Tube Bender/Techni estrellita ID = [id number] for Thak er, Nikitaben LACTIC ACID, [id number] 13:12:00 Test Item Value Reference Range Interpretation Comments LACTATE BLOOD VENOUS (2) ([facility]) 8.8 mmol/L 0.5-2.0 HH (test code = 2872) Hand Ii Tube Bender ID - [id number], [id number] 10:42:00Reason for exam:- >epigastric pain left flank [...] MDReport Verified Date/Time: 06/17/2019 10:42:41 Reading Location: [facility] Diagnostic Imaging Reading Room - [place] [address] [address] abdomen pelvis without [id number] 10:42:00Interface, External Ris In - 06/17/2019 10:[address] abdomen and pelvis without contrast History: Epigastric pain, left flank pain Comparison: none Technique: serial axial [...] No hydronephrosis. No apparent bladder wall thickening. Asmall focus of air within the nondependent bladder is probably related to recent instrumentation. Nosmall or large bowel obstruction. No apparent bowel wall thickening. No findings to indicate acuteappendicitis. No free fluid or adenopathy. Small fat-containing umbilical hernia. No aggressive osseous lesion. Impression: 1. No acute findings in the abdomen or pelvis by unenhanced CT scan.2. Diffuse fatty infiltration of the liver.3. The gallbladder is absent.4. Small focus of air within the nondependent bladder is probably related to recent instrumentation. Suggest clinical correlation. Regina d: Reagan De Dios Verified Date/Time: 06/17/2019 10:42:41 Reading Location: [facility] Diagnostic Imaging Reading Room - [place] [address] [facility], 1 VIEW, NON [id number] 10:26:00Reason for exam:- >CHILLSReason for exam:->FEVERReason for exam:->ABDOMINAL PAINReason for exam:->EMESISIs [...] pneumonia and/or asymmetric edema Signed: Justin Durán Verified Date/Time: 06/17/2019 10:26:56 Reading Location: [facility] Radiology ReadingRoom XR chest 1 view portable / [id number] 10:26:00 Interface, External Ris In - 06/17/2019 10:29 AM CSTFINAL REPORT INDICATION: CHILLSFEVERABDOMINAL PAINEMESIS COMPARISON: None TECHNIQUE: Single frontal view of the chest. FINDINGS: Lungs and pleura: Hazy airspace opacity throughout the right lung. No effusion.Heart and mediastinum: Normal heart size. Unremarkable mediastinal contours.Osseous structures: No acute abnormality.Other: None. IMPRESSION: Hazy airspace opacity throughout the right lung which may represent lobar pneumonia and/or asymmetric edema Signed: Justin Durán Verified Date/Time: 06/17/2019 10:26:56 Reading Location: [facility] Radiology Reading Room [facility] A&B [id number] 10:22:00 Test Item Value Reference Range Interpretation Comments Rapid Influenza A Antigen Negative Negative, Inconclusive (test code = 80890-2) Rapid influenza B Antigen Negative Negative, Inconclusive (test code = 46966-9) Lab Interpretation (test code Normal = 98842-6) [facility] A&B [id number] 10:22:00 Test Item Value Reference Range Interpretation Comments RAPID INFLUENZA A AG (BEAKER) Negative Negative, Inconclusive (test code = 1622) RAPID INFLUENZA B AG (BEAKER) Negative Negative, Inconclusive (test code = 1623) LACTIC ACID, [id number] 10:20:00 Test Item Value Reference Range Interpretation Comments LACTATE BLOOD VENOUS 2.7 mmol/L 0.5-2.0 HH Specime n slightly (2) (BEAKER) (test hemolyzed code = 2872) Hand Ii Tube Bender ID - [id number] METABOLIC [id number] 10:20:00 Test Item Value Reference Range Interpretation Comments TOTAL PROTEIN 8.0 gm/dL 6.0-8.5 (BEAKER) (test code = 770) ALBUMIN (BEAKER) 4.5 g/dL 3.5-5.0 (test code = 1145) ALKALINE PHOSPHATASE 74 U/L 30-115 (BEAKER) (test code = 346) BILIRUBIN TOTAL 1.2 mg/dL 0.1-1.2 (BEAKER) (test code = 377) SODIUM (BEAKER) (test 136 meq/L 135-148 code = 381) POTASSIUM (BEAKER) 3.8 meq/L 3.6-5.5 (test code = 379) CHLORIDE (BEAKER) 102 meq/L 98-106 (test code = 382) CO2 (BEAKER) (test 21 meq/L 20-29 code = 355) BLOOD UREA NITROGEN 7 mg/dL 10-26 L (BEAKER) (test code = 354) CREATININE (BEAKER) 0.93 mg/dL 0.50-1.20 (test code = 358) GLUCOSE RANDOM 230 mg/dL 70-110 H (BEAKER) (test code = 652) CALCIUM (BEAKER) 9.2 mg/dL 8.5-10.5 (test code = 697) AST (SGOT) (BEAKER) 62 U/L 5-40 H (test code = 353) ALT (SGPT) (BEAKER) 49 U/L 5-50 (test code = 347) EGFR (BEAKER) (test 81 mL/min/1.73 ESTIMA DARELL GFR IS code = 1092) sq m NOT ACCURATE CREATININE CLEARANCE IN PREDICTING GLOMERULAR FILTRATION RATE . ESTIMATED GFR I S NOT APPLICABLE FOR DIALYSIS PATIEN TS. Hand Ii Tube Bender ID - [id number] 10:12:00 Test Item Value Reference Range Interpretation Comments PARTIAL THROMBOPLASTIN TIME (BEAKER) 22.4 sec 23.0-35.0 L (test code = 760) Final Information (Auto Output)PROTHROMBIN TIME/[id number] 10:11:00 Test Item Value Reference Range Interpretation Comments PROTIME (BEAKER) (test code = 759) 10.7 sec 9.3-12.0 INR (BEAKER) (test code = 370) 1.0 <=5.9 RECOMMENDED COUMADIN/WARFARIN INR THERAPY RANGESSTANDARD DOSE: 2.0 - 3.0 Includes: PROPHYLAXIS forvenous thrombosis, systemic embolization; TREATMENT for venous thrombosis and/or pulmonary embolus.HIGH RISK: Target INR is 2.5-3.5 for patients with mechanical heart valves.Final Information (Auto Output)Final Information (Auto Output)Urinalysis w/[id number] 10:10:00 Test Item Value Reference Range Interpretation Comments Color, UA (test code = 5778-6) Yellow Clarity, UA (test code = 5767-9) Clear Specific [employer], UA (test code = 1.010 1.001-1.035 5811-5) pH, UA (test code = 5803-2) 6.0 5.0-8.0 Protein, UA (test code = 46965-7) Negative Negative Glucose, UA (test code = 365) Negative Negative Ketones, UA (test code = 2514-8) Negative Negative Bilirubin, UA (test code = Negative Negative 69160-4) Blood, UA (test code = 76745-3) Negative Negative Nitrite, UA (test code = 5802-4) Negative Negative Leukocytes, UA (test code = Negative Negative 5799-2) Urobilinogen, UA (test code = 0.2 mg/dL 0.2-1 82069-9) Bacteria, UA (test code = 69206-8) Occasional RBC, UA (test code = 799-7) <5 /HPF WBC, UA (test code = 78709-5) <5 /HPF SQUAMOUS EPITHELIAL (test code = <5 /HPF 64865-8) Specimen Source (test code = 2795) [facility] W/ [id number] 10:10:00 Test Item Value Reference Range Interpretation Comments COLOR (BEAKER) (test code = 470) Yellow CLARITY (BEAKER) (test code = 469) Clear SPECIFIC GRAVITY UA (BEAKER) (test 1.010 1.001-1.035 code = 468) PH UA (BEAKER) (test code = 467) 6.0 5.0-8.0 PROTEIN UA (BEAKER) (test code = Negative Negative 464) GLUCOSE UA (BEAKER) (test code = Negative Negative 365) KETONES UA (BEAKER) (test code = Negative Negative 371) BILIRUBIN UA (BEAKER) (test code = Negative Negative 462) BLOOD UA (BEAKER) (test code = Negative Negative 461) NITRITE UA (BEAKER) (test code = Negative Negative 465) LEUKOCYTE ESTERASE UA (BEAKER) Negative Negative (test code = 466) UROBILINOGEN UA (BEAKER) (test 0.2 mg/dL 0.2-1.0 code = 463) BACTERIA (BEAKER) (test code = Occasional 517) RBC UA-MANUAL (BEAKER) (test code <5 /HPF = 1659) WBC UA-MANUAL (BEAKER) (test code <5 /HPF = 1661) SQUAMOUS EPITHELIAL MANUAL <5 /HPF (BEAKER) (test code = 1663) SOURCE(BEAKER) (test code = 2795) Rapid Strep A [id number] 10:09:00 Test Item Value Reference Range Interpretation Comments Strep A Ag (test code = 88589-6) Negative [facility] [id number] 10:09:00 Test Item Value Reference Range Interpretation Comments STREP A ANTIGEN (BEAKER) (test code Negative = 556) screen, [id number] 10:06:00 Test Item Value Reference Range Interpretation Comments Preg Test, Ur (test code = 2112-1) Negative [facility] [id number] 10:06:00 Test Item Value Reference Range Interpretation Comments TEST URINE (BEAKER) (test Negative code = 583) CBC W/PLT COUNT & AUTO [id number] 09:58:00 Test Item Value Reference Range Interpretation Comments WHITE BLOOD CELL COUNT (BEAKER) 10.7 K/ L 4.0-10.0 H (test code = 775) RED BLOOD CELL COUNT (BEAKER) 4.99 M/ L 4.00-5.00 (test code = 761) HEMOGLOBIN (BEAKER) (test code = 15.3 GM/DL 12.0-15.5 410) HEMATOCRIT (BEAKER) (test code = 45.3 % 36.0-46.0 411) MEAN CORPUSCULAR VOLUME (BEAKER) 90.8 fL 82.0-99.0 (test code = 753) MEAN CORPUSCULAR HEMOGLOBIN 30.7 pg 27.0-33.0 (BEAKER) (test code = 751) MEAN CORPUSCULAR HEMOGLOBIN CONC 33.8 GM/DL 32.0-36.0 (BEAKER) (test code = 752) RED CELL DISTRIBUTION WIDTH 12.4 % 12.0-15.0 (BEAKER) (test code = 412) PLATELET COUNT (BEAKER) (test 289 K/CU MM 150-430 code = 756) MEAN PLATELET VOLUME (BEAKER) 10.4 fL 6.0-11.5 (test code = 754) NUCLEATED RED BLOOD CELLS 0 /100 WBC 0-0 (BEAKER) (test code = 413) NEUTROPHILS RELATIVE PERCENT 89 % (BEAKER) (test code = 429) LYMPHOCYTES RELATIVE PERCENT 8 % (BEAKER) (test code = 430) MONOCYTES RELATIVE PERCENT 1 % (BEAKER) (test code = 431) EOSINOPHILS RELATIVE PERCENT 1 % (BEAKER) (test code = 432) BASOPHILS RELATIVE PERCENT 0 % (BEAKER) (test code = 437) NEUTROPHILS ABSOLUTE COUNT 9.50 K/ L 1.80-8.00 H (BEAKER) (test code = 670) LYMPHOCYTES ABSOLUTE COUNT 0.90 K/ L 1.48-4.50 L (BEAKER) (test code = 414) MONOCYTES ABSOLUTE COUNT (BEAKER) 0.14 K/ L 0.00-1.30 (test code = 415) EOSINOPHILS ABSOLUTE COUNT 0.07 K/ L 0.00-0.50 (BEAKER) (test code = 416) BASOPHILS ABSOLUTE COUNT (BEAKER) 0.03 K/ L 0.00-0.20 (test code = 417) IMMATURE GRANULOCYTES-RELATIVE 0 % 0-0 PERCENT (BEAKER) (test code = 3741)
[2019-11-04 23:34] LABS: Absolute Lymphocytes (CBC) 2.7 K/uL (0.7-4.9); Basophils % 0.6 % (0-1.3); Hematocrit 44.1 % (36.0-45.0); Lymphocytes % 36.4 % (15.3-44.8); MPV 8.7 fL (7.6-11.3); RBC Red Blood Cell Count 4.86 M/uL (3.86-4.86)
[2019-11-04] MEDS ORDERED: ONDANSETRON 4 MG/2 ML VIAL ONE (23:43)
[2019-11-04] MEDS ORDERED: FENTANYL CITR 100 MCG/2 ML ONE (23:43)
[2019-11-04 23:45] LABS: ALT/SGPT 34 U/L (12-78); AST/SGOT 23 U/L (15-37); Albumin 3.9 g/dL (3.4-5.0); Alkaline Phosphatase 48 U/L (45-117); BUN Blood Urea Nitrogen 7 mg/dL (7-18); Bicarbonate 24 mmol/L (21-32); Bilirubin Direct < 0.1 mg/dL (0-0.2); Bilirubin Total 0.4 mg/dL (0.2-1.0); Glucose Level 226 mg/dL (74-106); Lipase 157 U/L (73-393); Potassium 3.8 mmol/L (3.5-5.1); Protein, Total 7.7 g/dL (6.4-8.2); Sodium Level 140 mmol/L (136-145)
[2019-11-05] MEDS ORDERED: LORazepam 2 MG/ML VIAL ONE (00:25)
--- NOTE | 2019-11-05 01:31 | ER ---
Nurse's Notes [facility] Name: Silvina Cohen Age: 38 yrs Sex: Female : 1980 Arrival Date: 11/04/2019 Time: 22:38 Bed 8 Private MD: Elie Hyde H Diagnosis: Generalized abdominal pain Presentation: 11/03 22:51 Chief complaint: Patient states: my navel has greenish/bloody discharge for 3 days now. mg2 i have pain in that area that radiates to the right abdomen. i was tested negative for COVID 3 weeks ago. was positive COVID Pneumonia last August. Coronavirus screen: Patient denies a cough. Patient denies shortness of breath or difficulty breathing. Patient denies measured and/or subjective temperature greater than 100.4F prior to today's visit. Patient denies travel on a cruise ship or to a country the [facility] currently lists as an affected area. Patient denies contact with known and/or suspected case of COVID-19. Patient instructed to continue to wear a mask when interacting with others. Patient moved to private room, placed in contact and droplet isolation with eye protection until further assessment. Ebola Screen: No symptoms or risks identified at this time. Initial Sepsis Screen: Does the patient meet any 2 criteria? No. Patient's initial sepsis screen is negative. Does the patient have a suspected source of infection? No. Patient's initial sepsis screen is negative. Risk Assessment: Do you want to hurt yourself or someone else? Patient reports no desire to harm self or others. Onset of symptoms was October 2019. 22:51 Method Of Arrival: Ambulatory mg2 22:51 Acuity: CORTEZ 3 mg2 Triage Assessment: 22:55 General: Appears in no apparent distress. comfortable, Behavior is calm, cooperative. mg2 Pain: Complains of pain in periumbilical area Pain radiates to right side of the abdomen. EENT: No signs and/or symptoms were reported regarding the EENT system. Neuro: Level of Consciousness is awake, alert, obeys commands, Oriented to person, place, time, situation. Neuro: Reports headache frontal area. Cardiovascular: Capillary refill < 3 seconds Patient's skin is warm and dry. Respiratory: Airway is patent Respiratory effort is even, unlabored. GI: Abdomen is round Reports lower abdominal pain, upper abdominal pain, nausea. : No signs and/or symptoms were reported regarding the genitourinary system. Derm: Skin is intact, is healthy with good turgor, Skin is pink, warm \T\ dry. normal. Musculoskeletal: Circulation, motion, and sensation intact. Capillary refill < 3 seconds. 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:57 LMP N/A - Hysterectomy mg2 Historical: - Allergies: 22:55 Codeine; mg2 22:55 Flexeril; mg2 22:55 Naproxen; mg2 - Home Meds: 22:55 Ambien 10 mg Oral tab 1 tab once daily [Active]; gabapentin 300 mg Oral cap 1 cap daily mg2 [Active]; metformin 500 mg Oral Tb24 1 tab 2 times per day [Active]; metoprolol tartrate 50 mg Oral tab 1 tab 2 times per day [Active]; Trulicity 0.75 mg/0.5 mL subcutaneous pnij 0.5 mL once wkly [Active]; Dahlgren 10-325 mg Oral tab as needed [Active]; Phenergan Oral 25 mg as needed [Active]; Victoza 2-Marvel subcutaneous [Active]; Xanax 2 mg Oral tab 1 tab [Active]; - PMHx: 22:55 Anxiety; Back pain; Diabetes - NIDDM; HYPERGLYCEMIA; Hypertension; mg2 - PSHx: 22:55 Cholecystectomy; Hysterectomy; cyst remval; mg2 - Immunization history:: Flu vaccine status is unknown. - Social history:: Smoking status: Patient denies any tobacco usage or history of. Patient uses alcohol, occasionally. Patient/guardian denies using street drugs, IV drugs. Screenin:57 Abuse screen: Denies threats or abuse. Denies injuries from another. Nutritional mg2 screening: No deficits noted. Tuberculosis screening: No symptoms or risk factors identified. Fall Risk IV access (20 points). Assessment: 22:57 General: see triage assessment. mg2 22:57 GI: Bowel sounds Abd is soft. mg2 23:32 Reassessment: Patient complaint of pain, Verbal order from Provider for Fentanyl 50mcg lp1 IV, Zofran 4 mg IV. 11/04 00:28 Reassessment: Patient appears in no apparent distress at this time. Patient and/or mg2 family updated on plan of care and expected duration. Pain level reassessed. Patient is alert, oriented x 3, equal unlabored respirations, skin warm/dry/pink. 01:29 Reassessment: Patient appears in no apparent distress at this time. Patient states mg2 feeling better. Vital Signs: 11/03 22:51 BP 143 / 93; Pulse 97; Resp 18; Temp 97.9; Pulse Ox 98% on R/A; Weight 135.17 kg; mg2 Height 5 ft. 9 in. (175.26 cm); Pain 8/10; 11/04 00:30 BP 140 / 80; Pulse 90; Resp 18; Temp 98; Pulse Ox 100% on R/A; mg2 01:15 BP 135 / 78; Pulse 89; Resp 18; Temp 97.9; Pulse Ox 100% on R/A; mg2 11/03 22:51 Body Mass Index 44.01 (135.17 kg, 175.26 cm) mg2 ED Course: 11/03 22:38 Patient arrived in ED. es 22:39 Elie Hyde DO is Private Physician. es 22:41 Octavio Joseph, ELLYN is Primary Nurse. mg2 22:47 Erik Chopra PA is PHCP. jr8 22:47 Marlo Orozco MD is Attending Physician. jr8 22:53 Triage completed. mg2 22:57 Arm band placed on. mg2 22:57 Patient has correct armband on for positive identification. Pulse ox on. NIBP on. Door mg2 closed. Warm blanket given. 23:20 Inserted saline lock: 22 gauge in right forearm, using aseptic technique. Blood ds4 collected. 11/04 00:28 No provider procedures requiring assistance completed. mg2 00:50 CT Abd/Pelvis - IV Contrast Only In Process Unspecified. EDMS 01:29 IV discontinued, intact, bleeding controlled, No redness/swelling at site. Pressure mg2 dressing applied. 01:30 Elie Hyde DO is Referral Physician. jr8 Administered Medications: 11/03 23:45 Drug: fentaNYL (PF) 50 mcg Route: IVP; Site: right forearm; lp1 11/04 00:20 Follow up: Response: No adverse reaction; RASS: Alert and Calm (0) mg2 11/03 23:45 Drug: Zofran (Ondansetron) 4 mg Route: IVP; Site: right forearm; lp1 11/04 00:20 Follow up: Response: No adverse reaction mg2 11/03 23:51 CANCELLED (Duplicate Order): fentaNYL (PF) 50 mcg IVP once; RASS on ADMIN: Combtv4, mg2 Very Agttd3, Agttd2, Rstlss1, AlertClm0, Drwsy-1, Lt Sdtn-2, Mod Sdtn-3, Dp Sdtn-4, UnArsble-5 23:51 CANCELLED (Duplicate Order): Zofran (Ondansetron) 4 mg IVP once; over 2 minutes mg2 11/04 00:20 Drug: Ativan 1 mg Route: IVP; Site: right forearm; mg2 01:06 Follow up: Response: No adverse reaction mg2 01:20 Not Given (Patient Refused): GI Cocktail without - (Maalox Suspension 30 ml, mg2 Lidocaine Liquid 2 % 15 ml) PO once Outcome: 01:29 Discharged to home ambulatory. mg2 01:29 Condition: stable 01:29 Discharge instructions given to patient, Instructed on discharge instructions, follow up and referral plans. Demonstrated understanding of instructions, follow-up care. 01:30 Discharge ordered by MD. guaman 01:34 Patient left the ED. mg2 Signatures: Dispatcher [employer] Marlene Ayers Laura, RN RN lp1 Erik Chopra PA PA jr8 Amado Tanner ds4 Octavio Joseph RN RN mg2
--- NOTE | 2019-11-05 01:31 | EDPHYS ---
Physician Documentation [facility] Name: Silvina Cohen Age: 38 yrs Sex: Female : 1980 Arrival Date: 11/04/2019 Time: 22:38 Bed 8 Private MD: Elie Hyde H ED Physician Marlo Orozco HPI: 11/03 23:51 This 38 yrs old Black Female presents to ER via Ambulatory with complaints of Abdominal jr8 Pain, Headache, Navel drainage. 23:51 The patient presents with abdominal pain that is diffuse. Onset: The symptoms/episode jr8 began/occurred acutely, today. The symptoms do not radiate. Associated signs and symptoms: none. The symptoms are described as stabbing. Modifying factors: The symptoms are alleviated by nothing, the symptoms are aggravated by nothing. Severity of pain: At its worst the pain was moderate in the emergency department the pain is unchanged. It is unknown whether or not the patient has had similar symptoms in the past. The patient has not recently seen a physician. Patient stated that she had some purulent drainage from umbilical area. Now having abdominal pain. Denies any other symptoms . 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 LMP N/A - Hysterectomy mg2 Historical: - Allergies: 22:55 Codeine; mg2 22:55 Flexeril; mg2 22:55 Naproxen; mg2 - Home Meds: 22:55 Ambien 10 mg Oral tab 1 tab once daily [Active]; gabapentin 300 mg Oral cap 1 cap daily mg2 [Active]; metformin 500 mg Oral Tb24 1 tab 2 times per day [Active]; metoprolol tartrate 50 mg Oral tab 1 tab 2 times per day [Active]; Trulicity 0.75 mg/0.5 mL subcutaneous pnij 0.5 mL once wkly [Active]; Wayne 10-325 mg Oral tab as needed [Active]; Phenergan Oral 25 mg as needed [Active]; Victoza 2-Marvel subcutaneous [Active]; Xanax 2 mg Oral tab 1 tab [Active]; - PMHx: 22:55 Anxiety; Back pain; Diabetes - NIDDM; HYPERGLYCEMIA; Hypertension; mg2 - PSHx: 22:55 Cholecystectomy; Hysterectomy; cyst remval; mg2 - Immunization history:: Flu vaccine status is unknown. - Social history:: Smoking status: Patient denies any tobacco usage or history of. Patient uses alcohol, occasionally. Patient/guardian denies using street drugs, IV drugs. ROS: 23:51 Eyes: Negative for injury, pain, redness, and discharge, ENT: Negative for injury, jr8 pain, and discharge, Neck: Negative for injury, pain, and swelling, Cardiovascular: Negative for chest pain, palpitations, and edema, Respiratory: Negative for shortness of breath, cough, wheezing, and pleuritic chest pain, Back: Negative for injury and pain, MS/Extremity: Negative for injury and deformity, Skin: Negative for injury, rash, and discoloration. 23:51 Abdomen/GI: Positive for abdominal pain, Negative for nausea, vomiting, and diarrhea, constipation, abdominal cramps, abdominal distension. 23:51 Neuro: Positive for headache. Exam: 23:51 Eyes: Pupils equal round and reactive to light, extra-ocular motions intact. Lids and jr8 lashes normal. Conjunctiva and sclera are non-icteric and not injected. Cornea within normal limits. Periorbital areas with no swelling, redness, or edema. ENT: Nares patent. No nasal discharge, no septal abnormalities noted. Tympanic membranes are normal and external auditory canals are clear. Oropharynx with no redness, swelling, or masses, exudates, or evidence of obstruction, uvula midline. Mucous membranes moist. Neck: Trachea midline, no thyromegaly or masses palpated, and no cervical lymphadenopathy. Supple, full range of motion without nuchal rigidity, or vertebral point tenderness. No Meningismus. Cardiovascular: Regular rate and rhythm with a normal S1 and S2. No gallops, murmurs, or rubs. Normal PMI, no JVD. No pulse deficits. Respiratory: Lungs have equal breath sounds bilaterally, clear to auscultation and percussion. No rales, rhonchi or wheezes noted. No increased work of breathing, no retractions or nasal flaring. Back: No spinal tenderness. No costovertebral tenderness. Full range of motion. Skin: Warm, dry with normal turgor. Normal color with no rashes, no lesions, and no evidence of cellulitis. MS/ Extremity: Pulses equal, no cyanosis. Neurovascular intact. Full, normal range of motion. Neuro: Awake and alert, GCS 15, oriented to person, place, time, and situation. Cranial nerves II-XII grossly intact. Motor strength 5/5 in all extremities. Sensory grossly intact. Cerebellar exam normal. Normal gait. 23:51 Abdomen/GI: Inspection: obese No abnormality to umbilicus upon direct visualization , Bowel sounds: active, all quadrants, Palpation: soft, in all quadrants, mild abdominal tenderness, in the umbilical area, anterior aspect of right lateral abdomen and right upper quadrant, mass, is not appreciated, rebound tenderness, is not appreciated, voluntary guarding, is not appreciated, involuntary guarding, is not appreciated, no appreciated organomegaly, Indicators: McBurney's point is not tender, Holman's sign is negative, Rovsing's sign is negative, Liver: tenderness, is not appreciated. Vital Signs: 22:51 BP 143 / 93; Pulse 97; Resp 18; Temp 97.9; Pulse Ox 98% on R/A; Weight 135.17 kg; mg2 Height 5 ft. 9 in. (175.26 cm); Pain 8/10; 11/04 00:30 BP 140 / 80; Pulse 90; Resp 18; Temp 98; Pulse Ox 100% on R/A; mg2 01:15 BP 135 / 78; Pulse 89; Resp 18; Temp 97.9; Pulse Ox 100% on R/A; mg2 11/03 22:51 Body Mass Index 44.01 (135.17 kg, 175.26 cm) mg2 MDM: 11/03 23:12 Patient medically screened. jr8 11/04 01:29 Data reviewed: vital signs, nurses notes, lab test result(s), radiologic studies, CT jr8 scan, and as a result, I will discharge patient. Data interpreted: Pulse oximetry: on room air is 98 %. Interpretation: normal. Counseling: I had a detailed discussion with the patient and/or guardian regarding: the historical points, exam findings, and any diagnostic results supporting the discharge/admit diagnosis, lab results, radiology results, the need for outpatient follow up, a family practitioner, a extrusion bender, to return to the emergency department if symptoms worsen or persist or if there are any questions or concerns that arise at home. Response to treatment: the patient's symptoms have mildly improved after treatment. Special discussion: Based on the patient's Hx, exam, and Dx evaluation, there is no indication for emergent surgery or inpatient Tx. It is understood by the patient/guardian that if the Sx's persist or worsen they need to return immediately for re-evaluation. 11/03 22:51 Order name: Basic Metabolic Panel; Complete Time: 23:54 mg2 11/03 22:51 Order name: CBC with Diff; Complete Time: 23:54 mg2 11/03 22:51 Order name: Hepatic Function; Complete Time: 23:54 mg2 11/03 22:51 Order name: Lipase; Complete Time: 23:54 mg2 11/03 23:54 Order name: CT Abd/Pelvis - IV Contrast Only jr8 11/03 22:51 Order name: IV Saline Lock; Complete Time: 23:33 mg2 11/03 22:51 Order name: Labs collected and sent; Complete Time: 23:33 mg2 Administered Medications: 11/03 23:45 Drug: fentaNYL (PF) 50 mcg Route: IVP; Site: right forearm; lp1 11/04 00:20 Follow up: Response: No adverse reaction; RASS: Alert and Calm (0) mg2 11/03 23:45 Drug: Zofran (Ondansetron) 4 mg Route: IVP; Site: right forearm; lp1 11/04 00:20 Follow up: Response: No adverse reaction mg2 11/03 23:51 CANCELLED (Duplicate Order): fentaNYL (PF) 50 mcg IVP once; RASS on ADMIN: Combtv4, mg2 Very Agttd3, Agttd2, Rstlss1, AlertClm0, Drwsy-1, Lt Sdtn-2, Mod Sdtn-3, Dp Sdtn-4, UnArsble-5 23:51 CANCELLED (Duplicate Order): Zofran (Ondansetron) 4 mg IVP once; over 2 minutes mg2 11/04 00:20 Drug: Ativan 1 mg Route: IVP; Site: right forearm; mg2 01:06 Follow up: Response: No adverse reaction mg2 01:20 Not Given (Patient Refused): GI Cocktail without - (Maalox Suspension 30 ml, mg2 Lidocaine Liquid 2 % 15 ml) PO once Disposition: 02:51 Co-signature as Attending Physician, Marlo Orozco MD. [email or web address] Disposition: 11/05/19 01:30 Discharged to Home. Impression: Generalized abdominal pain. - Condition is Stable. - Discharge Instructions: Abdominal Pain, Adult. - Medication Reconciliation Form, Thank You Letter, Antibiotic Education, Prescription Opioid Use form. - Follow up: Elie Hyde DO; When: 2 - 3 days; Reason: Recheck today's complaints, Continuance of care, Re-evaluation by your physician. - Problem is new. - Symptoms have improved. Signatures: Dispatcher [employer] EDMS Nicolasa Singh RN RN lp1 Erik Chopra PA PA jr8 Octavio Joseph RN RN mg2 Marlo Orozco MD MD 7 Corrections: (The following items were deleted from the chart) 11/03 23:51 23:50 fentaNYL (PF) 50 mcg IVP once; RASS on ADMIN: Combtv4, Very Agttd3, Agttd2, mg2 Rstlss1, AlertClm0, Drwsy-1, Lt Sdtn-2, Mod Sdtn-3, Dp Sdtn-4, UnArsble-5 ordered. mg2 23:51 23:50 Zofran (Ondansetron) 4 mg IVP once; over 2 minutes ordered. mg2 mg2 11/04 01:34 01:30 11/05/2019 01:30 Discharged to Home. Impression: Generalized abdominal pain. mg2 Condition is Stable. Forms are Medication Reconciliation Form, Thank You Letter, Antibiotic Education, Prescription Opioid Use. Follow up: Elie Hyde; When: 2 - 3 days; Reason: Recheck today's complaints, Continuance of care, Re-evaluation by your physician. Problem is new. Symptoms have improved. jr8
[2019-11-05 12:12] VITALS: O2SAT 100
[2019-11-05 12:14] VITALS: BP 135/78; TEMP 97.9
--- NOTE | 2019-11-06 10:08 | RAD REPORT ---
EXAM DESCRIPTION: CT - Abdomen Pelvis W Contrast - 11/05/2019 3:08 am CLINICAL HISTORY: ABD PAIN COMPARISON: 08/17/2017 TECHNIQUE: CT of the abdomen and pelvis performed following IV administration of iodinated contras t. FINDINGS: Lung Bases: The visualized lung bases are clear. Bones: Mild degenerative endplate spondylosis. Abdomen: Liver: Hepatomegaly and hepatic steatosis. Intrabiliary air is likely postprocedural. Gallbladder: Prior cholecystectomy. Spleen, Pancreas, and Adrenal Glands: The spleen, pancreas, and adrenal glands are unremarkable. Kidneys: No hydronephrosis or obstructing calculus. Vasculature: The aorta and IVC have normal caliber and position. The portal vein is patent. The pro ximal visceral and renal arteries are patent. Stomach: The stomach and duodenum have normal course. Other: No free intraperitoneal air. No free fluid or lymphadenopathy. Fat-containing umbilical he rnia. No well-circumscribed fluid collection in the ventral abdominal subcutaneous soft tissues. Pelvis: Bladder: Urinary bladder is unremarkable. Bowel: No dilated loops of large or small bowel. Postoperative change of the small bowel. Appendix: Normal appendix. Pelvis: Prior hysterectomy. IMPRESSION: 1. No acute inflammatory or obstructive process identified. 2. Hepatomegaly and hepatic steatosis. This exam was performed according to our departmental dose-optimization program, which includes autom ated exposure control, adjustment of the mA and/or kV according to patient size and/or use of iterati ve reconstruction technique. Electronically signed by: Gabriel Rivera 11/05/2019 1:06 AM CDT Due to temporary technical issues with the PACS/Fluency reporting system, reports are being signed by the in house radiologist without review as a courtesy to ensure prompt reporting. The interpreting r adiologist is fully responsible for the content of the report.
== END 2019-11-05 01:34 | disposition home or self-care (01) ==
LOC: ER 22:34
DX: R10.84 Generalized abdominal pain (principal); I10 Essential (primary) hypertension; E11.9 Type 2 diabetes mellitus without complications; F41.9 Anxiety disorder, unspecified; Z79.4 Long term (current) use of insulin; Z88.5 Allergy status to narcotic agent; Z88.6 Allergy status to analgesic agent
CPT/HCPCS: 85025; 80048; 36415; 80076; 83690; 74177; 96375; 96374; 99284; Q9967; J3010; J2405

== ENCOUNTER 2020-06-30 15:11 | Emergency (ER) | payer BC, OTHER ==
--- OUTSIDE RECORDS SUMMARY | 2020-06-30 15:22 | XMS REPORT | Continuity of Care Document ---
:1980 Author Organization [facility] t Address [facility] Morales [address] [place] [address] Care Team Providers Name Role Phone Pcp Primary Care Physician Unavailable Kostas HOBBS Attending Clinician Doctor Unassigned, Name Attending Clinician Unavailable NEGRA BUCK Attending Clinician Unavailable CITLALLI DE LA CRUZ Admitting Clinician Unavailable Payers Payer Name Policy Type Policy Number Effective Date Expiration Date S ource Problems Condition Condition Condition Status Onset Resolution Last Treating Co mments Source Name Details Category Date Date Treatment Clinician Date Sinus Sinus Disease Active 2019-[address] [facility] tachycardi tachycardi 3-02 Kellie kes - a a 00:00: Medical 00 [place] Pneumonia Pneumonia Disease Active 2020-[address] [facility] 00 [place] Sepsis Sepsis Disease Active 2020-[address] [facility] 3[facility]02 [facility] Medical 00 [place] Febrile Febrile Disease Active 2020-[address] [facility] illness illness 3-02 [facility] 00:[facility]: [facility] 00 Center Allergies, Adverse Reactions, Alerts Allergy Allergy Status Severity Reaction(s) Onset Inactive Treating Comm ents Source Name Type Date Date Clinician Naproxen Propensi Active 2019-[address] [facility] [address] ty to 3-02 [facility] - adverse 00:00: Medical reaction 00 Center s No Known DA Active U [facility]- [facility] Food [facility]-20 [facility] [place] No Known DA [facility] U [facility] Other 1-20 [facility] [place] ZOFRAN DA Active U [facility] 1-20 [facility] [place] NAPROXEN DA Active U [facility] 1[facility]20 [facility] [place] No Known DA Active U 2007- [facility] Contrast 1-20 [facility] [place] Social History Social Habit Start Date Stop Date Quantity Comments Source Sex Assigned At [facility] History SDOH [facility] - Alcohol Std Drinks [facility] History [facility] - Alcohol Binge Medical [facility] ter Tobacco use and 2019-06-19 2019-06-19 Never used [facility] St Kellie kes - exposure 00:00:00 00:00:00 [facility] Alcohol intake 2019-06-19 2019-06-[address] [facility] - 00:00:00 00:00:00 non-drinker of Medical Ce nter alcohol (finding) History SDAR 2019-06-17 2019-06-[address] [facility] - Alcohol Frequency 00:00:00 00:00:00 [facility] Smoking Status Start Date Stop Date Source Never smoker [facility] - M edical [place] Medications Ordered Filled Start Stop Current Ordering Indication Dosage Frequency Signature Comments Components Source Medication Medication Date Date Medication? Clinician (SIG) Name Name omeprazole Yes 20mg QD Take [address] (PRILOSEC) -06 by mouth [facility] - 20 MG 16:51: daily. Medical capsule 06 [place] liraglutide Yes Inject [facility] 0.6 mg/0.1 3-06 subcutaneo Kim es - mL (18 mg/3 16:51: usly. Medic al mL) PnIj 06 [place] senna-docus 2020- No 2{tbl} Q.5D Take [address] ate - 04-05 tablets by [facility] - (SENOKOT S) 00:00: 23:59 mouth 2 Me dical 8.6-50 mg 00 :00 (two) Center per tablet times daily for 30 days. metroNIDAZO 2020-0 2020- No 500mg [id number] Take [address] [facility] (FLAGYL) 3-06 03-20 [id number] tablet [facility] - 500 MG 00:00: 23:59 3D (500 mg Medical tablet 00 :00 total) by Center mouth 3 (three) times daily for 14 days. ALPRAZolam 2020-0 Yes 1{tbl} Take [address] (XANAX) 2 2-25 tablet by [facility] - MG tablet 00:00: mouth Medical 00 every 8 Center (eight) hours as needed. zolpidem 2020-0 Yes 1{tbl} Take 1 [facility] t (AMBIEN) 10 2-25 tablet by Kim es - mg tablet 00:00: mouth Medical 00 every Center night as needed. metoprolol 2020-0 Yes 1{tbl} QD Take [address] tartrate 2-17 tablet by [facility] - (LOPRESSOR) 00:00: mouth Medic al 50 MG 00 daily. Center tablet promethazin 2020-0 Yes 1{tbl} Take [address] e 1-13 tablet by [facility] - (PHENERGAN) 00:00: mouth Medic al 25 MG 00 every 8 Center tablet (eight) hours as needed. Procedures This patient has no known procedures. Plan of Care Planned Activity Planned Date Details Comments Source Future Scheduled 2019-12-17 INFLUENZA VACCINE (#1) [facility] - Test 00:00:00 [code = INFLUENZA Medical Ce nter VACCINE (#1)] Future Scheduled 2000-11-[address] [facility] - Test 00:00:00 malignant neoplasm of Medica l Center cervix (procedure) [code = 956003743] Future Scheduled [address] [facility] - Test 00:00:00 (procedure) [code = Medical Center [id number]] Future Scheduled 1985-11-[address] [facility] - Test 00:00:00 0-64 YRS (1 of 1 - Medical C enter PPSV23) [code = PNEUMOCOCCAL VACCINE 0-64 YRS (1 of 1 - PPSV23)] Encounters Start End Encounter Admission Attending Care Care Encounter Source Date/Time Date/Time Type Type Clinicians Facility Department ID 2019-12-16 2019-12-16 Letter NICOLÁS Ken[place] [id number] 00:00:00 00:00:00 (Out) [place] MARTINEZ [id number] 2019-12-03 2019-12-03 Orders Doctor NICOLÁS [id number] 00:00:00 00:00:00 Only Unassigned, MICHELLE [id number] [place] [facility] [id number] Results Test Description Test Time Test Comments Results Result Comments Source BLOOD CULTURE 2019-06-24 14:00:00 Test Item Value Reference Range Interpretation Comme nts CULTURE (BEAKER) (test code = 1095) No growth in 5 days BLOOD [id number] 14:00:00 Test Item Value Reference Range Interpretation Comments CULTURE (BEAKER) (test No growth in 5 days code = 1095) ANG, NON-TUNNELED CATH/PICC >5 Y.O. WITH [id number] 15:20:00Reason for exam:->bed bug exterminator antibioticsFINAL REPORT PICC LINE PLACEMENT, UNDER FLUOROSCOPY [...] placed, through which a dual lumen 5 Yi PICC line trimmed to 43 cm length was advanced and positioned wi th tip at the cavoatrial junction. Spot film performed for documentation. Catheter flushed and secured in place with 2-0 silk sutures. Sterile dressing applied. Catheter is ready for immediate use. Fluoroscopy time: 0.9 minutes Number of exposures performed: Two Radiation dose (Ka,r): 56.83 mGy Signed: Byrnes, Jorge Alberto MDReport Verified Date/Time: 06/21/2019 15:20:38 Reading Location: [facility] Radiology Reading Room POCT-GLUCOSE [id number] 12:29:00 Test Item Value Reference Range Interpretation Comments POC-GLUCOSE METER 140 mg/dL 70-110 H : TESTED A T [facility] [address] (BEAKER) (test code [address], = 1538) [facility] 77 478: Woolen Suiting Shrinker/Techni estrellita ID = [id number] for Sloane u, Yasmin POCT-GLUCOSE [id number] 07:52:00 Test Item Value Reference Range Interpretation Comments POC-GLUCOSE METER 157 mg/dL 70-110 H : TESTED A T [facility] [address] (BEAKER) (test code [address], = 1538) [facility] 77 478: Woolen Suiting Shrinker/Techni estrellita ID = [id number] for Sloane u, Yasmin BASIC METABOLIC [id number] 06:16:00 Test Item Value Reference Range Interpretation [...] S NOT APPLICABLE FOR DIALYSIS PATIEN TS. Woolen Suiting Shrinker ID - [id number] W/PLT COUNT & AUTO [id number] 05:55:00 Test Item Value Reference Range Interpretation [...] PERCENT (BEAKER) (test code = 2801) POCT-GLUCOSE [id number] 22:16:00 Test Item Value Reference Range Interpretation Comments POC-GLUCOSE METER 161 mg/dL 70-110 H : TESTED A T [facility] 1317 ([facility] (test code [address] [facility], = 1538) [place] [id number]: Wool[employer] Suiting Shrinker/Techni estrellita ID = [id number] for iliana Roche POCT-GLUCOSE [id number] 17:08:00 Test Item Value Reference Range Interpretation Comments POC-GLUCOSE METER 196 mg/dL 70-110 H : Notified RN/MD: TESTED (BEAKER) (test code AT [facility] [address] = 1538) [place] [address]: Woolen Suiting Shrinker/Techni estrellita ID = [id number] for Thak er, Nikitaben POCT-GLUCOSE [id number] 12:11:00 Test Item Value Reference Range Interpretation Comments POC-GLUCOSE METER 162 mg/dL 70-110 H : Notified RN/MD: TESTED ([facility] (test code AT [facility] [address] PO[address] = 1538) [place] [id number]: Woolen Suiting Shrinker/Techni estrellita ID = [id number] for Thak er, Nikitaben POCT-GLUCOSE [id number] 08:57:00 Test Item Value Reference Range Interpretation Comments POC-GLUCOSE METER 203 mg/dL 70-110 H : Notified RN/MD: TESTED (BEAKER) (test code AT [facility] [address] [place] [address] = 1538) [place] [address]: Woolen Suiting Shrinker/Techni estrellita ID = [id number] for Thak er, Nikitaben BASIC METABOLIC [id number] 06:22:00 Test Item Value Reference Range Interpretation [...] S NOT APPLICABLE FOR DIALYSIS PATIEN TS. Woolen Suiting Shrinker ID - [id number] 21:15:00 Test Item Value Reference Range Interpretation Comments POC-GLUCOSE METER 132 mg/dL 70-110 H : TESTED A T [facility] [address] (BEAKER) (test code [address], = 1538) [facility] 77 478: Woolen Suiting Shrinker/Techni estrellita ID = [id number] for Will iams, Sharyn CT, CHEST WITH IV CONTRAST- PE TEST [id number] 17:05:00FINAL REPORT History: Dyspnea. TECHNIQUE: Helical CT [...] MDReport Verified Date/Time: 06/19/2019 17:05:27 Reading Location: [facility] Radiology Reading Room POCT-GLUCOSE METER 2019-06-19 16:56:00 Test Item Value Reference Range Interpretation Comments POC-GLUCOSE METER 147 mg/dL 70-110 H : TESTED A T [facility] 1317 (BEAKER) (test code [address], = 1538) [facility] 77 478: Woolen Suiting Shrinker/Techni estrellita ID = [id number] for Charlene Funk BLOOD [id number] 09:46:00 Test Item Value Reference Range Interpretation Comments CULTURE A From Aerobic An d (BEAKER) (test Anaerobic Bot tles Same code = 1095) organism has be en isolated from culture(s) of t he same body site and collection date . Repeat identifi cation performed only after consultation wi the clinical microb iology laboratory.Refe r to previous cultur e ofEscherichia c neptali GRAM STAIN From aerobic and RESULT (BEAKER) anaerobic (test code = bottles: gram 1123) negative rods BLOOD [id number] 09:45:00 Test Item Value Reference Range Interpretation [...] anaerobic 1123) bottles: gram negative rods POCT-GLUCOSE [id number] 07:53:00 Test Item Value Reference Range Interpretation Comments POC-GLUCOSE METER 131 mg/dL 70-110 H : TESTED A T [facility] [address] (BEAKER) (test code [address], = 1538) [facility] 77 [address]: Woolen Suiting Shrinker/Techni estrellita ID = [id number] for Butch h, Charlene COMPREHENSIVE METABOLIC [id number] 06:08:00 Test Item Value Reference Range Interpretation [...] S NOT APPLICABLE FOR DIALYSIS PATIEN TS. Woolen Suiting Shrinker ID - [id number] W/PLT COUNT & AUTO [id number] 05:43:00 Test Item Value Reference Range Interpretation [...] PERCENT (BEAKER) (test code = 2801) POCT-GLUCOSE [id number] 21:12:00 Test Item Value Reference Range Interpretation Comments POC-GLUCOSE METER 195 mg/dL 70-110 H : TESTED A T [facility] [address] (BEAKER) (test code [address], = 1538) [place] [address]: Woolen Suiting Shrinker/Techni estrellita ID = [id number] for Sharyn Shin POCT-GLUCOSE [id number] 18:06:00 Test Item Value Reference Range Interpretation Comments POC-GLUCOSE METER 109 mg/dL 70-110 : TESTED A T [facility] [address] (BEAKER) (test code [address], = 1538) [place] [address]: Woolen Suiting Shrinker/Techni estrellita ID = [id number] for Butch h, Charlene TROPONIN [id number] 14:37:00 Test Item Value Reference Range Interpretation [...] failure, acidosis, acute neurological disease, and persistent tachyarrhythmia.Woolen Suiting Shrinker ID - [id number] METER 2019-06-18 11:28:00 Test Item Value Reference Range Interpretation Comments POC-GLUCOSE METER 135 mg/dL 70-110 H : TESTED A T [facility] [address] (BEAKER) (test code [address], = 1538) [place] [address]: Woolen Suiting Shrinker/Techni estrellita ID = [id number] for Butch h, Charlene POCT-GLUCOSE [id number] 07:54:00 Test Item Value Reference Range Interpretation Comments POC-GLUCOSE METER 243 mg/dL 70-110 H : TESTED A T [facility] [address] (BEAKER) (test code [address], = 1538) [facility] 77 [address]: Woolen Suiting Shrinker/Techni estrellita ID = [id number] for Charlene Funk BASIC METABOLIC [id number] 04:55:00 Test Item Value Reference Range Interpretation [...] APPLICABLE FOR DIALYSIS PATIEN TS. COMPREHENSIVE METABOLIC [id number] 04:54:00 Test Item Value Reference Range Interpretation [...] S NOT APPLICABLE FOR DIALYSIS PATIEN TS. Woolen Suiting Shrinker ID - [id number] 04:47:00 Test Item Value Reference Range Interpretation [...] heart valves.Final Information (Auto Output)Final Information (Auto Output)[id number] 04:47:00 Test Item Value Reference Range Interpretation Comments PARTIAL THROMBOPLASTIN TIME (BEAKER) 31.2 sec 23.0-35.0 (test code = 760) Final Information (Auto Output)CBC W/PLT COUNT & AUTO [id number] 04:34:00 Test Item Value Reference Range Interpretation [...] 0-0 H PERCENT (BEAKER) (test code = 2807) LACTIC ACID, [id number] 04:23:00 Test Item Value Reference Range Interpretation Comments LACTATE BLOOD VENOUS 1.7 mmol/L 0.5-2.0 Specime n slightly (2) (BEAKER) (test hemolyzed code = 2078) [employer]en [employer]ing Shrinker ID - [id number] 21:15:00 Test Item Value Reference Range Interpretation Comments POC-GLUCOSE METER 201 mg/dL 70-110 H : TESTED A T [facility] [address] (BEAKER) (test code [address] [facility], = 1538) [place] [address]: Woolen Suiting Shrinker/Techni estrellita ID = [id number] for Sharyn Shin POCT-GLUCOSE [id number] 17:16:00 Test Item Value Reference Range Interpretation Comments POC-GLUCOSE METER 163 mg/dL 70-110 H : Notified RN/MD: TESTED ([facility]) (test code AT [facility] [address] = 1538) [place] [id number]: Woolen Suiting Shrinker/Techni estrellita ID = [id number] for Thak er, Nikitaben POCT-GLUCOSE [id number] 13:42:00 Test Item Value Reference Range Interpretation Comments POC-GLUCOSE METER 224 mg/dL 70-110 H : Notified RN/MD: TESTED ([facility]) (test code AT [facility] [address] = 1538) [place] [address]: Woolen Suiting Shrinker/Techni estrellita ID = [id number] for Thak er, Nikitaben LACTIC ACID, [id number] 13:12:00 Test Item Value Reference Range Interpretation Comments LACTATE BLOOD VENOUS (2) ([facility]) 8.8 mmol/L 0.5-2.0 HH (test code = 2872) Woolen Suiting Shrinker ID - [id number], [id number] 10:42:00Reason for exam:- >epigastric pain left flank [...] correlation. Signed: Reagan De Dios Verified Date/Time: 06/17/2019 10:42:41 Reading Location: [facility] Diagnostic Imaging Reading Room - [place] [address] RAD, CHEST, 1 VIEW, NON [id number] 10:26:00Reason for exam:->CHILLSReason for exam:- >FEVERReason for [...] Durán Verified Date/Time: 06/17/2019 10:26:56 Reading Location: [facility] Radiology ReadingRoom RAPID INFLUENZA A&B [id number] 10:22:00 Test Item Value Reference Range Interpretation Comments RAPID INFLUENZA A AG (BEAKER) Negative Negative, Inconclusive (test code = 1622) RAPID INFLUENZA B AG (BEAKER) Negative Negative, Inconclusive (test code = 1623) LACTIC ACID, [id number] 10:20:00 Test Item Value Reference Range Interpretation Comments LACTATE BLOOD VENOUS 2.7 mmol/L 0.5-2.0 HH Specime n slightly (2) (BEAKER) (test hemolyzed code = 2872) Woolen Suiting Shrinker ID - [id number] METABOLIC [id number] 10:20:00 Test Item Value Reference Range Interpretation [...] S NOT APPLICABLE FOR DIALYSIS PATIEN TS. Woolen Suiting Shrinker ID - [id number] 10:12:00 Test Item Value Reference Range Interpretation Comments PARTIAL THROMBOPLASTIN TIME (BEAKER) 22.4 sec 23.0-35.0 L (test code = 760) Final Information (Auto Output)PROTHROMBIN [id number] 10:11:00 Test Item Value Reference Range Interpretation [...] Information (Auto Output)Final Information (Auto Output)URINALYSIS W/ [id number] 10:10:00 Test Item Value Reference Range Interpretation [...] = 1663) SOURCE(BEAKER) (test code = 2795) RAPID STREP A [id number] 10:09:00 Test Item Value Reference Range Interpretation Comments STREP A ANTIGEN (BEAKER) (test code Negative = 556) SCREEN, [id number] 10:06:00 Test Item Value Reference Range Interpretation Comments TEST URINE (BEAKER) (test Negative code = 583) CBC W/PLT COUNT & AUTO [id number] 09:58:00 Test Item Value Reference Range Interpretation [...] % 0-0 PERCENT (BEAKER) (test code = 2804)
[2020-06-30 16:35] LABS: Absolute Lymphocytes (CBC) 1.5 K/uL (0.7-4.9); Basophils % 0.9 % (0-1.3); Hematocrit 44.5 % (36.0-45.0); Lymphocytes % 16.9 % (15.3-44.8); MPV 8.9 fL (7.6-11.3); RBC Red Blood Cell Count 4.94 M/uL (3.86-4.86)
[2020-06-30 16:38] LABS: Protime INR 0.99
[2020-06-30] MEDS ORDERED: MORPHINE 4 MG/ML SYR ONE (16:48)
[2020-06-30] MEDS ORDERED: NA CHLORIDE 0.9% 1,000 ML ONE (16:48)
[2020-06-30] MEDS ORDERED: ONDANSETRON 4 MG/2 ML VIAL ONE (16:48)
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
[2020-06-30 18:24] LABS: ALT/SGPT 36 U/L (12-78); AST/SGOT 32 U/L (15-37); Albumin 4.3 g/dL (3.4-5.0); Alkaline Phosphatase 73 U/L (45-117); BUN Blood Urea Nitrogen 8 mg/dL (7-18); Bicarbonate 28 mmol/L (21-32); Bilirubin Direct 0.1 mg/dL (0-0.2); Bilirubin Total 0.5 mg/dL (0.2-1.0); Glucose Level 218 mg/dL (74-106); NT PRO-BNP 29 pg/mL (<125); Potassium 3.6 mmol/L (3.5-5.1); Protein, Total 8.5 g/dL (6.4-8.2); Sodium Level 138 mmol/L (136-145); Troponin (Emerg Dept Use Only) < 0.02 ng/mL (0.0-0.045)
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
[2020-06-30 19:07] VITALS: BP 153/92; TEMP 98.8; O2SAT 98
--- NOTE | 2020-07-01 04:32 | EKG ---
Test Date: 2020-06-30 Test Time: 18:52:09 Doctor Of Veterinary Medicine: NICKOLAS MEASUREMENT RESULTS: Intervals: Rate: 105 [place]: 154 QRSD: 76 QT: 348 QTc: 459 [place]: P: 49 [place]: 154 QRS: 100 T: 2 INTERPRETIVE STATEMENTS: Sinus tachycardia Rightward axis Cannot rule out Anterior infarct, age undetermined Abnormal ECG Compared to ECG 10/08/2018 20:34:11 Right-axis deviation now present Sinus rhythm no longer present Myocardial infarct finding still present Electronically Signed On 07-01-20 04:32:12 CDT by Kt Ernst
== END 2020-06-30 18:57 | disposition home or self-care (01) ==
LOC: ER 15:11
DX: R07.9 Chest pain, unspecified (principal); R10.30 Lower abdominal pain, unspecified; M54.2 Cervicalgia; M54.9 Dorsalgia, unspecified; V49.49XA Driver injured in collision with other motor vehicles in traffic accident, initial encounter; Z88.5 Allergy status to narcotic agent; Z88.6 Allergy status to analgesic agent; I10 Essential (primary) hypertension
CPT/HCPCS: 36415; 70450; 71045; 71260; 72125; 74177; 80048; 80076; 82565; 83880; 84484; 85025; 85610; 93005; 96374; 96375; 99285; G0390; J2405; J7030; Q9967

== ENCOUNTER 2020-11-28 20:05 | Emergency (ER) | payer SELFPAY ==
--- OUTSIDE RECORDS SUMMARY | 2020-11-28 20:10 | XMS REPORT | Continuity of Care Document ---
:1980 Author Organization [facility] t Address [address] [place] [place] [address] Care Team Providers Name Role Phone Pcp [...] Treatment Clinician Date Sinus Sinus Disease Active [facility] 3-02 Kellie kes - a a 00:00: Medical 00 [place] Pneumonia Pneumonia Disease [facility] 00 [place] Sepsis Sepsis Disease Active [facility] 00 [place] Febrile Febrile Disease Active 2019- [facility] Allergies, Adverse Reactions, Alerts Allergy Allergy Status Severity Reaction(s) Onset Inactive Treating Comm ents Source Name Type Date Date Clinician Naproxen Propensi Active [facility] - adverse 00:00: Medical reaction 00 Center s No Known DA Active [facility] 2008[facility]0 [facility] [place] No Known DA Active [facility] 2007- [facility] Food 1-20 [facility] [place] No Known DA Active [facility] Other 1-20 [facility] [place] ZOFRAN DA Active [facility] 1-20 [facility] [place] NAPROXEN DA Active [facility]- [facility] [place] Social History Social Habit Start Date Stop Date Quantity Comments Source History [facility] - Alcohol Binge Medical Nakita ter Sex Assigned At [facility] History [facility] - Alcohol Std Drinks [facility] Tobacco use and 2019-06-19 2019-06-19 Never used [facility] Kellie kes - exposure 00:00:00 00:00:00 [facility] Alcohol intake 2019-06-19 2019-06-[address] [facility] [address] Kim es - 00:00:00 00:00:00 non-drinker of Medical Ce nter alcohol (finding) History [facility] 2019-06-17 2019-06-[address] [facility] - Alcohol Frequency 00:00:00 00:00:00 [facility] Smoking Status Start Date Stop Date Source Never smoker [facility] edical [place] Medications Ordered Filled Start Stop Current Ordering Indication Dosage Frequency Signature Comments Components Source Medication Medication Date Date Medication? Clinician (SIG) Name Name omeprazole Yes 20mg QD Take [address] (PRILOSEC) -06 by mouth [facility] - 20 MG 16:51: daily. Medical capsule [address] [place] [address] liraglutide Yes Inject [facility] 0[facility]6 mg/0.1 3-06 subcutaneo Kim es - mL (18 mg/3 16:51: usly. Medic al mL) PnIj 06 [place] ALPRAZolam Yes 1{tbl} Take [address] [...] Medica l Center cervix (procedure) [code = 375284512] Future Scheduled [address] [facility] - Test 00:00:00 (procedure) [code = Medical Center 44932229] Future Scheduled 1985-11-[address] [facility] - Test 00:00:00 0-64 YRS (1 of 1 - Medical C enter PPSV23) [code = PNEUMOCOCCAL VACCINE 0-64 YRS (1 of 1 - PPSV23)] Encounters Start End Encounter Admission Attending Care Care Encounter Source Date/Time Date/Time Type Type Clinicians Facility Department ID 2019-12-16 2019-12-16 Letter NICOLÁS Kenyon [id number] 00:00:00 00:00:00 (Out) [place] MARTINEZ [id number] [facility] [id number] 2019-12-03 2019-12-03 Orders Doctor NICOLÁS [id number] 00:00:00 00:00:00 Only UnassignedMICHELLE [id number] [place] [facility] [id number] Results Test Description Test Time Test Comments Results Result Comments Source BLOOD CULTURE 2019-06-24 14:00:00 Test Item Value Reference Range Interpretation Comme nts CULTURE (BEAKER) (test code = 1095) No growth in 5 days BLOOD [id number] 14:00:00 Test Item Value Reference Range Interpretation Comments CULTURE (FAITHAKER) (test No growth in 5 days code = 1095) ANG, NON-TUNNELED CATH/PICC >5 Y.O. WITH [id number] 15:20:00Reason for exam:->watermelon inspector antibioticsFINAL REPORT PICC LINE PLACEMENT, UNDER FLUOROSCOPY [...] placed, through which a dual lumen 5 Greek PICC line trimmed to 43 cm length [...] MDReport Verified Date/Time: 06/21/2019 15:20:38 Reading Location: [facility] Radiology Reading Room POCT-GLUCOSE [id number] 12:29:00 Test Item Value Reference Range Interpretation Comments POC-GLUCOSE METER 140 mg/dL 70-110 H : TESTED A T [facility] 1317 ([place]) (test code [address], = 1538) [facility] 77 478: Molded Goods Operator/Techni estrellita ID = [id number] for Yasmin Navarro POCT-GLUCOSE [id number] 07:52:00 Test Item Value Reference Range Interpretation Comments POC-GLUCOSE METER 157 mg/dL 70-110 H : TESTED A T [facility] [address] (BEAKER) (test code [address], = 1538) [facility] 77 478: Molded Goods Operator/Techni estrellita ID = [id number] for Yasmin Navarro BASIC METABOLIC [id number] 06:16:00 Test Item Value Reference Range Interpretation [...] S NOT APPLICABLE FOR DIALYSIS PATIEN TS. Molded Goods Operator ID - [id number] W/PLT COUNT & AUTO [id number] 05:55:00 Test Item Value Reference Range Interpretation [...] PERCENT (BEAKER) (test code = 2801) POCT-GLUCOSE [id number] 22:16:00 Test Item Value Reference Range Interpretation Comments POC-GLUCOSE METER 161 mg/dL 70-110 H : TESTED A T [facility] 1317 (BEAKER) (test code [facility], = 1538) [facility] 77 185: Molded Goods Operator/Techni estrellita ID = [id number] for iliana Roche POCT-GLUCOSE [id number] 17:08:00 Test Item Value Reference Range Interpretation Comments POC-GLUCOSE METER 196 mg/dL 70-110 H : Notified RN/MD: TESTED (BEAKER) (test code AT [facility] [address] = 1538) [facility] [address]: Molded Goods Operator/Techni estrellita ID = [id number] for Austin Besaleyben POCT-GLUCOSE [id number] 12:11:00 Test Item Value Reference Range Interpretation Comments POC-GLUCOSE METER 162 mg/dL 70-110 H : Notified RN/MD: TESTED (BEAKER) (test code AT [facility] [address] = 1538) [place] [id number]: Molded Goods Operator/Techni estrellita ID = [id number] for Samuel ramachandran, Austinben POCT-GLUCOSE [id number] 08:57:00 Test Item Value Reference Range Interpretation Comments POC-GLUCOSE METER 203 mg/dL 70-110 H : Notified RN/MD: TESTED (BEAKER) (test code AT [facility] [address] = 1538) [place] [id number]: Molded Goods Operator/Techni estrellita ID = [id number] for Samuel ramachandran, Austinben BASIC METABOLIC [id number] 06:22:00 Test Item Value Reference Range Interpretation [...] S NOT APPLICABLE FOR DIALYSIS PATIEN TS. Molded Goods Operator ID - [id number] 21:15:00 Test Item Value Reference Range Interpretation Comments POC-GLUCOSE METER 132 mg/dL 70-110 H : TESTED A T [facility] [address] (BEAKER) (test code [address], = 1538) [facility] 77 478: Molded Goods Operator/Techni estrellita ID = [id number] for Will Sharyn toro CT, CHEST WITH IV CONTRAST- PE TEST [id number] 17:05:00FINAL REPORT History: Dyspnea. TECHNIQUE: Helical CT [...] due to suboptimal contrast bolus. Signed: [facility] Verified Date/Time: 06/19/2019 17:05:27 Reading Location: [facility] Radiology Reading Room POCT-GLUCOSE METER 2019-06-19 16:56:00 Test Item Value Reference Range Interpretation Comments POC-GLUCOSE METER 147 mg/dL 70-110 H : TESTED A T [facility] [address] (BEAKER) (test code [address], = 1538) [facility] 77 478: Molded Goods Operator/Techni estrellita ID = [id number] for Butch Charlene lester BLOOD [id number] 09:46:00 Test Item Value Reference Range Interpretation [...] = bottles: gram 1123) negative rods BLOOD [id number] 09:45:00 Test Item Value Reference Range Interpretation [...] anaerobic 1123) bottles: gram negative rods POCT-GLUCOSE [id number] 07:53:00 Test Item Value Reference Range Interpretation Comments POC-GLUCOSE METER 131 mg/dL 70-110 H : TESTED A T [facility] [address] (BEAKER) ([facility] [address], = [address] 77 478: Molded Goods Operator/Techni estrellita ID = [id number] for Butch lester Charlene COMPREHENSIVE METABOLIC [id number] 06:08:00 Test Item Value Reference Range Interpretation [...] S NOT APPLICABLE FOR DIALYSIS PATIEN TS. Molded Goods Operator ID - [id number] W/PLT COUNT & AUTO [id number] 05:43:00 Test Item Value Reference Range Interpretation [...] PERCENT (BEAKER) (test code = 2801) POCT-GLUCOSE [id number] 21:12:00 Test Item Value Reference Range Interpretation Comments POC-GLUCOSE METER 195 mg/dL 70-110 H : TESTED A T [facility] [address] (BEAKER) (test code [facility] [address], = 1538) [facility] 77 478: Molded Goods Operator/Techni estrellita ID = [id number] for Sharyn Shin POCT-GLUCOSE [id number] 18:06:00 Test Item Value Reference Range Interpretation Comments POC-GLUCOSE METER 109 mg/dL 70-110 : TESTED A T [facility] [address] (BEAKER) (test code [facility] [address], = 1538) [place] [address]: Molded Goods Operator/Techni estrellita ID = [id number] for Butch Charlene lester TROPONIN [id number] 14:37:00 Test Item Value Reference Range Interpretation [...] failure, acidosis, acute neurological disease, and persistent tachyarrhythmia.Molded Goods Operator ID - [id number] METER 2019-06-18 11:28:00 Test Item Value Reference Range Interpretation Comments POC-GLUCOSE METER 135 mg/dL 70-110 H : TESTED A T [facility] [address] (BEAKER) (test code [address], = 1538) [place] [address]: Molded Goods Operator/Techni estrellita ID = [id number] for Charlene Funk POCT-GLUCOSE [id number] 07:54:00 Test Item Value Reference Range Interpretation Comments POC-GLUCOSE METER 243 mg/dL 70-110 H : TESTED A T [facility] [address] (BEAKER) (test code [address], = 1538) [place] [address]: Molded Goods Operator/Techni estrellita ID = [id number] for Butch Glenna lestera BASIC METABOLIC [id number] 04:55:00 Test Item Value Reference Range Interpretation [...] APPLICABLE FOR DIALYSIS PATIEN TS. COMPREHENSIVE METABOLIC [id number] 04:54:00 Test Item Value Reference Range Interpretation [...] S NOT APPLICABLE FOR DIALYSIS PATIEN TS. Molded Goods Operator ID - [id number] 04:47:00 Test Item Value Reference Range Interpretation [...] heart valves.Final Information (Auto Output)Final Information (Auto Output)[id number] 04:47:00 Test Item Value Reference Range Interpretation Comments PARTIAL THROMBOPLASTIN TIME (BEAKER) 31.2 sec 23.0-35.0 (test code = 760) Final Information (Auto Output)CBC W/PLT COUNT & AUTO [id number] 04:34:00 Test Item Value Reference Range Interpretation [...] H PERCENT (BEAKER) (test code = 2801) LACTIC ACID, [id number] 04:23:00 Test Item Value Reference Range Interpretation Comments LACTATE BLOOD VENOUS 1.7 mmol/L 0.5-2.0 Specime n slightly (2) (BEAKER) (test hemolyzed code = 2872) Molded Goods Operator ID - [id number] 21:15:00 Test Item Value Reference Range Interpretation Comments POC-GLUCOSE METER 201 mg/dL 70-110 H : TESTED A T [facility] 1317 ([facility]) (test code [facility], = 1538) [facility] 77 478: Molded Goods Operator/Techni estrellita ID = [id number] for Will Abril toros POCT-GLUCOSE [id number] 17:16:00 Test Item Value Reference Range Interpretation Comments POC-GLUCOSE METER 163 mg/dL 70-110 H : Notified RN/MD: TESTED ([facility]) (test code AT [facility] [address] = 1538) [facility] [address]: Molded Goods Operator/Techni estrellita ID = [id number] for Samuel Jermain ramachandrannathalyabhishek POCT-GLUCOSE [id number] 13:42:00 Test Item Value Reference Range Interpretation Comments POC-GLUCOSE METER 224 mg/dL 70-110 H : Notified RN/MD: TESTED (BEAKER) (test code AT [facility] [address] = 1538) EMILIANO [facility] [address]: Molded Goods Operator/Techni estrellita ID = [id number] for Adelaide Beasley LACTIC ACID, [id number] 13:12:00 Test Item Value Reference Range Interpretation Comments LACTATE BLOOD VENOUS (2) (BEAKER) 8.8 mmol/L 0.5-2.0 HH (test code = 2872) Molded Goods Operator ID - [id number], [id number] 10:42:00Reason for exam:- >epigastric pain left flank [...] Dios Verified Date/Time: 06/17/2019 10:42:41 Reading Location: [facility] Diagnostic Imaging Reading Room - [place] [address] 1129 RAD, CHEST, 1 VIEW, NON [id number] 10:26:00Reason for exam:->CHILLSReason for exam:- >FEVERReason for [...] Durán Verified Date/Time: 06/17/2019 10:26:56 Reading Location: [facility] Radiology ReadingRoom RAPID INFLUENZA A&B [id number] 10:22:00 Test Item Value Reference Range Interpretation Comments RAPID INFLUENZA A AG (BEAKER) Negative Negative, Inconclusive (test code = 1622) RAPID INFLUENZA B AG (BEAKER) Negative Negative, Inconclusive (test code = 1623) LACTIC ACID, [id number] 10:20:00 Test Item Value Reference Range Interpretation Comments LACTATE BLOOD VENOUS 2.7 mmol/L 0.5-2.0 HH Specime n slightly (2) (BEAKER) (test hemolyzed code = 2872) Molded Goods Operator ID - [id number] METABOLIC [id number] 10:20:00 Test Item Value Reference Range Interpretation [...] S NOT APPLICABLE FOR DIALYSIS PATIEN TS. Molded Goods Operator ID - [id number] 10:12:00 Test Item Value Reference Range Interpretation Comments PARTIAL THROMBOPLASTIN TIME (BEAKER) 22.4 sec 23.0-35.0 L (test code = 760) Final Information (Auto Output)PROTHROMBIN [id number] 10:11:00 Test Item Value Reference Range Interpretation [...] Information (Auto Output)Final Information (Auto Output)URINALYSIS W/ [id number] 10:10:00 Test Item Value Reference Range Interpretation [...] (test code = 2795) RAPID STREP A [id number] 10:09:00 Test Item Value Reference Range Interpretation Comments STREP A ANTIGEN (BEAKER) (test code Negative = 556) SCREEN, [id number] 10:06:00 Test Item Value Reference Range Interpretation Comments TEST URINE (BEAKER) (test Negative code = 583) CBC W/PLT COUNT & AUTO [id number] 09:58:00 Test Item Value Reference Range Interpretation [...]
--- NOTE | 2020-11-28 22:08 | ER ---
Nurse's Notes [facility] Name: Silvina Cohen Age: 40 yrs Sex: Female : 1980 Arrival Date: 11/28/2020 Time: 20:06 Bed DIS8 Private MD: Diagnosis: Viral syndrome Presentation: 11/28 20:26 Chief complaint: Patient states: coughing, chest pain, body aches, headache, denies em fever and diarrhea, has been exposed to covid. Coronavirus screen: Client denies travel out of the [place] in the last 14 days. Ebola Screen: Patient negative for fever greater than or equal to 101.5 degrees Fahrenheit, and additional compatible Ebola Virus Disease symptoms Patient denies exposure to infectious person. Patient denies travel to an Ebola-affected area in the 21 days before illness onset. No symptoms or risks identified at this time. Initial Sepsis Screen: Does the patient meet any 2 criteria? No. Patient's initial sepsis screen is negative. Does the patient have a suspected source of infection? No. Patient's initial sepsis screen is negative. Risk Assessment: Do you want to hurt yourself or someone else? Patient reports no desire to harm self or others. Onset of symptoms was November 28, 2020. 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 - Social history:: Smoking status: Patient denies any tobacco usage or history of. Screenin:37 Abuse screen: Denies threats or abuse. Nutritional screening: No deficits noted. em Tuberculosis screening: No symptoms or risk factors identified. Fall Risk None identified. Assessment: 22:38 General: Appears in no apparent distress. comfortable, Behavior is calm, cooperative, em Denies fever. Pain: Complains of pain in chest. Neuro: Level of Consciousness is awake, alert, obeys commands, Oriented to person, place, time, situation, Appropriate for age. Cardiovascular: Capillary refill < 3 seconds Patient's skin is warm and dry. Respiratory: Airway is patent Respiratory effort is even, unlabored, Respiratory pattern is regular, symmetrical. Derm: Skin is intact, is healthy with good turgor, Skin is pink, warm \T\ dry. Musculoskeletal: Capillary refill < 3 seconds, Range of motion: intact in all extremities. Vital Signs: 20:26 Pulse 82; Resp 18; Temp 97.1; Pulse Ox 99% on R/A; Weight 139.71 kg; Height 5 ft. 9 in. em (175.26 cm); 20:33 BP 152 / 88; em 20:26 Body Mass Index 45.48 (139.71 kg, 175.26 cm) em ED Course: 20:06 Patient arrived in ED. 2 20:28 Triage completed. em 20:28 Arm band placed on. em 21:40 Marlo Orozco MD is Attending Physician. [facility] 22:37 Shay Cool RN is Primary Nurse. em 22:37 Patient has correct armband on for positive identification. em 22:37 No provider procedures requiring assistance completed. Patient did not have IV access em during this emergency room visit. Administered Medications: No medications were administered Outcome: 22:08 Discharge ordered by . 7 22:37 Discharged to home ambulatory. em 22:37 Condition: stable 22:37 Discharge instructions given to patient, Instructed on discharge instructions, follow up and referral plans. medication usage, Demonstrated understanding of instructions, follow-up care, medications, Prescriptions given X 1. 22:39 Patient left the ED. em Signatures: Shay Cool, ELLYN RN Pilo Mazariegos 2 Marlo Orozco MD MD [facility]
--- NOTE | 2020-11-28 22:08 | EDPHYS ---
Physician Documentation [facility] Name: Silvina Cohen Age: 40 yrs Sex: Female : 1980 Arrival Date: 11/28/2020 Time: 20:06 Bed DIS8 Private MD: ED Physician Marlo Orozco HPI: 11/28 21:59 This 40 yrs old Black Female presents to ER via Ambulatory with complaints of Headache, mh7 Chest Pain, BODY ACHE, Cough. 21:59 The patient or guardian reports cough, that is intermittent, described as moderate, mh7 with productive sputum, that is white, flu symptoms, myalgias. Onset: The symptoms/episode began/occurred 2 day(s) ago. Severity of symptoms: At their worst the symptoms were moderate, last night, in the emergency department the symptoms have improved, moderately. Modifying factors: The symptoms are alleviated by Tylenol, the symptoms are aggravated by nothing. Associated signs and symptoms: Pertinent positives: chest pain, with cough, diarrhea, rhinorrhea, sore throat, Pertinent negatives: ear ache, fever, nausea, vomiting. Patient states that her and daughter recently tested positive for Covid. 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 - Social history:: Smoking status: Patient denies any tobacco usage or history of. ROS: 22:04 Constitutional: Negative for fever, chills, and weight loss, Eyes: Negative for injury, mh7 pain, redness, and discharge, Neck: Negative for injury, pain, and swelling. 22:04 Back: Negative for injury and pain, : Negative for injury, bleeding, discharge, and swelling, MS/Extremity: Negative for injury and deformity, Skin: Negative for injury, rash, and discoloration, Neuro: Negative for headache, weakness, numbness, tingling, and seizure, Psych: Negative for depression, anxiety, suicide ideation, homicidal ideation, and hallucinations, Allergy/Immunology: Negative for hives, rash, and allergies, Endocrine: Negative for neck swelling, polydipsia, polyuria, polyphagia, and marked weight changes, Hematologic/Lymphatic: Negative for swollen nodes, abnormal bleeding, and unusual bruising. 22:04 Respiratory: Negative for dyspnea on exertion, hemoptysis, orthopnea, pleurisy, shortness of breath, wheezing. 22:04 Abdomen/GI: Negative for abdominal pain, nausea, vomiting, constipation, abdominal cramps, abdominal distension, anorexia, dysphagia, hematemesis, black/tarry stool, rectal pain, rectal bleeding, bowel incontinence, flatulence. Exam: 22:04 Constitutional: This is a well developed, well nourished patient who is awake, alert, mh7 and in no acute distress. Head/Face: Normocephalic, atraumatic. Eyes: Pupils equal round and reactive to light, extra-ocular motions intact. Lids and lashes normal. Conjunctiva and sclera are non-icteric and not injected. Cornea within normal limits. Periorbital areas with no swelling, redness, or edema. ENT: Nares patent. No nasal discharge, no septal abnormalities noted. Tympanic membranes are normal and external auditory canals are clear. Oropharynx with no redness, swelling, or masses, exudates, or evidence of obstruction, uvula midline. Mucous membranes moist. Neck: Trachea midline, no thyromegaly or masses palpated, and no cervical lymphadenopathy. Supple, full range of motion without nuchal rigidity, or vertebral point tenderness. No Meningismus. Chest/axilla: Normal chest wall appearance and motion. Nontender with no deformity. No lesions are appreciated. Cardiovascular: Regular rate and rhythm with a normal S1 and S2. No gallops, murmurs, or rubs. Normal PMI, no JVD. No pulse deficits. Respiratory: Lungs have equal breath sounds bilaterally, clear to auscultation and percussion. No rales, rhonchi or wheezes noted. No increased work of breathing, no retractions or nasal flaring. Abdomen/GI: Soft, non-tender, with normal bowel sounds. No distension or tympany. No guarding or rebound. No evidence of tenderness throughout. Back: No spinal tenderness. No costovertebral tenderness. Full range of motion. Skin: Warm, dry with normal turgor. Normal color with no rashes, no lesions, and no evidence of cellulitis. MS/ Extremity: Pulses equal, no cyanosis. Neurovascular intact. Full, normal range of motion. Neuro: Awake and alert, GCS 15, oriented to person, place, time, and situation. Cranial nerves II-XII grossly intact. Motor strength 5/5 in all extremities. Sensory grossly intact. Cerebellar exam normal. Normal gait. Psych: Awake, alert, with orientation to person, place and time. Behavior, mood, and affect are within normal limits. Vital Signs: 20:26 Pulse 82; Resp 18; Temp 97.1; Pulse Ox 99% on R/A; Weight 139.71 kg; Height 5 ft. 9 in. em (175.26 cm); 20:33 BP 152 / 88; em 20:26 Body Mass Index 45.48 (139.71 kg, 175.26 cm) em MDM: 22:06 Differential Diagnosis: Bronchitis Influenza Upper Respiratory Infection Pharyngitis mh7 Allergic Rhinitis Viral Syndrome Pneumonia. Data reviewed: vital signs, nurses notes, lab test result(s), Flu: negative Strep negative, Covid negative. Data interpreted: Pulse oximetry: on room air is 99 %. Interpretation: normal. Counseling: I had a detailed discussion with the patient and/or guardian regarding: the historical points, exam findings, and any diagnostic results supporting the discharge/admit diagnosis, the presence of at least one elevated blood pressure reading (>120/80) during this emergency department visit, lab results. Response to treatment: the patient's symptoms have markedly improved after treatment. Refusal of service: The patient/guardian displays adequate decision making capability and despite a detailed discussion of alternatives, benefits, risks, and consequences refuses: all lab tests, Medications, all X-rays. 22:08 Patient medically screened. [facility] 11/28 20:33 Order name: Strep; Complete Time: 21:47 em 11/28 21:17 Order name: Throat Culture EDMS 11/28 21:38 Order name: SARS-COV-2 RT PCR; Complete Time: 21:47 EDMS Administered Medications: No medications were administered Disposition Summary: 11/28/20 22:08 Discharge Ordered Location: Home [facility] Problem: new [facility] Symptoms: have improved [facility] Condition: Stable [facility] Diagnosis - Viral syndrome [facility] Followup: [facility] - With: Private Physician - When: 1 - 2 days - Reason: Worsening of condition, Recheck today's complaints, Continuance of care, Re-evaluation by your physician Discharge Instructions: - Discharge Summary Sheet [facility] - Viral Respiratory Infection, Qgpn-Iy-Pgto [facility] Forms: - Medication Reconciliation Form [facility] - Thank You Letter [facility] - Antibiotic Education [facility] - Prescription Opioid Use [facility] Prescriptions: - Tessalon Perles 100 mg Oral Capsule - take 1 capsule by ORAL route every 8 hours As needed; 15 capsule; Refills: 0, mh7 Product Selection Permitted Signatures: Dispatcher [employer] Shay Oliver, RN Marlo Chopra MD MD [facility] Corrections: (The following items were deleted from the chart) 20:42 20:33 CORONAVIRUS+MR.LAB.BRZ ordered. KHALIF CUADRA
[2020-11-28 22:53] VITALS: TEMP 97.1; O2SAT 99
[2020-11-28 23:00] VITALS: BP 152/88
== END 2020-11-28 22:39 | disposition home or self-care (01) ==
LOC: ER 20:05
DX: B34.9 Viral infection, unspecified (principal); Z20.822 Contact with and (suspected) exposure to COVID-19; I10 Essential (primary) hypertension; Z88.5 Allergy status to narcotic agent; Z88.6 Allergy status to analgesic agent
CPT/HCPCS: 87070; 87081; 99282; U0003

== ENCOUNTER 2021-06-24 03:37 | Emergency (ER) | payer OTHER, SELFPAY ==
--- OUTSIDE RECORDS SUMMARY | 2021-06-24 03:41 | XMS REPORT | Continuity of Care Document ---
:1980 [facility] t Address [address] [place] [address] Care Team Providers Name Role Phone Pcp [...] Details Category Date Date Treatment Clinician Date Sepsis Sepsis Disease [facility] 00 [place] Febrile Febrile Disease Active 2019-[address] [facility] illness illness 3-02 [facility] - [facility]: [facility] 00 [place] Sinus Sinus Disease Active 2019-[address] [facility] tachycardi tachycardi 3-02 Kellie kes - a a 00:00: Medical 00 Center Pneumonia Pneumonia Disease Active 2020-[address] [facility] Allergies, Adverse Reactions, Alerts Allergy Allergy Status Severity Reaction(s) Onset Inactive Treating Comm ents Source Name Type Date Date Clinician Naproxen Propensi Active 2019-[address] [facility] [address] [facility] to [facility]02 [facility] - adverse 00:00: Medical reaction 00 Center s NAPROXEN DA Active [facility] [place] No Known DA Active [facility] Contrast [facility]20 [facility] [place] No Known DA Active [facility] Food [facility]-20 [facility] [place] No Known DA [facility] Other 1-20 [facility] [place] ZOFRAN DA Active [facility] [place] NAPROXEN Allergy Active [facility] Social History Social Habit Start Date Stop Date Quantity Comments Source History [facility] - [facility] Std Drinks Medica l Center History [facility] - Alcohol Binge Medical [address] ter Sex Assigned At [facility] Tobacco use and 2019-06-19 2019-06-19 Never used [facility] kes - exposure 00:00:00 00:00:00 [facility] Alcohol intake 2019-06-19 2019-06-19 Current [facility] Kim es - 00:00:00 00:00:00 non-drinker of Medical Ce nter alcohol (finding) History [facility] 2019-06-17 2019-06-[address] [facility] - Alcohol Frequency 00:00:00 00:00:00 [facility] Smoking Status Start Date Stop Date Source [facility] [place] Medications Ordered Filled Start Stop Current Ordering Indication Dosage Frequency Signature Comments Components Source Medication Medication Date Date Medication? Clinician (SIG) Name Name omeprazole Yes 20mg QD Take [address] (PRILOSEC) -06 by mouth [facility] - 20 MG 16:51: daily. Medical capsule 06 [place] liraglutide Yes Inject [facility] 0.6 mg/0.1 3-06 subcutaneo Kim es - mL (18 mg/3 16:51: usly. Medic al mL) PnIj 06 [place] ALPRAZolam Yes 1{tbl} Take [address] (XANAX) 2 2-25 tablet by [facility] - MG tablet 00:00: mouth Medical 00 every 8 Center (eight) hours as needed. zolpidem Yes 1{tbl} Take 1 [facility] (AMBIEN) 10 2-25 tablet by Kim es - mg tablet 00:00: mouth Medical 00 every Center night as needed. metoprolol 2019- Yes 1{tbl} QD Take [address] tartrate 2-17 tablet by [facility] - (LOPRESSOR) 00:00: mouth Medic al 50 MG 00 daily. Center tablet promethazin 2019- Yes 1{tbl} Take [address] [...] Medica l Center cervix (procedure) [code = 034743012] Future Scheduled [address] [facility] - Test 00:00:00 (procedure) [code = Medical Center [id number]] Future Scheduled 1985-11-[address] [facility] - Test 00:00:00 0-64 YRS (1 of 1 - Medical C enter PPSV23) [code = PNEUMOCOCCAL VACCINE 0-64 YRS (1 of 1 - PPSV23)] Encounters Start End Encounter Admission Attending Care Care Encounter Source Date/Time Date/Time Type Type Clinicians Facility Department ID 2019-12-16 2019-12-16 Letter NICOLÁS Kenyon [id number] 00:00:00 00:00:00 (Out) [place] MARTINEZ [id number] [facility] [id number] 2019-12-03 2019-12-03 Orders Doctor NICOLÁS [id number] 00:00:00 00:00:00 Only UnassignedMICHELLE [id number] [place] [facility] [id number] 2019-06-17 2019-06-17 Emergency [facility] [id number] [facility] 09:01:00 09:01:00 [id number] Results Test Description Test Time Test Comments Results Result Comments Source BLOOD CULTURE 2019-06-24 14:00:00 Test Item Value Reference Range Interpretation Comme nts CULTURE (BEAKER) (test code = 1095) No growth in 5 days BLOOD [id number] 14:00:00 Test Item Value Reference Range Interpretation Comments CULTURE (BEAKER) (test No growth in 5 days code = 1095) ANG, NON-TUNNELED CATH/PICC >5 Y.O. WITH [id number] 15:20:00Reason for exam:->long term care phlebotomist antibioticsFINAL REPORT PICC LINE PLACEMENT, UNDER FLUOROSCOPY [...] placed, through which a dual lumen 5 [place] PICC line trimmed to 43 cm length [...] MDReport Verified Date/Time: 06/21/2019 15:20:38 Reading Location: [facility] Radiology Reading Room POCT-GLUCOSE [id number] 12:29:00 Test Item Value Reference Range Interpretation Comments POC-GLUCOSE METER 140 mg/dL 70-110 H : TESTED A T [facility] 1317 (BEAKER) (test code [address], = 1538) [place] [id number]: Blood Bank Coordinator/Techni estrellita ID = [id number] for SloaneYasmin guaman POCT-GLUCOSE [id number] 07:52:00 Test Item Value Reference Range Interpretation Comments POC-GLUCOSE METER 157 mg/dL 70-110 H : TESTED A T [facility] 1317 (BEAKER) (test code [address], = 1538) [facility] [place] [address] 478: Blood Bank Coordinator/Techni estrellita ID = [id number] for Yasmin Navarro BASIC METABOLIC [id number] 06:16:00 Test Item Value Reference Range Interpretation [...] S NOT APPLICABLE FOR DIALYSIS PATIEN TS. Blood Bank Coordinator ID - [id number] W/PLT COUNT & AUTO [id number] 05:55:00 Test Item Value Reference Range Interpretation [...] PERCENT (BEAKER) (test code = 2801) POCT-GLUCOSE [id number] 22:16:00 Test Item Value Reference Range Interpretation Comments POC-GLUCOSE METER 161 mg/dL 70-110 H : TESTED A T [facility] 1317 (BEAKER) (test code [facility] [address], = 1538) [facility] 77 478: Blood Bank Coordinator/Techni estrellita ID = [id number] for iliana Roche POCT-GLUCOSE [id number] 17:08:00 Test Item Value Reference Range Interpretation Comments POC-GLUCOSE METER 196 mg/dL 70-110 H : Notified RN/MD: TESTED (BEAKER) (test code AT [facility] [address] [address] = [address]38) [place] [address]: Blood Bank Coordinator/Techni estrellita ID = [id number] for Austin Beasleyben POCT-GLUCOSE [id number] 12:11:00 Test Item Value Reference Range Interpretation Comments POC-GLUCOSE METER 162 mg/dL 70-110 H : Notified RN/MD: [facility] (test code AT [facility] [address] [address] = 1538) [place] [address]: Blood Bank Coordinator/Techni estrellita ID = [id number] for Samuel ramachandran, Austinben POCT-GLUCOSE [id number] 08:57:00 Test Item Value Reference Range Interpretation Comments POC-GLUCOSE METER 203 mg/dL 70-110 H : Notified RN/MD: TESTED (BEAKER) (test code AT [facility] [address] [address] = 1538) [place] [address]: Blood Bank Coordinator/Techni estrellita ID = [id number] for Samuel ramachandran, Austinben BASIC METABOLIC [id number] 06:22:00 Test Item Value Reference Range Interpretation [...] S NOT APPLICABLE FOR DIALYSIS PATIEN TS. Blood Bank Coordinator ID - [id number] 21:15:00 Test Item Value Reference Range Interpretation Comments POC-GLUCOSE METER 132 mg/dL 70-110 H : TESTED A T [facility] 1317 (BEAKER) (test code [address], = 1538) [facility] 77 478: Blood Bank Coordinator/Techni estrellita ID = [id number] for Will iams, Sharyn CT, CHEST WITH IV CONTRAST- PE TEST [id number] 17:05:00FINAL REPORT History: Dyspnea. TECHNIQUE: Helical CT [...] Esparza Verified Date/Time: 06/19/2019 17:05:27 Reading Location: [facility] Radiology Reading Room POCT-GLUCOSE METER 2019-06-19 16:56:00 Test Item Value Reference Range Interpretation Comments POC-GLUCOSE METER 147 mg/dL 70-110 H : TESTED A T [facility] 1317 (BEAKER) (test code [address], = 1538) [place] [address]: Blood Bank Coordinator/Techni estrellita ID = [id number] for Charlene Funk BLOOD [id number] 09:46:00 Test Item Value Reference Range Interpretation [...] = bottles: gram 1123) negative rods BLOOD [id number] 09:45:00 Test Item Value Reference Range Interpretation [...] anaerobic 1123) bottles: gram negative rods POCT-GLUCOSE [id number] 07:53:00 Test Item Value Reference Range Interpretation Comments POC-GLUCOSE METER 131 mg/dL 70-110 H : TESTED A T [facility] 1317 (BEAKER) (test code [address], = 1538) [facility] 77 478: Blood Bank Coordinator/Techni estrellita ID = [id number] for Charlene Funk COMPREHENSIVE METABOLIC [id number] 06:08:00 Test Item Value Reference Range Interpretation [...] S NOT APPLICABLE FOR DIALYSIS PATIEN TS. Blood Bank Coordinator ID - [id number] W/PLT COUNT & AUTO [id number] 05:43:00 Test Item Value Reference Range Interpretation [...] PERCENT (BEAKER) (test code = 2801) POCT-GLUCOSE [id number] 21:12:00 Test Item Value Reference Range Interpretation Comments POC-GLUCOSE METER 195 mg/dL 70-110 H : TESTED A T [facility] 1317 (BEAKER) (test code [address], = 1538) [facility] 77 478: Blood Bank Coordinator/Techni estrellita ID = [id number] for Raji hamilton Sharyn POCT-GLUCOSE [id number] 18:06:00 Test Item Value Reference Range Interpretation Comments POC-GLUCOSE METER 109 mg/dL 70-110 : TESTED A T [facility] 1317 (BEAKER) (test code [address] [facility], = 1538) [place] [address]: Blood Bank Coordinator/Techni estrellita ID = [id number] for Butch Anitha lesternna TROPONIN [id number] 14:37:00 Test Item Value Reference Range Interpretation [...] failure, acidosis, acute neurological disease, and persistent tachyarrhythmia.Blood Bank Coordinator ID - [id number] METER 2019-06-18 11:28:00 Test Item Value Reference Range Interpretation Comments POC-GLUCOSE METER 135 mg/dL 70-110 H : TESTED A T [facility] 1317 (BEAKER) (test code [address], = 1538) [place] [address]: Blood Bank Coordinator/Techni estrellita ID = [id number] for Butch hGlennaa POCT-GLUCOSE [id number] 07:54:00 Test Item Value Reference Range Interpretation Comments POC-GLUCOSE METER 243 mg/dL 70-110 H : TESTED A T [facility] 1317 (BEAKER) (test code [address], = 1538) [place] [address]: Blood Bank Coordinator/Techni estrellita ID = [id number] for Butch h, Charlene BASIC METABOLIC [id number] 04:55:00 Test Item Value Reference Range Interpretation [...] APPLICABLE FOR DIALYSIS PATIEN TS. COMPREHENSIVE METABOLIC [id number] 04:54:00 Test Item Value Reference Range Interpretation [...] S NOT APPLICABLE FOR DIALYSIS PATIEN TS. Blood Bank Coordinator ID - [id number] 04:47:00 Test Item Value Reference Range Interpretation [...] heart valves.Final Information (Auto Output)Final Information (Auto Output)[id number] 04:47:00 Test Item Value Reference Range Interpretation Comments PARTIAL THROMBOPLASTIN TIME (BEAKER) 31.2 sec 23.0-35.0 (test code = 760) Final Information (Auto Output)CBC W/PLT COUNT & AUTO [id number] 04:34:00 Test Item Value Reference Range Interpretation [...] (BEAKER) (test code = 2801) LACTIC ACID, [id number] 04:23:00 Test Item Value Reference Range Interpretation Comments LACTATE BLOOD VENOUS 1.7 mmol/L 0.5-2.0 Specime n slightly (2) (BEAKER) (test hemolyzed code = 2872) Blood Bank Coordinator ID - [id number] 21:15:00 Test Item Value Reference Range Interpretation Comments POC-GLUCOSE METER 201 mg/dL 70-110 H : TESTED A T [facility] 1317 (BEAKER) (test code [facility], = 1538) [facility] 77 478: Blood Bank Coordinator/Techni estrellita ID = [id number] for Sharyn Shin POCT-GLUCOSE [id number] 17:16:00 Test Item Value Reference Range Interpretation Comments POC-GLUCOSE METER 163 mg/dL 70-110 H : Notified RN/MD: TESTED (BEAKER) (test code AT [facility] [address] = 1538) [facility], [facility] [address]: Blood Bank Coordinator/Techni estrellita ID = [id number] for Thak er, Nikitaben POCT-GLUCOSE [id number] 13:42:00 Test Item Value Reference Range Interpretation Comments POC-GLUCOSE METER 224 mg/dL 70-110 H : Notified RN/MD: TESTED (BEAKER) (test code AT [facility] [address] = 1538) [place] [facility] [address]: Blood Bank Coordinator/Techni estrellita ID = [id number] for Thak er, [place]it[place]en LACTIC ACID, [id number] 13:12:00 Test Item Value Reference Range Interpretation Comments LACTATE BLOOD VENOUS (2) (BEAKER) 8.8 mmol/L 0.5-2.0 HH (test code = 2872) Blood Bank Coordinator ID - [id number], [id number] 10:42:00Reason for exam:- >epigastric pain left flank [...] Dios Verified Date/Time: 06/17/2019 10:42:41 Reading Location: [facility] Diagnostic Imaging Reading Room - [place] [id number] RAD, CHEST, 1 VIEW, NON [id number] 10:26:00Reason for exam:->CHILLSReason for exam:- >FEVERReason for [...] Durán Verified Date/Time: 06/17/2019 10:26:56 Reading Location: [facility] Radiology ReadingRoom RAPID INFLUENZA A&B [id number] 10:22:00 Test Item Value Reference Range Interpretation Comments RAPID INFLUENZA A AG (BEAKER) Negative Negative, Inconclusive (test code = 1622) RAPID INFLUENZA B AG (BEAKER) Negative Negative, Inconclusive (test code = 1623) LACTIC ACID, [id number] 10:20:00 Test Item Value Reference Range Interpretation Comments LACTATE BLOOD VENOUS 2.7 mmol/L 0.5-2.0 HH Specime n slightly (2) (BEAKER) (test hemolyzed code = 2872) Blood Bank Coordinator ID - [id number] METABOLIC [id number] 10:20:00 Test Item Value Reference Range Interpretation [...] S NOT APPLICABLE FOR DIALYSIS PATIEN TS. Blood Bank Coordinator ID - [id number] 10:12:00 Test Item Value Reference Range Interpretation Comments PARTIAL THROMBOPLASTIN TIME (BEAKER) 22.4 sec 23.0-35.0 L (test code = 760) Final Information (Auto Output)PROTHROMBIN [id number] 10:11:00 Test Item Value Reference Range Interpretation [...] Information (Auto Output)Final Information (Auto Output)URINALYSIS W/ [id number] 10:10:00 Test Item Value Reference Range Interpretation [...] (test code = 2795) RAPID STREP A [id number] 10:09:00 Test Item Value Reference Range Interpretation Comments STREP A ANTIGEN (BEAKER) (test code Negative = 556) SCREEN, [id number] 10:06:00 Test Item Value Reference Range Interpretation Comments TEST URINE (BEAKER) (test Negative code = 583) CBC W/PLT COUNT & AUTO [id number] 09:58:00 Test Item Value Reference Range Interpretation [...] % 0-0 PERCENT (BEAKER) (test code = 4363)
[2021-06-24 03:54] LABS: Urine Blood Negative (Negative); Urine Glucose Negative (Negative); Urine Protein Negative (Negative); Urine Specific Gravity 1.015 (1.005-1.030)
[2021-06-24] MEDS ORDERED: MORPHINE 4 MG/ML SYR ONE ×2 (04:22→05:32)
[2021-06-24] MEDS ORDERED: FAMOTIDINE 20 MG/2 ML VIAL IV ONE (04:23)
[2021-06-24] MEDS ORDERED: ONDANSETRON 4 MG/2 ML VIAL ONE (04:23)
[2021-06-24] MEDS ORDERED: NA CHLORIDE 0.9% 1,000 ML ONE (04:23)
[2021-06-24 04:25] LABS: Urine Specific Gravity/Preg 1.015 (1.005-1.030)
[2021-06-24 04:37] LABS: Absolute Lymphocytes (CBC) 3.4 K/uL (0.7-4.9); Hematocrit 42.6 % (36.0-45.0); Lymphocytes % 45.5 % (15.3-44.8); RBC Red Blood Cell Count 4.68 M/uL (3.86-4.86)
[2021-06-24 04:44] LABS: Urine Bacteria 20-50 /HPF (<20); Urine RBC NONE SEEN /HPF (NONE SEEN)
[2021-06-24 04:53] LABS: ALT/SGPT 29 U/L (12-78); AST/SGOT 23 U/L (15-37); Albumin 3.7 g/dL (3.4-5.0); Alkaline Phosphatase 52 U/L (45-117); BUN Blood Urea Nitrogen 8 mg/dL (7-18); Bicarbonate 28 mmol/L (21-32); Bilirubin Total 0.3 mg/dL (0.2-1.0); Glucose Level 204 mg/dL (74-106); Lipase 177 U/L (73-393); Protein, Total 7.5 g/dL (6.4-8.2); Sodium Level 138 mmol/L (136-145)
[2021-06-24 05:02] LABS: Bilirubin Direct < 0.1 mg/dL (0-0.2)
[2021-06-24 05:08] LABS: Blood Morphology Comment NOT SEEN (NOT SEEN); Platelet Estimate ADEQ
[2021-06-24] MEDS ORDERED: CEFTRIAXONE 1000 MG/VIAL ONE (05:24)
[2021-06-24] MEDS ORDERED: NA CHLORIDE 0.9% 50 ML ONE (05:24)
--- NOTE | 2021-06-24 06:29 | EDPHYS ---
Physician Documentation [facility] Name: Silvina Cohen Age: 40 yrs Sex: Female : 1980 Arrival Date: 06/24/2021 Time: 03:44 Bed 5 Private MD: Elie Hyde H ED Physician Marlo Orozco HPI: 06/24 04:07 This 40 yrs old Black Female presents to ER via Ambulatory with complaints of Abdominal mh7 Pain, Urinary Problem. 04:07 The patient presents with abdominal pain in the lower abdomen. Onset: The mh7 symptoms/episode began/occurred 2 day(s) ago. The symptoms do not radiate. Associated signs and symptoms: Pertinent positives: dysuria, hematuria, nausea, hematuria, Pertinent negatives: anorexia, blood in stools, chest pain, constipation, diarrhea, fever, headache, palpitations, shortness of breath, vaginal discharge, vomiting, vomiting blood. The symptoms are described as intermittent, vague, waxing/waning. Modifying factors: The symptoms are alleviated by nothing, the symptoms are aggravated by touching the area. Severity of pain: At its worst the pain was moderate 2 day(s) ago, in the emergency department the pain is unchanged. 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 tw Historical: - Allergies: 03:55 Flexeril; tw 03:55 Naproxen; tw5 - Home Meds: 03:55 gabapentin 600 mg oral tab 1 tab 3 times per day [Active]; metformin 1,000 mg oral TG24 tw [Active]; metoprolol tartrate 50 mg Oral tab 1 tab 2 times per day [Active]; [place] 10-325 mg Oral tab as needed [Active]; Trulicity 0.75 mg/0.5 mL subcutaneous pnij 0.5 mL once wkly [Active]; Xanax 2 mg Oral tab 1 tab [Active]; - PMHx: 03:55 Anxiety; Back pain; Diabetes - NIDDM; HYPERGLYCEMIA; Hypertension; tw5 - PSHx: 03:55 Cholecystectomy; hernia repair; Total abdominal hysterectomy; tw5 - Immunization history:: Flu vaccine is not up to date. - Social history:: Smoking status: Patient denies any tobacco usage or history of. ROS: 04:07 Constitutional: Negative for fever, chills, and weight loss, Eyes: Negative for injury, mh7 pain, redness, and discharge, ENT: Negative for injury, pain, and discharge, Neck: Negative for injury, pain, and swelling, Cardiovascular: Negative for chest pain, palpitations, and edema, Respiratory: Negative for shortness of breath, cough, wheezing, and pleuritic chest pain, Back: Negative for injury and pain, MS/Extremity: Negative for injury and deformity, Skin: Negative for injury, rash, and discoloration, Neuro: Negative for headache, weakness, numbness, tingling, and seizure, Psych: Negative for depression, anxiety, suicide ideation, homicidal ideation, and hallucinations, Allergy/Immunology: Negative for hives, rash, and allergies, Endocrine: Negative for neck swelling, polydipsia, polyuria, polyphagia, and marked weight changes, Hematologic/Lymphatic: Negative for swollen nodes, abnormal bleeding, and unusual bruising. Exam: 04:07 Head/Face: Normocephalic, atraumatic. Eyes: Pupils equal round and reactive to light, mh7 extra-ocular motions intact. Lids and lashes normal. Conjunctiva and sclera are non-icteric and not injected. Cornea within normal limits. Periorbital areas with no swelling, redness, or edema. Neck: Trachea midline, no thyromegaly or masses palpated, and no cervical lymphadenopathy. Supple, full range of motion without nuchal rigidity, or vertebral point tenderness. No Meningismus. Chest/axilla: Normal chest wall appearance and motion. Nontender with no deformity. No lesions are appreciated. Cardiovascular: Regular rate and rhythm with a normal S1 and S2. No gallops, murmurs, or rubs. Normal PMI, no JVD. No pulse deficits. Respiratory: Lungs have equal breath sounds bilaterally, clear to auscultation and percussion. No rales, rhonchi or wheezes noted. No increased work of breathing, no retractions or nasal flaring. Skin: Warm, dry with normal turgor. Normal color with no rashes, no lesions, and no evidence of cellulitis. MS/ Extremity: Pulses equal, no cyanosis. Neurovascular intact. Full, normal range of motion. Neuro: Awake and alert, GCS 15, oriented to person, place, time, and situation. Cranial nerves II-XII grossly intact. Motor strength 5/5 in all extremities. Sensory grossly intact. Cerebellar exam normal. Normal gait. Psych: Awake, alert, with orientation to person, place and time. Behavior, mood, and affect are within normal limits. 04:07 Constitutional: The patient appears in no acute distress, alert, awake, uncomfortable. 04:30 ECG was reviewed by the Attending Physician. mh7 04:30 Abdomen/GI: Inspection: obese Bowel sounds: normal, in all quadrants, Palpation: mh7 moderate abdominal tenderness, in the suprapubic area, right lower quadrant and left lower quadrant, mass, is not appreciated, rebound tenderness, is not appreciated, voluntary guarding, is not appreciated, involuntary guarding, is not appreciated, no appreciated organomegaly, Rectal exam: the exam is deferred, because of patient request, Indicators: McBurney's point is not tender, Holman's sign is negative, Rovsing's sign is negative, Obturator sign is negative, Psoas sign is negative, Liver: no appreciated palpable abnormalities, Hernia: not appreciated. Vital Signs: 03:54 Resp 18; Temp 96.7; Weight 138.35 kg; Height 5 ft. 8 in. (172.72 cm); Pain 10/10; tw5 03:57 BP 139 / 94; Pulse 77; Pulse Ox 95% ; tw5 04:55 BP 139 / 91; Pulse 76; Resp 17 S; Pulse Ox 95% on R/A; vc1 05:00 BP 145 / 93; Pulse 72; Resp 18 S; Pulse Ox 97% on R/A; vc1 05:39 BP 132 / 88; Pulse 77; Resp 16 S; Pulse Ox 94% on R/A; Pain 8/10; vc1 06:05 BP 148 / 94; Pulse 75; Resp 22 S; Pulse Ox 92% on R/A; vc1 06:25 BP 148 / 84; Pulse 73; Resp 17; Pulse Ox 94% on R/A; vc1 06:25 BP 148 / 84; Pulse 77; Resp 17 S; Pulse Ox 97% on R/A; Pain 7/10; vc1 03:54 Body Mass Index 46.37 (138.35 kg, 172.72 cm) tw5 MDM: 06:26 Differential diagnosis: appendicitis, bowel obstruction, diverticulitis, non-specific [facility] abd pain, Pyelonephritis, Ureterolithiasis, urinary tract infection. Data reviewed: vital signs, nurses notes, old medical records, lab test result(s), CBC, electrolytes, urinalysis, EKG, radiologic studies, CT scan. Data interpreted: Pulse oximetry: on room air is 97 %. Interpretation: normal. Counseling: I had a detailed discussion with the patient and/or guardian regarding: the historical points, exam findings, and any diagnostic results supporting the discharge/admit diagnosis, lab results, radiology results, the need for outpatient follow up, to return to the emergency department if symptoms worsen or persist or if there are any questions or concerns that arise at home. Response to treatment: the patient's symptoms have markedly improved after treatment. 06:28 Patient medically screened. [facility] 06/24 03:53 Order name: Urine Dipstick-Ancillary; Complete Time: 03:55 [facility] 06/24 03:59 Order name: Urine --Ancillary (enter results) [facility] 06/24 04:00 Order name: Urine --Ancillary; Complete Time: 05:13 [facility] 06/24 04:04 Order name: Basic Metabolic Panel [facility] 06/24 04:04 Order name: CBC with Diff [facility] 06/24 04:04 Order name: Hepatic Function [facility] 06/24 04:04 Order name: Lipase; Complete Time: 05:13 [facility] 06/24 04:04 Order name: Basic Metabolic Panel; Complete Time: 05:13 [facility] 06/24 04:04 Order name: CBC with Automated Diff; Complete Time: 05:13 [facility] 06/24 04:04 Order name: Liver (Hepatic) Function; Complete Time: 05:13 [facility] 06/24 04:06 Order name: Urine Microscopic Only [facility] 06/24 04:06 Order name: Urine Microscopic Only; Complete Time: 05:13 [facility] 06/24 04:38 Order name: Manual Differential; Complete Time: 05:13 [facility] 06/24 04:45 Order name: Urine Culture [facility] 06/24 04:04 Order name: IV Saline Lock; Complete Time: 04:16 [facility] 06/24 04:04 Order name: Labs collected and sent; Complete Time: 04:16 [facility] 06/24 04:06 Order name: CT Abd/Pelvis - IV Contrast Only [facility] 06/24 04:06 Order name: EKG; Complete Time: 04:07 [facility] 06/24 05:34 Order name: UDS [facility] 06/24 05:34 Order name: Urine Drug Screen [facility] 06/24 06:20 Order name: Urine Culture [facility] 06/24 06:21 Order name: Urine Culture [facility] 06/24 04:06 Order name: EKG - Nurse/Tech; Complete Time: 04:31 mh7 EC:30 Rate is 78 beats/min. Rhythm is regular, Normal Sinus Rhythm with No ectopy. QRS [place] [facility] is Normal. [place] interval is normal. QRS interval is normal. QT interval is normal. No Q waves. T waves are Inverted in leads V1, V2, V3. No ST changes noted. Clinical impression: NSR w/ Non-specific ST/T Changes, No change from prior ECG, and No evidence of ischemia. Administered Medications: 04:43 Drug: NS 0.9% 1000 ml Route: IV; Rate: 1000 ml; Site: left antecubital; vc1 04:43 Drug: morphine 4 mg Route: IVP; Site: left antecubital; vc1 05:00 Follow up: BP 145 / 93; Pulse 72 bpm; Resp 18 bpm Spontaneous; Pulse Ox 97% RA; vc1 Response: No adverse reaction; Pain is unchanged, physician notified 04:43 Drug: Zofran (Ondansetron) 4 mg Route: IVP; Site: left antecubital; vc1 05:37 Follow up: Response: No adverse reaction vc1 04:43 Drug: Pepcid (famotidine) 20 mg Route: IVP; Site: left antecubital; vc1 05:36 Follow up: Response: No adverse reaction vc1 05:33 Drug: morphine 4 mg Route: IVP; Site: left antecubital; ervin 06:25 Follow up: BP 148 / 84; Pulse 77 bpm; Resp 17 bpm Spontaneous; Pulse Ox 97% RA; Pain vc1 10/24 Adult; Response: No adverse reaction; Pain is decreased 05:35 Drug: Rocephin (cefTRIAXone) 1 grams Route: IV; Rate: per protocol; Site: left vc1 antecubital; Disposition Summary: 06/24/21 06:28 Discharge Ordered Location: Home [facility] Problem: new [facility] Symptoms: have improved mh Condition: Stable [facility] Diagnosis - Lower abdominal pain, unspecified mh7 - UTI/ Urinary tract infection, site not specified [facility] Followup: [facility] - With: Elie Hyde DO - When: 1 - 2 days - Reason: Worsening of condition, Recheck today's complaints, Continuance of care, Re-evaluation by your physician Discharge Instructions: - Discharge Summary Sheet [facility] - Urinary Tract Infection, Adult, [id number] [facility] - Abdominal Pain, Adult, [id number] [facility] Forms: - Medication Reconciliation Form [facility] - Thank You Letter [facility] - Antibiotic Education [facility] - Prescription Opioid Use [facility] Prescriptions: - ondansetron 4 mg Oral tablet,disintegrating - place 1 tablet by TRANSLINGUAL route every 8 hours As needed; 10 tablet; [facility] Refills: 0, Product Selection Permitted - Pyridium 200 mg Oral Tablet - take 1 tablet by ORAL route every 8 hours for 2 days; 6 tablet; Refills: 0, [facility] Product Selection Permitted - Cipro 500 mg Oral Tablet - take 1 tablet by ORAL route every 12 hours for 7 days; 14 tablet; Refills: 0, [facility] Product Selection Permitted Signatures: Dispatcher [employer] EDMarlo Hamilton MD MD [facility] Yuliana Mosley [facility] Karen Harris RN RN Kiarra Ferreira RN RN vc1 Corrections: (The following items were deleted from the chart) 04:00 03:55 Allergies: Codeine; 06:09 05:35 Urine Drug Screen ordered. EDMI EDMS
--- NOTE | 2021-06-24 06:29 | ER ---
Nurse's Notes [facility] Name: iSlvina Cohen Age: 40 yrs Sex: Female : 1980 Arrival Date: 06/24/2021 Time: 03:44 Bed 5 Private MD: Elie Hyde H Diagnosis: Lower abdominal pain, unspecified;UTI/ Urinary tract infection, site not specified Presentation: 06/24 03:54 Chief complaint: Patient states: "I have been having abdominal pain, it hurts to tw5 urinate and it there is like strings of blood. I know it isn't my period because I have had a hysterecctomy.". Coronavirus screen: Vaccine status: Patient reports being unvaccinated. Coronavirus screen: Vaccine status:. Ebola Screen: Patient negative for fever greater than or equal to 101.5 degrees Fahrenheit, and additional compatible Ebola Virus Disease symptoms Patient denies exposure to infectious person. Patient denies travel to an Ebola-affected area in the 21 days before illness onset. Risk Assessment: Do you want to hurt yourself or someone else? Patient reports no desire to harm self or others. Onset of symptoms was June 22, 2021. 03:54 Method Of Arrival: Ambulatory tw5 03:54 Acuity: CORTEZ 3 tw5 03:57 Initial Sepsis Screen: Does the patient meet any 2 criteria? No. Patient's initial tw5 sepsis screen is negative. Does the patient have a suspected source of infection? No. Patient's initial sepsis screen is negative. Triage Assessment: 03:55 General: Appears uncomfortable, obese, Behavior is calm, cooperative. Pain: Complains tw5 of pain in suprapubic area Pain currently is 10 out of 10 on a pain scale. GI: Reports lower abdominal pain. 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 tw5 Historical: - Allergies: 03:55 Flexeril; tw5 03:55 Naproxen; tw5 - Home Meds: 03:55 gabapentin 600 mg oral tab 1 tab 3 times per day [Active]; metformin 1,000 mg oral TG24 tw5 [Active]; metoprolol tartrate 50 mg Oral tab 1 tab 2 times per day [Active]; [place] 10-325 mg Oral tab as needed [Active]; Trulicity 0.75 mg/0.5 mL subcutaneous pnij 0.5 mL once wkly [Active]; Xanax 2 mg Oral tab 1 tab [Active]; - PMHx: 03:55 Anxiety; Back pain; Diabetes - NIDDM; HYPERGLYCEMIA; Hypertension; tw5 - PSHx: 03:55 Cholecystectomy; hernia repair; Total abdominal hysterectomy; tw5 - Immunization history:: Flu vaccine is not up to date. - Social history:: Smoking status: Patient denies any tobacco usage or history of. Screenin:55 Abuse screen: Denies threats or abuse. Nutritional screening: No deficits noted. vc1 Tuberculosis screening: No symptoms or risk factors identified. Fall Risk None identified. Assessment: 03:50 Reassessment: See triage assessment. vc1 04:30 Reassessment: Patient and/or family updated on plan of care and expected duration. Pain vc1 level reassessed. Patient is alert, oriented x 3, equal unlabored respirations, skin warm/dry/pink. Patient states symptoms have not improved. General: Appears in no apparent distress. uncomfortable, obese, Behavior is calm, cooperative, appropriate for age. Pain: Complains of pain in abdomen Pain does not radiate. Pain currently is 8 out of 10 on a pain scale. Neuro: No deficits noted. Cardiovascular: No deficits noted. GI: Bowel sounds present X 4 quads. Abd is soft Abd is non tender Reports upper abdominal pain. 05:30 Reassessment: Patient and/or family updated on plan of care and expected duration. Pain vc1 level reassessed. Patient is alert, oriented x 3, equal unlabored respirations, skin warm/dry/pink. Patient states symptoms have not improved. 06:24 Reassessment: Patient and/or family updated on plan of care and expected duration. Pain vc1 level reassessed. Patient is alert, oriented x 3, equal unlabored respirations, skin warm/dry/pink. Vital Signs: 03:54 Resp 18; Temp 96.7; Weight 138.35 kg; Height 5 ft. 8 in. (172.72 cm); Pain 10/10; tw5 03:57 BP 139 / 94; Pulse 77; Pulse Ox 95% ; tw5 04:55 BP 139 / 91; Pulse 76; Resp 17 S; Pulse Ox 95% on R/A; vc1 05:00 BP 145 / 93; Pulse 72; Resp 18 S; Pulse Ox 97% on R/A; vc1 05:39 BP 132 / 88; Pulse 77; Resp 16 S; Pulse Ox 94% on R/A; Pain 8/10; vc1 06:05 BP 148 / 94; Pulse 75; Resp 22 S; Pulse Ox 92% on R/A; vc1 06:25 BP 148 / 84; Pulse 73; Resp 17; Pulse Ox 94% on R/A; vc1 06:25 BP 148 / 84; Pulse 77; Resp 17 S; Pulse Ox 97% on R/A; Pain 7/10; vc1 03:54 Body Mass Index 46.37 (138.35 kg, 172.72 cm) tw5 ED Course: 03:44 Patient arrived in ED. es 03:44 Elie Hyde DO is Private Physician. es 03:47 Yuliana Mosley is Primary Nurse. tw5 03:48 Marlo Orozco MD is Attending Physician. mh7 03:50 Patient has correct armband on for positive identification. Bed in low position. Call vc1 light in reach. hall monitor on. Pulse ox on. NIBP on. 03:54 Urine collected: clean catch specimen, cloudy. tw5 03:55 Triage completed. tw5 03:55 Arm band placed on. tw5 04:15 Urine Microscopic Only Sent. tw5 04:15 Urine Microscopic Only Sent. tw5 04:16 Basic Metabolic Panel Sent. tw5 04:16 CBC with Automated Diff Sent. tw5 04:16 Liver (Hepatic) Function Sent. tw5 04:16 Basic Metabolic Panel Sent. tw5 04:16 CBC with Diff Sent. tw5 04:16 Hepatic Function Sent. tw5 04:16 Lipase Sent. tw5 04:16 Urine --Ancillary Sent. tw5 04:17 Urine --Ancillary (enter results) Sent. tw5 04:32 Basic Metabolic Panel Sent. ervin 04:32 CBC with Automated Diff Sent. ervin 04:32 Liver (Hepatic) Function Sent. ervin 04:32 Lipase Sent. ervin 04:32 Urine Microscopic Only Sent. ervin 04:42 Inserted saline lock: 22 gauge in left antecubital area, using aseptic technique. vc1 05:30 CT Abd/Pelvis - IV Contrast Only In Process Unspecified. EDMS 06:09 UDS Sent. vc1 06:12 Urine Drug Screen Sent. ervin 06:27 Elie Hyde DO is Referral Physician. mh7 06:27 Urine Culture Sent. ervin 06:27 Urine Culture Sent. ervin 06:28 Urine Drug Screen Sent. ervin 06:30 No provider procedures requiring assistance completed. IV discontinued, intact, vc1 bleeding controlled, No redness/swelling at site. Administered Medications: 04:43 Drug: NS 0.9% 1000 ml Route: IV; Rate: 1000 ml; Site: left antecubital; vc1 04:43 Drug: morphine 4 mg Route: IVP; Site: left antecubital; vc1 05:00 Follow up: BP 145 / 93; Pulse 72 bpm; Resp 18 bpm Spontaneous; Pulse Ox 97% RA; vc1 Response: No adverse reaction; Pain is unchanged, physician notified 04:43 Drug: Zofran (Ondansetron) 4 mg Route: IVP; Site: left antecubital; vc1 05:37 Follow up: Response: No adverse reaction vc1 04:43 Drug: Pepcid (famotidine) 20 mg Route: IVP; Site: left antecubital; vc1 05:36 Follow up: Response: No adverse reaction vc1 05:33 Drug: morphine 4 mg Route: IVP; Site: left antecubital; ervin 06:25 Follow up: BP 148 / 84; Pulse 77 bpm; Resp 17 bpm Spontaneous; Pulse Ox 97% RA; Pain vc1 10 Adult; Response: No adverse reaction; Pain is decreased 05:35 Drug: Rocephin (cefTRIAXone) 1 grams Route: IV; Rate: per protocol; Site: left vc1 antecubital; Outcome: 06:28 Discharge ordered by . 7 06:31 Discharged to home ambulatory. vc1 06:31 Condition: good 06:31 Discharge instructions given to patient, Instructed on discharge instructions, follow up and referral plans. medication usage, Demonstrated understanding of instructions, follow-up care, medications, Prescriptions given X 3. 06:39 Patient left the ED. ervin Signatures: Dispatcher [employer] Marlene Ayers Maurice, MD MD Yuliana Sarabia tw5 Karen Harris RN RN ervin Kiarra Dickson RN RN vc1 Corrections: (The following items were deleted from the chart) 04:00 03:55 Allergies: Codeine; tw5 tw5 04:54 04:22 Inserted saline lock: 22 gauge in left antecubital area, using aseptic technique. vc1 vc1 06:26 06:25 BP 148 / 84; Pulse 73bpm; Resp 22bpm; Pulse Ox 94% RA; vc1 vc1
[2021-06-24 06:49] VITALS: TEMP 96.7
[2021-06-24 06:58] VITALS: BP 148/84; O2SAT 97
[2021-06-24 07:02] LABS: Barbiturates NEGATIVE (NEGATIVE); Benzodiazepines POSITIVE (NEGATIVE); Cocaine NEGATIVE (NEGATIVE); METHAMPHETAM NEGATIVE (NEGATIVE); Methadone NEGATIVE (NEGATIVE); Opiates POSITIVE (NEGATIVE); Phencyclidine NEGATIVE (NEGATIVE); THC Cannibis NEGATIVE (NEGATIVE)
--- NOTE | 2021-06-24 10:45 | RAD REPORT ---
EXAM DESCRIPTION: CT Abdomen and Pelvis With Intravenous Contrast CLINICAL HISTORY: The patient is 40 years old and is Female; ABD PAIN TECHNIQUE: Axial computed tomography images of the abdomen and pelvis with intravenous contrast. S agittal and coronal reformatted images were created and reviewed. This CT exam was performed using one or more of the following dose reduction techniques: automated exposure control, adjustment of t he mA and/or kV according to patient size, and/or use of iterative reconstruction technique. COMPARISON: No relevant prior studies available. FINDINGS: Lung bases: Unremarkable. No mass. No consolidation. ABDOMEN: Liver: Hepatomegaly with diffuse hepatic steatosis. Gallbladder and bile ducts: Pneumobilia. Gallbladder is not seen. No ductal dilation. Pancreas: Unremarkable. No mass. No ductal dilation. Spleen: Unremarkable. No splenomegaly. Adrenals: Unremarkable. No mass. Kidneys and ureters: Unremarkable. No solid mass. No hydronephrosis. Stomach and bowel: Scattered colonic diverticula. No obstruction. No mucosal thickening. PELVIS: Appendix: The appendix is normal. Bladder: Unremarkable. No mass. Reproductive: Unremarkable as visualized. ABDOMEN and PELVIS: Intraperitoneal space: Unremarkable. No free air. No significant fluid collection. Bones/joints: No acute fracture. No dislocation. Soft tissues: Small fat-containing umbilical hernia. Vasculature: Unremarkable. No abdominal aortic aneurysm. Lymph nodes: Unremarkable. No enlarged lymph nodes. IMPRESSION: No acute findings in the abdomen or pelvis. Electronically signed by: Don Barraza MD 06/24/2021 5:57 AM RECEPTIONIST NURSE Due to temporary technical issues with the PACS/Fluency reporting system, reports are being signed by the in house radiologist without review as a courtesy to ensure prompt reporting. The interpreting r adiologist is fully responsible for the content of the report.
== END 2021-06-24 06:39 | disposition home or self-care (01) ==
LOC: ER 03:37
DX: N39.0 Urinary tract infection, site not specified (principal); E11.9 Type 2 diabetes mellitus without complications; F41.9 Anxiety disorder, unspecified; Z79.4 Long term (current) use of insulin; Z88.5 Allergy status to narcotic agent; Z88.8 Allergy status to other drugs, medicaments and biological substances
CPT/HCPCS: 93005; 87088 ×2; 85025; 87086 ×2; 80048; 36415; 81025; 80076; 83690; 80307; 74177; 96375; 96374; 99284; Q9967; J7030; J2405; 81003; 81015

== ENCOUNTER 2021-07-22 00:17 | Emergency (ER) | payer OTHER ==
--- OUTSIDE RECORDS SUMMARY | 2021-07-22 00:21 | XMS REPORT | Continuity of Care Document ---
:1980 Author Organization [facility] t Address [address] [place] [address] Care Team Providers Name Role Phone Pcp Primary Care Physician Unavailable MOVVA Attending Clinician Unavailable Kostas HOBBS Attending Clinician Doctor Unassigned, Name Attending Clinician Unavailable NEGRA BUCK Attending Clinician Unavailable MOVVA Admitting Clinician Unavailable CITLALLI DE LA CRUZ Admitting Clinician Unavailable Payers Payer Name Policy Type Policy Number Effective Date Expiration Date S ource Problems Condition Condition Condition Status Onset Resolution Last Treating Co mments Source Name Details Category Date Date Treatment Clinician Date Sinus Sinus Disease Active 2019-[address] [facility] tachycardi 3-02 Kellie kes - a a 00:00: Medical 00 [place] Pneumonia Pneumonia Disease Active 2020-[address] [facility] 00 [place] Sepsis Sepsis Disease Active 2020-[address] [facility] 00 [place] Febrile Febrile Disease Active 2020-[address] [facility] illness illness 3-02 [facility] 00 Center Allergies, Adverse Reactions, Alerts Allergy Allergy Status Severity Reaction(s) Onset Inactive Treating Comm ents Source Name Type Date Date Clinician Naproxen Propensi Active 2020-[address] [facility] [address] [facility] to 3[facility]02 [facility] - adverse 00:00: Medical reaction 00 Center s NAPROXEN DA Active U [facility]- [facility] [place] No Known DA [...] 00:00: [facility] [place] NAPROXEN Allergy Active [facility] Social History Social Habit Start Date Stop Date Quantity Comments Source History [facility] - Alcohol Std Drinks Medica Center History [facility] - Alcohol Binge Medical Nakita ter Sex Assigned At [facility] Tobacco use and 2019-06-19 2019-06-19 Never used [facility] - exposure 00:00:00 00:00:00 [facility] Alcohol intake 2019-06-19 2019-06-[address] [facility] - 00:00:00 00:00:00 non-drinker of Medical Ce nter alcohol (finding) History [facility] 2019-06-17 2019-06-[address] [facility] - Alcohol Frequency 00:00:00 00:00:00 [facility] Smoking Status Start Date Stop Date Source Never smoker [facility] Medications Ordered Filled Start Stop Current Ordering Indication Dosage Frequency Signature Comments Components Source Medication Medication Date Date Medication? Clinician (SIG) Name Name omeprazole Yes 20mg QD Take [address] (PRILOSEC) 3-06 [facility] mouth [facility] - 20 MG 16:51: daily. Medical capsule 06 Center liraglutide Yes Inject [facility] 0.6 mg/0.1 3-06 subcutaneo Kim es - mL (18 mg/3 16:51: usly. Medic al mL) PnIj 06 Center ALPRAZolam Yes 1{tbl} Take 1 [facility] [...] Medica l Center cervix (procedure) [code = 598133722] Future Scheduled [address] [facility] - Test 00:00:00 (procedure) [code = Medical Center 34954505] Future Scheduled 1985-11-[address] [facility] - Test 00:00:00 0-64 YRS (1 of 1 - Medical C enter PPSV23) [code = PNEUMOCOCCAL VACCINE 0-64 YRS (1 of 1 - PPSV23)] Encounters Start End Encounter Admission Attending Care Care Encounter Source Date/Time Date/Time Type Type Clinicians Facility Department ID 2021-06-29 2021-07-07 Inpatient E JOSE LUIS, BL MED [id number] BL 19:32:00 18:04:00 REYES 2019-12-16 2019-12-16 Letter NICOLÁS Kenyon [id number] 00:00:00 00:00:00 (Out) [place] MARTINEZ [id number] [facility] [id number] 2019-12-03 2019-12-03 Orders Doctor MONZON [id number] 00:00:00 00:00:00 Only UnassignedMICHELLE [id number] [place] [facility] [id number] 2019-06-17 2019-06-17 Emergency [facility] [id number] -[id number] [facility] 09:01:00 09:01:00 [id number] Results Test Description Test Time Test Comments Results Result Comments Source BLOOD CULTURE 2019-06-24 14:00:00 Test Item Value Reference Range Interpretation Comme nts CULTURE (BEAKER) (test code = 1095) No growth in 5 days BLOOD [id number] 14:00:00 Test Item Value Reference Range Interpretation Comments CULTURE (BEAKER) (test No growth in 5 days code = 1095) ANG, NON-TUNNELED CATH/PICC >5 Y.O. WITH [id number] 15:20:00Reason for exam:->retirement antibioticsFINAL REPORT PICC LINE PLACEMENT, UNDER FLUOROSCOPY [...] placed, through which a dual lumen 5 Vietnamese PICC line trimmed to 43 cm length was advanced and positioned wi th tip at the cavoatrial junction. Spot film performed for documentation. Catheter flushed and secured in place with 2-0 silk sutures. Sterile dressing applied. Catheter is ready for immediate use. Fluoroscopy time: 0.9 minutes Number of exposures performed: Two Radiation dose (Ka,r): 56.83 mGy Signed: Jorge Alberto Byrnesort Verified Date/Time: 06/21/2019 15:20:38 Reading Location: [facility] Radiology Reading Room POCT-GLUCOSE [id number] 12:29:00 Test Item Value Reference Range Interpretation Comments POC-GLUCOSE METER 140 mg/dL 70-110 H : TESTED A T [facility] [address] (BEAKER) (test code [address], = 1538) [facility] 77 478: Impression Printer/Techni estrellita ID = [id number] for Yasmin Navarro POCT-GLUCOSE [id number] 07:52:00 Test Item Value Reference Range Interpretation Comments POC-GLUCOSE METER 157 mg/dL 70-110 H : TESTED A T [facility] (BEAKER) (test code [address], = 1538) [facility] 77 478: Impression Printer/Techni estrellita ID = [id number] for Sloane uYasmin BASIC METABOLIC [id number] 06:16:00 Test Item Value Reference Range Interpretation [...] S NOT APPLICABLE FOR DIALYSIS PATIEN TS. Impression Printer ID - [id number] W/PLT COUNT & AUTO [id number] 05:55:00 Test Item Value Reference Range Interpretation [...] PERCENT (BEAKER) (test code = 2801) POCT-GLUCOSE [id number] 22:16:00 Test Item Value Reference Range Interpretation Comments POC-GLUCOSE METER 161 mg/dL 70-110 H : TESTED A T [facility] (BEAKER) (test code [facility], = 1538) [place] [address]: Impression Printer/Techni estrellita ID = [id number] for iliana Roche POCT-GLUCOSE [id number] 17:08:00 Test Item Value Reference Range Interpretation Comments POC-GLUCOSE METER 196 mg/dL 70-110 H : Notified RN/MD: TESTED (BEAKER) (test code AT [facility] [address] = 1538) [place] [address]: Impression Printer/Techni estrellita ID = [id number] for Thak er, Nikitaben POCT-GLUCOSE [id number] 12:11:00 Test Item Value Reference Range Interpretation Comments POC-GLUCOSE METER 162 mg/dL 70-110 H : Notified RN/MD: [facility] (test code AT [facility] [address] [address] = 1538) [place] [address]: Impression Printer/Techni estrellita ID = [id number] for Thak er, Nikitaben POCT-GLUCOSE [id number] 08:57:00 Test Item Value Reference Range Interpretation Comments POC-GLUCOSE METER 203 mg/dL 70-110 H : Notified RN/MD: TESTED (BEAKER) (test code AT [facility] [address] = 1538) [place] [address]: Impression Printer/Techni estrellita ID = [id number] for Thak er, Nikitaben BASIC METABOLIC [id number] 06:22:00 Test Item Value Reference Range Interpretation [...] mg/dL 8.5-10.5 (test code = 697) EGFR (CHELSEA) (test 101 mL/min/1.73 ESTIM ATED GFR IS code = 1092) sq m NOT ACCURATE CREATININE CLEARANCE IN PREDICTING GLOMERULAR FILTRATION RATE . ESTIMATED GFR I S NOT APPLICABLE FOR DIALYSIS PATIEN FÁTIMA. Impression Printer ID - [id number] 21:15:00 Test Item Value Reference Range Interpretation Comments POC-GLUCOSE METER 132 mg/dL 70-110 H : TESTED A T [facility] 1317 (CHESLEA) (test code [address], = 1538) [facility] 77 478: Impression Printer/Techni estrellita ID = [id number] for Will iams, Sharyn CT, CHEST WITH IV CONTRAST- PE TEST [id number] 17:05:00FINAL REPORT History: Dyspnea. TECHNIQUE: Helical CT [...] MDReport Verified Date/Time: 06/19/2019 17:05:27 Reading Location: [facility] Radiology Reading Room POCT-GLUCOSE METER 2019-06-19 16:56:00 Test Item Value Reference Range Interpretation Comments POC-GLUCOSE METER 147 mg/dL 70-110 H : TESTED A T [facility] (BEAKER) (test code [address], = 1538) [facility] 77 478: Impression Printer/Techni estrellita ID = [id number] for Charlene Funk BLOOD [id number] 09:46:00 Test Item Value Reference Range Interpretation [...] = bottles: gram 1123) negative rods BLOOD [id number] 09:45:00 Test Item Value Reference Range Interpretation [...] anaerobic 1123) bottles: gram negative rods POCT-GLUCOSE [id number] 07:53:00 Test Item Value Reference Range Interpretation Comments POC-GLUCOSE METER 131 mg/dL 70-110 H : TESTED A T [facility] [address] (BEAKER) (test code [address], = 1538) [facility] 77 478: Impression Printer/Techni estrellita ID = [id number] for Charlene Funk COMPREHENSIVE METABOLIC [id number] 06:08:00 Test Item Value Reference Range Interpretation [...] S NOT APPLICABLE FOR DIALYSIS PATIEN TS. Impression Printer ID - [id number] W/PLT COUNT & AUTO [id number] 05:43:00 Test Item Value Reference Range Interpretation [...] PERCENT (BEAKER) (test code = 2801) POCT-GLUCOSE [id number] 21:12:00 Test Item Value Reference Range Interpretation Comments POC-GLUCOSE METER 195 mg/dL 70-110 H : TESTED A T [facility] [address] (BEAKER) (test code [address], = 1538) [place] [address]: Impression Printer/Techni estrellita ID = [id number] for Sharyn Shin POCT-GLUCOSE [id number] 18:06:00 Test Item Value Reference Range Interpretation Comments POC-GLUCOSE METER 109 mg/dL 70-110 : TESTED A T [facility] [address] (BEAKER) (test code [address], = 1538) [place] [address]8948: Impression Printer/Techni estrellita ID = [id number] for Butch h, Charlene TROPONIN [id number] 14:37:00 Test Item Value Reference Range Interpretation [...] failure, acidosis, acute neurological disease, and persistent tachyarrhythmia.Impression Printer ID - [id number] METER 2019-06-18 11:28:00 Test Item Value Reference Range Interpretation Comments POC-GLUCOSE METER 135 mg/dL 70-110 H : TESTED A T [facility] [address] (BEAKER) (test code [address], = 1538) [place] [address]: Impression Printer/Techni estrellita ID = [id number] for Butch h, Charlene POCT-GLUCOSE [id number] 07:54:00 Test Item Value Reference Range Interpretation Comments POC-GLUCOSE METER 243 mg/dL 70-110 H : TESTED A T [facility] [address] (BEAKER) (test code [address], = 1538) [place] [address]: Impression Printer/Techni estrellita ID = [id number] for Butch h, Charlene BASIC METABOLIC [id number] 04:55:00 Test Item Value Reference Range Interpretation [...] APPLICABLE FOR DIALYSIS PATIEN TS. COMPREHENSIVE METABOLIC [id number] 04:54:00 Test Item Value Reference Range Interpretation [...] S NOT APPLICABLE FOR DIALYSIS PATIEN TS. Impression Printer ID - [id number] 04:47:00 Test Item Value Reference Range Interpretation [...] heart valves.Final Information (Auto Output)Final Information (Auto Output)[id number] 04:47:00 Test Item Value Reference Range Interpretation Comments PARTIAL THROMBOPLASTIN TIME (BEAKER) 31.2 sec 23.0-35.0 (test code = 760) Final Information (Auto Output)CBC W/PLT COUNT & AUTO [id number] 04:34:00 Test Item Value Reference Range Interpretation [...] (BEAKER) (test code = 2801) LACTIC ACID, [id number] 04:23:00 Test Item Value Reference Range Interpretation Comments LACTATE BLOOD VENOUS 1.7 mmol/L 0.5-2.0 Specime n slightly (2) (BEAKER) (test hemolyzed code = 2872) Impression Printer ID - [id number] 21:15:00 Test Item Value Reference Range Interpretation Comments POC-GLUCOSE METER 201 mg/dL 70-110 H : TESTED A T [facility] [address] (BEAKER) (test code [address], = 1538) [facility] 77 [address]: Impression Printer/Techni estrellita ID = [id number] for Will Sharyn toro POCT-GLUCOSE [id number] 17:16:00 Test Item Value Reference Range Interpretation Comments POC-GLUCOSE METER 163 mg/dL 70-110 H : Notified RN/MD: TESTED (BEAKER) (test code AT [facility] [address] = 1538) [facility] [address]: Impression Printer/Techni estrellita ID = [id number] for Thak er, Nikitaben POCT-GLUCOSE [id number] 13:42:00 Test Item Value Reference Range Interpretation Comments POC-GLUCOSE METER 224 mg/dL 70-110 H : Notified RN/MD: TESTED (BEAKER) (test code AT [facility] [address] = 1538) [facility] [address]: Impression Printer/Techni estrellita ID = [id number] for Thak er, Nikitaben LACTIC ACID, [id number] 13:12:00 Test Item Value Reference Range Interpretation Comments LACTATE BLOOD VENOUS (2) ([facility]) 8.8 mmol/L 0.5-2.0 HH (test code = 2872) Impression Printer ID - [id number], [id number] 10:42:00Reason for exam:- >epigastric pain left flank [...] Dios Verified Date/Time: 06/17/2019 10:42:41 Reading Location: [facility] Diagnostic Imaging Reading Room - [place] [address] 1129 RAD, CHEST, 1 VIEW, NON [id number] 10:26:00Reason for exam:->CHILLSReason for exam:- >FEVERReason for [...] Durán Verified Date/Time: 06/17/2019 10:26:56 Reading Location: [facility] Radiology ReadingRoom RAPID INFLUENZA A&B [id number] 10:22:00 Test Item Value Reference Range Interpretation Comments RAPID INFLUENZA A AG (BEAKER) Negative Negative, Inconclusive (test code = 1622) RAPID INFLUENZA B AG (BEAKER) Negative Negative, Inconclusive (test code = 1623) LACTIC ACID, [id number] 10:20:00 Test Item Value Reference Range Interpretation Comments LACTATE BLOOD VENOUS 2.7 mmol/L 0.5-2.0 HH Specime n slightly (2) (BEAKER) (test hemolyzed code = 2872) Impression Printer ID - [id number] METABOLIC [id number] 10:20:00 Test Item Value Reference Range Interpretation [...] S NOT APPLICABLE FOR DIALYSIS PATIEN TS. Impression Printer ID - [id number] 10:12:00 Test Item Value Reference Range Interpretation Comments PARTIAL THROMBOPLASTIN TIME (BEAKER) 22.4 sec 23.0-35.0 L (test code = 760) Final Information (Auto Output)PROTHROMBIN [id number] 10:11:00 Test Item Value Reference Range Interpretation [...] Information (Auto Output)Final Information (Auto Output)URINALYSIS W/ [id number] 10:10:00 Test Item Value Reference Range Interpretation [...] (test code = 2795) RAPID STREP A [id number] 10:09:00 Test Item Value Reference Range Interpretation Comments STREP A ANTIGEN (BEAKER) (test code Negative = 556) SCREEN, [id number] 10:06:00 Test Item Value Reference Range Interpretation Comments TEST URINE (BEAKER) (test Negative code = 583) CBC W/PLT COUNT & AUTO [id number] 09:58:00 Test Item Value Reference Range Interpretation [...]
[2021-07-22] MEDS ORDERED: MORPHINE 4 MG/ML SYR ONE (01:48)
[2021-07-22] MEDS ORDERED: CIPROFLOXACIN 400mg IV 400 MG/200 ML BAG IV ONE (01:48)
[2021-07-22] MEDS ORDERED: ONDANSETRON 4 MG/2 ML VIAL ONE ×2 (01:48→03:16)
[2021-07-22] MEDS ORDERED: NA CHLORIDE 0.9% 1,000 ML ONE (01:49)
[2021-07-22] MEDS ORDERED: METRONIDAZOLE 500mg IVPB 500 MG/100 ML BAG IV ONE (01:49)
[2021-07-22 02:20] LABS: Absolute Lymphocytes (CBC) 3.6 K/uL (0.7-4.9); Hematocrit 40.9 % (36.0-45.0); MPV 8.7 fL (7.6-11.3)
[2021-07-22] MEDS ORDERED: DIPHENHYDRAMINE 50 MG/ML VIAL ONE (02:28)
[2021-07-22 03:10] LABS: Urine Blood Negative (Negative); Urine Glucose Trace (Negative); Urine Protein Trace (Negative); Urine Specific Gravity >=1.030 (1.005-1.030)
[2021-07-22] MEDS ORDERED: HYDROMORPHONE HCL 0.5 MG/0.5 ML INJ ONE ×2 (03:15→04:07)
[2021-07-22 03:23] LABS: Albumin 3.8 g/dL (3.4-5.0); Bilirubin Total 0.4 mg/dL (0.2-1.0); Potassium 3.5 mmol/L (3.5-5.1); Protein, Total 7.6 g/dL (6.4-8.2)
--- NOTE | 2021-07-22 04:32 | EDPHYS ---
Physician Documentation [facility] Name: Silvina Cohen Age: 40 yrs Sex: Female : 1980 Arrival Date: 07/22/2021 Time: 00:20 Bed 16 Private MD: ED Physician Alessandro Singer HPI: 07/22 01:21 This 40 yrs old Black Female presents to ER via Ambulatory with complaints of Nausea, frandy Abdominal Pain, Bloody Stools. 01:21 The patient presents to the emergency department with nausea, abdominal pain, of the frandy right upper quadrant, left upper quadrant, right lower quadrant and left lower quadrant. Onset: The symptoms/episode began/occurred 3 day(s) ago. Possible causes: unknown. The symptoms are aggravated by nothing. The symptoms are alleviated by nothing. Associated signs and symptoms: The patient has no apparent associated signs or symptoms. Severity of symptoms: At their worst the symptoms were mild moderate in the emergency department the symptoms are unchanged. The patient has experienced similar episodes in the past, a few times. 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 - Social history:: Smoking status: unknown. ROS: 01:22 Constitutional: Negative for fever, chills, and weight loss, Eyes: Negative for injury, frandy pain, redness, and discharge, ENT: Negative for injury, pain, and discharge, Neck: Negative for injury, pain, and swelling, Cardiovascular: Negative for chest pain, palpitations, and edema, Respiratory: Negative for shortness of breath, cough, wheezing, and pleuritic chest pain, Back: Negative for injury and pain, : Negative for injury, bleeding, discharge, and swelling, MS/Extremity: Negative for injury and deformity, Skin: Negative for injury, rash, and discoloration, Neuro: Negative for headache, weakness, numbness, tingling, and seizure, Psych: Negative for depression, anxiety, suicide ideation, homicidal ideation, and hallucinations, Allergy/Immunology: Negative for hives, rash, and allergies, Endocrine: Negative for neck swelling, polydipsia, polyuria, polyphagia, and marked weight changes, Hematologic/Lymphatic: Negative for swollen nodes, abnormal bleeding, and unusual bruising. :22 Abdomen/GI: Positive for abdominal pain, nausea, rectal bleeding. Exam: :22 Constitutional: This is a well developed, well nourished patient who is awake, alert, frandy and in no acute distress. Head/Face: Normocephalic, atraumatic. Eyes: Pupils equal round and reactive to light, extra-ocular motions intact. Lids and lashes normal. Conjunctiva and sclera are non-icteric and not injected. Cornea within normal limits. Periorbital areas with no swelling, redness, or edema. ENT: Nares patent. No nasal discharge, no septal abnormalities noted. Tympanic membranes are normal and external auditory canals are clear. Oropharynx with no redness, swelling, or masses, exudates, or evidence of obstruction, uvula midline. Mucous membranes moist. Neck: Trachea midline, no thyromegaly or masses palpated, and no cervical lymphadenopathy. Supple, full range of motion without nuchal rigidity, or vertebral point tenderness. No Meningismus. Chest/axilla: Normal chest wall appearance and motion. Nontender with no deformity. No lesions are appreciated. Cardiovascular: Regular rate and rhythm with a normal S1 and S2. No gallops, murmurs, or rubs. Normal PMI, no JVD. No pulse deficits. Respiratory: Lungs have equal breath sounds bilaterally, clear to auscultation and percussion. No rales, rhonchi or wheezes noted. No increased work of breathing, no retractions or nasal flaring. Back: No spinal tenderness. No costovertebral tenderness. Full range of motion. Female : Normal external genitalia. Skin: Warm, dry with normal turgor. Normal color with no rashes, no lesions, and no evidence of cellulitis. MS/ Extremity: Pulses equal, no cyanosis. Neurovascular intact. Full, normal range of motion. Neuro: Awake and alert, GCS 15, oriented to person, place, time, and situation. Cranial nerves II-XII grossly intact. Motor strength 5/5 in all extremities. Sensory grossly intact. Cerebellar exam normal. Normal gait. Psych: Awake, alert, with orientation to person, place and time. Behavior, mood, and affect are within normal limits. 01:22 Abdomen/GI: Inspection: distension, Bowel sounds: normal, Palpation: mild abdominal tenderness, in all quadrants, Rectal exam: rectal tone normal, Stool: guaiac positive, soft, trace positive, Liver: no appreciated palpable abnormalities, Hernia: not appreciated. Vital Signs: 00:36 BP 119 / 87; Pulse 93; Resp 18; Temp 97(TE); Pulse Ox 100% ; Weight 138.35 kg; Height 5 tw5 ft. 8 in. (172.72 cm); Pain 10/10; 02:00 BP 110 / 75; Pulse 81; Resp 17; Pulse Ox 96% on R/A; ll3 03:00 BP 122 / 83; Pulse 83; Resp 16; Pulse Ox 100% ; tw5 04:14 BP 109 / 67; Pulse 86; Resp 18 S; Pulse Ox 97% on R/A; bb 00:36 Body Mass Index 46.37 (138.35 kg, 172.72 cm) tw5 MDM: 00:40 Patient medically screened. [facility] 01:23 Differential diagnosis: Nonspecific abd pain, gastritis, cholecystitis, pancreatitis, frandy diverticulitis, viral gastroenteritis, gastroenteritis, gastritis, diverticulitis, hemorrhoids. Data reviewed: vital signs, nurses notes, lab test result(s), radiologic studies, CT scan. Data interpreted: estimate clerk: rate is 93 beats/min, rhythm is regular, Pulse oximetry: on room air is 100 %. Test interpretation: by ED physician or midlevel provider: ECG. Counseling: I had a detailed discussion with the patient and/or guardian regarding: the historical points, exam findings, and any diagnostic results supporting the discharge/admit diagnosis, lab results, radiology results, the need for outpatient follow up. 07/22 01:21 Order name: CBC with Diff; Complete Time: 02:54 frandy 07/22 01:21 Order name: CMP; Complete Time: 03:25 frandy 07/22 01:21 Order name: Lipase; Complete Time: 03:25 frandy 07/22 01:21 Order name: CT Abd/Pelvis - IV Contrast Only frandy 07/22 03:11 Order name: Urine Dipstick-Ancillary; Complete Time: 03:25 EDMS 07/22 01:21 Order name: IV Saline Lock; Complete Time: 02:20 frandy 07/22 01:21 Order name: Labs collected and sent; Complete Time: 02:20 frandy 07/22 01:21 Order name: Urine Dipstick-Ancillary (obtain specimen); Complete Time: 03:02 frandy 07/22 01:24 Order name: EKG; Complete Time: 01:54 frandy 07/22 01:24 Order name: EKG - Nurse/Tech; Complete Time: 02:19 [facility] Administered Medications: 02:17 Drug: morphine 4 mg Route: IVP; Site: left forearm; ll3 04:38 Follow up: Response: No adverse reaction tw5 02:18 Drug: Zofran (Ondansetron) 4 mg Route: IVP; Site: left forearm; ll3 04:39 Follow up: Response: No adverse reaction tw5 02:19 Drug: Flagyl (metroNIDAZOLE) 500 mg Volume: 100 ml; Route: IVPB; Rate: 200 ml/hr; ll3 Infused Over: 30 mins; Site: left forearm; 04:40 Follow up: Response: No adverse reaction; IV Status: Completed infusion; IV Intake: tw5 100ml 02:20 Drug: NS 0.9% 1000 ml Route: IV; Rate: 1 bolus; Site: left forearm; ll3 02:30 Drug: Benadryl (diphenhydrAMINE) 25 mg Route: IVP; Site: left forearm; ll3 04:40 Follow up: Response: No adverse reaction; Marked relief of symptoms tw5 03:17 Drug: Zofran (Ondansetron) 4 mg Route: IVP; Site: left forearm; ll3 04:39 Follow up: Response: No adverse reaction tw5 03:19 Drug: Dilaudid (HYDROmorphone) 0.5 mg Route: IVP; Site: left forearm; ll3 04:40 Follow up: Response: No adverse reaction tw5 03:30 Drug: Cipro (ciprofloxacin) 400 mg Volume: 200 ml; Route: IVPB; Infused Over: 60 mins; tw5 Site: left forearm; 04:40 Follow up: Response: No adverse reaction; IV Status: Completed infusion; IV Intake: tw5 200ml 04:13 Drug: Dilaudid (HYDROmorphone) 0.5 mg {Note: RASS 0.} Route: IVP; Site: left forearm; bb 04:40 Follow up: Response: No adverse reaction tw5 04:38 Not Given (Duplicate Order): Benadryl (diphenhydrAMINE) 25 mg IVP once tw5 Disposition Summary: 07/22/21 04:31 Discharge Ordered Location: Home frandy Problem: new frandy Symptoms: have improved frandy Condition: Stable frandy Diagnosis - GI Bleed/ Gastrointestinal hemorrhage, unspecified - lower frandy - Diverticulosis of intestine, part unspecified, without perforation or abscess with frandy bleeding Followup: frandy - With: Private Physician - When: 1 - 2 days - Reason: Recheck today's complaints, Continuance of care, Re-evaluation by your physician Followup: frandy - With: Dangelo Serrano MD - When: 2 - 3 days - Reason: Recheck today's complaints, Continuance of care, Re-evaluation by your physician Discharge Instructions: - Discharge Summary Sheet frandy - Diverticulosis frandy - Gastrointestinal Bleeding frandy - Rectal Bleeding frandy - Gastrointestinal Bleeding, [id number] frandy - Rectal Bleeding, [id number] frandy - Lower Gastrointestinal Bleeding [facility] Forms: - Medication Reconciliation Form [facility] - Thank You Letter [facility] - Antibiotic Education [facility] - Prescription Opioid Use [facility] Prescriptions: - Flagyl 500 mg Oral Tablet - take 1 tablet by ORAL route every 6 hours for 7 days; 28 tablet; Refills: 0, [facility] Product Selection Permitted - Cipro 500 mg Oral Tablet - take 1 tablet by ORAL route every 12 hours for 7 days; 14 tablet; Refills: 0, [facility] Product Selection Permitted - dicyclomine 20 mg Oral Tablet - take 1 tablet by ORAL route 4 times per day; 28 tablet; Refills: 0, Product [facility] Selection Permitted - Zofran 4 mg Oral Tablet - take 1 tablet by ORAL route every 12 hours As needed; 20 tablet; Refills: 0, [facility] Product Selection Permitted Signatures: Dispatcher [employer] Alessandro Benjamin MD MD cha Ballard, Brenda RN Yuliana Cárdenas tw5 Carolyn Sellers RN RN ll3
--- NOTE | 2021-07-22 04:32 | ER ---
Nurse's Notes [facility] Name: Silvina Cohen Age: 40 yrs Sex: Female : 1980 Arrival Date: 07/22/2021 Time: 00:20 Bed 16 Private MD: Diagnosis: GI Bleed/ Gastrointestinal hemorrhage, unspecified-lower;Diverticulosis of intestine, part unspecified, without perforation or abscess with bleeding Presentation: 07/22 00:36 Chief complaint: Patient states: "I am pooping blood. I think I am having a lower bleed tw5 or something. It is bright red, but it has that smell. I had a hernia surgery a couple of weeks ago and my stomach just has been hurting ever since. Like cramping in my lower abdomen.". Coronavirus screen: Vaccine status: Patient reports being unvaccinated. Ebola Screen: Patient negative for fever greater than or equal to 101.5 degrees Fahrenheit, and additional compatible Ebola Virus Disease symptoms Patient denies exposure to infectious person. Patient denies travel to an Ebola-affected area in the 21 days before illness onset. Initial Sepsis Screen: Does the patient meet any 2 criteria? No. Patient's initial sepsis screen is negative. Does the patient have a suspected source of infection? Yes: Acute abdominal pain. Risk Assessment: Do you want to hurt yourself or someone else? Patient reports no desire to harm self or others. Onset of symptoms was July 21, 2021 at 22:00. 00:36 Method Of Arrival: Ambulatory tw5 00:36 Acuity: CORTEZ 3 tw5 Triage Assessment: 00:38 General: Appears uncomfortable, obese, Behavior is calm, cooperative, appropriate for tw5 age. Pain: Pain currently is 10 out of 10 on a pain scale. EENT:. GI: Reports nausea. 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 - Social history:: Smoking status: unknown. Screenin:36 Abuse screen: Denies threats or abuse. Nutritional screening: No deficits noted. ll3 Tuberculosis screening: No symptoms or risk factors identified. Fall Risk No fall in past 12 months (0 pts). No secondary diagnosis (0 pts). IV access (20 points). Ambulatory Aid- None/Bed Rest/Nurse Assist (0 pts). Gait- Normal/Bed Rest/Wheelchair (0 pts) Mental Status- Oriented to own ability (0 pts). Total Thomas Fall Scale indicates No Risk (0-24 pts). Assessment: 00:45 General: Appears uncomfortable, Behavior is calm, cooperative. Pain: Complains of pain ll3 in left lower quadrant and right lower quadrant Pain currently is 8 out of 10 on a pain scale. Pain began 1 day ago. Is continuous. Neuro: Level of Consciousness is awake, alert, obeys commands, Oriented to person, place, time, situation. Cardiovascular: Patient's skin is warm and dry. Respiratory: Respiratory effort is even, unlabored, Respiratory pattern is regular, symmetrical. GI: Abdomen is round non-distended, Stools are reported to be diarrhea. Bowel sounds present X 4 quads. Abd is soft X 4 quads Abdomen is tender to palpation in right lower quadrant and left lower quadrant Reports diarrhea, bloody stool, nausea. Derm: Skin is pink, warm \\T\\ dry. 02:00 Reassessment: No changes from previously documented assessment. Patient and/or family ll3 updated on plan of care and expected duration. Pain level reassessed. Patient is alert, oriented x 3, equal unlabored respirations, skin warm/dry/pink. 04:13 Reassessment: pt c/o pain to abdomen 11/24 pt medicated see JUN. bb 04:43 Reassessment: States pain is improved, 08/24. tw5 Vital Signs: 00:36 BP 119 / 87; Pulse 93; Resp 18; Temp 97(TE); Pulse Ox 100% ; Weight 138.35 kg; Height 5 tw5 ft. 8 in. (172.72 cm); Pain 01/24; 02:00 BP 110 / 75; Pulse 81; Resp 17; Pulse Ox 96% on R/A; ll3 03:00 BP 122 / 83; Pulse 83; Resp 16; Pulse Ox 100% ; tw5 04:14 BP 109 / 67; Pulse 86; Resp 18 S; Pulse Ox 97% on R/A; bb 00:36 Body Mass Index 46.37 (138.35 kg, 172.72 cm) tw5 ED Course: 00:20 Patient arrived in ED. ja2 00:38 Triage completed. tw5 00:38 Arm band placed on right wrist. tw5 00:40 Alessandro Singer MD is Attending Physician. frandy 02:13 Inserted saline lock: 20 gauge in left forearm, using aseptic technique. Blood oe collected. 02:21 Carolyn Sellers RN is Primary Nurse. ll3 02:36 Patient has correct armband on for positive identification. Bed in low position. Call ll3 light in reach. Side rails up X 1. 02:36 No provider procedures requiring assistance completed. ll3 03:47 CT Abd/Pelvis - IV Contrast Only In Process Unspecified. EDMS 04:30 Dangelo Serrano MD is Referral Physician. frandy 04:53 IV discontinued, intact, bleeding controlled, No redness/swelling at site. Pressure tw5 dressing applied. Administered Medications: 02:17 Drug: morphine 4 mg Route: IVP; Site: left forearm; ll3 04:38 Follow up: Response: No adverse reaction tw5 02:18 Drug: Zofran (Ondansetron) 4 mg Route: IVP; Site: left forearm; ll3 04:39 Follow up: Response: No adverse reaction tw5 02:19 Drug: Flagyl (metroNIDAZOLE) 500 mg Volume: 100 ml; Route: IVPB; Rate: 200 ml/hr; ll3 Infused Over: 30 mins; Site: left forearm; 04:40 Follow up: Response: No adverse reaction; IV Status: Completed infusion; IV Intake: tw5 100ml 02:20 Drug: NS 0.9% 1000 ml Route: IV; Rate: 1 bolus; Site: left forearm; ll3 02:30 Drug: Benadryl (diphenhydrAMINE) 25 mg Route: IVP; Site: left forearm; ll3 04:40 Follow up: Response: No adverse reaction; Marked relief of symptoms tw5 03:17 Drug: Zofran (Ondansetron) 4 mg Route: IVP; Site: left forearm; ll3 04:39 Follow up: Response: No adverse reaction tw5 03:19 Drug: Dilaudid (HYDROmorphone) 0.5 mg Route: IVP; Site: left forearm; ll3 04:40 Follow up: Response: No adverse reaction tw5 03:30 Drug: Cipro (ciprofloxacin) 400 mg Volume: 200 ml; Route: IVPB; Infused Over: 60 mins; tw5 Site: left forearm; 04:40 Follow up: Response: No adverse reaction; IV Status: Completed infusion; IV Intake: tw5 200ml 04:13 Drug: Dilaudid (HYDROmorphone) 0.5 mg {Note: RASS 0.} Route: IVP; Site: left forearm; bb 04:40 Follow up: Response: No adverse reaction tw5 04:38 Not Given (Duplicate Order): Benadryl (diphenhydrAMINE) 25 mg IVP once tw5 Intake: 04:40 IV: 100ml; Total: 100ml. tw5 04:40 IV: 200ml; Total: 300ml. tw5 Outcome: 04:31 Discharge ordered by MD. wise 04:53 Discharged to home ambulatory, with family. tw 04:53 Condition: stable 04:53 Discharge instructions given to patient, Instructed on discharge instructions, follow up and referral plans. medication usage, Demonstrated understanding of instructions, follow-up care, medications, Prescriptions given X 4. 04:53 Patient left the ED. tw5 Signatures: Dispatcher [employer] EDMS Alessandro Singer MD MD cha Ballard, Brenda, RN RN bb Jos Stein Jessica ja2 Wood, Tiffany tw5 Carolyn Sellers RN RN ll3 Corrections: (The following items were deleted from the chart) 04:13 04:13 Dilaudid (HYDROmorphone) 0.5 mg IVP in left forearm bb bb
--- NOTE | 2021-07-22 10:56 | RAD REPORT ---
EXAM DESCRIPTION: CT - Abdomen Pelvis W Contrast - 07/22/2021 6:40 am COMPARISON: CT abdomen pelvis June 24, 2021 CLINICAL HISTORY: Abdominal pain TECHNIQUE: Multiple helical axial images were obtained through the abdomen and pelvis using intraven ous contrast. Coronal and sagittal reformatted images were obtained. All CT scans at this facility use dose modulation, iterative reconstruction, and/or weight-based dosi ng when appropriate to reduce radiation dose to as low as reasonably achievable. FINDINGS: Lung bases: Appear unremarkable. Liver: There is low-attenuation suggesting fatty changes. Liver is large. Gallbladder/biliary: Gallbladder is surgically absent. There is trace pneumobilia. No significant laura iary ductal dilatation. Pancreas: Unremarkable. No evidence of ductal enlargement. Spleen: Appears unremarkable. No splenomegaly. Adrenals: Unremarkable. Kidneys and ureters: No evidence of hydronephrosis. Normal enhancement. Bladder: Unremarkable. Pelvic organs: Unremarkable. Bowel: There are postoperative changes of the small bowel. No evidence of bowel obstruction. No bow el wall thickening. Appendix appears unremarkable. Small amount of nonspecific omental stranding note d. Vasculature: Unremarkable. Peritoneum: No free air. No significant free fluid. Lymph nodes: Unremarkable. Soft tissues: There is a small fluid collection in the subcutaneous tissues at level of the umbilicus measuring approximately 3.7 cm x 2.8 cm with mild adjacent stranding. Bones: Unremarkable. IMPRESSION: 1. Small fluid collection in the subcutaneous tissues at level of the umbilicus which could represent a seroma or evolving hematoma, however of uncertain sterility; correlate clinically f or underlying infection. 2. Hepatomegaly and hepatic steatosis. Trace pneumobilia. 3. Small amount of omental stranding, underlying small omental infarct not excluded. Electronically signed by: Ko Granda MD 07/22/2021 4:17 AM CDT Due to temporary technical issues with the PACS/Fluency reporting system, reports are being signed by the in house radiologists without review as a courtesy to insure prompt reporting. The interpreting radiologist is fully responsible for the content of the report.
[2021-07-22 12:50] VITALS: TEMP 97
[2021-07-22 12:54] VITALS: BP 109/67; O2SAT 97
== END 2021-07-22 04:53 | disposition home or self-care (01) ==
LOC: ER 00:17
DX: K57.11 Diverticulosis of small intestine without perforation or abscess with bleeding (principal); E11.9 Type 2 diabetes mellitus without complications; I10 Essential (primary) hypertension; Z88.5 Allergy status to narcotic agent; Z88.6 Allergy status to analgesic agent
CPT/HCPCS: 96365; 93005; 85025; 36415; 81003; 83690; 80053; 74177; 96375; 99284; Q9967; J1200; J1170 ×2; J7030; J2405 ×2; J0744

== ENCOUNTER 2021-08-12 18:10 | Emergency (ER) | payer OTHER ==
--- OUTSIDE RECORDS SUMMARY | 2021-08-12 18:13 | XMS REPORT | Continuity of Care Document ---
:1980 Author Organization [facility] t Address [facility]3 Jaiden Morales [address] [place] [address] Care Team Providers Name Role Phone Pcp Primary Care Physician Unavailable DALTON Attending Clinician Unavailable Hutchinson Attending Clinician Unavailable MOVVA Attending Clinician Unavailable Zaria HOBBS Attending Clinician Doctor Unassigned, Name Attending Clinician Unavailable NEGRA BUCK Attending Clinician Unavailable DALTON Admitting Clinician Unavailable Hyde, H Admitting Clinician Unavailable Physician, Primary or Family Admitting Clinician Unavailabl e MOVVA Admitting Clinician Unavailable CITLALLI DE LA [...] Medical 00 Center Sepsis Sepsis Disease [facility] Febrile Febrile Disease Active [facility] illness illness [facility] Allergies, Adverse Reactions, Alerts Allergy Allergy Status Severity Reaction(s) Onset Inactive Treating Comm ents Source Name Type Date Date Clinician hernan DA Active [facility] zaprine 4[facility]14 [place] 00:[facility] d 00 [facility] morphine DA Active [facility] 4[facility]14 [place] 00:[facility]: d [facility] codeine DA Active [facility] 4[facility]14 [place] 00:[facility]: d 00 [facility] Naproxen Propensi Active [facility] - adverse 00:00: Medical reaction 00 Center s NAPROXEN Allergy Active [facility] NAPROXEN DA Active [facility] 2007[facility]0 [facility] 1-20 [place] 00:[facility]: d 00 [facility] No Known DA Active U 2007-0 [facility] Contrast 1-20 [place] Allergie 00:00: d s 00 [facility] No Known DA Active U 2007-0 [facility] Food 1-20 [place] Allergie 00:00: d s 00 [facility] No Known DA Active U 2007-0 [facility] Other 1-20 [place] Allergie 00:00: d s 00 [facility] ZOFRAN DA Active U 2007-0 [facility] 1-20 [place] 00:00: d 00 [facility] Center Social History Social Habit Start Date Stop Date Quantity Comments Source History [facility] - Alcohol Std Drinks Medica Center History [facility] - Alcohol Binge Medical Nakita ter Sex Assigned At [facility] Medical [place] Tobacco use and 2019-06-19 2019-06-19 Never used [facility] kes - exposure 00:00:00 00:00:00 [facility] Alcohol intake 2019-06-19 2019-06-19 [facility] non-drinker of Medical Ce nter alcohol (finding) History SDOH 2019-06-17 2019-06-17 [address] [facility] - Alcohol Frequency 00:00:00 00:00:00 Medical Center Smoking Status Start Date Stop Date Source [facility] Medications Ordered Filled Start Stop Current Ordering Indication Dosage Frequency Signature Comments Components Source Medication Medication Date Date Medication? Clinician (SIG) Name Name omeprazole 0 Yes 20mg QD Take [address] (PRILOSEC) 3-06 by mouth [facility] - 20 MG 16:51: daily. Medical capsule 06 Center liraglutide Yes Inject [facility] 0[facility]6 mg/0.1 306 subcutaneo Kim es - mL (18 mg/3 16:51: usly. Medic al mL) PnIj 06 Center ALPRAZolam Yes 1{tbl} Take [address] (XANAX) 2 2-25 tablet by [facility] - MG tablet 00:00: mouth Medical 00 every 8 Center (eight) hours as needed. zolpidem 2019-0 Yes 1{tbl} Take 1 [facility] (AMBIEN) 10 2-25 tablet by Kim es - mg tablet 00:00: mouth Medical 00 every Center night as needed. metoprolol 2019-0 Yes 1{tbl} QD Take [address] [...] Medica l Center cervix (procedure) [code = 337398521] Future Scheduled [address] [facility] - Test 00:00:00 (procedure) [code = Medical Center [id number]] Future Scheduled 1985-11-[address] [facility] - Test 00:00:00 0-64 YRS (1 of 1 - Medical C enter PPSV23) [code = PNEUMOCOCCAL VACCINE 0-64 YRS (1 of 1 - PPSV23)] Encounters Start End Encounter Admission Attending Care Care Encounter Source Date/Time Date/Time Type Type Clinicians Facility Department ID 2021-07-31 2021-08-02 Outpatient SHA, BL MED [id number] [facility]BL 02:54:00 17:30:00 SWAPNA 2021-07-29 2021-07-29 Emergency EM Hutchinson, HCAPM HCAPM [id number] [facility] 03:06:00 05:03:00 [facility] 2021-07-29 2021-07-29 Emergency EM Hutchinson, HCAPM [facility] [id number] [facility] 03:06:00 05:03:00 Jose [id number] [facility] 2021-06-29 2021-07-07 Inpatient E MOVVA, BL MED [id number] MHBL 19:32:00 18:04:00 REYES 2019-12-16 2019-12-16 Letter NICOLÁS Ken[place] [id number] 00:00:00 00:00:00 (Out) [place] [id number] [place] [id number] 2019-12-03 2019-12-03 Orders Doctor NICOLÁS [id number] 00:00:00 00:00:00 Only Unassigned, MICHELLE [id number] [place] [id number] [id number] 2019-06-17 2019-06-17 Emergency [facility] [id number] [facility] 09:01:00 09:01:00 [id number] Results Test Description Test Time Test Comments Results Result Comments Source COMPREHENSIVE METABOLIC PANEL 2021-07-29 04:18:00 Test Item Value Reference Range Interpretation Comme nts SODIUM (test code = NA) 137 mmol/L 134-147 N POTASSIUM (test code = K) 3.9 mmol/L 3.4-5.0 N CHLORIDE (test code = CL) 101 mmol/L 100-108 N CARBON DIOXIDE (test code = CO2) 26 mmol/L 21-32 N ANION GAP (test code = GAP) 10.0 GAP calc 4.0-15.0 N GLUCOSE (test code = GLU) 295 MG/DL 70-110 H BLOOD UREA NITROGEN (test code = BUN) 7 MG/DL 7-18 N GLOMERULAR FILTRATION RATE (test code = GFR) >=60 max estimate estG FR >60 CREATININE (test code = CREAT) 0.9 MG/DL 0.6-1.0 N TOTAL PROTEIN (test code = PROT) 8.3 G/DL 6.4-8.2 H ALBUMIN (test code = ALB) 4.0 G/DL 3.4-5.0 N GLOBULIN (test code = GLOB) 4.3 GM/dL ALBUMIN/GLOBULIN RATIO (test code = A/G) 0.9 RATIO 1.2-2.2 L CALCIUM (test code = CA) 9.4 MG/DL 8.5-10.1 N BILIRUBIN TOTAL (test code = BILT) 0.40 MG/DL 0.2-1.2 N SGOT/AST (test code = AST) 27 Unit/L 15-37 N SGPT/ALT (test code = ALT) 32 Unit/L 12-78 N ALKALINE PHOSPHATASE TOTAL (test code = ALKP) 56 Unit/L 45-117 N [id number] 04:18:00 Test Item Value Reference Range Interpretation Comments LIPASE (test code = LIP) 94 Unit/L 114-286 L CBC W/AUTO [id number] 03:56:00 Test Item Value Reference Range Interpretation Comments WHITE BLOOD CELL (test code = 8.3 K/mm3 3.5-11.0 N WBC) RED BLOOD CELL (test code = 4.80 M/mm3 4.70-6.10 N RBC) HEMOGLOBIN (test code = HGB) 14.6 G/DL 10.4-14.9 N HEMATOCRIT (test code = HCT) 43.5 % 31.5-44.1 N MEAN CELL VOLUME (test code = 90.6 Fl 84.5-98.6 N MCV) MEAN CELL HGB (test code = MCH) 30.4 pg 27.0-34.2 N MEAN CELL HGB CONCETRATION 33.6 G/DL 31.5-34.0 N (test code = MCHC) RED CELL DISTRIBUTION WIDTH 12.4 SD 11.5-14.5 N (test code = RDW) PLATELET COUNT (test code = 258 K/mm3 150-450 N PLT) MEAN PLATELET VOLUME (test code 10.30 fL 7.0-10.5 N = MPV) NEUTROPHIL % (test code = NT%) 42.7 % 40-76 N IMMATURE GRANULOCYTE % (test 0.1 % 0.0-5.0 N code = IG%) LYMPHOCYTE % (test code = LY%) 45.1 % 20.5-51.1 N MONOCYTE % (test code = MO%) 7.6 % 1.7-9.3 N EOSINOPHIL % (test code = EO%) 4.0 % 0.0-6.0 N BASOPHIL % (test code = BA%) 0.5 % 0.0-2.0 N NUCLEATED RBC % (test code = 0.0 /100WBC% 0.0-1.0 N NRBC%) NEUTROPHIL # (test code = NT#) 3.5 K/mm3 1.8-7.6 N IMMATURE GRANULOCYTE # (test 0.01 x10 3/uL 0.00-0.03 N code = IG#) LYMPHOCYTE # (test code = LY#) 3.7 K/mm3 0.6-3.2 H MONOCYTE # (test code = MO#) 0.6 K/mm3 0.3-1.1 N EOSINOPHIL # (test code = EO#) 0.3 K/mm3 0.0-0.4 N BASOPHIL # (test code = BA#) 0.0 K/mm3 0.0-0.1 N NUCLEATED RBC # (test code = 0.0 K/mm3 0.0-0.1 N NRBC#) MANUAL DIFF REQUIRED (test code NO DIFF/SCN CRITERIA = MDIFF) BLOOD [id number] 14:00:00 Test Item Value Reference Range Interpretation Comments CULTURE (BEAKER) (test No growth in 5 days code = 1095) BLOOD [id number] 14:00:00 Test Item Value Reference Range Interpretation Comments CULTURE (BEAKER) (test No growth in 5 days code = 1095) ANG, NON-TUNNELED CATH/PICC >5 Y.O. WITH [id number] 15:20:00Reason for exam:->terminal make up operator antibioticsFINAL REPORT PICC LINE PLACEMENT, UNDER FLUOROSCOPY [...] placed, through which a dual lumen 5 Macedonian PICC line trimmed to 43 cm length [...] MDReport Verified Date/Time: 06/21/2019 15:20:38 Reading Location: [facility] Radiology Reading Room POCT-GLUCOSE [id number] 12:29:00 Test Item Value Reference Range Interpretation Comments POC-GLUCOSE METER 140 mg/dL 70-110 H : TESTED A T [facility] 1317 (BEAKER) (test code [address], = 1538) [place] [address]: Carding Machine Operator/Techni estrellita ID = [id number] for Sloane u, Yasmin POCT-GLUCOSE [id number] 07:52:00 Test Item Value Reference Range Interpretation Comments POC-GLUCOSE METER 157 mg/dL 70-110 H : TESTED A T [facility] [address] (BEAKER) (test code [address], = 1538) [place] [id number]: Carding Machine Operator/Techni estrellita ID = [id number] for Sloane u, Yasmin BASIC METABOLIC [id number] 06:16:00 Test Item Value Reference Range Interpretation [...] S NOT APPLICABLE FOR DIALYSIS PATIEN TS. Carding Machine Operator ID - [id number] W/PLT COUNT & AUTO [id number] 05:55:00 Test Item Value Reference Range Interpretation [...] PERCENT (BEAKER) (test code = 2801) POCT-GLUCOSE [id number] 22:16:00 Test Item Value Reference Range Interpretation Comments POC-GLUCOSE METER 161 mg/dL 70-110 H : TESTED A T [facility] 1317 ([facility]) (test code [facility], = 1538) [place] [address]: Carding Machine Operator/Techni estrellita ID = [id number] for iliana Roche POCT-GLUCOSE [id number] 17:08:00 Test Item Value Reference Range Interpretation Comments POC-GLUCOSE METER 196 mg/dL 70-110 H : Notified RN/MD: TESTED ([facility]) (test code AT [facility] [address] = 1538) [place] [address]: Carding Machine Operator/Techni estrellita ID = [id number] for Thak er, Nikitaben POCT-GLUCOSE [id number] 12:11:00 Test Item Value Reference Range Interpretation Comments POC-GLUCOSE METER 162 mg/dL 70-110 H : Notified RN/MD: TESTED ([facility]) (test code AT [facility] [address] = 1538) [place] [address]: Carding Machine Operator/Techni estrellita ID = [id number] for Thak er, Nikitaben POCT-GLUCOSE [id number] 08:57:00 Test Item Value Reference Range Interpretation Comments POC-GLUCOSE METER 203 mg/dL 70-110 H : Notified RN/MD: TESTED ([facility]) (test code AT [facility] [address] = 1538) [address], [facility] [address]: Carding Machine Operator/Techni estrellita ID = [id number] for Adelaide Beasley BASIC METABOLIC [id number] 06:22:00 Test Item Value Reference Range Interpretation [...] S NOT APPLICABLE FOR DIALYSIS PATIEN TS. Carding Machine Operator ID - [id number] 21:15:00 Test Item Value Reference Range Interpretation Comments POC-GLUCOSE METER 132 mg/dL 70-110 H : TESTED A T [facility] (BEAKER) (test code [address] [facility] [address], = 1538) [facility] [address]: Carding Machine Operator/Techni estrellita ID = [id number] for Abril Shins CT, CHEST WITH IV CONTRAST- PE TEST [id number] 17:05:00FINAL REPORT History: Dyspnea. TECHNIQUE: Helical CT [...] Esparzaeport Verified Date/Time: 06/19/2019 17:05:27 Reading Location: [facility] Radiology Reading Room POCT-GLUCOSE METER 2019-06-19 16:56:00 Test Item Value Reference Range Interpretation Comments POC-GLUCOSE METER 147 mg/dL 70-110 H : TESTED A T [facility] 1317 (BEAKER) (test code [address], = 1538) [facility] [address]: Carding Machine Operator/Techni estrellita ID = [id number] for Charlene Funk BLOOD [id number] 09:46:00 Test Item Value Reference Range Interpretation [...] = bottles: gram 1123) negative rods BLOOD [id number] 09:45:00 Test Item Value Reference Range Interpretation [...] anaerobic 1123) bottles: gram negative rods POCT-GLUCOSE [id number] 07:53:00 Test Item Value Reference Range Interpretation Comments POC-GLUCOSE METER 131 mg/dL 70-110 H : TESTED A T [facility] (BEAKER) (test code [facility] [address], = 1538) [facility] [address]: Carding Machine Operator/Techni estrellita ID = [id number] for Butch trevon Charlene COMPREHENSIVE METABOLIC [id number] 06:08:00 Test Item Value Reference Range Interpretation [...] S NOT APPLICABLE FOR DIALYSIS PATIEN TS. Carding Machine Operator ID - [id number] W/PLT COUNT & AUTO [id number] 05:43:00 Test Item Value Reference Range Interpretation [...] PERCENT (BEAKER) (test code = 2801) POCT-GLUCOSE [id number] 21:12:00 Test Item Value Reference Range Interpretation Comments POC-GLUCOSE METER 195 mg/dL 70-110 H : TESTED A T [facility] (BEAKER) ([facility] 1538[facility] [place] [address]: Carding Machine Operator/Techni estrellita ID = [id number] for Sharyn Shin POCT-GLUCOSE [id number] 18:06:00 Test Item Value Reference Range Interpretation Comments POC-GLUCOSE METER 109 mg/dL 70-110 : TESTED A T [facility] (BEAKER) ([facility] = [facility]) [place] [address]38: Carding Machine Operator/Techni estrellita ID = [id number] for Charlene Funk TROPONIN [id number] 14:37:00 Test Item Value Reference Range Interpretation [...] failure, acidosis, acute neurological disease, and persistent tachyarrhythmia.Carding Machine Operator ID - [id number] [id number] 2019-06-18 11:28:00 Test Item Value Reference Range Interpretation Comments POC-GLUCOSE METER 135 mg/dL 70-110 H : TESTED A T [facility] [address] (BEAKER) (test code [address], = 1538) [place] [address]: Carding Machine Operator/Techni estrellita ID = [id number] for Butch h, Charlene POCT-GLUCOSE [id number] 07:54:00 Test Item Value Reference Range Interpretation Comments POC-GLUCOSE METER 243 mg/dL 70-110 H : TESTED A T [facility] [address] (BEAKER) (test code [address], = 1538) [place] [address]: Carding Machine Operator/Techni estrellita ID = [id number] for Butch h, Charlene BASIC METABOLIC [id number] 04:55:00 Test Item Value Reference Range Interpretation [...] APPLICABLE FOR DIALYSIS PATIEN TS. COMPREHENSIVE METABOLIC [id number] 04:54:00 Test Item Value Reference Range Interpretation [...] S NOT APPLICABLE FOR DIALYSIS PATIEN TS. Carding Machine Operator ID - [id number] 04:47:00 Test Item Value Reference Range Interpretation [...] heart valves.Final Information (Auto Output)Final Information (Auto Output)[id number] 04:47:00 Test Item Value Reference Range Interpretation Comments PARTIAL THROMBOPLASTIN TIME (BEAKER) 31.2 sec 23.0-35.0 (test code = 760) Final Information (Auto Output)CBC W/PLT COUNT & AUTO [id number] 04:34:00 Test Item Value Reference Range Interpretation [...] (BEAKER) (test code = 2801) LACTIC ACID, [id number] 04:23:00 Test Item Value Reference Range Interpretation Comments LACTATE BLOOD VENOUS 1.7 mmol/L 0.5-2.0 Specime n slightly (2) (BEAKER) (test hemolyzed code = 2872) Carding Machine Operator ID - [id number] 21:15:00 Test Item Value Reference Range Interpretation Comments POC-GLUCOSE METER 201 mg/dL 70-110 H : TESTED A T [facility] 1317 ([facility]) (test code [facility] NT [facility], = 1538) [place] [address]: Carding Machine Operator/Techni estrellita ID = [id number] for Sharyn Shin POCT-GLUCOSE [id number] 17:16:00 Test Item Value Reference Range Interpretation Comments POC-GLUCOSE METER 163 mg/dL 70-110 H : Notified RN/MD: TESTED ([facility]) (test code AT [facility] [address] = 1538) [place] [address]: Carding Machine Operator/Techni estrellita ID = [id number] for Thak er, Nikitaben POCT-GLUCOSE [id number] 13:42:00 Test Item Value Reference Range Interpretation Comments POC-GLUCOSE METER 224 mg/dL 70-110 H : Notified RN/MD: TESTED ([facility]) (test code AT [facility] [address] = 1538) [place] [address]: Carding Machine Operator/Techni estrellita ID = [id number] for Thak er, Nikitaben LACTIC ACID, [id number] 13:12:00 Test Item Value Reference Range Interpretation Comments LACTATE BLOOD VENOUS (2) (BEAKER) 8.8 mmol/L 0.5-2.0 HH (test code = 2872) Carding Machine Operator ID - [id number], [id number] 10:42:00Reason for exam:- >epigastric pain left flank [...] Suggest clinical correlation. Signed: Reagan De Dios [facility] Verified Date/Time: 06/17/2019 10:42:41 Reading Location: [facility] Diagnostic Imaging Reading Room - [place] [address] RAD, CHEST, 1 VIEW, NON [id number] 10:26:00Reason for exam:->CHILLSReason for exam:- >FEVERReason for [...] MDReport Verified Date/Time: 06/17/2019 10:26:56 Reading Location: [facility] Radiology ReadingRoom RAPID INFLUENZA A&B [id number] 10:22:00 Test Item Value Reference Range Interpretation Comments RAPID INFLUENZA A AG (BEAKER) Negative Negative, Inconclusive (test code = 1622) RAPID INFLUENZA B AG (BEAKER) Negative Negative, Inconclusive (test code = 1623) LACTIC ACID, [id number] 10:20:00 Test Item Value Reference Range Interpretation Comments LACTATE BLOOD VENOUS 2.7 mmol/L 0.5-2.0 HH Specime n slightly (2) (BEAKER) (test hemolyzed code = 2874) Carding Machine Operator ID - [id number] METABOLIC [id number] 10:20:00 Test Item Value Reference Range Interpretation [...] S NOT APPLICABLE FOR DIALYSIS PATIEN TS. Carding Machine Operator ID - [id number] 10:12:00 Test Item Value Reference Range Interpretation Comments PARTIAL THROMBOPLASTIN TIME (BEAKER) 22.4 sec 23.0-35.0 L (test code = 760) Final Information (Auto Output)PROTHROMBIN [id number] 10:11:00 Test Item Value Reference Range Interpretation [...] Information (Auto Output)Final Information (Auto Output)URINALYSIS W/ [id number] 10:10:00 Test Item Value Reference Range Interpretation [...] (test code = 2795) RAPID STREP A [id number] 10:09:00 Test Item Value Reference Range Interpretation Comments STREP A ANTIGEN (BEAKER) (test code Negative = 556) SCREEN, [id number] 10:06:00 Test Item Value Reference Range Interpretation Comments TEST URINE (BEAKER) (test Negative code = 583) CBC W/PLT COUNT & AUTO [id number] 09:58:00 Test Item Value Reference Range Interpretation [...] % 0-0 PERCENT (BEAKER) (test code = 7388)
[2021-08-12] MEDS ORDERED: LIDOCAINE 1% MPF 30 ML VIAL ONE (19:33)
[2021-08-12] MEDS ORDERED: SMZ./TMP. 800/160 MG TABLET ONE (20:58)
[2021-08-12] MEDS ORDERED: HYDROCODONE/APAP 10/325 TAB ONE (20:58)
--- NOTE | 2021-08-12 21:05 | EDPHYS ---
Physician Documentation [facility] Name: Silvina Cohen Age: 40 yrs Sex: Female : 1980 Arrival Date: 08/12/2021 Time: 18:12 Bed 4 Private MD: ED Physician Reny Salazar HPI: 08/12 20:07 This 40 yrs old Black Female presents to ER via Ambulatory with complaints of Abscess, jr8 Chest Pain. 20:07 The patient presents with an abscess of the left inner thigh. Onset: The jr8 symptoms/episode began/occurred gradually. Possible cause(s): unknown. Associated signs and symptoms: Pertinent positives: chills. Severity of symptoms: At their worst the symptoms were moderate, in the emergency department the symptoms are unchanged. The patient has not experienced similar symptoms in the past. The patient has not recently seen a physician. Patient stated that she has been trying to treat possible abscessed area to left inner thigh for a few days at home. Stated that she started to have chills today and is generally not feeling well. Also experienced chest tightness today from being worked up about abscess . STAFF REPORTER: 18:24 LMP N/A - Hysterectomy ld1 Historical: - Allergies: 18:24 Codeine; ld1 18:24 Flexeril; ld1 18:24 Naproxen; ld1 - PMHx: 18:24 Anxiety; HYPERGLYCEMIA; Diabetes - NIDDM; Back pain; Hypertension; ld1 - PSHx: 18:24 Cholecystectomy; hernia repair; Total abdominal hysterectomy; ld1 - Immunization history:: Adult Immunizations up to date, Client reports having NOT received the Covid vaccine. - Social history:: Smoking status: Patient denies any tobacco usage or history of. Patient uses alcohol, occasionally. ROS: 20:11 Eyes: Negative for injury, pain, redness, and discharge, ENT: Negative for injury, jr8 pain, and discharge, Neck: Negative for injury, pain, and swelling, Respiratory: Negative for shortness of breath, cough, wheezing, and pleuritic chest pain, Abdomen/GI: Negative for abdominal pain, nausea, vomiting, diarrhea, and constipation, Back: Negative for injury and pain, MS/Extremity: Negative for injury and deformity, Neuro: Negative for headache, weakness, numbness, tingling, and seizure. 20:11 Cardiovascular: Positive for chest pain, Negative for edema, orthopnea, palpitations, paroxysmal nocturnal dyspnea. 20:11 Skin: Positive for abscess. Exam: 20:11 Constitutional: This is a well developed, well nourished patient who is awake, alert, jr8 and in no acute distress. Neck: Trachea midline, no thyromegaly or masses palpated, and no cervical lymphadenopathy. Supple, full range of motion without nuchal rigidity, or vertebral point tenderness. No Meningismus. Chest/axilla: Normal chest wall appearance and motion. Nontender with no deformity. No lesions are appreciated. Cardiovascular: Regular rate and rhythm with a normal S1 and S2. No gallops, murmurs, or rubs. Normal PMI, no JVD. No pulse deficits. Respiratory: Lungs have equal breath sounds bilaterally, clear to auscultation and percussion. No rales, rhonchi or wheezes noted. No increased work of breathing, no retractions or nasal flaring. Abdomen/GI: Soft, non-tender, with normal bowel sounds. No distension or tympany. No guarding or rebound. No evidence of tenderness throughout. Back: No spinal tenderness. No costovertebral tenderness. Full range of motion. MS/ Extremity: Pulses equal, no cyanosis. Neurovascular intact. Full, normal range of motion. Neuro: Awake and alert, GCS 15, oriented to person, place, time, and situation. Cranial nerves II-XII grossly intact. Motor strength 5/5 in all extremities. Sensory grossly intact. 20:11 Skin: abscess, that is moderate sized, approximately 3 cm(s), of the left inner thigh nearing gluteal cleft, with fluctuance, that is moderate, with induration. Vital Signs: 18:22 BP 165 / 112; Pulse 109; Resp 18; Temp 98.8(TE); Pulse Ox 98% on R/A; Weight 136.98 kg; ld1 Height 5 ft. 8 in. (172.72 cm); Pain 9/10; 21:03 BP 132 / 91; Pulse 107; Resp 18; Pulse Ox 98% on R/A; vc1 21:30 BP 135 / 81; Pulse 100; Resp 18; Pulse Ox 98% on R/A; vc1 18:22 Body Mass Index 45.92 (136.98 kg, 172.72 cm) ld1 Procedures: 21:02 I \T\ D: Incision and drainage was performed for an abscess of the left inner thigh jr8 Prepped with Betadine, Anesthetized with 8 ml's 1% Lidocaine. Incised with #11 blade. Drained moderate amount purulent fluid. bloody fluid. Loculations removed. Abscess cavity explored. Packed with sterile gauze, Dressing: sterile 4x4 gauze, the patient tolerated the procedure well. MDM: 18:35 Patient medically screened. jr8 21:02 Data reviewed: vital signs, nurses notes, and as a result, I will discharge patient. jr8 Data interpreted: Pulse oximetry: on room air is 98 %. Interpretation: normal. Counseling: I had a detailed discussion with the patient and/or guardian regarding: the historical points, exam findings, and any diagnostic results supporting the discharge/admit diagnosis, the need for outpatient follow up, a family practitioner, to return to the emergency department if symptoms worsen or persist or if there are any questions or concerns that arise at home. 08/12 19:21 Order name: I\T\D Setup; Complete Time: 19:32 jr8 08/12 20:11 Order name: EKG - Nurse/Tech; Complete Time: 21:03 jr8 Administered Medications: 20:53 Drug: Lidocaine (1 %) 1 vials Volume: 20 ml; Route: Infiltration; vc1 21:03 Drug: Bactrim (trimethoprim-sulfamethoxazole) (160 mg-800 mg (DS) 1 tablet Route: PO; vc1 21:35 Follow up: Response: No adverse reaction; Pain is decreased vc1 21:03 Drug: [place] (HYDROcodone-acetaminophen) 10 mg-325 mg 1 tabs Route: PO; vc1 21:30 Follow up: BP 135 / 81; Pulse 100 bpm; Resp 18 bpm; Pulse Ox 98% RA vc1 21:35 Follow up: Response: No adverse reaction; Pain is decreased vc1 Disposition Summary: 08/12/21 21:03 Discharge Ordered Location: Home jr8 Problem: new jr8 Symptoms: have improved jr8 Condition: Stable jr8 Diagnosis - Cutaneous abscess of limb jr8 Followup: jr8 - With: Private Physician - When: 48 Hours - Reason: Wound Recheck, Recheck today's complaints, Re-evaluation by your physician Discharge Instructions: - Discharge Summary Sheet jr8 - Skin Abscess jr8 Forms: - Medication Reconciliation Form jr8 - Thank You Letter jr8 - Antibiotic Education jr8 - Prescription Opioid Use jr8 Prescriptions: - Bactrim DS 800-160 mg Oral Tablet - take 1 tablet by ORAL route every 12 hours for 7 days; 14 tablet; Refills: 0, jr8 Product Selection Permitted Signatures: Erik Chopra PA PA jr8 Lizbeth Almaraz RN RN ld1 Kiarra Dickson RN RN vc1
--- NOTE | 2021-08-12 21:05 | ER ---
Nurse's Notes [facility] Name: Silvina Cohen Age: 40 yrs Sex: Female : 1980 Arrival Date: 08/12/2021 Time: 18:12 Bed 4 Private MD: Diagnosis: Cutaneous abscess of limb Presentation: 08/12 18:22 Chief complaint: Patient states: C/O abscess in groin. Pt states "no matter how much I ld1 soak it in medicine it doesn't go away." Stated, it made me start feeling sick and feeling like I was having chills and chest pain. Coronavirus screen: At this time, the client does not indicate any symptoms associated with coronavirus-19. Ebola Screen: No symptoms or risks identified at this time. Initial Sepsis Screen: Does the patient meet any 2 criteria? No. Patient's initial sepsis screen is negative. Does the patient have a suspected source of infection? No. Patient's initial sepsis screen is negative. Risk Assessment: Do you want to hurt yourself or someone else? Patient reports no desire to harm self or others. Onset of symptoms was August 12, 2021. 18:22 Method Of Arrival: Ambulatory ld1 18:22 Acuity: CORTEZ 3 ld1 Triage Assessment: 18:24 General: Appears in no apparent distress. comfortable, Behavior is calm, cooperative, ld1 appropriate for age. Pain: Complains of pain in left femoral area. EENT: No signs and/or symptoms were reported regarding the EENT system. Neuro: Level of Consciousness is awake, alert, obeys commands, Oriented to person, place, time, situation. Cardiovascular: Capillary refill < 3 seconds Patient's skin is warm and dry. Rhythm is sinus tachycardia. Respiratory: Airway is patent Respiratory effort is even, unlabored, Respiratory pattern is regular, symmetrical. Derm: No signs and/or symptoms reported regarding the dermatologic system. Derm: Abscess located on left femoral area. 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 - Social history:: Smoking status: Patient denies any tobacco usage or history of. Patient uses alcohol, occasionally. Screenin:31 Abuse screen: Denies threats or abuse. Nutritional screening: No deficits noted. vc1 Tuberculosis screening: No symptoms or risk factors identified. Fall Risk None identified. Assessment: 19:30 Pain: Complains of pain in left femoral area Pain does not radiate. Pain currently is vc1 10 out of 10 on a pain scale. Pain began gradually. 19:30 General: Appears in no apparent distress. comfortable. Cardiovascular: Denies chest vc1 pain. Respiratory: Airway is patent Respiratory effort is even, unlabored, Respiratory pattern is regular, symmetrical. 20:30 Reassessment: Patient and/or family updated on plan of care and expected duration. Pain vc1 level reassessed. Patient is alert, oriented x 3, equal unlabored respirations, skin warm/dry/pink. 21:30 Reassessment: Patient and/or family updated on plan of care and expected duration. Pain vc1 level reassessed. Patient is alert, oriented x 3, equal unlabored respirations, skin warm/dry/pink. Patient states feeling better. Patient states symptoms have improved. Vital Signs: 18:22 BP 165 / 112; Pulse 109; Resp 18; Temp 98.8(TE); Pulse Ox 98% on R/A; Weight 136.98 kg; ld1 Height 5 ft. 8 in. (172.72 cm); Pain 9/10; 21:03 BP 132 / 91; Pulse 107; Resp 18; Pulse Ox 98% on R/A; vc1 21:30 BP 135 / 81; Pulse 100; Resp 18; Pulse Ox 98% on R/A; vc1 18:22 Body Mass Index 45.92 (136.98 kg, 172.72 cm) ld1 ED Course: 18:12 Patient arrived in ED. rg4 18:24 Triage completed. ld1 18:24 Arm band placed on right wrist. EKG completed in triage. Results shown to MD. ld1 18:32 Alize Mario, ELLYN is Primary Nurse. crespo 18:35 Erik Chopra PA is PHCP. jr8 18:35 Reny Salazar MD is Attending Physician. jr8 19:30 Pulse ox on. NIBP on. vc1 19:30 Patient has correct armband on for positive identification. Placed in gown. Bed in low vc1 position. 19:30 Patient maintains SpO2 saturation greater than 95% on room air. vc1 20:00 Assist provider with I \\T\\ D: of an abscess on left innner thigh Set up I\\T\\D tray. vc 1 Performed by Erik BENNETT Wound packed. iodoform gauze, Dressing with 4X4s, tape Patient tolerated well. 21:32 Patient did not have IV access during this emergency room visit. vc1 Administered Medications: 20:53 Drug: Lidocaine (1 %) 1 vials Volume: 20 ml; Route: Infiltration; vc1 21:03 Drug: Bactrim (trimethoprim-sulfamethoxazole) (160 mg-800 mg (DS) 1 tablet Route: PO; vc1 21:35 Follow up: Response: No adverse reaction; Pain is decreased vc1 21:03 Drug: [place] (HYDROcodone-acetaminophen) 10 mg-325 mg 1 tabs Route: PO; vc1 21:30 Follow up: BP 135 / 81; Pulse 100 bpm; Resp 18 bpm; Pulse Ox 98% RA vc1 21:35 Follow up: Response: No adverse reaction; Pain is decreased vc1 Outcome: 21:03 Discharge ordered by . jr8 21:32 Discharged to home ambulatory, with significant other. vc1 21:32 Condition: good 21:32 Discharge instructions given to patient, significant other, Instructed on discharge instructions, follow up and referral plans. medication usage, wound care, Demonstrated understanding of instructions, follow-up care, medications, Prescriptions given X 1. 21:34 Patient left the ED. vc1 Signatures: Erik Chopra PA PA jr8 Lorena Castro rg4 Lizbeth Almaraz RN RN ld1 Alize Mario RN RN ha Calcote, Vanessa, RN RN vc1
[2021-08-12 23:39] VITALS: TEMP 98.8; O2SAT 98
[2021-08-12 23:41] VITALS: BP 132/91
--- NOTE | 2021-08-13 07:44 | EKG ---
Test Date: 2021-08-12 Test Time: 18:16:38 Director Of Nursing: YAIR MEASUREMENT RESULTS: Intervals: Rate: 107 LA: 150 QRSD: 70 QT: 340 QTc: 453 [place]: P: 53 LA: 150 QRS: 106 T: 1 INTERPRETIVE STATEMENTS: Sinus tachycardia Rightward axis Cannot rule out Anterior infarct, age undetermined Abnormal ECG Compared to ECG 07/22/2021 01:45:41 Right-axis deviation now present Myocardial infarct finding now present Sinus rhythm no longer present T-wave abnormality no longer present Prolonged QT interval no longer present Electronically Signed On 08-13-21 07:42:18 CDT by Kt Ernst
== END 2021-08-12 21:34 | disposition home or self-care (01) ==
LOC: ER 18:10
PROC: 0H9JXZZ Drainage of Left Upper Leg Skin, External Approach (ICD-10-PCS; principal; 2021-08-12)
DX: L02.416 Cutaneous abscess of left lower limb (principal); R07.9 Chest pain, unspecified; E11.9 Type 2 diabetes mellitus without complications; I10 Essential (primary) hypertension; Z88.5 Allergy status to narcotic agent; Z88.6 Allergy status to analgesic agent
CPT/HCPCS: 93005; 99285

== ENCOUNTER 2021-08-13 19:05 | Emergency (ER) | payer OTHER ==
--- OUTSIDE RECORDS SUMMARY | 2021-08-13 19:08 | XMS REPORT | Continuity of Care Document ---
:1980 Author Organization [facility] t Address [facility] [place] [address] Care Team Providers Name Role Phone Pcp [...] Medical 00 Center Febrile Febrile Disease Active 2019[facility] NAPROXEN DA Active U 2007- [facility] 1-20 [place] 00:00: d 00 [facility] No Known DA Active U 2007-0 [facility] Contrast 1-20 [place] Allergie 00:00: d s 00 [facility] No Known DA Active U 2007-0 [facility] Food 1-20 [place] Allergie 00:00: d s 00 [facility] No Known DA Active U 2007-0 [facility] Other 1-20 [place] Allergie 00:00: d s 00 [facility] ZOFRAN DA Active U 2007-0 [facility] 1-20 [place] 00:[facility]: d 00 [facility] Social History Social Habit Start Date Stop Date Quantity Comments Source History [facility] - Alcohol Std Drinks [facility] History [facility] Binge Medical [address] ter Sex Assigned At [facility] [place] Tobacco use and 2019-06-19 2019-06-19 Never used [facility] kes - exposure 00:00:00 00:00:00 [facility] Alcohol intake 2019-06-19 2019-06-19 [facility]:00:00 non-drinker of Medical Ce nter alcohol (finding) History SDOH 2019-06-17 2019-06-[address] [facility] - Alcohol Frequency 00:00:00 00:00:00 [facility] Smoking Status Start Date Stop Date Source Never smoker [facility] Medications Ordered Filled Start Stop Current Ordering Indication Dosage Frequency Signature Comments Components Source Medication Medication Date Date Medication? Clinician (SIG) Name Name omeprazole Yes 20mg QD Take [address] (PRILOSEC) 3-06 by [facility] - 20 MG 16:51: daily. Medical capsule 06 Center liraglutide Yes Inject [facility] 0.6 mg/0.1 06 subcutaneo Kim es - mL (18 mg/3 [...] Medica l Center cervix (procedure) [code = 378239505] Future Scheduled [address] [facility] - Test 00:00:00 (procedure) [code = Medical Center [id number]] Future Scheduled 1985-11-[address] [facility] - Test 00:00:00 0-64 YRS (1 of 1 - Medical C enter PPSV23) [code = PNEUMOCOCCAL VACCINE 0-64 YRS (1 of 1 - PPSV23)] Encounters Start End Encounter Admission Attending Care Care Encounter Source Date/Time Date/Time Type Type Clinicians Facility Department ID 2021-07-31 2021-08-02 Outpatient DALTON, BL MED [id number] MHBL 02:54:00 17:30:00 SWAPNA 2021-07-29 2021-07-29 Emergency EM Hutchinson, HCAPM HCAPM [id number] [facility] 03:06:00 05:03:00 Jose Hamilton [facility] 2021-07-29 2021-07-29 Emergency EM Hutchinson, HCAPM [facility] [id number] [facility] 03:06:00 05:03:00 Jose [id number] [facility] 2021-06-29 2021-07-07 Inpatient E MOVVA, BL MED [id number] MHBL 19:32:00 18:04:00 REYES 2019-12-16 2019-12-16 Letter NICOLÁS [place] [id number] 00:00:00 00:00:00 (Out) [place] BOURGEOISY [id number] [place] [id number] 2019-12-03 2019-12-03 Orders Doctor NICOLÁS [id number] 00:00:00 00:00:00 Only Unassigned, MICHELLE [id number] [place] [id number] 2019-06-17 2019-06-17 Emergency [facility] [id number] [facility] 09:01:00 09:01:00 [id number] Results Test Description Test Time Test Comments [...] code = ALKP) 56 Unit/L 45-117 N [id number] 04:18:00 Test Item Value Reference Range Interpretation Comments LIPASE (test code = LIP) 94 Unit/L 114-286 L CBC W/AUTO [id number] 03:56:00 Test Item Value Reference Range Interpretation [...] code NO DIFF/SCN CRITERIA = MDIFF) BLOOD [id number] 14:00:00 Test Item Value Reference Range Interpretation Comments CULTURE (BEAKER) (test No growth in 5 days code = 1095) BLOOD [id number] 14:00:00 Test Item Value Reference Range Interpretation Comments CULTURE (BEAKER) (test No growth in 5 days code = 1095) ANG, NON-TUNNELED CATH/PICC >5 Y.O. WITH [id number] 15:20:00Reason for exam:->termite control technician antibioticsFINAL REPORT PICC LINE PLACEMENT, UNDER FLUOROSCOPY [...] placed, through which a dual lumen 5 [facility] PICC line trimmed to 43 cm length [...] MDReport Verified Date/Time: 06/21/2019 15:20:38 Reading Location: [facility] Radiology Reading Room POCT-GLUCOSE [id number] 12:29:00 Test Item Value Reference Range Interpretation Comments POC-GLUCOSE METER 140 mg/dL 70-110 H : TESTED A T [facility] 1317 (BEAKER) (test code [address], = 1538) [place] [address]: Decontaminator/Techni estrellita ID = [id number] for Sloane u, Yasmin POCT-GLUCOSE [id number] 07:52:00 Test Item Value Reference Range Interpretation Comments POC-GLUCOSE METER 157 mg/dL 70-110 H : TESTED A T [facility] [address] (BEAKER) (test code [address], = 1538) [place] [address]: Decontaminator/Techni estrellita ID = [id number] for Sloane u, Yasmin BASIC METABOLIC [id number] 06:16:00 Test Item Value Reference Range Interpretation [...] S NOT APPLICABLE FOR DIALYSIS PATIEN TS. Decontaminator ID - [id number] W/PLT COUNT & AUTO [id number] 05:55:00 Test Item Value Reference Range Interpretation [...] PERCENT (BEAKER) (test code = 2801) POCT-GLUCOSE [id number] 22:16:00 Test Item Value Reference Range Interpretation Comments POC-GLUCOSE METER 161 mg/dL 70-110 H : TESTED A T [facility] 1317 ([facility]) (test code [facility], = 1538) [place] [address]: Decontaminator/Techni estrellita ID = [id number] for iliana Roche POCT-GLUCOSE [id number] 17:08:00 Test Item Value Reference Range Interpretation Comments POC-GLUCOSE METER 196 mg/dL 70-110 H : Notified RN/MD: TESTED ([facility]) (test code AT [facility] [address] = 1538) [place] [address]: Decontaminator/Techni estrellita ID = [id number] for Thak er, Nikitaben POCT-GLUCOSE [id number] 12:11:00 Test Item Value Reference Range Interpretation Comments POC-GLUCOSE METER 162 mg/dL 70-110 H : Notified RN/MD: TESTED ([facility]) (test code AT [facility] [address] = 1538) [place] [address]: Decontaminator/Techni estrellita ID = [id number] for Thak er, Nikitaben POCT-GLUCOSE [id number] 08:57:00 Test Item Value Reference Range Interpretation Comments POC-GLUCOSE METER 203 mg/dL 70-110 H : Notified RN/MD: TESTED ([facility]) (test code AT [facility] [address] = 1538) [address], [facility] [address]: Decontaminator/Techni estrellita ID = [id number] for Adelaide Beasley BASIC METABOLIC [id number] 06:22:00 Test Item Value Reference Range Interpretation [...] S NOT APPLICABLE FOR DIALYSIS PATIEN TS. Decontaminator ID - [id number] 21:15:00 Test Item Value Reference Range Interpretation Comments POC-GLUCOSE METER 132 mg/dL 70-110 H : TESTED A T [facility] [address] (BEAKER) (test code [address] [facility] [address], = 1538) [facility] [address]: Decontaminator/Techni estrellita ID = [id number] for Will ia, Sharyn CT, CHEST WITH IV CONTRAST- PE TEST [id number] 17:05:00FINAL REPORT History: Dyspnea. TECHNIQUE: Helical CT [...] due to suboptimal contrast bolus. Signed: Nicolás Esparzaort Verified Date/Time: 06/19/2019 17:05:27 Reading Location: [facility] Radiology Reading Room POCT-GLUCOSE METER 2019-06-19 16:56:00 Test Item Value Reference Range Interpretation Comments POC-GLUCOSE METER 147 mg/dL 70-110 H : TESTED A T [facility] [address]17 (BEAKER) (test code [address], = 1538) [facility] [address]: Decontaminator/Techni estrellita ID = [id number] for Charlene Funk BLOOD [id number] 09:46:00 Test Item Value Reference Range Interpretation [...] = bottles: gram 1123) negative rods BLOOD [id number] 09:45:00 Test Item Value Reference Range Interpretation [...] anaerobic 1123) bottles: gram negative rods POCT-GLUCOSE [id number] 07:53:00 Test Item Value Reference Range Interpretation Comments POC-GLUCOSE METER 131 mg/dL 70-110 H : TESTED A T [facility] (BEAKER) (test code [facility] [address], = 1538) [facility] [address]: Decontaminator/Techni estrellita ID = [id number] for Charlene Funk COMPREHENSIVE METABOLIC [id number] 06:08:00 Test Item Value Reference Range Interpretation [...] S NOT APPLICABLE FOR DIALYSIS PATIEN TS. Decontaminator ID - [id number] W/PLT COUNT & AUTO [id number] 05:43:00 Test Item Value Reference Range Interpretation [...] PERCENT (BEAKER) (test code = 2801) POCT-GLUCOSE [id number] 21:12:00 Test Item Value Reference Range Interpretation Comments POC-GLUCOSE METER 195 mg/dL 70-110 H : TESTED A T [facility] (BEAKER) (test code [facility] [address], = 1538) [place] [address]: Decontaminator/Techni estrellita ID = [id number] for Sharyn Shin POCT-GLUCOSE [id number] 18:06:00 Test Item Value Reference Range Interpretation Comments POC-GLUCOSE METER 109 mg/dL 70-110 : TESTED A T [facility] (BEAKER) ([facility] [address] [facility], = [address]38) [place] [address]: Decontaminator/Techni estrellita ID = [id number] for Charlene Funk TROPONIN [id number] 14:37:00 Test Item Value Reference Range Interpretation [...] failure, acidosis, acute neurological disease, and persistent tachyarrhythmia.Decontaminator ID - [id number] [id number] 2019-06-18 11:28:00 Test Item Value Reference Range Interpretation Comments POC-GLUCOSE METER 135 mg/dL 70-110 H : TESTED A T [facility] [address] (BEAKER) (test code [address], = 1538) [place] [address]: Decontaminator/Techni estrellita ID = [id number] for Butch h, Charlene POCT-GLUCOSE [id number] 07:54:00 Test Item Value Reference Range Interpretation Comments POC-GLUCOSE METER 243 mg/dL 70-110 H : TESTED A T [facility] [address] (BEAKER) (test code [address], = 1538) [place] [address]: Decontaminator/Techni estrellita ID = [id number] for Butch h, Charlene BASIC METABOLIC [id number] 04:55:00 Test Item Value Reference Range Interpretation [...] APPLICABLE FOR DIALYSIS PATIEN TS. COMPREHENSIVE METABOLIC [id number] 04:54:00 Test Item Value Reference Range Interpretation [...] S NOT APPLICABLE FOR DIALYSIS PATIEN TS. Decontaminator ID - [id number] 04:47:00 Test Item Value Reference Range Interpretation [...] heart valves.Final Information (Auto Output)Final Information (Auto Output)[id number] 04:47:00 Test Item Value Reference Range Interpretation Comments PARTIAL THROMBOPLASTIN TIME (BEAKER) 31.2 sec 23.0-35.0 (test code = 760) Final Information (Auto Output)CBC W/PLT COUNT & AUTO [id number] 04:34:00 Test Item Value Reference Range Interpretation [...] (test code = 416) BASOPHILS ABSOLUTE COUNT (AKER) 0.03 K/ L 0.00-0.20 (test code = 417) IMMATURE GRANULOCYTES-RELATIVE 1 % 0-0 H PERCENT (AKER) (test code = 2801) LACTIC ACID, [id number] 04:23:00 Test Item Value Reference Range Interpretation Comments LACTATE BLOOD VENOUS 1.7 mmol/L 0.5-2.0 Specime n slightly (2) (BEAKER) (test hemolyzed code = 2872) Decontaminator ID - [id number] 21:15:00 Test Item Value Reference Range Interpretation Comments POC-GLUCOSE METER 201 mg/dL 70-110 H : TESTED A T [facility] 1317 ([facility]) (test code [facility] NT [facility], = 1538) [place] [address]: Decontaminator/Techni estrellita ID = [id number] for Sharyn Shin POCT-GLUCOSE [id number] 17:16:00 Test Item Value Reference Range Interpretation Comments POC-GLUCOSE METER 163 mg/dL 70-110 H : Notified RN/MD: TESTED ([facility]) (test code AT [facility] [address] = 1538) [place] [address]: Decontaminator/Techni estrellita ID = [id number] for Thak er, Nikitaben POCT-GLUCOSE [id number] 13:42:00 Test Item Value Reference Range Interpretation Comments POC-GLUCOSE METER 224 mg/dL 70-110 H : Notified RN/MD: TESTED ([facility]) (test code AT [facility] [address] = 1538) [place] [address]: Decontaminator/Techni estrellita ID = [id number] for Thak er, Nikitaben LACTIC ACID, [id number] 13:12:00 Test Item Value Reference Range Interpretation Comments LACTATE BLOOD VENOUS (2) (AKER) 8.8 mmol/L 0.5-2.0 HH (test code = 2872) Decontaminator ID - [id number], [id number] 10:42:00Reason for exam:- >epigastric pain left flank [...] MDReport Verified Date/Time: 06/17/2019 10:42:41 Reading Location: [facility] Diagnostic Imaging Reading Room - [place] [address] RAD, CHEST, 1 VIEW, NON [id number] 10:26:00Reason for exam:->CHILLSReason for exam:- >FEVERReason for [...] MDReport Verified Date/Time: 06/17/2019 10:26:56 Reading Location: [facility] Radiology ReadingRoom RAPID INFLUENZA A&B [id number] 10:22:00 Test Item Value Reference Range Interpretation Comments RAPID INFLUENZA A AG (BEAKER) Negative Negative, Inconclusive (test code = 1622) RAPID INFLUENZA B AG (BEAKER) Negative Negative, Inconclusive (test code = 1623) LACTIC ACID, [id number] 10:20:00 Test Item Value Reference Range Interpretation Comments LACTATE BLOOD VENOUS 2.7 mmol/L 0.5-2.0 HH Specime n slightly (2) (BEAKER) (test hemolyzed code = 2874) Decontaminator ID - [id number] METABOLIC [id number] 10:20:00 Test Item Value Reference Range Interpretation [...] S NOT APPLICABLE FOR DIALYSIS PATIEN TS. Decontaminator ID - [id number] 10:12:00 Test Item Value Reference Range Interpretation Comments PARTIAL THROMBOPLASTIN TIME (BEAKER) 22.4 sec 23.0-35.0 L (test code = 760) Final Information (Auto Output)PROTHROMBIN [id number] 10:11:00 Test Item Value Reference Range Interpretation [...] Information (Auto Output)Final Information (Auto Output)URINALYSIS [id number]/ [id number] 10:10:00 Test Item Value Reference Range Interpretation [...] (test code = 2795) RAPID STREP A [id number] 10:09:00 Test Item Value Reference Range Interpretation Comments STREP A ANTIGEN (BEAKER) (test code Negative = 556) SCREEN, [id number] 10:06:00 Test Item Value Reference Range Interpretation Comments TEST URINE (BEAKER) (test Negative code = 583) CBC W/PLT COUNT & AUTO [id number] 09:58:00 Test Item Value Reference Range Interpretation [...] % 0-0 PERCENT (BEAKER) (test code = 1426)
[2021-08-13] MEDS ORDERED: HYDROCODONE/APAP 10/325 TAB ONE (21:38)
--- NOTE | 2021-08-13 22:20 | ER ---
Nurse's Notes [facility] Name: Silvina Cohen Age: 40 yrs Sex: Female : 1980 Arrival Date: 08/13/2021 Time: 19:10 Bed 11 Private MD: Diagnosis: Encounter for attention to dressings, sutures and drains Presentation: 08/13 19:13 Chief complaint: Patient states: "I had an abscess drained yesterday in my left groin ab2 and just a little while ago the packing came out so I need it re-packed.". Coronavirus screen: Vaccine status: Patient reports being unvaccinated. Client denies travel out of the [place] in the last 14 days. At this time, the client does not indicate any symptoms associated with coronavirus-19. Ebola Screen: Patient negative for fever greater than or equal to 101.5 degrees Fahrenheit, and additional compatible Ebola Virus Disease symptoms Patient denies exposure to infectious person. Patient denies travel to an Ebola-affected area in the 21 days before illness onset. No symptoms or risks identified at this time. Initial Sepsis Screen: Does the patient meet any 2 criteria? No. Patient's initial sepsis screen is negative. Does the patient have a suspected source of infection? Yes: Skin breakdown/wound. Risk Assessment: Do you want to hurt yourself or someone else? Patient reports no desire to harm self or others. Onset of symptoms is unknown. 19:13 Method Of Arrival: Ambulatory ab2 19:13 Acuity: CORTEZ 4 ab2 Triage Assessment: 19:16 General: Appears in no apparent distress. uncomfortable, Behavior is calm, cooperative, ab2 appropriate for age. Pain: Complains of pain in medial aspect of left thigh. EENT: No deficits noted. No signs and/or symptoms were reported regarding the EENT system. Neuro: Level of Consciousness is awake, alert, obeys commands, Oriented to person, place, time, situation, Appropriate for age [place] Supervisor are equal bilaterally Moves all extremities. Gait is steady, Speech is normal, Facial symmetry appears normal. Cardiovascular: No deficits noted. Denies chest pain, shortness of breath. Derm: Parent/caregiver reports the patient having packing for abscess fell out. Historical: - Allergies: 19:15 Codeine; ab2 19:15 Flexeril; ab2 19:15 Naproxen; ab2 - PMHx: 19:15 Anxiety; Back pain; Diabetes - NIDDM; HYPERGLYCEMIA; Hypertension; ab2 - PSHx: 19:15 Cholecystectomy; hernia repair; Total abdominal hysterectomy; ab2 - Immunization history:: Adult Immunizations up to date. - Social history:: Smoking status: Patient denies any tobacco usage or history of. Screenin:27 Abuse screen: Denies threats or abuse. Nutritional screening: No deficits noted. ag7 Tuberculosis screening: No symptoms or risk factors identified. Fall Risk No fall in past 12 months (0 pts). No secondary diagnosis (0 pts). No IV (0 pts). Ambulatory Aid- None/Bed Rest/Nurse Assist (0 pts). Gait- Impaired (20 pts.). Mental Status- Oriented to own ability (0 pts). Total Thomas Fall Scale indicates No Risk (0-24 pts). Assessment: 20:22 General: Appears in no apparent distress. Behavior is calm, cooperative, appropriate ag7 for age. Pain: Complains of pain in left groin posterior Pain does not radiate. Pain currently is 9 out of 10 on a pain scale. Quality of pain is described as burning, aching, Pain began suddenly, Is continuous, Alleviated by nothing. Neuro: Level of Consciousness is awake, alert, obeys commands, Oriented to Appropriate for age. Cardiovascular: Heart tones S1 S2 present Capillary refill < 3 seconds in bilateral fingers Patient's skin is warm and dry. Respiratory: Airway is patent Trachea midline Respiratory effort is even, unlabored, Respiratory pattern is regular, symmetrical, Breath sounds are clear bilaterally. Derm: Skin opened to left posterior groin Skin is Skin temperature is warm Wound noted patient is having red drainage to the posterior groin small amount. 21:22 Reassessment: No changes from previously documented assessment. Patient and/or family ag7 updated on plan of care and expected duration. Pain level reassessed. Patient is alert, oriented x 3, equal unlabored respirations, skin warm/dry/pink. 22:14 Reassessment: No changes from previously documented assessment. Patient and/or family ag7 updated on plan of care and expected duration. Pain level reassessed. Patient is alert, oriented x 3, equal unlabored respirations, skin warm/dry/pink. Patient is pending repacking to left posterior groin wound. Vital Signs: 19:13 BP 137 / 93; Pulse 113; Resp 17; Temp 98.3; Pulse Ox 98% ; Weight 136.98 kg; Height 5 ab2 ft. 7 in. (170.18 cm); Pain 8/10; 22:24 BP 140 / 85; Pulse 97; Resp 18 S; Pulse Ox 100% on R/A; Pain 9/10; ag7 19:13 Body Mass Index 47.30 (136.98 kg, 170.18 cm) ab2 ED Course: 19:10 Patient arrived in ED. ja2 19:15 Triage completed. ab2 20:17 Leesa Mccoy, RN is Primary Nurse. ag7 20:17 Alessandro Graf PA is PHCP. cp 20:18 Marlo Orozco MD is Attending Physician. cp 20:27 Arm band placed on. ag7 20:27 Patient has correct armband on for positive identification. Bed in low position. Call ag7 light in reach. 20:27 No provider procedures requiring assistance completed. ag7 22:30 Patient did not have IV access during this emergency room visit. ag7 Administered Medications: 21:55 Drug: HYDROcodone-acetaminophen 10 mg-325 mg 1 tabs Route: PO; vc1 22:30 Follow up: Response: No adverse reaction ag7 Outcome: 22:19 Discharge ordered by . cp 22:29 Discharged to home ambulatory. ag7 22:29 Condition: stable 22:29 Discharge instructions given to patient, Instructed on discharge instructions, follow up and referral plans. Demonstrated understanding of instructions, follow-up care. 22:30 Patient left the ED. ag7 Signatures: Alessandro Graf PA PA cp Alexander, Jessica ja2 Pramod Oliver ab2 Kiarra Dickson RN RN vc1 Leesa Mccoy, ELLYN RN ag7
--- NOTE | 2021-08-13 22:20 | EDPHYS ---
Physician Documentation [facility] Name: Silvina Cohen Age: 40 yrs Sex: Female : 1980 Arrival Date: 08/13/2021 Time: 19:10 Bed 11 Private MD: ED Physician Marlo Orozco HPI: 08/13 22:05 This 40 yrs old Black Female presents to ER via Ambulatory with complaints of Revisit. cp 22:05 Patient reports abscess to left groin area that was drained yesterday in this ED. cp Packing came out with dressing today. No other complaints. Historical: - Allergies: 19:15 Codeine; ab2 19:15 Flexeril; ab2 19:15 Naproxen; ab2 - PMHx: 19:15 Anxiety; Back pain; Diabetes - NIDDM; HYPERGLYCEMIA; Hypertension; ab2 - PSHx: 19:15 Cholecystectomy; hernia repair; Total abdominal hysterectomy; ab2 - Immunization history:: Adult Immunizations up to date. - Social history:: Smoking status: Patient denies any tobacco usage or history of. ROS: 22:07 Constitutional: Negative for body aches, chills, fever, poor PO intake. cp 22:07 Eyes: Negative for injury, pain, redness, and discharge. cp 22:07 Cardiovascular: Negative for chest pain, palpitations. 22:07 Respiratory: Negative for cough, shortness of breath, wheezing. 22:07 Abdomen/GI: Negative for abdominal pain, nausea, vomiting, and diarrhea. 22:07 Skin: Positive for history of abscess to left groin. 22:07 All other systems are negative. Exam: 22:10 Skin: Wound recheck: Abscess: the packing is not in place, minimal drainage from wound cp expressed, tender to palpation, mild swelling noted. Incised abscess to left groin area. Vital Signs: 19:13 BP 137 / 93; Pulse 113; Resp 17; Temp 98.3; Pulse Ox 98% ; Weight 136.98 kg; Height 5 ab2 ft. 7 in. (170.18 cm); Pain 8/10; 22:24 BP 140 / 85; Pulse 97; Resp 18 S; Pulse Ox 100% on R/A; Pain 9/10; ag7 19:13 Body Mass Index 47.30 (136.98 kg, 170.18 cm) ab2 Procedures: 22:20 wound repacked with 1/2 inch iodoform guaze. patient tolerated well. cp MDM: 20:25 Patient medically screened. cp 22:19 Data reviewed: vital signs, nurses notes. cp 22:19 Counseling: I had a detailed discussion with the patient and/or guardian regarding: the cp historical points, exam findings, and any diagnostic results supporting the discharge/admit diagnosis, the need for outpatient follow up, a family practitioner, to return to the emergency department if symptoms worsen or persist or if there are any questions or concerns that arise at home. Response to treatment: the patient's symptoms have mildly improved after treatment, and as a result, I will discharge patient. Administered Medications: 21:55 Drug: HYDROcodone-acetaminophen 10 mg-325 mg 1 tabs Route: PO; vc1 22:30 Follow up: Response: No adverse reaction 7 Disposition: 08/14 22:30 Co-signature as Attending Physician, Marlo Orozco MD. 7 Disposition Summary: 08/13/21 22:19 Discharge Ordered Location: Home cp Problem: new cp Symptoms: have improved cp Condition: Stable cp Diagnosis - Encounter for attention to dressings, sutures and drains cp Followup: cp - With: Private Physician - When: 1 - 2 days - Reason: Wound Recheck Discharge Instructions: - Discharge Summary Sheet cp - Incision and Drainage, Care After cp Forms: - Medication Reconciliation Form cp - Thank You Letter cp - Antibiotic Education cp - Prescription Opioid Use cp Signatures: Alessandro Graf PA PA cp Marlo Orozco MD MD 7 Pramod Oliver 2 Kiarra Dickson RN RN 1 Leesa Mccoy RN 7
[2021-08-14 00:17] VITALS: TEMP 98.3
[2021-08-14 00:18] VITALS: BP 140/85; O2SAT 100
== END 2021-08-13 22:30 | disposition home or self-care (01) ==
LOC: ER 19:05
DX: Z48.01 Encounter for change or removal of surgical wound dressing (principal)
CPT/HCPCS: 99283

== ENCOUNTER 2022-06-15 11:34 | Inpatient (IN) | payer BC, OTHER ==
--- OUTSIDE RECORDS SUMMARY | 2022-06-15 11:59 | XMS REPORT | Continuity of Care Document ---
:1980 Author Organization Formerly [facility] t Address [address] [place] [address] Care Team Providers Name Role Phone Pcp , Mercedes Primary Care Physician Unavailable Elie Hyde Attending Clinician Unavailable SWAPNA DALTON Attending Clinician Unavailable Jose Hutchinson Attending Clinician Unavailable REYES AMAYA Attending Clinician Unavailable Denver Enciso MD Attending Clinician Doctor Unassigned, [place] Attending Clinician Unavailable POWER BUCK Attending Clinician Unavailable Elie Hyde Admitting Clinician Unavailable SWAPNA DALTON Admitting Clinician Unavailable Physician, No Primary or Family Admitting Clinician Unavailmitchell AMAYA REYES Admitting Clinician Unavailable DE LA CRUZ, BHAGWAT PURUSHOTTAM Admitting Clinician Unavailable Payers Payer Name Policy Type Policy Number Effective Date Expiration Date S lopez Problems Condition Condition Condition Status Onset Resolution Last Treating Co mments Source Name Details Category Date Date Treatment Clinician Date Sinus Sinus Disease Active [facility] 00:00: Medical 00 Center Pneumonia Pneumonia Disease [facility] [place] Sepsis Sepsis Disease Active [facility] 00 [place] Febrile Febrile Disease Active 2019- [facility] illness illness [facility] 00:[facility]: Medical 00 [place] [id number] Pain, [place] [id number] joint, [facility] knee, - [facility] Allergies, Adverse Reactions, Alerts Allergy Allergy Status Severity Reaction(s) Onset Inactive Treating Comm ents Source Name Type Date Date Clinician cycloben DA Active [facility] zaprine 4-14 [place] 00:00: d [facility] morphine DA Active [facility] 4-14 [place] 00:00: d [facility] codeine DA Active [facility] 4-14 [place] 00:00: d 00 [facility] NAPROXEN Allergy Active [facility] Naproxen Propensi Active 2019- [facility] adverse 00:00: Medical reaction 00 Center s NAPROXEN DA Active U 2007- [facility] 1-20 [place] 00:[facility]: d 00 [facility] Center No Known DA Active U 2007-0 [facility] Contrast 1-20 [place] Allergie 00:00: d s 00 [facility] No Known DA Active U 2007-0 [facility] Food 1-20 [place] Allergie 00:00: d s 00 [facility] No Known DA Active U 2007-0 [facility] Other 1-20 [place] Allergie 00:00: d s 00 [facility] ZOFRAN DA Active U 2007- [facility] 1-20 [place] 00:00: d 00 [facility] naproxen naproxen Active Unknown Commo n [facility] - [facility] Social History Social Habit Start Date Stop Date Quantity Comments Source History SDOH [facility] Alcohol Std Drinks Medica l Center History SDOH [facility] Alcohol Binge Medical [facility] [facility] History SDOH [facility] Alcohol Comment Medical C enter History of Tobacco [facility] - Use [facility] Alcohol intake 2019-06-19 2019-06-[address] [facility] 00:00:00 00:00:00 non-drinker of Medical Ce nter alcohol (finding) Tobacco use and 2019-06-17 2019-06-[address] [facility] [address] Kellie kes exposure 00:00:00 00:00:00 Medical Center History SDOH 2019-06-17 2019-06-[address] [facility] Alcohol Frequency 00:00:00 00:00:00 [facility] Center Sex Assigned At [address] Kellie kes 00:00:00 00:00:00 Medical Center Smoking Status Start Date Stop Date Source Never Smoker [facility] Medications Ordered Filled Start Stop Current Ordering Indication Dosage Frequency Signature Comments Components Source Medication Medication Date Date Medication? Clinician (SIG) Name Name Lidocaine Lidocaine No 10mg Com mon 04-25 [facility] 00:00: - [facility] Kenalog Kenalog No 40mg Common (Triamcinol (Triamcinol 04-25 S pirit one) one) 00:00: - [facility] Meloxicam Meloxicam 2022- No 1{table QD Meloxicam 7.5 MG 7.5 MG 04-25 t} 7.5 MG 00:00: 00:00 00 :00 omeprazole Yes 20mg QD Take [address] (PRILOSEC) 3-06 by mouth [facility] 20 MG 16:51: daily. Medical capsule 06 [place] liraglutide Yes Inject [facility] 0.6 mg/0.1 3-06 subcutaneo Kim es mL (18 mg/3 16:51: usly. Medic al mL) PnIj 06 [place] omeprazole Yes 20mg QD Take [address] (PRILOSEC) 3-06 [facility] 20 MG 16:51: daily. Medical capsule 06 [place] liraglutide Yes Inject [facility] 0.6 mg/0.1 3-06 subcutaneo Kim es mL (18 mg/3 16:51: usly. Medic al mL) PnIj 06 Center ALPRAZolam 2020-0 Yes 1{tbl} Take [address] (XANAX) 2 2-25 tablet by [facility] MG tablet 00:00: mouth Medical 00 every 8 Center (eight) hours as needed. zolpidem 2020-0 Yes 1{tbl} Take 1 [facility] t (AMBIEN) 10 2-25 tablet by Kim es mg tablet 00:00: mouth Medical 00 every Center night as needed. ALPRAZolam 2020-0 Yes 1{tbl} Take [address] (XANAX) 2 2-25 tablet by [facility] MG tablet 00:00: mouth Medical 00 every 8 Center (eight) hours as needed. zolpidem 2020-0 Yes 1{tbl} Take 1 [facility] t (AMBIEN) 10 2-25 tablet by Kim es mg tablet 00:00: mouth Medical 00 every Center night as needed. metoprolol 2020-0 Yes 1{tbl} QD Take [address] tartrate 2-17 tablet by [facility]ukes (LOPRESSOR) 00:00: mouth Medic al 50 MG 00 daily. Center tablet metoprolol 2020-0 Yes 1{tbl} QD Take [address] tartrate 2-17 tablet by [facility] (LOPRESSOR) 00:00: mouth Medic al 50 MG 00 daily. Center tablet promethazin 2020-0 Yes 1{tbl} Take [address] e 1-13 tablet by [facility]ukes (PHENERGAN) 00:00: mouth Medic al 25 MG 00 every 8 Center tablet (eight) hours as needed. promethazin 2020-0 Yes 1{tbl} Take [address] [facility] 1-13 tablet by [facility]ukes (PHENERGAN) 00:00: mouth Medic al 25 MG 00 every 8 Center tablet (eight) hours as needed. Ozempic Ozempic No Ozempic ALPRAZolam ALPRAZolam No ALPRAZolam Ambien Ambien No Ambien Metoprolol Metoprolol No Metoprolol Succinate Succinate Succinate NovoLOG NovoLOG No NovoLOG Gabapentin Gabapentin No Gabapentin [place] Dum[place] No Dumas metFORMIN metFORMIN No metFORMIN HCl HCl HCl hydrALAZINE hydrALAZINE No hydrALAZIN HCl HCl E HCl Vital Signs Vital Name Observation Time Observation Value Comments Source height 2022-04-25 10:00:00 69 [in_i] [facility] weight 2022-04-25 10:00:00 291.3 [lb_av] [facility] temperature 2022-04-25 10:00:00 97.4 [degF] [facility] bmi 2022-04-25 10:00:00 43.01 kg/m2 Common pirit [facility] blood pressure 2022-04-25 10:00:00 126 mm[Hg] [facility] - systolic [facility] blood pressure 2022-04-25 10:00:00 84 mm[Hg] [facility] - diastolic [facility] Procedures This patient has no known procedures. Plan of Care Planned Activity Planned Date Details Comments Source Future Scheduled 2022-04-[address] [facility] Test 00:00:00 (12+) [code = Medical Center DEPRESSION SCREENING (12+)] Future Scheduled 2021-12-16 INFLUENZA VACCINE (#1) [facility] Test 00:00:00 [code = INFLUENZA Medical Ce nter VACCINE (#1)] Future Scheduled 2019-12-17 INFLUENZA VACCINE (#1) [facility] Test 00:00:00 [code = INFLUENZA Medical Ce nter VACCINE (#1)] Future Scheduled 2000-11-[address] [facility] Test 00:00:00 malignant neoplasm of Medica l Center cervix (procedure) [code = 570258176] Future Scheduled 2000-11-[address] [facility] Test 00:00:00 [facility] cervix (procedure) [code = 983677155] Future Scheduled [address] Test 00[facility]00:00 (procedure) [code = [facility] [id number]] Future Scheduled [address] Test 00:00:00 (procedure) [code = [facility] 21594029] Future Scheduled 1998-11-08 DTAP/TDAP/TD VACCINES [facility] Test 00:00:00 (1 - Tdap) [code = Medical C enter DTAP/TDAP/TD VACCINES (1 - Tdap)] Future Scheduled 1997-11-08 HEPATITIS C SCREENING [facility] Test 00:00:00 [code = HEPATITIS C Medical Center SCREENING] Future Scheduled [address] [facility] Test 00:00:00 Counseling and Medical Cente r Screening (12+) [code = Tobacco Cessation Counseling and Screening (12+)] Future Scheduled 1985-11-[address] [facility] Test 00:00:00 0-64 YRS (1 of 1 - Medical C enter PPSV23) [code = PNEUMOCOCCAL VACCINE 0-64 YRS (1 of 1 - PPSV23)] Future Scheduled 1985-11-[address] [facility] Test 00:00:00 0-64 YRS (1 - PCV) Medical C enter [code = PNEUMOCOCCAL VACCINE 0-64 YRS (1 - PCV)] Future Scheduled 1980-05-11 COVID-19 VACCINE (#1) [facility] Test 00:00:00 [code = COVID-[address] VACCINE (#1)] Encounters Start End Encounter Admission Attending Care Care Encounter Source Date/Time Date/Time Type Type Clinicians Facility Department ID 2022-05-02 Outpatient Hyde, STLMLC STLC [id number] Common 08:57:02 [facility] [address] [facility] 2022-04-25 Outpatient Hyde, STLMLC STLMLC [id number] Common 09:45:05 [facility] [id number] [facility] it [facility] 2022-04-25 2022-04-25 CONSULT - STLMLC STLMLC [id number] Common 00:00:00 00:00:00 OFFICE, L3 Spi rit [facility] 2021-07-31 2021-08-02 Outpatient GLENROY DALTON MED [id number] 02:54:00 17:30:00 SWAPNA 2021-07-29 2021-07-29 Emergency EM Hutchinson, HCAPM TRISHA [id number] [facility] 03:06:00 05:03:00 [facility] 2021-06-29 2021-07-07 Inpatient GLENROY GIBBONS MED [id number] 19:32:00 18:04:00 REYES 2019-12-16 2019-12-16 Letter NICOLÁS Enciso [id number] 00:00:00 00:00:00 (Out) Denver MARTINEZ [id number] [facility] [id number] 2019-12-03 2019-12-03 Orders Doctor NICOLÁS [id number] 00:00:00 00:00:00 Only Unassigned, MICHELLE [id number] Keiser [facility] [id number] 2019-06-17 2019-06-17 [facility] [id number] [facility] 09:01:00 09:01:00 [id number] Results Test Description Test Time Test Comments [...] code = ALKP) 56 Unit/L 45-117 N [id number] 04:18:00 Test Item Value Reference Range Interpretation Comments LIPASE (test code = LIP) 94 Unit/L 114-286 L CBC W/AUTO [id number] 03:56:00 Test Item Value Reference Range Interpretation [...] code NO DIFF/SCN CRITERIA = MDIFF) BLOOD [id number] 14:00:00 Test Item Value Reference Range Interpretation Comments CULTURE (BEAKER) (test No growth in 5 days code = 1095) BLOOD [id number] 14:00:00 Test Item Value Reference Range Interpretation Comments CULTURE (BEAKER) (test No growth in 5 days code = 1095) ANG, NON-TUNNELED CATH/PICC >5 Y.O. WITH [id number] 15:20:00Reason for exam:->java systems analyst antibioticsFINAL REPORT PICC LINE PLACEMENT, UNDER FLUOROSCOPY History provided: Need for long-term IV antibiotics PROCEDURE: Informed consent was obtained. Patient's medication list was mon. Timeout procedure was performed. All elements of strict sterile barrier were employed, including cap, mask, sterile gloves, and sterile drape. Skin was prepped with ChloraPrep. 1% Xylocaine anesthesia utilized. Ultrasound evaluation of potential access sites was performed. Sterile ultrasound techniques were employed, including sterile gel and sterile probe cover. After successfully identifying apatent right basilic vein , real-time ultrasound guidance was used to puncture the vessel. A permanent recording was created for the patient's record. Over a guidewire, a peel-away sheath was placed, through which a dual lumen 5 Scottish PICC line trimmed to 43 cm length was advanced and positioned withtip at the cavoatrial junction. Spot film performed for documentation. Catheter flushed and secured in place with 2-0 silk sutures. Sterile dressing applied. Catheter is ready for immediate use. Fluoroscopy time: 0.9 minutes Number of exposures performed: Two Radiation dose (Thien,paul): 56.83 mGy Signed: Jorge Alberto Barahona MDReport Verified Date/Time: 06/21/2019 15:20:38 Reading Location: [facility] Radiology Reading Room POCT-GLUCOSE [id number] 12:29:00 Test Item Value Reference Range Interpretation Comments POC-GLUCOSE METER 140 mg/dL 70-110 H : TESTED A T [facility] [address] (BEAKER) (test code [address], = 1538) [facility] 77 478: Operating Theatre Technician/Techni estrellita ID = [id number] for Sloane Yasmin beasley POCT-GLUCOSE [id number] 07:52:00 Test Item Value Reference Range Interpretation Comments POC-GLUCOSE METER 157 mg/dL 70-110 H : TESTED A T [facility] [address] (BEAKER) (test code [address], = 1538) [place] [address] 478: Operating Theatre Technician/Techni estrellita ID = [id number] for Sloane uYasmin BASIC METABOLIC [id number] 06:16:00 Test Item Value Reference Range Interpretation [...] S NOT APPLICABLE FOR DIALYSIS PATIEN TS. Operating Theatre Technician ID - [id number] W/PLT COUNT & AUTO [id number] 05:55:00 Test Item Value Reference Range Interpretation [...] PERCENT (BEAKER) (test code = 2801) POCT-GLUCOSE [id number] 22:16:00 Test Item Value Reference Range Interpretation Comments POC-GLUCOSE METER 161 mg/dL 70-110 H : [facility] ([facility] (test code [address] [facility], = 1538) [place] [address]: Operating Theatre Technician/Techni estrellita ID = [id number] for iliana Roche POCT-GLUCOSE [id number] 17:08:00 Test Item Value Reference Range Interpretation Comments POC-GLUCOSE METER 196 mg/dL 70-110 H : Notified RN/MD: TESTED (BEAKER) (test code AT [facility] [address] = 1538) [place] [address]: Operating Theatre Technician/Techni estrellita ID = [id number] for Thak er, Nikitaben POCT-GLUCOSE [id number] 12:11:00 Test Item Value Reference Range Interpretation Comments POC-GLUCOSE METER 162 mg/dL 70-110 H : Notified RN/MD: [facility] (test code AT [facility] [address] = 1538) [place] [address]: Operating Theatre Technician/Techni estrellita ID = [id number] for Thak er, Nikitaben POCT-GLUCOSE [id number] 08:57:00 Test Item Value Reference Range Interpretation Comments POC-GLUCOSE METER 203 mg/dL 70-110 H : Notified RN/MD: TESTED (BEAKER) (test code AT [facility] [address] = 1538) [place] [address]: Operating Theatre Technician/Techni estrellita ID = [id number] for Thak er, Nikitaben BASIC METABOLIC [id number] 06:22:00 Test Item Value Reference Range Interpretation [...] hemolyzed GLUCOSE RANDOM 112 mg/dL 70-110 H (CHELSEA) (test code = 652) CALCIUM (FAITHAKER) 9.1 mg/dL 8.5-10.5 (test code = 697) EGFR (FAITHAKER) (test 101 mL/min/1.73 ESTIM ATED GFR IS code = 1092) sq m NOT ACCURATE CREATININE CLEARANCE IN PREDICTING GLOMERULAR FILTRATION RATE . ESTIMATED GFR I S NOT APPLICABLE FOR DIALYSIS PATIEN TS. Operating Theatre Technician ID - [id number] 21:15:00 Test Item Value Reference Range Interpretation Comments POC-GLUCOSE METER 132 mg/dL 70-110 H : TESTED A T [facility] [address] (CHELSEA) (test code [address], = 1538) [facility] 77 478: Operating Theatre Technician/Techni estrellita ID = [id number] for Will iams, Sharyn CT, CHEST WITH IV CONTRAST- PE TEST [id number] 17:05:00FINAL REPORT History: Dyspnea. TECHNIQUE: Helical CT of the chest was performedfollowing the uneventful administration of intravenous contrast utilizing [...] arteries to suggest acute pulmonary embolus. However, the contrast [...] Esparzaeport Verified Date/Time: 06/19/2019 17:05:27 Reading Location: [facility] Radiology Reading Room POCT- GLUCOSE [id number] 16:56:00 Test Item Value Reference Range Interpretation Comments POC-GLUCOSE METER 147 mg/dL 70-110 H : TESTED A T [facility] 1317 (BEAKER) (test code [address], = 1538) [facility] 77 478: Operating Theatre Technician/Techni estrellita ID = [id number] for Charlene Funk BLOOD [id number] 09:46:00 Test Item Value Reference Range Interpretation [...] = bottles: gram 1123) negative rods BLOOD [id number] 09:45:00 Test Item Value Reference Range Interpretation [...] anaerobic 1123) bottles: gram negative rods POCT-GLUCOSE [id number] 07:53:00 Test Item Value Reference Range Interpretation Comments POC-GLUCOSE METER 131 mg/dL 70-110 H : TESTED A T [facility] [address] (BEAKER) (test code [address], = 1538) [facility] [place] 77 478: Operating Theatre Technician/Techni estrellita ID = [id number] for Butch h, Charlene COMPREHENSIVE METABOLIC [id number] 06:08:00 Test Item Value Reference Range Interpretation [...] S NOT APPLICABLE FOR DIALYSIS PATIEN TS. Operating Theatre Technician ID - [id number] W/PLT COUNT & AUTO [id number] 05:43:00 Test Item Value Reference Range Interpretation [...] PERCENT (BEAKER) (test code = 2801) POCT-GLUCOSE [id number] 21:12:00 Test Item Value Reference Range Interpretation Comments POC-GLUCOSE METER 195 mg/dL 70-110 H : TESTED A T [facility] [address] (BEAKER) (test code [address], = 1538) [place] [address]: Operating Theatre Technician/Techni estrellita ID = [id number] for Sharyn Shin POCT-GLUCOSE [id number] 18:06:00 Test Item Value Reference Range Interpretation Comments POC-GLUCOSE METER 109 mg/dL 70-110 : TESTED A T [facility] [address] (BEAKER) (test code [address], = 1538) [place] [address]: Operating Theatre Technician/Techni estrellita ID = [id number] for Butch h, Charlene TROPONIN [id number] 14:37:00 Test Item Value Reference Range Interpretation [...] failure, acidosis, acute neurological disease, and persistent tachyarrhythmia.Operating Theatre Technician ID - [id number] METER 2019-06-18 11:28:00 Test Item Value Reference Range Interpretation Comments POC-GLUCOSE METER 135 mg/dL 70-110 H : TESTED A T [facility] [address] (BEAKER) (test code [address], = 1538) [place] [address]: Operating Theatre Technician/Techni estrellita ID = [id number] for Butch h, Charlene POCT-GLUCOSE [id number] 07:54:00 Test Item Value Reference Range Interpretation Comments POC-GLUCOSE METER 243 mg/dL 70-110 H : TESTED A T [facility] [address] (BEAKER) (test code [address], = 1538) [place] [address]: Operating Theatre Technician/Techni estrellita ID = [id number] for Butch h, Charlene BASIC METABOLIC [id number] 04:55:00 Test Item Value Reference Range Interpretation [...] APPLICABLE FOR DIALYSIS PATIEN TS. COMPREHENSIVE METABOLIC [id number] 04:54:00 Test Item Value Reference Range Interpretation [...] S NOT APPLICABLE FOR DIALYSIS PATIEN TS. Operating Theatre Technician ID - [id number] 04:47:00 Test Item Value Reference Range Interpretation [...] heart valves.Final Information (Auto Output)Final Information (Auto Output)[id number] 04:47:00 Test Item Value Reference Range Interpretation Comments PARTIAL THROMBOPLASTIN TIME (BEAKER) 31.2 sec 23.0-35.0 (test code = 760) Final Information (Auto Output)CBC W/PLT COUNT & AUTO [id number] 04:34:00 Test Item Value Reference Range Interpretation [...] (BEAKER) (test code = 2801) LACTIC ACID, [id number] 04:23:00 Test Item Value Reference Range Interpretation Comments LACTATE BLOOD VENOUS 1.7 mmol/L 0.5-2.0 Specime n slightly (2) (BEAKER) (test hemolyzed code = 6787) Operating Theatre Technician ID - [id number] 21:15:00 Test Item Value Reference Range Interpretation Comments POC-GLUCOSE METER 201 mg/dL 70-110 H : TESTED A T [facility] [address] (BEAKER) (test code [facility] [address], = 1538) [facility] [place] 77 [address]: Operating Theatre Technician/Techni estrellita ID = [id number] for Sharyn Shin POCT-GLUCOSE [id number] 17:16:00 Test Item Value Reference Range Interpretation Comments POC-GLUCOSE METER 163 mg/dL 70-110 H : Notified RN/MD: TESTED (BEAKER) (test code AT [facility] [address] = 1538) [facility] [address]: Operating Theatre Technician/Techni estrellita ID = [id number] for Thak er, Nikitaben POCT-GLUCOSE [id number] 13:42:00 Test Item Value Reference Range Interpretation Comments POC-GLUCOSE METER 224 mg/dL 70-110 H : Notified RN/MD: TESTED (BEAKER) (test code AT [facility] [address] = 1538) [facility] [address]: Operating Theatre Technician/Techni estrellita ID = [id number] for Thak er, Nikitaben LACTIC ACID, [id number] 13:12:00 Test Item Value Reference Range Interpretation Comments LACTATE BLOOD VENOUS (2) ([facility]) 8.8 mmol/L 0.5-2.0 HH (test code = 2872) Operating Theatre Technician ID - [id number], [id number] 10:42:00Reason for exam:- >epigastric pain left flank painReason for exam:->CHILLSReason for exam:->FEVERReason for exam:->ABDOMINAL PAINReason for exam:->EMESISIs the patient ?->UnknownWhat is the patient's sedation requirement?- >No SedationFINAL REPORT CT abdomen and pelvis without contrast History: Epigastric pain, left flank pain Comparison: none Technique: serial axial imaging was performed without intravenous contrast as per departmental protocol. Multiplanar images are reconstructed and reviewed when indicated.This CT examination is performed using one or [...] adrenal glands. No urinary calculus. No hydronephrosis. Noapparent bladder wall thickening. A small focus of air within the nondependent bladder is probably re lated to recent instrumentation. No small or large [...] Dios Verified Date/Time: 06/17/2019 10:42:41 Reading Location: [facility] Diagnostic Imaging Reading Room - [place] [address] 1129 RAD, CHEST, 1 VIEW, NON DEPT 2019-06-17 10:26:00Reason for exam:->CHILLSReason for exam:->FEVERReason for exam:->ABDOMINAL PAINReason for exam:->EMESISIs the patient ?- >UnknownShould this be performed at the bedside?->YesFINAL REPORT INDICATION: CHILLSFEVERABDOMINAL PAINEMESIS COMPARISON: None TECHNI QUE: Single frontal view of the chest. FINDINGS: Lungs and pleura: Hazy airspace opacity throughout the right lung. No effusion.Heart and mediastinum: Normal heart size. Unremarkable mediastinal contours.Osseous structures: No acute abnormality.Other: None. IMPRESSION: Hazy airspace opacity throughoutthe right lung which may represent lobar pneumonia and/or asymmetric edema Signed: Justin Durán MDRmaryanaort Verified Date/Time: 06/17/2019 10:26:56 Reading Location: [facility] Radiology Reading Room RAPID INFLUENZA A&B SCREEN 2019-06-17 10:22:00 Test Item Value Reference Range Interpretation Comments RAPID INFLUENZA A AG (BEAKER) Negative Negative, Inconclusive (test code = 1622) RAPID INFLUENZA B AG (BEAKER) Negative Negative, Inconclusive (test code = 1623) LACTIC ACID, [id number] 10:20:00 Test Item Value Reference Range Interpretation Comments LACTATE BLOOD VENOUS 2.7 mmol/L 0.5-2.0 HH Specime n slightly (2) (BEAKER) (test hemolyzed code = 2876) Operating Theatre Technician ID - [id number] METABOLIC [id number] 10:20:00 Test Item Value Reference Range Interpretation [...] S NOT APPLICABLE FOR DIALYSIS PATIEN TS. Operating Theatre Technician ID - [id number] 10:12:00 Test Item Value Reference Range Interpretation Comments PARTIAL THROMBOPLASTIN TIME (BEAKER) 22.4 sec 23.0-35.0 L (test code = 760) Final Information (Auto Output)PROTHROMBIN [id number] 10:11:00 Test Item Value Reference Range Interpretation [...] Information (Auto Output)Final Information (Auto Output)URINALYSIS W/ [id number] 10:10:00 Test Item Value Reference Range Interpretation [...] code = 1663) SOURCE(BEAKER) (test code = 6975) RAPID STREP A [id number] 10:09:00 Test Item Value Reference Range Interpretation Comments STREP A ANTIGEN (BEAKER) (test code Negative = 556) SCREEN, [id number] 10:06:00 Test Item Value Reference Range Interpretation Comments TEST URINE (BEAKER) (test Negative code = 583) CBC W/PLT COUNT & AUTO [id number] 09:58:00 Test Item Value Reference Range Interpretation [...]
[2022-06-15] MEDS ORDERED: MORPHINE 4 MG/ML SYR ONE (12:29)
[2022-06-15] MEDS ORDERED: ONDANSETRON 4 MG/2 ML VIAL ONE (12:29)
[2022-06-15] MEDS ORDERED: NA CHLORIDE 0.9% 1,000 ML ONE ×3 (12:29→19:01)
[2022-06-15] MEDS ORDERED: FAMOTIDINE 20 MG/2 ML VIAL IV ONE (12:29)
[2022-06-15 12:30] LABS: Hematocrit 48.1 % (36.0-45.0); Lymphocytes % 24.5 % (15.3-44.8); MCV 90.5 fL (80-100); RBC Red Blood Cell Count 5.32 M/uL (3.86-4.86)
[2022-06-15 12:49] LABS: Albumin 3.6 g/dL (3.4-5.0); Bilirubin Total 1.4 mg/dL (0.2-1.0); Potassium 4.1 mmol/L (3.5-5.1); Protein, Total 8.2 g/dL (6.4-8.2)
[2022-06-15] MEDS ORDERED: FENTANYL CITR 100 MCG/2 ML ONE ×2 (13:19→20:44)
[2022-06-15 13:26] LABS: Arterial Blood Carboxyhemoglob 0.9 % (0-1.5); Blood Gas Oxyhemoglobin 26.3 % (94-97); Blood O2 Saturation 26.9 % (92-98.5)
[2022-06-15] MEDS ORDERED: PROMETHAZINE INJ 25 MG/ML AMP ONE (13:36)
--- NOTE | 2022-06-15 14:54 | RAD REPORT ---
EXAM DESCRIPTION: CT - Chest For Pe Angio - 06/15/2022 2:46 pm CLINICAL HISTORY: Chest pain. PAIN COMPARISON: Chest For Pe Angio dated 08/23/2019 TECHNIQUE: CT angiogram of the pulmonary arteries was performed with MIP. All CT scans are performed using dose optimization technique as appropriate and may include automated exposure control or mA/KV adjustment according to patient size. FINDINGS: No evidence of pulmonary thromboembolism. No acute aortic finding demonstrated. The lungs are clear. No significant pericardial or pleural fluid. No concerning bony finding. IMPRESSION: No evidence of pulmonary thromboembolism. No acute lung findings.
--- NOTE | 2022-06-15 14:55 | RAD REPORT ---
EXAM DESCRIPTION: CTAbdomen Pelvis W Contrast - 06/15/2022 2:44 pm CLINICAL HISTORY: Abdominal pain. ABD PAIN COMPARISON: Abdomen Pelvis W Contrast dated 07/22/2021; Abdomen Pelvis W Contrast dated 06/24/2021; Abdomen Pelvis W Contrast dated 11/05/2019; Abdomen Pelvis W Contrast dated 08/17/2017 TECHNIQUE: Biphasic CT imaging of the abdomen and pelvis was performed with 100 ml non-ionic IV cont rast. All CT scans are performed using dose optimization technique as appropriate and may include automated exposure control or mA/KV adjustment according to patient size. FINDINGS: The lung bases are clear. Fatty liver. spleen, pancreas, adrenal glands and kidneys are within normal limits. No bowel obstruction, free air, free fluid or abscess. Mildly thickened small bowel loops mid abdomen . The appendix is normal. No evidence of significant lymphadenopathy. Small fat containing umbilical hernia. No suspicious bony findings. IMPRESSION: Mildly thickened small bowel loops probably represents enteritis. Fatty liver.
[2022-06-15] MEDS ORDERED: DICYCLOMINE HCL 10 MG CAP ONE (15:24)
[2022-06-15 16:18] LABS: Urine Blood Negative (Negative); Urine Glucose 1+ (Negative); Urine Protein 2+ (Negative); Urine Specific Gravity <=1.005 (1.005-1.030); Urine pH 5.5 (5.0-7.0)
--- NOTE | 2022-06-15 16:36 | ER ---
Nurse's Notes [facility] Name: Silvina Cohen Age: 41 yrs Sex: Female : 1980 Arrival Date: 06/15/2022 Time: 11:35 Bed 25 Private MD: Diagnosis: Enteritis;Dehydration;Hyperglycemia, unspecified;Tachycardia, unspecified Presentation: 06/15 11:43 Chief complaint: Patient states: abd pain, N/V that began last night. Coronavirus ss screen: Client denies travel out of the [place] in the last 14 days. Ebola Screen: Patient denies exposure to infectious person. Patient denies travel to an Ebola-affected area in the 21 days before illness onset. Initial Sepsis Screen: Does the patient have a suspected source of infection? No. Patient's initial sepsis screen is negative. Risk Assessment: Do you want to hurt yourself or someone else? Patient reports no desire to harm self or others. Onset of symptoms was June 14, 2022. 11:43 Method Of Arrival: Wheelchair ss 11:43 Acuity: CORTEZ 2 ss 18:50 Initial Sepsis Screen: Does the patient meet any 2 criteria? No. Patient's initial eh3 sepsis screen is negative. 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 - Social history:: Smoking status: unknown. Screenin:00 [facility] ED Fall Risk Assessment (Adult) Score/Fall Risk Level 0 - 2 = Low Risk. Abuse eh3 screen: Denies threats or abuse. Denies injuries from another. Nutritional screening: No deficits noted. Tuberculosis screening: No symptoms or risk factors identified. Assessment: 11:58 Reassessment: pt states she has DM but doesn't check her sugar so she just gives jh5 herself 10 units everyday for the last month. 12:00 General: Appears distressed, uncomfortable, Behavior is cooperative, appropriate for eh3 age, anxious, restless. Pain: Complains of pain in abdomen. Neuro: Level of Consciousness is awake, alert, obeys commands, Oriented to person, place, time, situation. Cardiovascular: Capillary refill < 3 seconds Patient's skin is warm and dry. Respiratory: Airway is patent Respiratory effort is even, unlabored, Respiratory pattern is regular, symmetrical. GI: Abdomen is round non-distended, Bowel sounds present X 4 quads. Abd is soft Abdomen is tender to palpation X 4 quads. : No signs and/or symptoms were reported regarding the genitourinary system. EENT: No signs and/or symptoms were reported regarding the EENT system. Derm: Skin is pink, warm \T\ dry. Musculoskeletal: Circulation, motion, and sensation intact. Range of motion: intact in all extremities. 13:00 Reassessment: Patient and/or family updated on plan of care and expected duration. Pain eh3 level reassessed. Patient is alert, oriented x 3, equal unlabored respirations, skin warm/dry/pink. 14:00 Reassessment: Patient appears in no apparent distress at this time. Patient and/or eh3 family updated on plan of care and expected duration. Pain level reassessed. Patient is alert, oriented x 3, equal unlabored respirations, skin warm/dry/pink. 15:00 Reassessment: Patient appears in no apparent distress at this time. Patient and/or eh3 family updated on plan of care and expected duration. Pain level reassessed. Patient is alert, oriented x 3, equal unlabored respirations, skin warm/dry/pink. 16:00 Reassessment: Patient appears in no apparent distress at this time. Patient and/or eh3 family updated on plan of care and expected duration. Pain level reassessed. Patient is alert, oriented x 3, equal unlabored respirations, skin warm/dry/pink. 17:00 Reassessment: Patient appears in no apparent distress at this time. Patient and/or eh3 family updated on plan of care and expected duration. Pain level reassessed. Patient is alert, oriented x 3, equal unlabored respirations, skin warm/dry/pink. 18:00 Reassessment: Patient appears in no apparent distress at this time. Patient and/or eh3 family updated on plan of care and expected duration. Pain level reassessed. Patient is alert, oriented x 3, equal unlabored respirations, skin warm/dry/pink. Vital Signs: 11:43 Resp 26; Temp 98.7(O); ss 11:57 Pulse 155; Resp 26; Pulse Ox 98% on R/A; jh5 12:40 BP 101 / 68; Pulse 90; Resp 20; Pulse Ox 96% on R/A; eh3 13:00 BP 110 / 61; Pulse 127; Resp 20; Pulse Ox 99% on R/A; eh3 14:00 BP 91 / 56; Pulse 131; Resp 18; Pulse Ox 96% on R/A; eh3 15:00 BP 98 / 53; Pulse 124; Resp 18; Pulse Ox 94% on R/A; eh3 16:00 BP 103 / 61; Pulse 123; Resp 18; Pulse Ox 94% on R/A; eh3 17:00 BP 102 / 82; Pulse 132; Resp 20; Pulse Ox 96% on R/A; eh3 18:00 BP 109 / 78; Pulse 114; Resp 18; Pulse Ox 98% on R/A; eh3 ED Course: 11:35 Patient arrived in ED. rg4 11:36 Lara Gonzalez FNP-C is PHCP. kb 11:36 Alessandro Singer MD is Attending Physician. kb 11:43 Triage completed. ss 11:43 Arm band placed on right wrist. ss 12:00 Liana Francisco, RN is Primary Nurse. eh3 12:00 Patient has correct armband on for positive identification. Bed in low position. Call eh3 light in reach. Side rails up X2. Adult w/ patient. Pulse ox on. NIBP on. Door closed. Noise minimized. Lights dimmed. Warm blanket given. 12:00 Missed attempt(s): 20 gauge in right forearm. Bleeding controlled, band aid applied, eh3 catheter tip intact. 12:30 Inserted saline lock: 22 gauge in left forearm, using aseptic technique. Blood eh3 collected. 14:54 CT Abd/Pelvis - IV Contrast Only In Process Unspecified. EDMS 14:54 CT Chest For PE Angio In Process Unspecified. EDMS 16:34 José Miguel Francis MD is Hospitalizing Provider. kb 18:50 No provider procedures requiring assistance completed. Patient admitted, IV remains in eh3 place. Administered Medications: 12:40 Drug: NS 0.9% 1000 ml Route: IV; Rate: 1 bolus; Site: left forearm; eh3 14:39 Follow up: IV Status: Completed infusion; IV Intake: 1000ml eh3 12:40 Drug: Pepcid (famotidine) 20 mg Route: IVP; Site: left forearm; eh3 14:39 Follow up: Response: No adverse reaction eh3 12:40 Drug: Zofran (Ondansetron) 4 mg Route: IVP; Site: left forearm; eh3 14:39 Follow up: Response: Nausea unchanged eh3 12:40 Drug: morphine 4 mg Route: IVP; Infused Over: 4 mins; Site: left forearm; eh3 14:39 Follow up: Response: Pain is unchanged, physician notified eh3 13:29 Drug: NS 0.9% 1000 ml Route: IV; Rate: 1000 ml; Site: left forearm; eh3 16:00 Follow up: IV Status: Completed infusion; IV Intake: 1000ml 3 13:29 Drug: fentaNYL (PF) 50 mcg Route: IVP; Site: left forearm; eh3 14:39 Follow up: Response: Pain is decreased eh3 14:15 Drug: Phenergan (promethazine) 25 mg Route: IM; Site: right deltoid; eh3 15:42 Follow up: Response: Nausea is decreased eh3 15:30 Drug: Bentyl (dicyclomine) 20 mg Route: PO; eh3 18:31 Follow up: Response: Pain is decreased 3 Medication: 18:50 VIS not applicable for this client. 3 Intake: 14:39 IV: 1000ml; Total: 1000ml. eh3 16:00 IV: 1000ml; Total: 2000ml. 3 Outcome: 16:35 Decision to Hospitalize by Provider. kb 18:51 Admitted to ER Hold. Please see [facility] for further documentation. 3 18:51 Condition: stable 18:51 Instructed on the need for admit. 20:46 Admitted to Tele accompanied by tech, via wheelchair, room 410, Report called to [facility] Meredith 20:47 Patient left the ED. 3 Signatures: Dispatcher [employer] EDLara Elliott, Janice Sutton RN RN ss Garcia, Rubi 4 Lissette Quarles RN RN 5 Liana Francisco RN RN 3 Corrections: (The following items were deleted from the chart) 14:43 12:30 Liana Francisco RN is Primary Nurse. 3 eh3
--- NOTE | 2022-06-15 16:36 | EDPHYS ---
Physician Documentation [facility] Name: Silvina Cohen Age: 41 yrs Sex: Female : 1980 Arrival Date: 06/15/2022 Time: 11:35 Bed 25 Private MD: LESLIE Physician Alessandro Singer HPI: 06/15 16:08 This 41 yrs old Black Female presents to ER via Wheelchair with complaints of Abdominal kb Pain, Fever. 16:08 The patient presents with abdominal pain. Onset: The symptoms/episode began/occurred kb yesterday. The symptoms do not radiate. Associated signs and symptoms: Pertinent positives: nausea and vomiting, fever, Pertinent negatives: constipation, diarrhea. The symptoms are described as constant. Modifying factors: The symptoms are alleviated by nothing, the symptoms are aggravated by nothing. Severity of pain: At its worst the pain was moderate in the emergency department the pain is unchanged. The patient has not experienced similar symptoms in the past. The patient has not recently seen a physician. 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 - Social history:: Smoking status: unknown. ROS: 16:07 Cardiovascular: Negative for chest pain, palpitations, and edema. kb 16:07 Constitutional: Positive for fever. 16:07 Abdomen/GI: Positive for abdominal pain, nausea and vomiting. 16:07 All other systems are negative. Exam: 16:07 Constitutional: This is a well developed, well nourished patient who is awake, alert, kb and in no acute distress. Head/Face: Normocephalic, atraumatic. ENT: Moist Mucous membranes Cardiovascular: Regular rate and rhythm with a normal S1 and S2. No gallops, murmurs, or rubs. No pulse deficits. Respiratory: Respirations even and unlabored. No increased work of breathing. Talking in full sentences Skin: Warm, dry with normal turgor. Normal color. MS/ Extremity: Pulses equal, no cyanosis. Neurovascular intact. Full, normal range of motion. Neuro: Awake and alert, GCS 15, oriented to person, place, time, and situation. Moves all extremities. Normal gait. Psych: Awake, alert, with orientation to person, place and time. Behavior, mood, and affect are within normal limits. 16:07 Abdomen/GI: Inspection: abdomen appears normal, Bowel sounds: normal, Palpation: soft, in all quadrants, moderate abdominal tenderness, in the right upper quadrant and left upper quadrant. 16:33 ECG was reviewed by the Attending Physician. Vital Signs: 11:43 Resp 26; Temp 98.7(O); ss 11:57 Pulse 155; Resp 26; Pulse Ox 98% on R/A; jh5 12:40 BP 101 / 68; Pulse 90; Resp 20; Pulse Ox 96% on R/A; eh3 13:00 BP 110 / 61; Pulse 127; Resp 20; Pulse Ox 99% on R/A; eh3 14:00 BP 91 / 56; Pulse 131; Resp 18; Pulse Ox 96% on R/A; eh3 15:00 BP 98 / 53; Pulse 124; Resp 18; Pulse Ox 94% on R/A; eh3 16:00 BP 103 / 61; Pulse 123; Resp 18; Pulse Ox 94% on R/A; eh3 17:00 BP 102 / 82; Pulse 132; Resp 20; Pulse Ox 96% on R/A; eh3 18:00 BP 109 / 78; Pulse 114; Resp 18; Pulse Ox 98% on R/A; eh3 MDM: 11:40 Patient medically screened. 16:05 Differential diagnosis: gastritis, non-specific abd pain, pancreatitis. Data reviewed: kb vital signs, nurses notes. Consideration of Admission/Observation Patient was admitted/placed on observation. Management of patient was discussed with the following: Dr Singer, recommends CT for PE after VBG. ED course: Patient is a 41-year-old female who presents with upper abdominal pain, fever, nausea and vomiting that started yesterday. On exam patient has moderate tenderness to upper abdomen and tachycardia. Patient is animated, hyperventilating. Serum labs and CT abdomen ordered. Gap of 15 on chemistry, VBG ordered. Patient acidotic on VBG. Discussed with Dr. Singer who recommended CT for PE rule out. Awaiting acetone level.. 16:34 Management of patient was discussed with the following: Hospitalist: [facility]me accepts pt kb for admission under Dr Francis. Independent interpretation of the following test(s) in the Emergency Department EKG: See my EKG interpretation above. Care significantly affected by the following chronic conditions: Diabetes, Hypertension, Obesity. Counseling: I had a detailed discussion with the patient and/or guardian regarding: the historical points, exam findings, and any diagnostic results supporting the discharge/admit diagnosis, lab results, radiology results, the need for further work-up and treatment in the hospital. 06/15 11:40 Order name: CBC with Diff; Complete Time: 12:46 kb 06/15 11:40 Order name: CMP; Complete Time: 12:49 kb 06/15 11:40 Order name: Lipase; Complete Time: 12:49 kb 06/15 11:40 Order name: CT Abd/Pelvis - IV Contrast Only; Complete Time: 15:01 kb 06/15 11:40 Order name: IV Saline Lock; Complete Time: 12:30 kb 06/15 11:40 Order name: Labs collected and sent; Complete Time: 12:30 kb 06/15 11:40 Order name: Urine Dipstick-Ancillary (obtain specimen); Complete Time: 18:31 kb 06/15 12:47 Order name: Vital Signs; Complete Time: 13:11 kb 06/15 12:51 Order name: ABG; Complete Time: 13:57 kb 06/15 12:51 Order name: Acetone, Serum; Complete Time: 16:08 kb 06/15 13:28 Order name: CT Chest For PE Angio; Complete Time: 14:55 frandy 06/15 16:02 Order name: EKG; Complete Time: 16:03 kb 06/15 16:02 Order name: EKG - Nurse/Tech; Complete Time: 18:31 kb 06/15 16:19 Order name: Urine Dipstick-Ancillary; Complete Time: 16:20 EDMS 06/15 16:35 Order name: Blood Glucose Level; Complete Time: 20:46 kb 06/15 16:58 Order name: SARS RAPID; Complete Time: 18:39 kb 06/15 17:32 Order name: Hemoglobin A1c EDMS 06/15 17:32 Order name: Lipid Profile; Complete Time: 18:57 EDMS 06/15 17:35 Order name: 60g Consistent Carbohydrate (ADA 1800/2000) EDMS 06/15 17:35 Order name: Magnesium; Complete Time: 18:57 EDMS 06/15 17:35 Order name: Phosphorus; Complete Time: 18:57 EDMS 06/15 17:35 Order name: T4 Free; Complete Time: 18:57 EDMS 06/15 17:35 Order name: Thyroid Stimulating Hormone; Complete Time: 18:57 EDMS 06/15 17:35 Order name: Urinalysis EDMS 06/15 17:35 Order name: Basic Metabolic Panel EDMS 06/15 17:35 Order name: Basic Metabolic Panel EDMS 06/15 17:35 Order name: CBC with Automated Diff EDMS 06/15 17:35 Order name: CBC with Automated Diff EDMS 06/15 19:44 Order name: Glucose, Ancillary Testing; Complete Time: 19:45 EDMS EC:33 Rate is 121 beats/min. Rhythm is regular. Right axis deviation noted. NC interval is kb normal at 130 msec. QRS interval is normal at 74 msec. QT interval is normal at 460 msec. Administered Medications: 12:40 Drug: NS 0.9% 1000 ml Route: IV; Rate: 1 bolus; Site: left forearm; eh3 14:39 Follow up: IV Status: Completed infusion; IV Intake: 1000ml eh3 12:40 Drug: Pepcid (famotidine) 20 mg Route: IVP; Site: left forearm; eh3 14:39 Follow up: Response: No adverse reaction eh3 12:40 Drug: Zofran (Ondansetron) 4 mg Route: IVP; Site: left forearm; eh3 14:39 Follow up: Response: Nausea unchanged eh3 12:40 Drug: morphine 4 mg Route: IVP; Infused Over: 4 mins; Site: left forearm; eh3 14:39 Follow up: Response: Pain is unchanged, physician notified eh3 13:29 Drug: NS 0.9% 1000 ml Route: IV; Rate: 1000 ml; Site: left forearm; eh3 16:00 Follow up: IV Status: Completed infusion; IV Intake: 1000ml eh3 13:29 Drug: fentaNYL (PF) 50 mcg Route: IVP; Site: left forearm; eh3 14:39 Follow up: Response: Pain is decreased eh3 14:15 Drug: Phenergan (promethazine) 25 mg Route: IM; Site: right deltoid; eh3 15:42 Follow up: Response: Nausea is decreased eh3 15:30 Drug: Bentyl (dicyclomine) 20 mg Route: PO; eh3 18:31 Follow up: Response: Pain is decreased eh3 Disposition Summary: 06/15/22 16:35 Hospitalization Ordered Hospitalization Status: Observation kb Provider: José Miguel Francis Location: Telemetry/MedSurg (observation) kb Condition: Stable kb Problem: new kb Symptoms: are unchanged kb Bed/Room Type: Standard kb Room Assignment: 410(06/15/22 20:15) cg Diagnosis - Enteritis kb - Dehydration kb - Hyperglycemia, unspecified kb - Tachycardia, unspecified kb Discharge Instructions: - Discharge Summary Sheet iw Forms: - Medication Reconciliation Form kb - SBAR form kb - Family Work Release iw Signatures: Dispatcher [employer] EDMS Lara Gonzalez FNP-C FNP-Alessandro Flores MD MD cha Smirch, Shelby, RN RN Shayy Castro RN RN Liana Francisco RN RN eh3 Corrections: (The following items were deleted from the chart) 12:09 11:41 Abdomen Limited+US.RAD.BRZ ordered. EDMS EDMS 20:15 16:35 kb cg
[2022-06-15] MEDS ORDERED: HYDROCODONE/APAP 10/325 TAB PO PRN (17:26)
[2022-06-15] MEDS ORDERED: SODIUM CHLORIDE 0.9% 10ML INJ IV PRN (17:34)
--- NOTE | 2022-06-15 17:37 | P.HP ---
Certification for Inpatient Patient admitted to: Inpatient With expected LOS: >2 Midnights Patient will require the following post-hospital care: None Practitioner: I am a practitioner with admitting privileges, knowledge of patient current condition, hospital course, and medical plan of care. Services: Services provided to patient in accordance with Admission requirements found in Title 42 Section 412.3 of the Code of Federal Regulations Patient History Date of Service: 06/15/22 Reason for admission: Abdominal pain, N\V\D History of Present Illness: Patient is a 41-year-old female with a past medical history significant for anxiety disorder, DM 2, hypertension, chronic back pain, insomnia who presents with complaint of abdominal pain located in the epigastric area with radiation to the right quadrants. Patient reported that abdominal pain started yesterday. Patient rated pain as 10/10 and described pain as sharp\aching in quality. Patient initially started having symptoms of chills and fever 2 days ago. Patient reported associated signs and symptoms of nausea, vomiting, diarrhea, shortness of breath, cough and poor appetite. Patient denies any other signs and symptoms. Symptoms are aggravated or relieved by nothing. Patient decided to present to the hospital due to worsening symptoms. Of note patient reported that she could not sleep in the night due to pain And is requesting to be started on her Ambien for sleep tonight. Allergies naproxen Allergy (Intermediate, Verified 11/10/16 04:13) BLOOD IN STOOL codeine Allergy (Verified 11/10/16 04:13) Unknown cyclobenzaprine [From Flexeril] Allergy (Verified 11/10/16 04:13) Unknown Fle Allergy (Uncoded 09/28/15 01:52) Unknown Home Medications: LORazepam [Ativan*] 2 mg PO BEDTIME PRN 11/10/16 Metformin HCl [Glucophage*] 500 mg PO DAILY WITH BREAKFAST 11/10/16 Metoprolol Tartrate [Lopressor*] 50 mg PO BID 11/10/16 Zolpidem Tartrate [Ambien*] 10 mg PO BEDTIME 11/10/16 Magnesium Oxide [Mag 0X*] 400 mg PO BID #60 tab 11/12/16 Hydrocodone Bit/Acetaminophen [Ward 10-325 Tablet] 1 each PO Q6HP PRN #30 tablet 11/13/16 Promethazine HCl 25 mg PO BID PRN #30 tablet 11/13/16 Tizanidine HCl 4 mg PO BID PRN #30 tablet 11/13/16 predniSONE [Deltasone] 20 mg PO DAILY #5 tab 11/13/16 Amox/Clavulanate [Augmentin 500 mg Tab*] 500 mg PO BID #28 tab 11/18/16 Smz./Tmp. [Bactrim Ds 800 MG/160 MG*] 1 tab PO BID #28 tab 11/18/16 - Past Medical/Surgical History Diabetic: Yes -: anxiety -: back pain -: NIDDM -: HTN -: cholecystectomy -: hysterectomy -: tubal ligation - Family History Father -: Heart disease Mother -: Stroke - Social History Smoking Status: Former smoker Alcohol use: Yes CD- Drugs: Yes Caffeine use: No Place of Residence: Home Review of Systems General: Fever, Chills, Other Eyes: Unremarkable ENT: Unremarkable Respiratory: Cough, Shortness of Breath Cardiovascular: Unremarkable Gastrointestinal: Nausea, Vomiting, Abdominal Pain, Diarrhea Genitourinary: Unremarkable Musculoskeletal: Back Pain Integumentary: Unremarkable Neurological: Other Lymphatics: Unremarkable Physical Examination - Physical Exam General: Alert, Oriented x3, Cooperative, Mild distress HEENT: Atraumatic, PERRLA, Mucous membr. moist/pink, EOMI, Sclerae nonicteric Neck: Supple, 2+ carotid pulse no bruit, No LAD, Without JVD or thyroid abnormality Respiratory: Clear to auscultation bilaterally, Normal air movement Cardiovascular: No edema, Regular rate/rhythm, Normal S1 S2 Capillary refill: <2 Seconds Gastrointestinal: Normal bowel sounds, Tenderness Musculoskeletal: No clubbing, No swelling, No tenderness Integumentary: No rashes, No breakdown, No significant lesion Neurological: Normal speech, Normal tone, Normal affect Lymphatics: No axilla or inguinal lymphadenopathy - Studies Laboratory Data (last 24 hrs) 06/15/22 12:22: Sodium 133 L, Potassium 4.1, BUN 11, Creatinine 1.36 H, Glucose 379 H, Total Bilirubin 1.4 H, AST 95 H, ALT 116 H, Alkaline Phosphatase 104, Lipase 22 06/15/22 12:22: WBC 4.20 L, Hgb 16.1 H, Hct 48.1 H, Plt Count 284 Assessment and Plan - Plan -- Enteritis. Noted on imaging. Patient started on antibiotics. Continue IV hydration. -- Diarrhea. Stool studies pending to rule out any infectious process. Continue antibiotics and IV hydration. --Nausea and vomiting. Antiemetics on board. Continue supportive care. --Insomnia. Patient on Ambien at home. Patient requested to be started on Ambien as she could not sleep yesterday. -- Anxiety disorder. Continue home medication. --DM2 with hyperglycemia. ABG done. Patient does not meet criteria for DKA. BS monitoring sliding scale insulin and Lantus. --Chronic back pain. We will manage pain with current pain medication regimen. --Hypertension. Patient currently hypotensive. We will hold off on BP meds. Continue IV hydration. We will continue to monitor blood pressure levels. --JON on CKD 2. Likely prerenal secondary to fluid losses. Continue IV hydration. Will reassess renal functions in a.m. --DVT prophylaxis with Lovenox subQ. Discharge Plan: Home Plan to discharge in: Greater than 2 days - Advance Directives Does patient have a Living Will: No Does patient have a Durable POA for Healthcare: No - Code Status/Comfort Care Code Status Assessed: Yes Physician Review: Patient Assessed, Agree with Above Assessment and Plan Critical Care: No
[2022-06-15] MEDS: METRONIDAZOLE 500mg IVPB 500 MG/100 ML BAG IV SCH (18:00)
[2022-06-15] MEDS: NA CHLORIDE 0.9% 1,000 ML IV SCH (18:00)
[2022-06-15] MEDS: ENOXAPARIN 40 MG/0.4 ML SQ SCH (18:00)
[2022-06-15] MEDS: PANTOPRAZOLE 40 MG INJ IVP SCH (18:00)
[2022-06-15 18:34] LABS: SARS-CoV-2 Antigen Rapid Res Negative (Negative)
[2022-06-15 18:55] LABS: Magnesium 1.8 mg/dL (1.6-2.4); Phosphorus 2.5 mg/dL (2.5-4.9); Thyroid Stimulating Hormone 0.309 uIU/mL (0.358-3.740)
[2022-06-15] MEDS ORDERED: HYDROCODONE/APAP 10/325 TAB ONE (19:00)
[2022-06-15] MEDS ORDERED: ENOXAPARIN 40 MG/0.4 ML SQ ONE (19:01)
[2022-06-15] MEDS ORDERED: METRONIDAZOLE 500mg IVPB 500 MG/100 ML BAG IV ONE (19:01)
[2022-06-15] MEDS ORDERED: PANTOPRAZOLE 40 MG INJ ONE (19:01)
[2022-06-15] MEDS ORDERED: GLUCAGON 1 MG/VIAL IM PRN (20:12)
[2022-06-15] MEDS ORDERED: D50W 25 GM/50 ML SYRINGE IV PRN (20:12)
[2022-06-15] MEDS ORDERED: MORPHINE 2 MG/ML SYR IV PRN (20:21)
[2022-06-15] MEDS ORDERED: D10W 125 ML IV PRN (20:24)
[2022-06-15] MEDS ORDERED: MELATONIN 5 MG TABLET PO PRN (20:38)
[2022-06-15] MEDS: FENTANYL CITR 100 MCG/2 ML IV PRN (21:00)
[2022-06-15] MEDS: INSULIN -REGULAR HUMAN 50 UNIT/0.5 ML ML SQ SCH ×2 (21:00)
[2022-06-15 22:15] VITALS: BMI 42.3
[2022-06-15] MEDS: INSULIN GLARGINE 100 UNIT/ML SQ SCH (22:17)
[2022-06-15] MEDS: ZOLPIDEM TARTRATE 10 MG TABLET PO SCH (22:17)
[2022-06-15] MEDS: CIPROFLOXACIN 400mg IV 400 MG/200 ML BAG IV SCH (22:17)
[2022-06-15 23:57] LABS: Urine Bilirubin Negative (Negative); Urine Blood Negative (Negative); Urine Clarity Clear (Clear); Urine Color Yellow (Yellow); Urine Glucose 3+ (Negative); Urine Protein Negative (Negative); Urine Urobilinogen 0.2 mg/dL (0.2-1.0); Urine pH 5.5 (5.0-7.0)
[2022-06-16] MEDS: METRONIDAZOLE 500mg IVPB 500 MG/100 ML BAG IV SCH ×3 (00:47→16:00)
[2022-06-16] MEDS: FENTANYL CITR 100 MCG/2 ML IV PRN ×4 (01:21→15:59)
[2022-06-16] MEDS: ONDANSETRON 4 MG/2 ML VIAL IV PRN ×2 (01:21→15:59)
[2022-06-16] MEDS: NA CHLORIDE 0.9% 1,000 ML IV SCH ×2 (02:10→18:23)
[2022-06-16 04:21] LABS: Absolute Lymphocytes (CBC) 1.6 K/uL (0.7-4.9); Hematocrit 40.4 % (36.0-45.0); Lymphocytes % 11.2 % (15.3-44.8); MPV 8.6 fL (7.6-11.3); RBC Red Blood Cell Count 4.49 M/uL (3.86-4.86)
[2022-06-16 04:26] LABS: Potassium 4.1 mmol/L (3.5-5.1)
[2022-06-16] MEDS: ACETAMINOPHEN 325 MG TABLET PO PRN ×2 (06:00→12:32)
--- NOTE | 2022-06-16 07:28 | P.PN ---
Date of Service: 06/16/22 Subjective: Feeling better than yesterday Abdominal pain continues but less severe otherwise no new or worse symptoms ROS: 10 point ROS as noted above, otherwise negative Physical Exam: GEN: Alert, oriented, NAD HEENT: Normal conjunctiva, sclera anicteric CV: Regular rate and rhythm, no edema Pulm: Nonlabored respirations on room air ABD: Soft, TTP in upper abdomen Neuro: Normal speech, normal affect Problem List: Enteritis with n/v/d Anxiety disorder DM2 with hyperglycemia Chronic back pain Hypertension JON on CKD 2 antibiotics prescribed, needs bowel rest Continue IV hydration. Pain medication as needed; ween off pain medicine when possible, eventually switch to soft food diet ABG done. Patient does not meet criteria for DKA. BS monitoring sliding scale insulin and Lantus. Continue to monitor BP & renal functions, Hemoglobin Stool samples pending results No WBCS seen on stain GI consulted - recurrent enteritis VTE: Lovenox subQ. Code: Full Dispo: Home, Greater than 2 days
[2022-06-16] MEDS: INSULIN -REGULAR HUMAN 50 UNIT/0.5 ML ML SQ SCH ×7 (08:27→21:00)
[2022-06-16] MEDS: ASPIRIN 81 MG CHEWABLE TABLET PO SCH (08:27)
[2022-06-16] MEDS: ENOXAPARIN 40 MG/0.4 ML SQ SCH (08:27)
[2022-06-16] MEDS: CIPROFLOXACIN 400mg IV 400 MG/200 ML BAG IV SCH ×2 (09:02→21:51)
[2022-06-16] MEDS: PANTOPRAZOLE 40 MG INJ IVP SCH (09:03)
--- NOTE | 2022-06-16 17:27 | EKG ---
Test Date: 2022-06-15 Test Time: 16:31:32 Smoke Chaser: YANA MEASUREMENT RESULTS: Intervals: Rate: 121 CO: 130 QRSD: 74 QT: 324 QTc: 460 [place]: P: 66 CO: 130 QRS: 130 T: 17 INTERPRETIVE STATEMENTS: Sinus tachycardia Right axis deviation Abnormal ECG Compared to ECG 08/12/2021 18:16:38 Myocardial infarct finding no longer present Electronically Signed On 06-16-22 17:26:07 [employer]UNDR[employer] OPERATOR FINISHING by Wilber Schafer
[2022-06-16] MEDS: INSULIN GLARGINE 100 UNIT/ML SQ SCH (21:50)
[2022-06-16] MEDS: ZOLPIDEM TARTRATE 10 MG TABLET PO SCH (21:51)
[2022-06-16] MEDS: MORPHINE 2 MG/ML SYR IV PRN (21:52)
[2022-06-17] MEDS: ONDANSETRON 4 MG/2 ML VIAL IV PRN ×2 (01:59→10:29)
[2022-06-17] MEDS: METRONIDAZOLE 500mg IVPB 500 MG/100 ML BAG IV SCH ×3 (01:59→16:01)
[2022-06-17] MEDS: MORPHINE 2 MG/ML SYR IV PRN ×4 (02:00→22:41)
[2022-06-17 03:58] LABS: Absolute Lymphocytes (CBC) 1.5 K/uL (0.7-4.9); Hematocrit 36.4 % (36.0-45.0); Lymphocytes % 15.3 % (15.3-44.8); MCV 90.4 fL (80-100); MPV 8.5 fL (7.6-11.3); RBC Red Blood Cell Count 4.02 M/uL (3.86-4.86)
[2022-06-17 04:30] LABS: Albumin 2.6 g/dL (3.4-5.0); Bilirubin Total 0.5 mg/dL (0.2-1.0); Potassium 3.6 mmol/L (3.5-5.1); Protein, Total 6.3 g/dL (6.4-8.2)
[2022-06-17] MEDS: NA CHLORIDE 0.9% 1,000 ML IV SCH ×3 (06:36→20:00)
--- NOTE | 2022-06-17 07:19 | P.PN ---
Date of Service: 06/17/22 Subjective: Feeling slight increased pain than yesterday Abdominal pain continues worsened with PO intake ROS: 10 point ROS as noted above, otherwise negative Physical Exam: GEN: Alert, oriented, NAD HEENT: Normal conjunctiva, sclera anicteric CV: Regular rate and rhythm, no edema Pulm: Nonlabored respirations on room air ABD: Soft, mild-mod TTP in upper abdomen Neuro: Normal speech, normal affect Problem List: Enteritis with n/v/d Anxiety disorder DM2 with hyperglycemia Chronic back pain Hypertension JON on CKD 2 antibiotics prescribed, needs bowel rest Continue IV hydration. Pain medication as needed; ween off pain medicine when possible, eventually switch to soft food diet ABG done. Patient does not meet criteria for DKA. BS monitoring sliding scale insulin and Lantus. Continue to monitor BP & renal functions, Hemoglobin Stool samples pending results No WBCS seen on stain GI consulted DC short acting insulin Continues pain with liquids so will switch to NPO continue IV fluids, antibiotics VTE: Lovenox subQ. Code: Full Dispo: Home, Greater than 2 days
[2022-06-17] MEDS: PANTOPRAZOLE 40 MG INJ IVP SCH (08:39)
[2022-06-17] MEDS: ASPIRIN 81 MG CHEWABLE TABLET PO SCH (08:39)
[2022-06-17] MEDS: ENOXAPARIN 40 MG/0.4 ML SQ SCH (08:40)
[2022-06-17] MEDS: INSULIN -REGULAR HUMAN 50 UNIT/0.5 ML ML SQ SCH ×4 (08:41→21:00)
[2022-06-17] MEDS ORDERED: POTASSIUM CL SA 10 MEQ TAB PO ONE (09:00)
[2022-06-17] MEDS: CIPROFLOXACIN 400mg IV 400 MG/200 ML BAG IV SCH ×2 (09:53→21:24)
[2022-06-17] MEDS: ACETAMINOPHEN 325 MG TABLET PO PRN ×2 (10:45→20:01)
[2022-06-17] MEDS: SUCRALFATE 1 GM TABLET PO SCH (20:02)
[2022-06-17] MEDS: ZOLPIDEM TARTRATE 10 MG TABLET PO SCH (22:41)
[2022-06-17] MEDS: INSULIN GLARGINE 100 UNIT/ML SQ SCH (22:48)
[2022-06-18] MEDS: METRONIDAZOLE 500mg IVPB 500 MG/100 ML BAG IV SCH ×2 (01:59→08:21)
[2022-06-18] MEDS: NA CHLORIDE 0.9% 1,000 ML IV SCH (01:59)
[2022-06-18] MEDS: MORPHINE 2 MG/ML SYR IV PRN ×2 (04:08→09:23)
[2022-06-18] MEDS: ONDANSETRON 4 MG/2 ML VIAL IV PRN (04:09)
[2022-06-18] MEDS: ACETAMINOPHEN 325 MG TABLET PO PRN (04:09)
[2022-06-18 05:26] LABS: Absolute Lymphocytes (CBC) 1.6 K/uL (0.7-4.9); Hematocrit 37.8 % (36.0-45.0); Lymphocytes % 27.7 % (15.3-44.8); MCV 91.2 fL (80-100); MPV 8.7 fL (7.6-11.3); RBC Red Blood Cell Count 4.14 M/uL (3.86-4.86)
[2022-06-18 05:44] LABS: Albumin 2.6 g/dL (3.4-5.0); Bilirubin Total 0.4 mg/dL (0.2-1.0); Potassium 3.8 mmol/L (3.5-5.1); Protein, Total 6.7 g/dL (6.4-8.2)
--- NOTE | 2022-06-18 07:16 | P.PN ---
Date of Service: 06/18/22 Subjective: Feeling slight decreased pain overnight Abdominal pain continues worsened with PO intake ROS: 10 point ROS as noted above, otherwise negative Physical Exam: GEN: Alert, oriented, NAD HEENT: Normal conjunctiva, sclera anicteric CV: Regular rate and rhythm, no edema Pulm: Nonlabored respirations on room air ABD: Soft, mild TTP in upper abdomen Neuro: Normal speech, normal affect Problem List: Enteritis with n/v/d Anxiety disorder DM2 with hyperglycemia Chronic back pain Hypertension JON on CKD 2 antibiotics prescribed, needs bowel rest Continue IV hydration. Pain medication as needed; ween off pain medicine when possible, eventually switch to soft food diet ABG done. Patient does not meet criteria for DKA. BS monitoring sliding scale insulin and Lantus. Continue to monitor BP & renal functions, Hemoglobin Stool samples pending results No WBCS seen on stain GI consulted DC short acting insulin Advanced from NPO to clear liquid diet Swap to full liquid diet if able to tolerate and keep liquids down continue IV fluids, antibiotics VTE: Lovenox subQ. Code: Full Dispo: Home, Greater than 2 days
[2022-06-18] MEDS: INSULIN -REGULAR HUMAN 50 UNIT/0.5 ML ML SQ SCH ×3 (07:30→17:01)
[2022-06-18] MEDS: SUCRALFATE 1 GM TABLET PO SCH ×3 (07:40→16:22)
[2022-06-18] MEDS: ASPIRIN 81 MG CHEWABLE TABLET PO SCH (09:16)
[2022-06-18] MEDS: ENOXAPARIN 40 MG/0.4 ML SQ SCH (09:16)
[2022-06-18] MEDS: PANTOPRAZOLE 40 MG INJ IVP SCH (09:16)
[2022-06-18] MEDS: CIPROFLOXACIN 400mg IV 400 MG/200 ML BAG IV SCH (09:17)
[2022-06-18 10:53] VITALS: O2SAT 97
[2022-06-18 17:03] VITALS: BP 121/60; TEMP 97.2
--- NOTE | 2022-06-19 12:50 | P.DS ---
Admission Date: 06/15/22 Discharge Date: 06/19/22 Disposition: ROUTINE DISCHARGE Discharge Condition: FAIR Reason for Admission: Abdominal pain, N\V\D Consultations: Gastrointestinal - Brief History of Present Illness: Patient is a 41-year-old female with a past medical history significant for anxiety disorder, DM 2, hypertension, chronic back pain, insomnia who presents with complaint of abdominal pain located in the epigastric area with radiation to the right quadrants. Patient reported that abdominal pain started yesterday. Patient rated pain as 10/10 and described pain as sharp\aching in quality. Patient initially started having symptoms of chills and fever 2 days ago. Patient reported associated signs and symptoms of nausea, vomiting, diarrhea, shortness of breath, cough and poor appetite. Patient denies any other signs and symptoms. Symptoms are aggravated or relieved by nothing. Patient decided to present to the hospital due to worsening symptoms. Of note patient reported that she could not sleep in the night due to pain And is requesting to be started on her Ambien for sleep tonight. Hospital Course: Problem List: Enteritis with n/v/d Anxiety disorder DM2 with hyperglycemia Chronic back pain Hypertension JON on CKD 2 Patient presented with nausea, vomiting, diarrhea. CT findings concerning for enteritis. During hospitalization she developed a fever early on, and drip which remained afebrile, leukocytosis resolved and has remained within normal limits over the last 3 days. Patient had slow progression due to inability to tolerate p.o. and abdominal pain. GI was consulted. Dr. Canseco recommended Protonix, continue antibiotics. No urgent need/indication for EGD or colonoscopy at this time. She had gradual improvement. On day of discharge she tolerated full liquids, was still having abdominal pain but reported it was better. She stated she really wanted to go home today and that she was ready. Discussed that she had just started tolerating some liquids and still having abdominal pain and concerned that this may be a bit too soon. She states she really wanted to go home, return precautions were explained, she voiced understanding. Discharge home per patient's request With 10 days of antibiotics, prescription for Protonix, and 20 units of insulin to be done at bedtime. Follow-up: PCP: 3-5 days GI, Dr. Bermudez, in the next few weeks. Consideration for EGD/colonoscopy in the near future as an outpatient. Vital Signs/Physical Exam: Temp Pulse Resp BP Pulse Ox 97.2 F 73 16 121/60 97 06/18/22 16:00 06/18/22 16:00 06/18/22 16:00 06/18/22 16:00 06/18/22 16:00 Physical Exam: GEN: Alert, oriented, NAD HEENT: Normal conjunctiva, sclera anicteric CV: Regular rate and rhythm, no edema Pulm: Nonlabored respirations on room air ABD: Soft, mild TTP in upper abdomen Neuro: Normal speech, normal affect Laboratory Data at Discharge: WBC 5.90 K/uL (4.3-10.9) 06/18/22 04:22 Hgb 12.6 g/dL (12.0-15.0) 06/18/22 04:22 Hct 37.8 % (36.0-45.0) 06/18/22 04:22 Plt Count 208 K/uL (152-406) 06/18/22 04:22 Sodium 139 mmol/L (136-145) 06/18/22 04:22 Potassium 3.8 mmol/L (3.5-5.1) 06/18/22 04:22 BUN 4 mg/dL (7-18) L 06/18/22 04:22 Creatinine 0.78 mg/dL (0.55-1.02) 06/18/22 04:22 Glucose 228 mg/dL (74-106) H 06/18/22 04:22 Phosphorus 2.5 mg/dL (2.5-4.9) 06/15/22 18:15 Magnesium 1.8 mg/dL (1.6-2.4) 06/15/22 18:15 Total Bilirubin 0.4 mg/dL (0.2-1.0) 06/18/22 04:22 AST 81 U/L (15-37) H 06/18/22 04:22 ALT 83 U/L (13-56) H 06/18/22 04:22 Alkaline Phosphatase 83 U/L (45-117) 06/18/22 04:22 Triglycerides 104 mg/dL (<150) 06/15/22 18:15 Cholesterol 99 mg/dL (<200) 06/15/22 18:15 HDL Cholesterol 49 mg/dL (40-60) 06/15/22 18:15 Cholesterol/HDL Ratio 2.02 06/15/22 18:15 Lipase 19 U/L (13-75) 06/17/22 03:39 Home Medications: Metformin HCl [Glucophage*] 1,000 mg PO BID 11/10/16 Metoprolol Tartrate [Lopressor*] 50 mg PO BID 11/10/16 Zolpidem Tartrate [Ambien*] 10 mg PO BEDTIME 11/10/16 Hydrocodone Bit/Acetaminophen [[place] 10-325 Tablet] 1 each PO Q6HP PRN #30 tablet 11/13/16 Promethazine HCl 25 mg PO BID PRN #30 tablet 11/13/16 Alprazolam [Xanax] 2 mg PO TID PRN 06/15/22 Carisoprodol [Soma] 350 mg PO DAILY PRN 06/15/22 Gabapentin 600 mg PO BID 06/15/22 Hydralazine HCl [Apresoline] 50 mg PO BID 06/15/22 Semaglutide [Ozempic] 1 mg SQ EVERY 7TH DAY 06/15/22 Ciprofloxacin HCl 1 tab PO BID 10 Days #20 tab 06/18/22 Insulin Glargine,Hum.rec.anlog [Semglee] 20 unit SQ BEDTIME 30 Days #10 ml 06/18/22 Pantoprazole Sodium [Protonix] 40 mg PO DAILY 30 Days #30 tab 06/18/22 metroNIDAZOLE [Flagyl] 1 tab PO Q8H 10 Days #30 tab 06/18/22 New Medications: Ciprofloxacin HCl 1 tab PO BID 10 Days #20 tab metroNIDAZOLE [Flagyl] 1 tab PO Q8H 10 Days #30 tab Pantoprazole Sodium [Protonix] 40 mg PO DAILY 30 Days #30 tab Insulin Glargine,Hum.rec.anlog [Semglee] 20 unit SQ BEDTIME 30 Days #10 ml Physician Discharge Instructions: Patient presented with nausea, vomiting, diarrhea. CT findings concerning for enteritis. During hospitalization she developed a fever early on, and drip which remained afebrile, leukocytosis resolved and has remained within normal limits over the last 3 days. Patient had slow progression due to inability to tolerate p.o. and abdominal pain. GI was consulted. Dr. Canseco recommended Protonix, continue antibiotics. No urgent need/indication for EGD or colonoscopy at this time. She had gradual improvement. On day of discharge she tolerated full liquids, was still having abdominal pain but reported it was better. She stated she really wanted to go home today and that she was ready. Discussed that she had just started tolerating some liquids and still having abdominal pain and concerned that this may be a bit too soon. She states she really wanted to go home, return precautions were explained, she voiced understanding. Discharge home per patient's request With 10 days of antibiotics, prescription for Protonix, and 20 units of insulin to be done at bedtime. Follow-up: PCP: 3-5 days GI, Dr. Bermudez, in the next few weeks. Consideration for EGD/colonoscopy in the near future as an outpatient. Diet: full liqui Activity: Ad maikol Followup: NONE,NONE [Primary Care Provider] - Time spent managing pt's care (in minutes): 45
== END 2022-06-18 18:27 | disposition home or self-care (01) | DRG 392 ==
LOC: ER 11:34 → ERHOLD 17:16 → 4TH 20:29
PROVIDERS: ADMIT Hospitalist; ATTEND Hospitalist
DX: K52.9 Noninfective gastroenteritis and colitis, unspecified (principal); Z68.41 Body mass index [BMI] 40.0-44.9, adult; N17.9 Acute kidney failure, unspecified; E66.9 Obesity, unspecified; I12.9 Hypertensive chronic kidney disease with stage 1 through stage 4 chronic kidney disease, or unspecified chronic kidney disease; N18.2 Chronic kidney disease, stage 2 (mild); E11.22 Type 2 diabetes mellitus with diabetic chronic kidney disease; E11.65 Type 2 diabetes mellitus with hyperglycemia; G89.29 Other chronic pain; M54.9 Dorsalgia, unspecified; E86.0 Dehydration; G47.00 Insomnia, unspecified; F41.9 Anxiety disorder, unspecified; Z88.5 Allergy status to narcotic agent; Z98.51 Tubal ligation status; Z79.52 Long term (current) use of systemic steroids; Z79.01 Long term (current) use of anticoagulants; Z79.84 Long term (current) use of oral hypoglycemic drugs; Z90.49 Acquired absence of other specified parts of digestive tract; Z87.891 Personal history of nicotine dependence; Z79.899 Other long term (current) drug therapy; Z90.710 Acquired absence of both cervix and uterus; Z20.822 Contact with and (suspected) exposure to COVID-19
CPT/HCPCS: 36415; 71275; 74177; 80048; 80053; 80061; 81003; 82010; 82805; 82947; 83036; 83690; 83735; 84100; 84439; 84443; 85025; 87040; 87045; 87046; 87177; 87209; 87811; 89055; 93005; 96361; 96372; 96374; 96375; 99285; C9113; J0744; J1650; J1815; J2270; J2405; J2550; J3010; J7030; Q9967

== ENCOUNTER 2022-12-01 03:22 | Emergency (ER) | payer BC ==
--- OUTSIDE RECORDS SUMMARY | 2022-12-01 03:31 | XMS REPORT | Continuity of Care Document ---
:1980 Author Organization [facility] t Address [address] [facility] [address] [place] [address] Care Team Providers Name Role Phone No , Malaika [facility] Primary Care Physician Unavailable Elie Hyde Attending Clinician Unavailable SWAPNA DALTON Attending Clinician Unavailable Jose Hutchinson Attending Clinician Unavailable REYES AMAYA Attending Clinician Unavailable Denver Enciso MD Attending Clinician Doctor Unassigned, Wrigley Attending Clinician Unavailable POWER BUCK Attending Clinician Unavailable Elie Hyde Admitting Clinician Unavailable SWAPNA DALTON Admitting Clinician Unavailable Physician, No Primary or Family Admitting Clinician UnavailREYES Wynn Admitting Clinician Unavailable MICAELA DE LA CRUZ Admitting Clinician Unavailable Payers Payer Name Policy Type Policy Number Effective Date Expiration Date S ource Problems Condition Condition Condition Status Onset Resolution Last Treating Co mments Source Name Details Category Date Date Treatment Clinician Date Sepsis Sepsis Disease [facility]ur[facility] 00 [place] Sinus Sinus Disease Active [facility] tachycardi tachycardi 3-02 Kellie kes a a 00:00: Medical 00 [place] Pneumonia Pneumonia Disease Active [facility] 00 [place] Febrile Febrile Disease Active [facility] illness illness [facility]: Medical 00 [place] [phone] Pain, [place] [id number] joint, [facility] knee, - [facility] right [facility] Allergies, Adverse Reactions, Alerts Allergy Allergy Status Severity Reaction(s) Onset Inactive Treating Comm ents Source Name Type Date Date Clinician cycloben DA Active [facility] zaprine 4-14 [place] 00:00: d [facility] morphine DA Active [facility] 4-14 [place] 00:00: d [facility] codeine DA Active [facility] 4-14 [place] 00:00: d 00 [facility] NAPROXEN Allergy Active [facility] 00 [place] Naproxen Propensi Active [facility]- [facility] adverse 00:00: Medical reaction 00 Center s NAPROXEN DA Active U 2007-0 [facility] 1-20 [place] 00:00: d 00 [facility] No Known DA Active U 2007- [facility] Contrast 1-20 [place] Allergie 00:00: d s 00 [facility] No Known DA Active U 2007-0 [facility] Food 1-20 [place] Allergie 00:00: d s 00 [facility] No Known DA Active U 2007-0 [facility] Other 1-20 [place] Allergie 00:00: d s 00 [facility] ZOFRAN DA Active U 2007-0 [facility] 1-20 [place] 00:00: d 00 [facility] naproxen naproxen Active Unknown Commo n Spirit - [facility] Social History Social Habit Start Date Stop Date Quantity Comments Source History SDOH [facility] Alcohol Comment Medical C enter History SDOH [facility] Alcohol Std Drinks Medica l Center History SDOH [facility] Alcohol Binge Medical Nakita ter History of Tobacco [facility] - Use [facility] Alcohol intake 2019-06-19 2019-06-[address] [facility] 00:00:00 00:00:00 non-drinker of Medical Ce nter alcohol (finding) Tobacco use and 2019-06-17 2019-06-[address] [facility] [address] Kellie kes exposure 00:00:00 00:00:00 Medical Center History SDOH 2019-06-17 2019-06-[address] [facility] Alcohol Frequency 00:00:00 00:00:00 [facility] Sex Assigned At [birth year] [facility] kes 00:00:00 00:00:00 [facility] Center Smoking Status Start Date Stop Date Source Never Smoker [facility] Medications Ordered Filled Start Stop Current Ordering Indication Dosage Frequency Signature Comments Components Source Medication Medication Date Date Medication? Clinician (SIG) Name Name Lidocaine Lidocaine No 10mg Com mon 04-25 Spirit 00:00: - [facility] Kenalog Kenalog No 40mg Common (Triamcinol (Triamcinol 04-25 S pirit one) one) 00:00: - [facility] Meloxicam Meloxicam 2022- No 1{table QD Meloxicam 7.5 MG 7.5 MG 04-25 t} 7.5 MG 00:00: 00:00 00 :00 omeprazole Yes 20mg QD Take [address] (PRILOSEC) 3-06 by mouth [facility] 20 MG 16:51: daily. Medical capsule [address] [place] [address] liraglutide Yes Inject [facility] 0.6 mg/0.1 3-06 subcutaneo Kim es mL (18 mg/3 16:51: usly. Medic al mL) PnIj [address] [place] [address] omeprazole Yes 20mg QD Take [address] (PRILOSEC) 3-06 by mouth [facility] 20 MG 16:51: daily. Medical capsule 06 [place] liraglutide Yes Inject [facility] 0.6 mg/0.1 3-06 subcutaneo Kim es mL (18 mg/3 16:51: usly. Medic al mL) PnIj 06 Center omeprazole 2019-0 Yes 20mg QD Take [address] (PRILOSEC) 3-06 by mouth [facility] 20 MG 16:51: daily. Medical capsule 06 Center liraglutide 2019-[address] [facility] 0.6 mg/0.1 3-06 subcutaneo Kim es mL (18 mg/3 16:51: usly. Medic al mL) PnIj 06 [place] ALPRAZolam 2019-0 Yes 1{tbl} Take [address] (XANAX) 2 2-25 tablet by [facility] MG tablet 00:00: mouth Medical 00 every 8 Center (eight) hours as needed. zolpidem 2019-0 Yes 1{tbl} Take 1 [facility] t (AMBIEN) 10 2-25 tablet by Kim es mg tablet 00:00: mouth Medical 00 every Center night as needed. ALPRAZolam 2019-0 Yes 1{tbl} Take [address] (XANAX) 2 2-25 tablet by [facility]ukes MG tablet 00:00: mouth Medical 00 every 8 Center (eight) hours as needed. zolpidem 2019-0 Yes 1{tbl} Take 1 [facility] t (AMBIEN) 10 2-25 tablet by Kim es mg tablet 00:00: mouth Medical 00 every Center night as needed. ALPRAZolam 2019-0 Yes 1{tbl} Take [address] (XANAX) [...] 50 MG 00 daily. Center tablet metoprolol 2019-0 Yes 1{tbl} QD Take [address] tartrate 2-17 tablet by Lukes (LOPRESSOR) 00:00: mouth Medic al 50 MG 00 daily. Center tablet metoprolol 2019-0 Yes 1{tbl} QD Take 1 [...] NovoLOG No NovoLOG Gabapentin Gabapentin No Gabapentin Raymond Raymond No Raymond metFORMIN metFORMIN No metFORMIN HCl HCl HCl hydrALAZINE hydrALAZINE No hydrALAZIN HCl HCl E HCl Vital Signs Vital Name Observation Time Observation Value Comments Source height 2022-04-25 10:00:00 69 [in_i] [facility] weight 2022-04-25 10:00:00 291.3 [lb_av] [facility] temperature 2022-04-25 10:00:00 97.4 [degF] [facility] bmi 2022-04-25 10:00:00 43.01 kg/m2 [facility] blood pressure 2022-04-25 10:00:00 126 mm[Hg] [facility] - systolic [facility] blood pressure 2022-04-25 10:00:00 84 mm[Hg] Common [facility] - diastolic [facility] Procedures This patient has no known procedures. Plan of Care Planned Activity Planned Date Details Comments Source Future Scheduled 2022-04-17 DEPRESSION SCREENING [facility] Test 00:00:00 (12+) [code = [facility] Center DEPRESSION SCREENING (12+)] Future Scheduled 2021-12-16 [...] Medica l Center cervix (procedure) [code = 159464325] Future Scheduled 2000-11-[address] [facility] Test 00:00:00 malignant neoplasm of Medica l Center cervix (procedure) [code = 154841014] Future Scheduled [address] [facility] Test 00:00:00 (procedure) [code = [facility] Center 48712842] Future Scheduled [address] Test 00:00:00 (procedure) [code = [facility] Center 06423884] Future Scheduled 1998-11-08 DTAP/TDAP/TD VACCINES CH I [...] Facility Department ID 2022-05-02 Outpatient Hyde, STLMLC [facility] [id number] Common 08:57:02 [facility] [address] Spir it [facility] 2022-04-25 Outpatient Hyde, STLMLC [facility] [id number] Common 09:45:05 [facility] [address] Spir it [facility] 2022-04-25 2022-04-25 CONSULT - STLMLC [facility] [id number] Common 00:00:00 00:00:00 OFFICE, L3 Spi rit [facility] 2021-07-31 2021-08-02 Outpatient DALTON, [facility] [id number] 02:54:00 17:30:00 SWAPNA 2021-07-29 2021-07-29 Emergency EM Hutchinson, [facility] [id number] [facility] 03:06:00 05:03:[address] [place] [address] 2021-06-29 2021-07-07 Inpatient E JOSE LUIS, [facility] [id number] 19:32:00 18:04:00 REYES 2019-12-16 2019-12-16 Letter NICOLÁS Enciso [id number] 00:00:00 00:00:00 (Out) Denver MARTINEZ [id number] [place] [id number] 2019-12-03 2019-12-03 Orders Doctor NICOLÁS [id number] 00:00:00 00:00:00 Only UnassignedMICHELLE [id number] [place] [facility] [id number] 2019-06-17 2019-06-17 Emergency [facility] [id number] [facility] 09:01:00 09:01:00 [id number] Results Test Description Test Time Test Comments [...] code = ALKP) 56 Unit/L 45-117 N [id number] 04:18:00 Test Item Value Reference Range Interpretation Comments LIPASE (test code = LIP) 94 Unit/L 114-286 L CBC W/AUTO [id number] 03:56:00 Test Item Value Reference Range Interpretation [...] code NO DIFF/SCN CRITERIA = MDIFF) BLOOD [id number] 14:00:00 Test Item Value Reference Range Interpretation Comments CULTURE (BEAKER) (test No growth in 5 days code = 1095) BLOOD [id number] 14:00:00 Test Item Value Reference Range Interpretation Comments CULTURE (BEAKER) (test No growth in 5 days code = 1095) ANG, NON-TUNNELED CATH/PICC >5 Y.O. WITH [id number] 15:20:00Reason for exam:->intermodal customer service antibioticsFINAL REPORT PICC LINE PLACEMENT, UNDER FLUOROSCOPY [...] placed, through which a dual lumen 5 Romansh PICC line trimmed to 43 cm length was advanced and positioned withtip at the cavoatrial junction. Spot film performed for documentation. Catheter flushed and secured in place with 2-0 silk sutures. Sterile dressing applied. Catheter is ready for immediate use. Fluoroscopy time: 0.9 minutes Number of exposures performed: Two Radiation dose (Ka,r): 56.83 mGy Signed: Jorge Alberto Barahona Verified Date/Time: 06/21/2019 15:20:38 Reading Location: [facility] Radiology Reading Room POCT-GLUCOSE [id number] 12:29:00 Test Item Value Reference Range Interpretation Comments POC-GLUCOSE METER 140 mg/dL 70-110 H : [facility] ([employer]) (test code [facility] [address], = 1538) [place] [address]: Supervisor Chassis Assembly/Techni estrellita ID = [id number] for Sloane u, Yasmin POCT-GLUCOSE [id number] 07:52:00 Test Item Value Reference Range Interpretation Comments POC-GLUCOSE METER 157 mg/dL 70-110 H : TESTED A T [facility] 1317 (BEAKER) (test code [address], = 1538) [place] [id number]: Supervisor Chassis Assembly/Techni estrellita ID = [id number] for Sloane u, Yasmin BASIC METABOLIC [id number] 06:16:00 Test Item Value Reference Range Interpretation [...] S NOT APPLICABLE FOR DIALYSIS PATIEN TS. Supervisor Chassis Assembly ID - [id number] W/PLT COUNT & AUTO [id number] 05:55:00 Test Item Value Reference Range Interpretation [...] PERCENT (BEAKER) (test code = 2801) POCT-GLUCOSE [id number] 22:16:00 Test Item Value Reference Range Interpretation Comments POC-GLUCOSE METER 161 mg/dL 70-110 H : TESTED A T [facility] 1317 ([facility]) (test code [facility], = 1538) [facility] [address]: Supervisor Chassis Assembly/Techni estrellita ID = [id number] for Madalynlibia amador iliana POCT-GLUCOSE [id number] 17:08:00 Test Item Value Reference Range Interpretation Comments POC-GLUCOSE METER 196 mg/dL 70-110 H : Notified RN/MD: TESTED (BEAKER) (test code AT [facility] [address] = 1538) [facility] [address]: Supervisor Chassis Assembly/Techni estrellita ID = [id number] for Samuel duarte Austinabhishek POCT-GLUCOSE [id number] 12:11:00 Test Item Value Reference Range Interpretation Comments POC-GLUCOSE METER 162 mg/dL 70-110 H : Notified RN/MD: TESTED (BEAKER) (test code AT [facility] [address] = [address]) [address], [facility] [address]: Supervisor Chassis Assembly/Techni estrellita ID = [id number] for Austin Beasleybeboubacar POCT-GLUCOSE [id number] 08:57:00 Test Item Value Reference Range Interpretation Comments POC-GLUCOSE METER 203 mg/dL 70-110 H : Notified RN/MD: TESTED (BEAKER) (test code AT [facility] [address] = [address]) [address], [facility] [address]: Supervisor Chassis Assembly/Techni estrellita ID = [id number] for Austin Beasleyben BASIC METABOLIC [id number] 06:22:00 Test Item Value Reference Range Interpretation [...] S NOT APPLICABLE FOR DIALYSIS PATIEN TS. Supervisor Chassis Assembly ID - [id number] 21:15:00 Test Item Value Reference Range Interpretation Comments POC-GLUCOSE METER 132 mg/dL 70-110 H : TESTED A T [facility] 1317 (BEAKER) (test code [address], = 1538) [facility] 77 8: Supervisor Chassis Assembly/Techni estrellita ID = [id number] for Will iams, Sharyn CT, CHEST WITH IV CONTRAST- PE TEST [id number] 17:05:00FINAL REPORT History: Dyspnea. TECHNIQUE: Helical CT [...] Esparza Verified Date/Time: 06/19/2019 17:05:27 Reading Location: [facility] Radiology Reading Room POCT- GLUCOSE [id number] 16:56:00 Test Item Value Reference Range Interpretation Comments POC-GLUCOSE METER 147 mg/dL 70-110 H : TESTED A T [facility] 1317 (BEAKER) (test code [address], = 1538) [facility] [address]: Supervisor Chassis Assembly/Techni estrellita ID = [id number] for Charlene Funk BLOOD [id number] 09:46:00 Test Item Value Reference Range Interpretation [...] = bottles: gram 1123) negative rods BLOOD [id number] 09:45:00 Test Item Value Reference Range Interpretation [...] anaerobic 1123) bottles: gram negative rods POCT-GLUCOSE [id number] 07:53:00 Test Item Value Reference Range Interpretation Comments POC-GLUCOSE METER 131 mg/dL 70-110 H : TESTED A T [facility] 1317 (BEAKER) (test code [facility] [address], = 1538) [facility] [address]: Supervisor Chassis Assembly/Techni estrellita ID = [id number] for Butch trevon Charlene COMPREHENSIVE METABOLIC [id number] 06:08:00 Test Item Value Reference Range Interpretation [...] S NOT APPLICABLE FOR DIALYSIS PATIEN TS. Supervisor Chassis Assembly ID - [id number] W/PLT COUNT & AUTO [id number] 05:43:00 Test Item Value Reference Range Interpretation [...] PERCENT (BEAKER) (test code = 2801) POCT-GLUCOSE [id number] 21:12:00 Test Item Value Reference Range Interpretation Comments POC-GLUCOSE METER 195 mg/dL 70-110 H : TESTED A T [facility] 1317 (BEAKER) (test code [facility], = 1538) [place] 389638: Supervisor Chassis Assembly/Techni estrellita ID = [id number] for Will iams, Sharyn POCT-GLUCOSE [id number] 18:06:00 Test Item Value Reference Range Interpretation Comments POC-GLUCOSE METER 109 mg/dL 70-110 : TESTED A T [facility] 1317 (BEAKER) (test code [facility], = 1538) [place] 3[address]38: Supervisor Chassis Assembly/Techni estrellita ID = [id number] for Butch h, Charlene TROPONIN [id number] 14:37:00 Test Item Value Reference Range Interpretation [...] failure, acidosis, acute neurological disease, and persistent tachyarrhythmia.Supervisor Chassis Assembly ID - [id number] [id number] 2019-06-18 11:28:00 Test Item Value Reference Range Interpretation Comments POC-GLUCOSE METER 135 mg/dL 70-110 H : TESTED A T [facility] 1317 (BEAKER) (test code [address], = 1538) [place] [address]: Supervisor Chassis Assembly/Techni estrellita ID = [id number] for Butch h, Charlene POCT-GLUCOSE [id number] 07:54:00 Test Item Value Reference Range Interpretation Comments POC-GLUCOSE METER 243 mg/dL 70-110 H : TESTED A T [facility] 1317 (BEAKER) (test code [address], = 1538) [place] [address]: Supervisor Chassis Assembly/Techni estrellita ID = [id number] for Butch h, Charlene BASIC METABOLIC [id number] 04:55:00 Test Item Value Reference Range Interpretation [...] APPLICABLE FOR DIALYSIS PATIEN TS. COMPREHENSIVE METABOLIC [id number] 04:54:00 Test Item Value Reference Range Interpretation [...] S NOT APPLICABLE FOR DIALYSIS PATIEN TS. Supervisor Chassis Assembly ID - [id number] 04:47:00 Test Item Value Reference Range Interpretation [...] heart valves.Final Information (Auto Output)Final Information (Auto Output)[id number] 04:47:00 Test Item Value Reference Range Interpretation Comments PARTIAL THROMBOPLASTIN TIME (BEAKER) 31.2 sec 23.0-35.0 (test code = 760) Final Information (Auto Output)CBC W/PLT COUNT & AUTO [id number] 04:34:00 Test Item Value Reference Range Interpretation [...] (BEAKER) (test code = 2801) LACTIC ACID, [id number] 04:23:00 Test Item Value Reference Range Interpretation Comments LACTATE BLOOD VENOUS 1.7 mmol/L 0.5-2.0 Specime n slightly (2) (BEAKER) (test hemolyzed code = 2872) Supervisor Chassis Assembly ID - [id number] 21:15:00 Test Item Value Reference Range Interpretation Comments POC-GLUCOSE METER 201 mg/dL 70-110 H : TESTED A T [facility] 1317 ([facility]) (test code [facility], = 1538) [place] [address]: Supervisor Chassis Assembly/Techni estrellita ID = [id number] for Sharyn Shin POCT-GLUCOSE [id number] 17:16:00 Test Item Value Reference Range Interpretation Comments POC-GLUCOSE METER 163 mg/dL 70-110 H : Notified RN/MD: TESTED ([facility]) (test code AT [facility] [address] = 1538) [place] [address]: Supervisor Chassis Assembly/Techni estrellita ID = [id number] for Thak er, Nikitaben POCT-GLUCOSE [id number] 13:42:00 Test Item Value Reference Range Interpretation Comments POC-GLUCOSE METER 224 mg/dL 70-110 H : Notified RN/MD: TESTED ([facility]) (test code AT [facility] [address] = 1538) [place] [address]: Supervisor Chassis Assembly/Techni estrellita ID = [id number] for Thak er, Nikitaben LACTIC ACID, [id number] 13:12:00 Test Item Value Reference Range Interpretation Comments LACTATE BLOOD VENOUS (2) (BEAKER) 8.8 mmol/L 0.5-2.0 (test code = 2872) Supervisor Chassis Assembly ID - [id number], [id number] 10:42:00Reason for exam:- >epigastric pain left flank [...] Suggest clinical correlation. Signed: Reagan De Dios MDRzehra Verified Date/Time: 06/17/2019 10:42:41 Reading Location: [facility] Diagnostic Imaging Reading Room - [place] [address] RAD, CHEST, 1 VIEW, NON DEPT 2019-06-17 [...] Durán Verified Date/Time: 06/17/2019 10:26:56 Reading Location: [facility] Radiology Reading Room RAPID INFLUENZA A&B SCREEN 2019-06-17 10:22:00 Test Item Value Reference Range Interpretation Comments RAPID INFLUENZA A AG (BEAKER) Negative Negative, Inconclusive (test code = 1622) RAPID INFLUENZA B AG (BEAKER) Negative Negative, Inconclusive (test code = 1623) LACTIC ACID, [id number] 10:20:00 Test Item Value Reference Range Interpretation Comments LACTATE BLOOD VENOUS 2.7 mmol/L 0.5-2.0 HH Specime n slightly (2) (BEAKER) (test hemolyzed code = 2872) Supervisor Chassis Assembly ID - [id number] METABOLIC [id number] 10:20:00 Test Item Value Reference Range Interpretation [...] S NOT APPLICABLE FOR DIALYSIS PATIEN TS. Supervisor Chassis Assembly ID - [id number] 10:12:00 Test Item Value Reference Range Interpretation Comments PARTIAL THROMBOPLASTIN TIME (BEAKER) 22.4 sec 23.0-35.0 L (test code = 760) Final Information (Auto Output)PROTHROMBIN [id number] 10:11:00 Test Item Value Reference Range Interpretation [...] Information (Auto Output)Final Information (Auto Output)URINALYSIS W/ [id number] 10:10:00 Test Item Value Reference Range Interpretation [...] (test code = 2795) RAPID STREP A [id number] 10:09:00 Test Item Value Reference Range Interpretation Comments STREP A ANTIGEN (BEAKER) (test code Negative = 556) SCREEN, [id number] 10:06:00 Test Item Value Reference Range Interpretation Comments TEST URINE (BEAKER) (test Negative code = 583) CBC W/PLT COUNT & AUTO [id number] 09:58:00 Test Item Value Reference Range Interpretation [...] 0-0 PERCENT (BEAKER) (test code = 2801) Notes Date/Time Note Provider Source 2021-07-29 03:16:00-00:00 [facility] ([facility]) EMERGENCY PROVIDER REPORT REPORT#:[id number] REPORT STATUS: Signed DATE:07/29/21 TIME:315 PATIENT: EMILEE PIMENTEL UNIT #: [id number] ROOM/BED: : 79 AGE: 40 SEX: F PCP PHYS: Nelia Hyde DO SERVICE AUTHOR: Jose Hutchinson MD * ALL edits or amendments must be made on the [employer]/computer document * HPI-Abd Pain F 40 and Over Free Text HPI Notes Free Text HPI Notes Patient with past medical history of upper GI bl eed presents to emergency department for GI bleeding w ith vomiting bright red blood and dark tarry stools since 10 PM last night. Portia ent states 5 days ago she had similar symptoms that resolved on their own. No fever chills chest sarahy n or shortness of breath. Patient states she has not a ny blood thinning medications does not drink alcohol and is not on any NSAIDs. Patient also states sh mona is not taking any antacids currently. General Initial Greet Date/Time 07/29/21 0308 Presentation Chief Complaint Abdominal pain, Nausea, Vomiting moderate Sudden in Onset? Yes Risk-Abd Pain F 40 and Over )( Abdominal Aortic Aneurysm Risk factors review ed Review of Systems ROS Statements All systems rev neg except as marked. Basic Review of Systems Basic ROS EYES: No redness, ENT: No sore throat, SKIN: No rash, NEURO: No change MS, NEURO: No focal deficit Focused Review of Systems Constitutional Denies: Chills, Fatigue, Fever, Malaise. Respiratory Denies: Cough, non-productiv e, Cough, productive, Shortness of breath, Wheezing. Cardiovascular Denies: Chest pain, Dyspnea on exertion, Edema, Orthopnea, Palpitations. GI Reports: Abdominal pain, Bloody/tarry stool, Hem atemesis, Nausea, Vomiting. Musculoskeletal Denies: Back pain, Extremity pain, Extremity swe lling, Joint pain, Joint swelling. Past Medical History - Adult Stated Complaint STOMACH PAIN, VOMITING BLOOD, B LOOD IN STOOL X2DAY Allergies Coded Allergies: codeine (Severe, SWELLING 07/29/21) cyclobenzaprine (From FLEXERIL) (Severe, SWELLIN G 07/29/21) morphine (Severe, ITCHING 07/29/21) Uncoded Allergies: NAPROXEN (10/06/08) ZOFRAN (10/06/08) Physical Exam Vital Signs Vital Signs First Documented: Result Date Time Pulse Ox 97 07/29 309 B/P 137/103 07/29 309 B/P Mean 114 07/29 309 O2 Delivery Room air 07/29 309 Temp 96.1 07/29 309 Pulse 83 07/29 309 Resp 18 07/29 309 Last Documented: Result Date Time Pulse Ox 100 07/29 446 B/P 141/87 07/29 446 B/P Mean 105 07/29 446 O2 Delivery Room air 07/29 446 Temp 97.5 07/29 446 Pulse 81 07/29 446 Resp 16 07/29 446 Review of Vital Signs Reviewed Basic Physical Exam Basic PE HEAD: Atraumatic/NC, EYES: PERRL, conj clear, ENT: Membranes moist, NECK: Supple, EXT: No gross abnormality, SKIN: No rashes, warm/dry, NEURO: alert oriented, NEURO: gross movement NL Focused PE General/Const General/Const Awake, Alert, No acute di stress, Well appearing, Well developed MS Head Head Atraumatic, Normocephalic Eyes Eyes Atraumatic, EOMI, No nystagmus, No periorb ital redness, No periorbital swelling Ears/Nose/Throat Ears/Nose/Throat Atraumatic, Airway patent, No trismus Resp/Chest Respiratory/Chest Atraumatic, Breath sounds NL, Breath sounds = bilat, No respiratory distress, No rales, No rhonchi Cardiovascular Cardiovascular Heart rate NL, Regular rhythm, C ap refill not delayed, Peripheral circulation NL Abdomen/GI Abdomen/GI Atraumatic, Soft, No distention Text/Dict Notes Tenderness to palpation in epigastrium MS Back Back Atraumatic, Inspection NL, Full range of m otion, Painless range of motion, Non-tender Skin Skin Atraumatic, Color NL, Warm, Dry, Intact Rectum Rectum/Perineum Atraumatic, No gross bl ood, No discharge, No fecal impaction, No hemorrhoids Neurologic Neurologic Oriented X3, Speech NL, No motor def icits, No sensory deficits Interpretation Diagnostics Lab Results Interpretation Results Laboratory Tests 07/29/21 034: [Embedded Image Not Available] Laboratory Tests: 07/30 339 Chemistry Sodium (134 - 147 mmol/L) 137 Potassium (3.4 - 5.0 mmol/L) 3.9 Chloride (100 - 108 mmol/L) 101 Carbon Dioxide (21 - 32 mmol/L) 26 Anion Gap (4.0 - 15.0 GAP calc) 10.0 BUN (7 - 18 MG/DL) 7 Creatinine (0.6 - 1.0 MG/DL) 0.9 Glomerular Filtr Rate (>60 estGFR) >=60 max est imate Glucose (70 - 110 MG/DL) 295 H Calcium (8.5 - 10.1 MG/DL) 9.4 Total Bilirubin (0.2 - 1.2 MG/DL) 0.40 AST (15 - 37 Unit/L) 27 ALT (12 - 78 Unit/L) 32 Total Alk Phosphatase (45 - 117 Unit/L) 56 Total Protein (6.4 - 8.2 G/DL) 8.3 H Albumin (3.4 - 5.0 G/DL) 4.0 Globulin (GM/dL) 4.3 Albumin/Globulin Ratio (1.2 - 2.2 RATIO) 0.9 L Lipase (114 - 286 Unit/L) 94 L Hematology WBC (3.5 - 11.0 K/mm3) 8.3 RBC (4.70 - 6.10 M/mm3) 4.80 Hgb (10.4 - 14.9 G/DL) 14.6 Hct (31.5 - 44.1 %) 43.5 MCV (84.5 - 98.6 Fl) 90.6 MCH (27.0 - 34.2 pg) 30.4 MCHC (31.5 - 34.0 G/DL) 33.6 RDW (11.5 - 14.5 SD) 12.4 Plt Count (150 - 450 K/mm3) 258 MPV (7.0 - 10.5 fL) 10.30 Neut % (Auto) (40 - 76 %) 42.7 Lymph % (Auto) (20.5 - 51.1 %) 45.1 [place] % (Auto) (1.7 - 9.3 %) 7.6 Eos % (Auto) (0.0 - 6.0 %) 4.0 Baso % (Auto) (0.0 - 2.0 %) 0.5 Neut # (Auto) (1.8 - 7.6 K/mm3) 3.5 Lymph # (Auto) (0.6 - 3.2 K/mm3) 3.7 H [place] # (Auto) (0.3 - 1.1 K/mm3) 0.6 Eos # (Auto) (0.0 - 0.4 K/mm3) 0.3 Baso # (Auto) (0.0 - 0.1 K/mm3) 0.0 Abs Immat Gran (auto) (0.00 - 0.03 x10 3/uL) 0. 01 Add Manual Diff (CRITERIA DIFF/SCN) NO Immature Gran % (0.0 - 5.0 %) 0.1 Nucleated RBC % (0.0 - 1.0 /100WBC%) 0.0 Microbiology: Date/Time Procedure - Status Source Growth 07/29 417 Occult Blood - COMP STOOL Re-Evaluation [facility] )( Re-Evaluation/Progress #1 )( Re-Eval Status Improved ED Course Medication(s) Ordered Medication(s) Ordered: Autonomic Drugs Sig/Ankita Start time Last Medication Dose Route Stop Time Status Admin Dicyclomine HCl 20 MG X1ED STA 07/29 0414 CANr IM 07/29 0415 Central Nervous System Agents Sig/Ankita Start time Last Medication Dose Route Stop Time Status Admin Hydromorphone HCl 0.5 MG X1ED STA 07/29 0322 DC 07/29 IV 07/29 0323 0342 Morphine Sulfate 4 MG X1ED STA 07/29 0315 CAN IV 07/29 0316 Electrolytic, Caloric, And [place] Sig/Ankita Start time Last Medication Dose Route Stop Time Status Admin Sodium Chloride 1,000 ML ONCE ONE 07/29 0315 DC 07/29 IV 07/29 0316 0340 Gastrointestinal Drugs Sig/Ankita Start time Last Medication Dose Route Stop Time Status Admin Ondansetron HCl 4 MG X1ED STA 07/29 0314 DC IV 07/29 0315 0344 Pantoprazole Sodium 40 MG X1ED STA 07/29 0314 D CD 07/29 Sodium Chloride 50 ML IV 07/30 0713 0343 Pantoprazole Sodium 80 MG X1ED STA 07/29 0314 D C 07/29 IV 07/29 0315 0344 Patient Discharge Departure Vital Signs/Condition Vital Signs First Documented: Result Date Time Pulse Ox 97 07/29 0310 B/P 137/103 07/29 0310 B/P Mean 114 07/29 0310 O2 Delivery Room air 07/29 0310 Temp 96.1 07/29 0310 Pulse 83 07/29 0310 Resp 18 07/29 0310 Last Documented: Result Date Time Pulse Ox 100 07/29 0447 B/P 141/87 07/29 0447 B/P Mean 105 07/29 0447 O2 Delivery Room air 07/29 446 Temp 97.5 07/29 446 Pulse 81 07/29 446 Resp 16 07/29 446 All vital signs available at the time of this en try have been reviewed. Clinical Impression Clinical Impression Primary Impression: Abdominal pain Disposition Decision Discharge )( Discharged to Home Yes )( Time 0438 )( Date 07/29/21 Discharge/Care Plan (Auto) Prescriptions Current Visit Scripts ONDANSETRON ODT (ZOFRAN ODT) 4 MG PO Q6H PRN PRN NAUSEA/VOMITING ONDANSETRON ODT (ZOFRAN ODT) 4 MG PO Q6H PRN NJ N NAUSEA/VOMITING #15 TABS DICYCLOMINE (BENTYL) 20 MG PO QID DICYCLOMINE (BENTYL) 20 MG PO QID #20 TABS OMEPRAZOLE ER (PriLOSEC) 40 MG PO DAILY OMEPRAZOLE ER (PriLOSEC) 40 MG PO DAILY #30 CAP S Patient Instructions Abdominal Pain Referrals Provider Referral: Jered Jimenes MD Address: [address] [place] [address] Electronically Signed by Jose Hutchinson MD on at 0638 RPT #: [id number] END OF REPORT 2019-06-19 18:19:56-00:00 [facility] PROGRESS NOTE EMILEE PIMENTEL FACILITY: [facility] Billing #: [id number] Room: [address] [place] [address] MR #: [id number] : 1980 PHYSICIAN: Jose Deng MD ADMISSION DATE: 06/17/2019 DATE: 06/19/2019 SUBJECTIVE: Pleuritic pain is improved now. Feve r is also improving. However, her T-max was 102.2. She cou ld not get a CT scan because of poor IV midline access. PHYSICAL EXAMINATION: VITAL SIGNS: Blood pressure is 131/78, pulse is 93, and afebrile. NECK: Supple. JVP is not raised. CHEST: Clear. Decreased breath sounds in both kellie ng stewart. HEART: S1 and S2, regular. ABDOMEN: Soft. Bowel sounds present. EXTREMITIES: No edema. IMPRESSION AND PLAN: 1. Right-sided pleuritic pain has resolved. 2. Right-sided pneumonia. 3. Escherichia coli bacteremia. Clinically, CT scan of the chest shows no acute cardiopulmonary disease. At this point, we will continue present treatmen t. Respiratory status seem stable. Her fever is secondary to ba cteremia, which seems to be improving now. Continue presen t treatment. SQM/MODL /[id number] 2019-06-18 10:20:42-00:00 [facility] CONSULTATION EMILEE PIMENTEL FACILITY: [facility] Billing #: [id number] Room: [address] [place] [address] MR #: [id number] : 1980 DATE OF ADMISSION: 06/17/2019 DATE OF CONSULTATION: 06/18/2019 REQUESTING PHYSICIAN: FAST FOOD DELIVERY DRIVER: Jose Deng MD Pulmonary Consultation ORDERING PHYSICIAN: Analisa Khan REASON FOR CONSULT: Pulmonary evaluation and tatianna st pain. HISTORY OF PRESENT ILLNESS: This is a 38-year-ol d morbidly obese female, who presented to hospital with a c hief complaint of generalized body ache, fever, chills, nausea, and vomiting. The patient complained the pain is mostly in the left side to the chest. She also have some cough and showed m inimal shortness of breath. With this complaint, she ca me to ER. The blood culture was done, which is not came out po sitive for gram-negative leo. A CT scan of the abdomen and pelvis grossly unremarkable. There is diffuse fatty liver noted . Chest x-ray shows opacity in the lung, possible pneumonia. When I saw the patient, she was more complaint o f pain and she is causing a lot of distress. The pain is mostly and mildly pleuritic, started from the left lower chest goi ng to the back. PAST MEDICAL HISTORY: Significant for history of diabetes, hypertension, and anxiety. PAST SURGICAL HISTORY: Hysterectomy. SOCIAL HISTORY: Noncontributory. She said she do es see a smoke weed p.r.n. basis. PHYSICAL EXAMINATION: GENERAL: On exam, she is awake and alert in mild pain. VITAL SIGNS: Blood pressure 141/87, pulse is 127 . She has a temperature of 103.5. NECK: Supple. JVP is not raised. CHEST: Air entry fair with decreased breath soun ds on the left side. HEART: S1, S2. Regular. ABDOMEN: Soft. Bowel sounds present. EXTREMITIES: No edema. LABORATORY STUDIES: WBC count is 13.8, hemoglobi n 13.3, and platelet count 242. BUN is 9, creatinine is 1.13 . Blood cultures, gram-negative leo. Chest x-ray, haziness on the left side. IMPRESSION: Left lower chest pain, most likely s econdary to pneumonia. However, we need to rule out pulmonar y embolism. My clinical suspicion for PE is low. Gram-negative leo bacteremia. Most likely source is the urine. We will check u rine. The left lower chest pain could be muscular as w ell. So, we will go ahead and put pain medication. Antibioti c coverage with cefepime and Levaquin. Continue oxygen leve l is good. We will add nebulizer. We will get a CT scan of the chest. Lantus has been ordered. Continue nebulizer to e very 4 hours. RAJANI/SHAY /[id number]
[2022-12-01 05:06] LABS: Absolute Lymphocytes (CBC) 2.7 K/uL (0.7-4.9); Lymphocytes % 36.9 % (15.3-44.8); MCV 89.9 fL (80-100); MPV 7.9 fL (7.6-11.3); Platelets 271 thou/uL (152-406); RBC Red Blood Cell Count 5.01 M/uL (3.86-4.86)
[2022-12-01] MEDS ORDERED: NA CHLORIDE 0.9% 500 ML ONE (05:09)
[2022-12-01] MEDS ORDERED: ONDANSETRON 4 MG/2 ML VIAL ONE (05:09)
[2022-12-01] MEDS ORDERED: MORPHINE 4 MG/ML SYR ONE (05:09)
[2022-12-01 05:15] LABS: Specific Gravity 1.023 (1.005-1.030); Urine Bacteria None Seen /HPF (<20); Urine Bilirubin NEGATIVE (Negative); Urine Blood Negative (Negative); Urine Clarity Extremely Turbid (Clear); Urine Color Light-Yellow (Yellow); Urine Glucose TRACE (Negative); Urine Mucus 1+ /HPF (None Seen); Urine Protein TRACE (Negative); Urine RBC None Seen /HPF (None Seen); Urine Urobilinogen Normal (Normal); Urine pH 5.5 (5.0-7.0)
[2022-12-01] MEDS ORDERED: DIPHENHYDRAMINE 50 MG/ML VIAL ONE (05:18)
[2022-12-01 05:27] LABS: Albumin 3.9 g/dL (3.4-5.0); Bilirubin Total 0.6 mg/dL (0.2-1.0); Potassium 3.5 mEq/L (3.5-5.1)
--- NOTE | 2022-12-01 06:45 | ER ---
Nurse's Notes [facility] Name: Silvina Cohen Age: 42 yrs Sex: Female : 1980 Arrival Date: 12/01/2022 Time: 03:22 Bed 14 Private MD: Elie Hyde H Diagnosis: Upper abdominal pain, unspecified Presentation: 12/01 03:40 Chief complaint: Patient states: I have been having upper abdominal pain and bright red jb4 stools since yesterday. My upper abdomen is soar and the bright red blood has decreased, but tonight the pain woke me from my sleep. 03:40 Coronavirus screen: At this time, the client does not indicate any symptoms associated jb4 with coronavirus-19. Ebola Screen: No symptoms or risks identified at this time. Initial Sepsis Screen: Does the patient meet any 2 criteria? No. Patient's initial sepsis screen is negative. Does the patient have a suspected source of infection? Yes: Acute abdominal pain. Risk Assessment: Do you want to hurt yourself or someone else? Patient reports no desire to harm self or others. Onset of symptoms was December 01, 2022. Transition of care: patient was not received from another setting of care. 03:40 Method Of Arrival: Ambulatory jb4 03:40 Acuity: CORTEZ 3 jb4 Historical: - Allergies: 04:00 Codeine; jb4 04:00 Flexeril; jb4 04:00 Naproxen; jb4 06:50 Morphine (Hives); jb4 - PMHx: 04:00 Anxiety; Back pain; Diabetes - NIDDM; HYPERGLYCEMIA; Hypertension; jb4 - PSHx: 04:00 Cholecystectomy; hernia repair; Total abdominal hysterectomy; jb4 - Immunization history:: Adult Immunizations up to date. - Social history:: Smoking status: Patient denies any tobacco usage or history of. Patient uses alcohol. Screenin:51 [facility] ED Fall Risk Assessment (Adult) History of falling in the last 3 months, jb4 including since admission No falls in past 3 months (0 pts) Confusion or Disorientation No (0 pts) Score/Fall Risk Level 0 - 2 = Low Risk Oriented to surroundings, Maintained a safe environment. Abuse screen: Denies threats or abuse. Nutritional screening: No deficits noted. Tuberculosis screening: No symptoms or risk factors identified. Assessment: 04:04 General: Appears in no apparent distress. comfortable, Behavior is calm, cooperative, jb4 appropriate for age. Pain: Complains of pain in right upper quadrant and left upper quadrant Pain does not radiate. Pain currently is 7 out of 10 on a pain scale. Neuro: Level of Consciousness is awake, alert, obeys commands, Oriented to person, place, time, situation. Cardiovascular: Patient's skin is warm and dry. Respiratory: Airway is patent Respiratory effort is even, unlabored, Respiratory pattern is regular, symmetrical. GI: Abdomen is non-distended, obese, Reports upper abdominal pain, diarrhea, rectal bleeding. : No signs and/or symptoms were reported regarding the genitourinary system. EENT: No signs and/or symptoms were reported regarding the EENT system. Derm: Skin is intact, Skin is dry, Skin is normal, Skin temperature is warm. Musculoskeletal: Circulation, motion, and sensation intact. Range of motion: intact in all extremities. 05:27 Reassessment: Patient appears in no apparent distress at this time. Patient and/or jb4 family updated on plan of care and expected duration. Pain level reassessed. Patient is alert, oriented x 3, equal unlabored respirations, skin warm/dry/pink. 06:50 Reassessment: Patient appears in no apparent distress at this time. Patient and/or jb4 family updated on plan of care and expected duration. Pain level reassessed. Patient is alert, oriented x 3, equal unlabored respirations, skin warm/dry/pink. Vital Signs: 03:40 BP 157 / 100; Pulse 81; Resp 18; Temp 98.1(O); Pulse Ox 97% on R/A; Weight 131.54 kg jb4 (R); Height 5 ft. 8 in. ; Pain 7/10; 05:00 BP 168 / 106; Pulse 78; Resp 16; Pulse Ox 96% on R/A; jb4 06:51 BP 146 / 90; Pulse 86; Resp 16; Pulse Ox 97% on R/A; jb4 03:40 Body Mass Index 44.09 (131.54 kg, 172.72 cm) [facility] 03:40 Pain Scale: Adult jb4 ED Course: 03:27 Patient arrived in ED. mr 03:27 Elie Hyde DO is Private Physician. mr 03:32 Brad Del Valle MD is Attending Physician. kdr 03:57 Delvin Fernandez, RN is Primary Nurse. jb4 03:59 Triage completed. jb4 04:00 Arm band placed on right wrist. jb4 05:58 CT Abd/Pelvis - IV Contrast Only In Process Unspecified. EDMS 06:01 Chest Single View XRAY In Process Unspecified. EDMS 06:43 Elie Hyde DO is Referral Physician. kdr 06:51 Patient has correct armband on for positive identification. Bed in low position. Call jb4 light in reach. Side rails up X 1. 06:51 No provider procedures requiring assistance completed. IV discontinued, intact, jb4 bleeding controlled, No redness/swelling at site. Pressure dressing applied. Administered Medications: 05:00 Drug: morphine IVP or IV 4 mg Route: IVP; Infused Over: 4 mins; Site: left forearm; jb4 05:02 Follow up: Response: Adverse reaction, Physician notified; Marked relief of symptoms jb4 05:00 Drug: Ondansetron IVP 4 mg Route: IVP; Site: left forearm; jb4 06:50 Follow up: Response: No adverse reaction; Marked relief of symptoms jb4 05:00 Drug: NS 0.9% IV 500 ml Route: IV; Rate: bolus; Site: left forearm; jb4 05:10 Drug: diphenhydrAMINE IVP 50 mg Route: IVP; Site: left forearm; jb4 06:50 Follow up: Response: No adverse reaction; Marked relief of symptoms jb4 Outcome: 06:44 Discharge ordered by . kdr 06:51 Discharged to home ambulatory. jb4 06:51 Condition: stable 06:51 Discharge instructions given to patient, Instructed on discharge instructions, follow up and referral plans. medication usage, Demonstrated understanding of instructions, follow-up care, medications, Prescriptions given X 4. 06:57 Patient left the ED. jb4 Signatures: Dispatcher [employer] [facility] Brad Del Valle MD MD [facility] Estefani Boyce mr Delvin Fernandez, RN RN jb4
--- NOTE | 2022-12-01 06:45 | EDPHYS ---
Physician Documentation [facility] Name: Silvina Cohen Age: 42 yrs Sex: Female : 1980 Arrival Date: 12/01/2022 Time: 03:22 Bed 14 Private MD: Elie Hyde H ED Physician Brad Del Valle HPI: 12/01 20:36 This 42 yrs old Black Female presents to ER via Ambulatory with complaints of Abdominal kdr Pain. 20:36 Patient comes to the ED complaining of upper abdominal pain and bright red blood stools kdr since yesterday. Patient states that her upper abdomen is sore and that the blood in her stool is decreased. Tonight the pain woke her up again from sleep and so she came to the ED. Patient otherwise has not had any nausea or vomiting or hematemesis. Patient is not acutely ill on her presentation to the ED.. Onset: The symptoms/episode began/occurred suddenly, 3 day(s) ago. Severity of symptoms: At their worst the symptoms were mild in the emergency department the symptoms are unchanged. The patient has experienced similar episodes in the past, a few times, several times. The patient has not recently seen a physician. Historical: - Allergies: 04:00 Codeine; jb4 04:00 Flexeril; jb4 04:00 Naproxen; jb4 06:50 Morphine (Hives); jb4 - PMHx: 04:00 Anxiety; Back pain; Diabetes - NIDDM; HYPERGLYCEMIA; Hypertension; jb4 - PSHx: 04:00 Cholecystectomy; hernia repair; Total abdominal hysterectomy; jb4 - Immunization history:: Adult Immunizations up to date. - Social history:: Smoking status: Patient denies any tobacco usage or history of. Patient uses alcohol. ROS: 20:36 Constitutional: Negative for fever, chills, and weight loss, Eyes: Negative for injury, kdr pain, redness, and discharge, ENT: Negative for injury, pain, and discharge, Neck: Negative for injury, pain, and swelling, Cardiovascular: Negative for chest pain, palpitations, and edema, Respiratory: Negative for shortness of breath, cough, wheezing, and pleuritic chest pain, Back: Negative for injury and pain, : Negative for injury, bleeding, discharge, and swelling, MS/Extremity: Negative for injury and deformity, Skin: Negative for injury, rash, and discoloration, Neuro: Negative for headache, weakness, numbness, tingling, and seizure activity. Psych: Negative for depression, anxiety, suicide ideation, homicidal ideation, and hallucinations, Allergy/Immunology: Negative for hives, rash, and allergies, Endocrine: Negative for neck swelling, polydipsia, polyuria, polyphagia, and marked weight changes, Hematologic/Lymphatic: Negative for swollen nodes, abnormal bleeding, and unusual bruising. 20:36 Abdomen/GI: Positive for abdominal pain, nausea, rectal bleeding. Exam: 20:36 Constitutional: This is a well developed, well nourished patient who is awake, alert, kdr and in no acute distress. Head/Face: Normocephalic, atraumatic. Eyes: Pupils equal round and reactive to light, extra-ocular motions intact. Lids and lashes normal. Conjunctiva and sclera are non-icteric and not injected. Cornea within normal limits. Periorbital areas with no swelling, redness, or edema. Neck: Trachea midline, no thyromegaly or masses palpated, and no cervical lymphadenopathy. Supple, full range of motion without nuchal rigidity, or vertebral point tenderness. No Meningismus. Chest/axilla: Normal chest wall appearance and motion. Nontender with no deformity. No lesions are appreciated. Cardiovascular: Regular rate and rhythm with a normal S1 and S2. No gallops, murmurs, or rubs. Normal PMI, no JVD. No pulse deficits. Respiratory: Lungs have equal breath sounds bilaterally, clear to auscultation and percussion. No rales, rhonchi or wheezes noted. No increased work of breathing, no retractions or nasal flaring. Back: No spinal tenderness. No costovertebral tenderness. Full range of motion. Skin: Warm, dry with normal turgor. Normal color with no rashes, no lesions, and no evidence of cellulitis. MS/ Extremity: Pulses equal, no cyanosis. Neurovascular intact. Full, normal range of motion. Neuro: Awake and alert, GCS 15, oriented to person, place, time, and situation. Cranial nerves II-XII grossly intact. Motor strength 5/5 in all extremities. Sensory grossly intact. Cerebellar exam normal. Normal gait. Psych: Awake, alert, with orientation to person, place and time. Behavior, mood, and affect are within normal limits. 20:36 Abdomen/GI: Inspection: obese Bowel sounds: active, diminished, in all quadrants, Palpation: soft, mild abdominal tenderness, in the right upper quadrant and left upper quadrant. Vital Signs: 03:40 BP 157 / 100; Pulse 81; Resp 18; Temp 98.1(O); Pulse Ox 97% on R/A; Weight 131.54 kg jb4 (R); Height 5 ft. 8 in. ; Pain 7/10; 05:00 BP 168 / 106; Pulse 78; Resp 16; Pulse Ox 96% on R/A; jb4 06:51 BP 146 / 90; Pulse 86; Resp 16; Pulse Ox 97% on R/A; jb4 03:40 Body Mass Index 44.09 (131.54 kg, 172.72 cm) jb4 03:40 Pain Scale: Adult jb4 MDM: 06:44 Patient medically screened. kdr 20:38 Data reviewed: vital signs, nurses notes, lab test result(s), radiologic studies. [facility] 12/01 03:50 Order name: CBC with Diff; Complete Time: 06:02 [facility] 12/01 03:50 Order name: CMP; Complete Time: 06:02 [facility] 12/01 03:50 Order name: Lipase; Complete Time: 06:02 [facility] 12/01 03:50 Order name: Urinalysis w/ reflexes; Complete Time: 06:02 [facility] 12/01 04:29 Order name: CT Abd/Pelvis - IV Contrast Only [facility] 12/01 05:24 Order name: Chest Single View XRAY 12/01 03:50 Order name: IV Saline Lock; Complete Time: 04:57 [facility] 12/01 03:50 Order name: Labs collected and sent; Complete Time: 04:57 kdr Administered Medications: 05:00 Drug: morphine IVP or IV 4 mg Route: IVP; Infused Over: 4 mins; Site: left forearm; jb4 05:02 Follow up: Response: Adverse reaction, Physician notified; Marked relief of symptoms jb4 05:00 Drug: Ondansetron IVP 4 mg Route: IVP; Site: left forearm; jb4 06:50 Follow up: Response: No adverse reaction; Marked relief of symptoms jb4 05:00 Drug: NS 0.9% IV 500 ml Route: IV; Rate: bolus; Site: left forearm; jb4 05:10 Drug: diphenhydrAMINE IVP 50 mg Route: IVP; Site: left forearm; jb4 06:50 Follow up: Response: No adverse reaction; Marked relief of symptoms jb4 Disposition Summary: 12/01/22 06:44 Discharge Ordered Location: Home kdr Problem: an acute exacerbation kdr Symptoms: have improved kdr Condition: Stable kdr Diagnosis - Upper abdominal pain, unspecified kdr Followup: kdr - With: Elie Hyde DO - When: 2 - 3 days - Reason: If symptoms return, Further diagnostic work-up, Recheck today's complaints, Continuance of care, Re-evaluation by your physician Discharge Instructions: - Discharge Summary Sheet kdr - Abdominal Pain, Adult, [id number] kdr Forms: - Medication Reconciliation Form kdr - Thank You Letter kdr - Prescription Opioid Use kdr - Patient Portal Instructions kdr - Leadership Thank You Letter kdr - Work release form jb4 Prescriptions: - Zofran 4 mg Oral Tablet - take 1 tablet by ORAL route every 12 hours As needed; 20 tablet; Refills: 0, kdr Product Selection Permitted - Tramadol 50 mg Oral Tablet - take 1 tablet by ORAL route every 8 hours as needed; 12 tablet; Refills: 0, kdr Product Selection Permitted - Pepcid 20 mg Oral Tablet - take 1 tablet by ORAL route once daily for 10 days; 10 tablet; Refills: 0, kdr Product Selection Permitted - dicyclomine 20 mg Oral Tablet - take 1 tablet by ORAL route 4 times per day As needed; 12 tablet; Refills: 0, kdr Product Selection Permitted Signatures: Dispatcher [employer] Brad Leonard MD MD kdr Bryson, James, RN RN jb4
[2022-12-01 07:23] VITALS: TEMP 98.1
[2022-12-01 07:25] VITALS: BP 146/90; O2SAT 97
--- NOTE | 2022-12-01 12:13 | RAD REPORT ---
EXAM DESCRIPTION: CT - Abdomen Pelvis W Contrast - 12/01/2022 6:38 am CLINICAL HISTORY: 42 years Female upper abd pain, bloody stools COMPARISON: CT abdomen pelvis 06/15/2022. TECHNIQUE: CT of the abdomen and pelvis with intravenous contrast. All CT scans at this facility use dose modulation, iterative reconstruction, and/or weight based dosi ng when appropriate to reduce radiation dose to as low as reasonably achievable. FINDINGS: Lower thorax: Bibasilar atelectasis. Abdomen: Stomach: Within normal limits Liver: No focal lesions. Hepatic steatosis. Enlarged. No intrahepatic ductal distention. Gallbladder: Not visualized, likely surgically absent. Pancreas: Within normal limits Spleen: Within normal limits Right kidney: No hydronephrosis. No focal lesion. Left kidney: No hydronephrosis. No focal lesion. Adrenal glands: Within normal limits Vascular structures: Within normal limits Nodes: No lymphadenopathy by size criteria Pelvis: Small bowel: No significant distention. Duodenal diverticulum noted near the ampulla. Appendix: Within normal limits Colon: No distention or acute pericolonic edema. Peritoneum: No free intraperitoneal fluid or air. Bones: No acute bone findings. Bladder: Diffuse wall thickening, could be secondary to underdistention. Reproductive organs: No acute findings. Soft tissues: Fat-containing umbilical hernia. Small fat-containing upper ventral abdominal hernia. IMPRESSION: 1. No acute abdominopelvic findings. 2. Diffuse bladder wall thickening, could be secondary to underdistention. Correlate with urinalysi s for evidence of cystitis. 3. Hepatomegaly and hepatic steatosis. 4. 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 No associated inflammatory changes. Electronically signed by: Geovani Tim MD 12/01/2022 6:16 AM CDT Due to temporary technical issues with the PACS/Fluency reporting system, reports are being signed by the in house radiologists without review as a courtesy to insure prompt reporting. The interpreting radiologist is fully responsible for the content of the report.
--- NOTE | 2022-12-01 12:27 | RAD REPORT ---
EXAM DESCRIPTION: RAD - Chest Single View - 12/01/2022 6:00 am CLINICAL HISTORY: 42 years Female COUGH COMPARISON: None FINDINGS: Lung volumes diminished. Bronchovascular crowding. Cardiac silhouette is normal in size. No pneumothorax. No large pleural effusion. No focal consolidation. No acute bony finding. IMPRESSION: 1. No acute cardiopulmonary findings. 2. Low lung volumes with associated hypoventilatory changes. Electronically signed by: Geovani Tim MD 12/01/2022 6:17 AM CDT Due to temporary technical issues with the PACS/Fluency reporting system, reports are being signed by the in house radiologists without review as a courtesy to insure prompt reporting. The interpreting radiologist is fully responsible for the content of the report.
== END 2022-12-01 06:57 | disposition home or self-care (01) ==
LOC: ER 03:22
DX: R10.12 Left upper quadrant pain (principal); R10.11 Right upper quadrant pain; R11.0 Nausea; Z88.5 Allergy status to narcotic agent; Z88.6 Allergy status to analgesic agent
CPT/HCPCS: 85025; 81001; 36415; 83690; 80053; 74177; 71045; 96375; 96374; 99284; Q9967; J1200; J2405; J7040

== ENCOUNTER 2022-12-02 13:33 | Emergency (ER) | payer BC ==
--- OUTSIDE RECORDS SUMMARY | 2022-12-02 13:39 | XMS REPORT | Continuity of Care Document ---
:1980 Author Organization [facility] t Address [address] [place] [address] Care Team Providers Name Role Phone No , Pcp [facility] Primary Care Physician Unavailable Elie Hyde Attending Clinician Unavailable SWAPNA DALTON Attending Clinician Unavailable Jose Hutchinson Attending Clinician Unavailable REYES AMAYA Attending Clinician Unavailable Denver Enciso MD Attending Clinician Doctor Unassigned, [place] Attending Clinician Unavailable POWER BUCK Attending Clinician [...] St [facility] Medical 00 [place] Sinus Sinus Disease Active 2019-[address] [facility] tachycardi tachycardi 3-02 Kellie kes a a 00:00: Medical 00 [place] Pneumonia Pneumonia Disease Active [facility] 00 [place] Febrile Febrile Disease Active 2019-[address] illness illness 3-02 [facility] 00:[facility]: Medical 00 [place] [id number] Pain, [place]mo [place] [id number] joint, [facility] knee, - [facility] right [facility] Allergies, Adverse Reactions, Alerts Allergy Allergy Status Severity Reaction(s) Onset Inactive Treating Comm ents Source Name Type Date Date Clinician cycloben DA Active [facility] zaprine 4-14 [place] 00:00: d [facility] morphine DA Active [facility] ITCHING 2021- [facility] 4-14 [place] 00:00: d 00 [facility] codeine DA Active [facility] 4-14 [place] 00:00: d 00 [facility] NAPROXEN Allergy Active 2019-[address] [facility] [facility] 00[facility]: Medical 00 [place] Naproxen Propensi Active 2019-[address] ty to 3- [facility] adverse 00:00: Medical reaction 00 Center s NAPROXEN DA Active U 2007-0 [facility] 1-20 [place] 00:00: d 00 [facility] No Known DA Active U 2007-0 [facility] Contrast 1-20 [place] Allergie 00:00: d s 00 [facility] No Known DA Active U 2007-0 [facility] Food 1-20 [place] Allergie 00:00: d s 00 [facility] No Known DA Active U 2007-0 [facility] Other 1-20 [place] Allergie 00:00: d s 00 [facility] ZOFRAN DA Active U 2007-0 [facility] 1-20 [place] 00:00: d 00 [facility] naproxen naproxen Active Unknown Commo n Spirit - [facility] Social History Social Habit Start Date Stop Date Quantity Comments Source History SDOH [facility] Alcohol Comment Medical C enter History SDOH [facility] Alcohol Std Drinks Medica l Center History SDOH [facility] Alcohol Binge Medical [address] ter History of Tobacco Common [facility] - Use [facility] Alcohol intake 2019-06-19 2019-06-19 Current [facility] Kim es 00:00:00 00:00:00 non-drinker of Medical Ce nter alcohol (finding) Tobacco use and 2019-06-17 2019-06-17 Smokeless tobacco [facility] exposure 00:00:00 00:00:00 non-user Medical Center History SDOH 2019-06-17 2019-06-17 1 [facility] Alcohol Frequency 00:00:00 00:00:00 [facility] Center Sex Assigned At [birth year] [facility] kes 00:00:00 00:00:00 [facility] Center Smoking Status Start Date Stop Date Source Never Smoker [facility] Medications Ordered Filled Start Stop Current Ordering Indication Dosage Frequency Signature Comments Components Source Medication Medication Date Date Medication? Clinician (SIG) Name Name Lidocaine Lidocaine No 10mg Com mon 04-25 [facility] 00:00: - [facility] Kenalog Kenalog No 40mg Common (Triamcinol (Triamcinol 04-25 S pirit one) one) 00:00: - [facility] Meloxicam Meloxicam 2022- No 1{table QD Meloxicam 7.5 MG 7.5 MG 04-25 t} 7.5 MG 00:00: 00:00 00 :00 omeprazole Yes 20mg QD Take [address] (PRILOSEC) 3-06 by mouth [facility] 20 MG 16:51: daily. Medical capsule [address] [place] [address] liraglutide Yes Inject [facility] 0.6 mg/0.1 3-06 subcutaneo Kim es mL (18 mg/3 16:51: usly. Medic al mL) PnIj 06 [place] omeprazole Yes 20mg QD Take [address] (PRILOSEC) 3-06 by mouth [facility] 20 MG 16:51: daily. Medical capsule 06 [place] liraglutide Yes Inject [facility] 0.6 mg/0.1 3-06 subcutaneo Kim es mL (18 mg/3 16:51: usly. Medic al mL) PnIj 06 Center omeprazole 2020-0 Yes 20mg QD Take [address] (PRILOSEC) 3-06 by mouth [facility] 20 MG 16:51: daily. Medical capsule 06 [place] liraglutide 2019-[address] [facility] 0.6 mg/0.1 3-06 subcutaneo Kim es mL (18 mg/3 16:51: usly. Medic al mL) [address] omeprazole 2020-0 Yes 20mg QD Take [address] (PRILOSEC) 3-06 by mouth [facility] 20 MG 16:51: daily. Medical capsule 06 [place] liraglutide 2020-[address] [facility] 0.6 mg/0.1 3-06 subcutaneo Kim es mL (18 mg/3 16:51: usly. Medic al mL) [address] ALPRAZolam 2019-0 Yes 1{tbl} Take 1 [facility] [...] NovoLOG No NovoLOG Gabapentin Gabapentin No Gabapentin [place] metFORMIN metFORMIN No metFORMIN HCl HCl HCl hydrALAZINE hydrALAZINE No hydrALAZIN HCl HCl E HCl Vital Signs Vital Name Observation Time Observation Value Comments Source height 2022-04-25 10:00:00 69 [in_i] [facility] weight 2022-04-25 10:00:00 291.3 [lb_av] [facility] temperature 2022-04-25 10:00:00 97.4 [degF] [facility] bmi 2022-04-25 10:00:00 43.01 kg/m2 [facility] blood pressure 2022-04-25 10:00:00 126 mm[Hg] [facility] - systolic [facility] blood pressure 2022-04-25 10:00:00 84 mm[Hg] [facility] - diastolic [facility] Procedures This patient has no known procedures. Plan of Care Planned Activity Planned Date Details Comments Source Future Scheduled 2022-04-[address] [facility] Test 00:00:00 (12+) [code = [facility] DEPRESSION SCREENING (12+)] Future Scheduled 2021-12-16 INFLUENZA [...] Medica l Center cervix (procedure) [code = 331367489] Future Scheduled 2000-11-[address] [facility] Test 00:00:00 malignant neoplasm of Medica l Center cervix (procedure) [code = 171761173] Future Scheduled [address] [facility] Test 00:00:00 (procedure) [code = [facility] [id number]] Future Scheduled [address] [facility] Test 00:00:00 (procedure) [code = [facility] [id number]] Future Scheduled 1998-11-08 DTAP/TDAP/TD VACCINES CH I [...] Clinicians Facility Department ID 2022-05-02 Outpatient Hyde, [facility] [id number] Common 08:57:02 [facility] [address] [facility] 2022-04-25 Outpatient Hyde, [facility] [id number] Common 09:45:05 [facility] [address] [facility] 2022-04-25 2022-04-25 [facility] [id number] Common 00:00:00 00:00:00 OFFICE, L3 Spi [facility] 2021-07-31 2021-08-02 Outpatient GLENROY DALTON [address] 02:54:00 17:30:00 SWAPNA 2021-07-29 2021-07-29 Emergency EM Hutchinson, [facility] TRISHA [id number] [facility] 03:06:00 05:03:00 Jose Hamilton [facility] 2021-06-29 2021-07-07 Inpatient E MOVPR, [facility] MED 7502 [facility] 19:32:00 18:04:00 REYES 2019-12-16 2019-12-16 Letter KostasNICOLÁS [id number] 00:00:00 00:00:00 (Out) Denver MARTINEZ [id number] [facility] [id number] 2019-12-03 2019-12-03 Orders Doctor NICOLÁS [id number] 00:00:00 00:00:00 Only Unassigned, MICHELLE [id number] [place] [facility] [id number] 2019-06-17 2019-06-17 Emergency SLSL SLSL [id number] [facility] 09:01:00 09:01:00 [id number] Results Test Description Test Time Test Comments [...] code = ALKP) 56 Unit/L 45-117 N [id number] 04:18:00 Test Item Value Reference Range Interpretation Comments LIPASE (test code = LIP) 94 Unit/L 114-286 L CBC W/AUTO [id number] 03:56:00 Test Item Value Reference Range Interpretation [...] code NO DIFF/SCN CRITERIA = MDIFF) BLOOD [id number] 14:00:00 Test Item Value Reference Range Interpretation Comments CULTURE (BEAKER) (test No growth in 5 days code = 1095) BLOOD [id number] 14:00:00 Test Item Value Reference Range Interpretation Comments CULTURE (BEAKER) (test No growth in 5 days code = 1095) ANG, NON-TUNNELED CATH/PICC >5 Y.O. WITH [id number] 15:20:00Reason for exam:->college coach antibioticsFINAL REPORT PICC LINE PLACEMENT, UNDER FLUOROSCOPY [...] placed, through which a dual lumen 5 Yoruba PICC line trimmed to 43 cm length [...] Barahona Verified Date/Time: 06/21/2019 15:20:38 Reading Location: [facility] Radiology Reading Room POCT-GLUCOSE [id number] 12:29:00 Test Item Value Reference Range Interpretation Comments POC-GLUCOSE METER 140 mg/dL 70-110 H : TESTED A T [facility] 1317 (BEAKER) (test code [address], = 1538) [place] [address]: Repair Cameraman/Techni estrellita ID = [id number] for Sloane u, Yasmin POCT-GLUCOSE [id number] 07:52:00 Test Item Value Reference Range Interpretation Comments POC-GLUCOSE METER 157 mg/dL 70-110 H : TESTED A T [facility] 1317 (BEAKER) (test code [address], = 1538) [place] [address] 478: Repair Cameraman/Techni estrellita ID = [id number] for Sloane u, Yasmin BASIC METABOLIC [id number] 06:16:00 Test Item Value Reference Range Interpretation [...] S NOT APPLICABLE FOR DIALYSIS PATIEN TS. Repair Cameraman ID - [id number] W/PLT COUNT & AUTO [id number] 05:55:00 Test Item Value Reference Range Interpretation [...] PERCENT (BEAKER) (test code = 2801) POCT-GLUCOSE [id number] 22:16:00 Test Item Value Reference Range Interpretation Comments POC-GLUCOSE METER 161 mg/dL 70-110 H : TESTED A T [facility] 1317 (BEAKER) (test code [address] [facility] NT [facility], = 1538) [place] [address]: Repair Cameraman/Techni estrellita ID = [id number] for iliana Roche POCT-GLUCOSE [id number] 17:08:00 Test Item Value Reference Range Interpretation Comments POC-GLUCOSE METER 196 mg/dL 70-110 H : Notified RN/MD: TESTED (BEAKER) (test code AT [facility] [address] = 1538) [place] [address]: Repair Cameraman/Techni estrellita ID = [id number] for Thak er, Nikitaben POCT-GLUCOSE [id number] 12:11:00 Test Item Value Reference Range Interpretation Comments POC-GLUCOSE METER 162 mg/dL 70-110 H : Notified RN/MD: TESTED (BEAKER) (test code AT [facility] [address] PO[address] = 1538) [place] [address]: Repair Cameraman/Techni estrellita ID = [id number] for Thak er, Nikitaben POCT-GLUCOSE [id number] 08:57:00 Test Item Value Reference Range Interpretation Comments POC-GLUCOSE METER 203 mg/dL 70-110 H : Notified RN/MD: TESTED (BEAKER) (test code AT [facility] [address] PO[address] = 1538) [place] [address]: Repair Cameraman/Techni estrellita ID = [id number] for Thak er, Nikitaben BASIC METABOLIC [id number] 06:22:00 Test Item Value Reference Range Interpretation [...] S NOT APPLICABLE FOR DIALYSIS PATIEN TS. Repair Cameraman ID - [id number] 21:15:00 Test Item Value Reference Range Interpretation Comments POC-GLUCOSE METER 132 mg/dL 70-110 H : TESTED A T [facility] 1317 (BEAKER) (test code [address], = 1538) [facility] 77 478: Repair Cameraman/Techni estrellita ID = [id number] for Will iams, Sharyn CT, CHEST WITH IV CONTRAST- PE TEST [id number] 17:05:00FINAL REPORT History: Dyspnea. TECHNIQUE: Helical CT [...] MDReport Verified Date/Time: 06/19/2019 17:05:27 Reading Location: [facility] Radiology Reading Room POCT- GLUCOSE [id number] 16:56:00 Test Item Value Reference Range Interpretation Comments POC-GLUCOSE METER 147 mg/dL 70-110 H : TESTED A T [facility] 1317 (BEAKER) (test code [address], = 1538) [facility] 77 478: Repair Cameraman/Techni estrellita ID = [id number] for Charlene Funk BLOOD [id number] 09:46:00 Test Item Value Reference Range Interpretation [...] = bottles: gram 1123) negative rods BLOOD [id number] 09:45:00 Test Item Value Reference Range Interpretation [...] anaerobic 1123) bottles: gram negative rods POCT-GLUCOSE [id number] 07:53:00 Test Item Value Reference Range Interpretation Comments POC-GLUCOSE METER 131 mg/dL 70-110 H : TESTED A T [facility] 1317 (BEAKER) (test code [address], = 1538) [facility] 77 478: Repair Cameraman/Techni estrellita ID = [id number] for Butch h, Charlene COMPREHENSIVE METABOLIC [id number] 06:08:00 Test Item Value Reference Range Interpretation [...] S NOT APPLICABLE FOR DIALYSIS PATIEN TS. Repair Cameraman ID - [id number] W/PLT COUNT & AUTO [id number] 05:43:00 Test Item Value Reference Range Interpretation [...] PERCENT (BEAKER) (test code = 2801) POCT-GLUCOSE [id number] 21:12:00 Test Item Value Reference Range Interpretation Comments POC-GLUCOSE METER 195 mg/dL 70-110 H : TESTED A T [facility] 1317 (BEAKER) (test code [address], = 1538) [place] [address]: Repair Cameraman/Techni estrellita ID = [id number] for Sharyn Shin POCT-GLUCOSE [id number] 18:06:00 Test Item Value Reference Range Interpretation Comments POC-GLUCOSE METER 109 mg/dL 70-110 : TESTED A T [facility] 1317 (BEAKER) (test code [address], = 1538) [place] [address]: Repair Cameraman/Techni estrellita ID = [id number] for Butch h, Charlene TROPONIN [id number] 14:37:00 Test Item Value Reference Range Interpretation [...] failure, acidosis, acute neurological disease, and persistent tachyarrhythmia.Repair Cameraman ID - [id number] METER 2019-06-18 11:28:00 Test Item Value Reference Range Interpretation Comments POC-GLUCOSE METER 135 mg/dL 70-110 H : TESTED A T [facility] 1317 (BEAKER) (test code [address], = 1538) [place] [address]: Repair Cameraman/Techni estrellita ID = [id number] for Butch h, Charlene POCT-GLUCOSE [id number] 07:54:00 Test Item Value Reference Range Interpretation Comments POC-GLUCOSE METER 243 mg/dL 70-110 H : TESTED A T [facility] 1317 (BEAKER) (test code [address], = 1538) [facility] 77 478: Repair Cameraman/Techni estrellita ID = [id number] for Charlene Funk BASIC METABOLIC [id number] 04:55:00 Test Item Value Reference Range Interpretation [...] APPLICABLE FOR DIALYSIS PATIEN TS. COMPREHENSIVE METABOLIC [id number] 04:54:00 Test Item Value Reference Range Interpretation [...] S NOT APPLICABLE FOR DIALYSIS PATIEN TS. Repair Cameraman ID - [id number] 04:47:00 Test Item Value Reference Range Interpretation [...] heart valves.Final Information (Auto Output)Final Information (Auto Output)[id number] 04:47:00 Test Item Value Reference Range Interpretation Comments PARTIAL THROMBOPLASTIN TIME (BEAKER) 31.2 sec 23.0-35.0 (test code = 760) Final Information (Auto Output)CBC W/PLT COUNT & AUTO [id number] 04:34:00 Test Item Value Reference Range Interpretation [...] (BEAKER) (test code = 2801) LACTIC ACID, [id number] 04:23:00 Test Item Value Reference Range Interpretation Comments LACTATE BLOOD VENOUS 1.7 mmol/L 0.5-2.0 Specime n slightly (2) (BEAKER) (test hemolyzed code = 4873) Repair Cameraman ID - [id number] 21:15:00 Test Item Value Reference Range Interpretation Comments POC-GLUCOSE METER 201 mg/dL 70-110 H : TESTED A T [facility] 1317 ([facility]) (test code [address] [facility], = 1538) [place] [address]: Repair Cameraman/Techni estrellita ID = [id number] for Sharyn Shin POCT-GLUCOSE [id number] 17:16:00 Test Item Value Reference Range Interpretation Comments POC-GLUCOSE METER 163 mg/dL 70-110 H : Notified RN/MD: TESTED ([facility]) (test code AT [facility] [address] = 1538) [place] [address]: Repair Cameraman/Techni estrellita ID = [id number] for Thak er, Nikitaben POCT-GLUCOSE [id number] 13:42:00 Test Item Value Reference Range Interpretation Comments POC-GLUCOSE METER 224 mg/dL 70-110 H : Notified RN/MD: TESTED ([facility]) (test code AT [facility] POINT = 1538) [place] [address]: Repair Cameraman/Techni estrellita ID = [id number] for Thak er, Nikitaben LACTIC ACID, [id number] 13:12:00 Test Item Value Reference Range Interpretation Comments LACTATE BLOOD VENOUS (2) ([facility]) 8.8 mmol/L 0.5-2.0 HH (test code = 2872) Repair Cameraman ID - [id number], [id number] 10:42:00Reason for exam:- >epigastric pain left flank [...] Dios Verified Date/Time: 06/17/2019 10:42:41 Reading Location: [facility] Diagnostic Imaging Reading Room - [place] [address] RAD, CHEST, 1 VIEW, NON DEPT 2019-06-17 [...] Reading Location: [facility] Radiology Reading Room RAPID INFLUENZA A&B SCREEN 2019-06-17 10:22:00 Test Item Value Reference Range Interpretation Comments RAPID INFLUENZA A AG (BEAKER) Negative Negative, Inconclusive (test code = 1622) RAPID INFLUENZA B AG (BEAKER) Negative Negative, Inconclusive (test code = 1623) LACTIC ACID, [id number] 10:20:00 Test Item Value Reference Range Interpretation Comments LACTATE BLOOD VENOUS 2.7 mmol/L 0.5-2.0 HH Specime n slightly (2) (BEAKER) (test hemolyzed code = 2872) Repair Cameraman ID - [id number] METABOLIC [id number] 10:20:00 Test Item Value Reference Range Interpretation [...] S NOT APPLICABLE FOR DIALYSIS PATIEN TS. Repair Cameraman ID - [id number] 10:12:00 Test Item Value Reference Range Interpretation Comments PARTIAL THROMBOPLASTIN TIME (BEAKER) 22.4 sec 23.0-35.0 L (test code = 760) Final Information (Auto Output)PROTHROMBIN TIME/[id number] 10:11:00 Test Item Value Reference Range Interpretation [...] Information (Auto Output)Final Information (Auto Output)URINALYSIS W/ [id number] 10:10:00 Test Item Value Reference Range Interpretation [...] (test code = 2795) RAPID STREP A [id number] 10:09:00 Test Item Value Reference Range Interpretation Comments STREP A ANTIGEN (BEAKER) (test code Negative = 556) SCREEN, [id number] 10:06:00 Test Item Value Reference Range Interpretation Comments TEST URINE (BEAKER) (test Negative code = 583) CBC W/PLT COUNT & AUTO [id number] 09:58:00 Test Item Value Reference Range Interpretation [...] Notes Date/Time Note Provider Source 2021-07-29 03:16:00-00:00 [facility] ([facility]) EMERGENCY PROVIDER REPORT REPORT#:[id number] REPORT STATUS: Signed DATE:07/29/21 TIME:315 PATIENT: EMILEE PIMENTEL UNIT #: [id number] ROOM/BED: : 79 AGE: 40 SEX: F PCP PHYS: Nelia Hyde DO SERVICE AUTHOR: Jose Hutchinson MD * ALL edits or amendments must be made on the [employer]/computer document * HPI-Abd Pain F 39 and [...] on any NSAIDs. Patient also states sh e is not taking any antacids currently. General [...] 07/29 0310 O2 Delivery Room air 07/29 309 Temp 96.1 07/29 309 Pulse 83 07/29 0310 Resp 18 07/29 309 Last Documented: Result [...] Lab Results Interpretation Results Laboratory Tests 07/29/21 0340: [Embedded Image Not Available] Laboratory Tests: 07/29 034 Chemistry Sodium (134 - 147 mmol/L) 137 [...] % (Auto) (20.5 - 51.1 %) 45.1 [place] % (Auto) (1.7 - 9.3 %) 7.6 Eos % (Auto) (0.0 - 6.0 %) 4.0 Baso % (Auto) (0.0 - 2.0 %) 0.5 Neut # (Auto) (1.8 - 7.6 K/mm3) 3.5 Lymph # (Auto) (0.6 - 3.2 K/mm3) 3.7 H [place] # (Auto) (0.3 - 1.1 K/mm3) 0.6 Eos # (Auto) (0.0 - 0.4 K/mm3) 0.3 Baso # (Auto) (0.0 - 0.1 K/mm3) 0.0 Abs Immat Gran (auto) (0.00 - 0.03 x10 3/uL) 0 .01 Add Manual Diff (CRITERIA DIFF/SCN) NO Immature Gran % (0.0 - 5.0 %) 0.1 Nucleated RBC % (0.0 - 1.0 /100WBC%) 0.0 Microbiology: Date/Time Procedure - Status Source Growth 07/29 417 Occult Blood - COMP STOOL Re-Evaluation MDM )( Re-Evaluation/Progress #1 )( Re-Eval Status Improved ED Course Medication(s) Ordered Medication(s) Ordered: Autonomic Drugs Sig/Ankita Start time Last Medication Dose Route Stop Time Status Admin Dicyclomine HCl 20 MG X1ED STA 07/29 413 CANr IM 07/29 414 Central Nervous System Agents Sig/Ankita Start time Last Medication Dose Route Stop Time Status Admin Hydromorphone HCl 0.5 MG X1ED STA 07/29 321 DC 07/29 IV 04/14 0323 0342 Morphine Sulfate 4 MG X1ED [...] X1ED STA 07/29 0314 DC IV 07/29 031 0344 Pantoprazole Sodium 40 MG X1ED STA 07/29 0314 D CD 07/29 Sodium Chloride 50 ML IV 07/29 812 0343 Pantoprazole Sodium 80 MG X1ED STA 07/29 0314 D C 07/29 IV 07/29 031 0344 Patient Discharge Departure Vital Signs/Condition Vital [...] 07/29 0447 O2 Delivery Room air 07/29 0447 Temp 97.5 07/29 0447 Pulse 81 07/29 0447 Resp 16 07/29 0447 All vital signs available at the time of this en try have been reviewed. Clinical Impression Clinical Impression Primary Impression: Abdominal pain Disposition Decision Discharge )( Discharged to Home Yes )( Time 0438 )( Date 07/29/21 Discharge/Care Plan (Auto) Prescriptions Current Visit Scripts ONDANSETRON ODT (ZOFRAN ODT) 4 MG PO Q6H PRN PRN NAUSEA/VOMITING ONDANSETRON ODT (ZOFRAN ODT) 4 MG PO Q6H PRN IA N NAUSEA/VOMITING #15 TABS DICYCLOMINE (BENTYL) 20 MG PO QID DICYCLOMINE (BENTYL) 20 MG PO QID #20 TABS OMEPRAZOLE ER (PriLOSEC) 40 MG PO DAILY OMEPRAZOLE ER (PriLOSEC) 40 MG PO DAILY #30 CAP S Patient Instructions Abdominal Pain Referrals Provider Referral: Jered Jimenes MD Address: [address] [place] [address] Electronically Signed by Jose Hutchinson MD on at 0638 [facility] #: [id number] END OF REPORT 2019-06-19 18:19:56-00:00 [facility] PROGRESS NOTE EMILEE PIMENTEL FACILITY: [facility] Billing #: [phone] Room: [address] [place] [address] MR #: [id number] : 1980 PHYSICIAN: Jose Deng MD ADMISSION [...] improving now. Continue presen t treatment. SQM/MODL /[id number] 2019-06-18 10:20:42-00:00 [facility] CONSULTATION EMILEE PIMENTEL FACILITY: [facility] Billing #: [phone] Room: [address] [place] [address] MR #: [id number] : 1980 DATE OF ADMISSION: 06/17/2019 DATE OF CONSULTATION: 06/18/2019 REQUESTING PHYSICIAN: BARROW WORKER HELPER: Jose Deng MD Pulmonary Consultation ORDERING PHYSICIAN: [...] Continue nebulizer to e very 4 hours. SQM/MODL /[id number]
[2022-12-02] MEDS ORDERED: NA CHLORIDE 0.9% 1,000 ML ONE (14:20)
[2022-12-02] MEDS ORDERED: FAMOTIDINE 20 MG/2 ML VIAL IV ONE (14:20)
[2022-12-02] MEDS ORDERED: ONDANSETRON 4 MG/2 ML VIAL ONE ×2 (14:20→15:13)
[2022-12-02] MEDS ORDERED: FENTANYL CITR 100 MCG/2 ML ONE (14:36)
[2022-12-02 14:37] LABS: Absolute Lymphocytes (CBC) 2.5 K/uL (0.7-4.9); Hematocrit 42.7 % (36.0-45.0); Lymphocytes % 33.8 % (15.3-44.8); MCV 89.8 fL (80-100); MPV 8.2 fL (7.6-11.3); Platelets 271 thou/uL (152-406); Protime INR 1.09; RBC Red Blood Cell Count 4.75 M/uL (3.86-4.86)
[2022-12-02 14:49] LABS: Albumin 4.1 g/dL (3.4-5.0); Bilirubin Direct 0.2 mg/dL (0-0.2); Bilirubin Indirect, Calculated 0.4 mg/dL (0.2-0.8); Bilirubin Total 0.6 mg/dL (0.2-1.0); Magnesium 2.1 mg/dL (1.6-2.4); Potassium 3.6 mEq/L (3.5-5.1); Protein, Total 8.2 g/dL (6.4-8.2); Troponin High Sensitivity 3.9 pg/mL (<58.9)
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
--- NOTE | 2022-12-02 15:02 | RAD REPORT ---
EXAM DESCRIPTION: RAD - Tib Fib Left - 12/02/2022 2:11 pm CLINICAL HISTORY: PAIN COMPARISON: No comparisons TECHNIQUE: Left tibia and fibula, 2 views. FINDINGS: No fracture is identified. There is no dislocation or periosteal reaction noted. Moderate suprapatellar joint effusion. Enthesop athy at the Achilles tendon attachment. No foreign body or other soft tissue abnormality. IMPRESSION: No acute osseous abnormality. Moderate suprapatellar knee joint effusion.
[2022-12-02] MEDS ORDERED: HYDROMORPHONE HCL 1 MG/ML INJ ONE (15:13)
[2022-12-02 15:19] LABS: Specific Gravity 1.026 (1.005-1.030)
[2022-12-02 15:21] LABS: Specific Gravity 1.025 (1.005-1.030); Urine Bacteria <20 /HPF (<20); Urine Bilirubin NEGATIVE (Negative); Urine Blood Negative (Negative); Urine Clarity Turbid (Clear); Urine Color Light-Yellow (Yellow); Urine Glucose 2+ (Negative); Urine Mucus Slight /HPF (None Seen); Urine Protein 1+ (Negative); Urine RBC <5 /HPF (None Seen); Urine Urobilinogen Normal (Normal)
--- NOTE | 2022-12-02 16:12 | RAD REPORT ---
EXAM DESCRIPTION: CT - Head C Spine Cap W Con - 12/02/2022 3:11 pm CLINICAL HISTORY: PAIN COMPARISON: Head C Spine Cap W Con dated 06/30/2020; Abdomen Pelvis W Contrast dated 12/01/2022 TECHNIQUE: Head and cervical spine CT images were obtained without IV contrast. Chest, abdomen, and pelvis CT images were obtained following intravenous administration of 100 mL Isovue-300. Multiplanar reformats were generated and reviewed. All CT scans are performed using dose optimization technique as appropriate and may include automated exposure control or mA/KV adjustment according to patient size. FINDINGS: CT HEAD: No intracranial hemorrhage, mass effect, or edema. No evidence of acute territorial infarct. No midli ne shift or abnormal fluid collection. The ventricles are normal in caliber and configuration for age . Basal cisterns are patent. Mastoid aircells and paranasal sinuses are clear. No acute skull fractur e. CT CERVICAL SPINE: No acute cervical spine fracture or subluxation. Vertebral body heights are well maintained. Facet paul ints are normal in alignment. No hyperattenuating canal hematoma. Prevertebral and paraspinous soft t issues are unremarkable. CT CHEST: No pneumothorax, pulmonary contusion or pleural fluid collection. No mediastinal hematoma and the aor ta and pulmonary arteries are unremarkable. No chest will mass or abnormal axillary finding. No displ aced rib fracture or other significant bony finding. CT ABDOMEN/ PELVIS: No evidence of traumatic injury to solid abdominal viscera. Gallbladder and biliary tree are unremark able. No bowel injury or significant finding. Incidentally noted small duodenal diverticulum. Small u mbilical hernia containing fat. Status post cholecystectomy with limited pneumobilia. Diffuse hepatic parenchymal hypoattenuation suggesting steatosis. No free air, free fluid or abnormal fat stranding. No urinary bladder abnormality. No significant bony finding. IMPRESSION: No acute traumatic abnormalities. Incidental findings as above including diffuse hepatic steatosis. Limited central pneumobilia, likely within normal for postcholecystectomy status.
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
[2022-12-02 17:33] VITALS: TEMP 98.1
[2022-12-02 17:34] VITALS: BP 148/88; O2SAT 99
--- NOTE | 2022-12-05 18:06 | EKG ---
Test Date: 2022-12-02 Test Time: 14:37:23 Seed Service Advisor: Shasta SEGUNDO MEASUREMENT RESULTS: Intervals: Rate: 96 NE: 158 QRSD: 78 QT: 356 QTc: 449 [place]: P: 55 NE: 158 QRS: 108 T: 3 INTERPRETIVE STATEMENTS: Normal sinus rhythm Normal ECG Compared to ECG 06/15/2022 16:31:32 Sinus tachycardia no longer present Right-axis deviation no longer present Electronically Signed On 12-05-22 17:59:24 CDT by Wilber Schafer
== END 2022-12-02 17:06 | disposition home or self-care (01) ==
LOC: ER 13:33
DX: S80.12XA Contusion of left lower leg, initial encounter (principal); S20.222A Contusion of left back wall of thorax, initial encounter; S20.212A Contusion of left front wall of thorax, initial encounter; M25.462 Effusion, left knee; V47.5XXA Car driver injured in collision with fixed or stationary object in traffic accident, initial encounter; E11.65 Type 2 diabetes mellitus with hyperglycemia; K76.0 Fatty (change of) liver, not elsewhere classified; I10 Essential (primary) hypertension; Z88.5 Allergy status to narcotic agent; Z88.6 Allergy status to analgesic agent
CPT/HCPCS: 93005; 85025; 81001; 80048; 36415; 83735; 81025; 85610; 80076; 84484; 83690; 83880; 70450; 72125; 71260; 74177; 71045; 73590; 96375; 96374; 99284; Q9967; J3010; J1170; J2405 ×2; J7030

== ENCOUNTER 2024-05-01 00:30 | Emergency (ER) | payer BC ==
--- OUTSIDE RECORDS SUMMARY | 2024-05-01 00:33 | XMS REPORT | Clinical Summary ---
Author Name Unknown Organization [facility] Address [address] [place] [address] Care Team Providers Care Policy Loan Calculator Name Role Phone Mary Ellen Santillan MD Primary Care Provider + [phone] Hakeem Jessica MD Unavailable [phone] Hakeem Jessica MD Unavailable [phone] Virginia Scanlon MD Unavailable Allergies Active Allergy Reactions Criticality Noted Date Comments Codeine High 09/23/2015 Feels like throat starts to close causing difficulty breathing Cyclobenzaprine High 09/23/2015 Numbness in legs, feels like throat starts closing Naproxen Other (See Comments) High 09/02/2015 Medications zolpidem (AMBIEN) 10 mg tablet Take 1 tablet by mouth at bedtime. 3 07/08/2015 Active HYDROcodone-acet aminophen (NORCO) 10 mg-325 mg per tablet Take 1 tablet by mouth as needed. 0 08/05/2015 Active traMADol (ULTRAM) 50 mg tablet Take 1 tablet by mouth as needed. 0 08/05/2015 Active LORazepam (ATIVAN) 2 mg tablet Take 1 tablet by mouth as needed. 2 07/08/2015 Active ondansetron (ZOFRAN) 4 mg tabletIndication s:Nausea with vomiting Take 1 tablet (4 mg total) by mouth every 8 (eight) hours as needed for nausea or vomiting. 20 tablet 10/02/2015 Active promethazine (PHENERGAN) 25 mg tablet Take 25 mg by mouth. Active omeprazole (PriLOSEC) 20 mg capsule Take 20 mg by mouth. Active Active Problems Problem Noted Date Diagnosed Date Excessive and frequent menstruation with regular cycle 09/02/2015 Morbid (severe) obesity due to excess calories 0 09/02/2015 Personal history of venous thrombosis 09/02/2015 Surgical History Surgery Date Site/Laterality Comments TUBAL LIGATION 04/17/2004 - 04/16/2005 Bilateral CHOLECYSTECTOMY 04/17/2007 - 04/16/2008 during hernia repair HERNIA REPAIR 01/23/2008 LAPAROTOMY EXPLORATORY 04/17/2007 - 04/16/2008 Removal of choledochal cyst OH HYSTEROSCOPY BX ENDOMETRIUM&/POLYPC W/WO D&C 10/02/2015 Vagina /N/A Procedure: HYSTEROSCOPY; D&C; Surgeon: Mary Ellen Santillan MD; Location: [facility]; Service: SILK SCREEN LAYOUT DRAFTER - GYNECOLOGIC ONCOLOGY Medical devices from this surgery are in the Medical Devices section. OH INSERTION INTRAUTERINE DEVICE IUD 10/02/2015 Vagina /N/A Procedure: INSERTION OF INTRAUTERINE DEVICE; Surgeon: Mary Ellen Santillan MD; Location: [facility]; Service: SILK SCREEN LAYOUT DRAFTER - GYNECOLOGIC ONCOLOGY Medical devices from this surgery are in the Medical Devices section. Medical History Medical History Date Comments Fatty liver Abnormal uterine bleeding un related to menstrual cycle Anemia Depression Anxiety Passing large clots vaginally Thrombosis 2012 1 week post D&C, right leg thrombosis, treated w/ Coumadin Family History Medical History Relation Name Comments -Breast cancer Cousin Mt Cousin -Gynecology (Ovary, Endometrial, Cervix, Vagina) Cousi n Mt Cousin cervical -Gynecology (Ovary, Endometrial, Cervix, Vagina) Mater nal Aunt cervical Relation Name Status Comments Cousin Mt Cousin Alive Maternal Aunt Social History Tobacco Use Types Packs/Day Years Used Date Smoking Tobacco: Never Smokeless Tobacco: Never Alcohol Use Standard Drinks/Week Comments Yes 0 (1 standard drink = 0.6 oz pur e alcohol) Comments No Sex and Gender Information Value Date Recorded Sex Assigned at Not on file Legal Sex Female 11:13 AM CDT Gender Identity Not on file Sexual Orientation Not on file Obstetrics History Para Term AB IAB SAB Ectopic Multiple Livin g Live Births 6 5 4 1 4 Date Outcome GA Total Labor Labor/2nd/3rd Weight Sex Type Anes PTL Orly A1 A5 Name Clin Term Vag-S pont Term Vag-S pont Term Vag-S pont Term Vag-S pont Para Demise 1999 AB Comments 1) STIs: chlamydia at the ag e of 12. 2) Menarche at age 10. LMP on 08/18/2015. 3) OCPs for 6 years. Depo-Provera injections x 3 months. Neither worked to help control her bleeding. Plan of Treatment Health Maintenance Due Date Last Done Comments COVID-19 Vaccine ( - 2023-2 5 season) 2023 Influenza Vaccine (#1) 2023 Pneumococcal Vaccine: Pediat rics (0 to 5 Years) and At-Risk Patients (6 to 64 Years) Aged Out No longer eligi ble based on patient's age to complete this topic Medical Devices Implanted Type Area Insurance Policy Issue Clerk Device Identifier Shelf Expiration Date Model / Serial / Lot Mirena Iud Implanted:Qty: 1 on 10/02/2015 by Mary Ellen Santillan MD at [facility] N/A: Vagina 04/17/2018 / / [id number] Description:From pharmacy Insurance PPO POS Care Teams Policy Loan Calculator Relationship Specialty Start Date End Date Mary Ellen Santillan MD [email or web address] PCP - General Gynecologic Medical Oncology 08/26/15 Hakeem Jessica MD [address] [place] [address] [email or web address] PCP - External Referring 08/26/15 Hakeem Jessica MD [address] [place] [email or web address] PCP - External Follow Up A 08/26/15 Virginia Scanlon MD [address] [place] [email or web address] Consulting Physician Medical Oncology 09/17/15
[2024-05-01 01:56] LABS: Absolute Eosinophils 0.1 K/uL (0-0.5); Absolute Lymphocytes (CBC) 2.9 K/uL (0.7-4.9); Absolute Monocytes 0.5 K/uL (0.1-1.3); Absolute Neutrophil 3.3 K/uL (1.8-8.0); Basophils % 0.7 % (0-1.3); Eosinophils % 1.8 % (0-4.4); Hematocrit 42.5 % (36.0-45.0); Hemoglobin 14.5 g/dL (12.0-15.0); Lymphocytes % 42.3 % (15.3-44.8); MCH 30.8 pg (27.0-35.0); MCHC 34.1 g/dL (32.0-36.0); MCV 90.4 fL (80-100); MPV 8.9 fL (7.6-11.3); Monocytes % 7.1 % (3.3-12.3); Neutrophils % 48.1 % (41.7-73.7); Nucleated Red Blood Cells % 0.2 % (0-0); Platelets 258 thou/uL (152-406); Red Cell Distribution Width 13.1 % (12.1-15.2)
[2024-05-01 01:59] LABS: Specific Gravity 1.029 (1.005-1.030)
[2024-05-01 02:04] LABS: Specific Gravity 1.029 (1.005-1.030); Sqamous Epithelial <5 /HPF (None Seen); Urine Bacteria 20-50 /HPF (<20); Urine Bilirubin NEGATIVE (Negative); Urine Blood Negative (Negative); Urine Clarity Turbid (Clear); Urine Color Light-Yellow (Yellow); Urine Culture Reflex Order NOT NEEDED; Urine Glucose 4+ (Over) (Negative); Urine Ketones NEGATIVE (Negative); Urine Microscopic Reflex YN ORDER UMIC; Urine Mucus Slight /HPF (None Seen); Urine Nitrite NEGATIVE (Negative); Urine Protein NEGATIVE (Negative); Urine Urobilinogen Normal (Normal); Urine Yeast (Budding) Occasional /HPF (None Seen); Urine pH 5.5 (5.0-7.0)
[2024-05-01 02:06] LABS: Albumin 3.5 g/dL (3.4-5.0); Albumin/Globulin Ratio 0.9 (1.1-1.8); Anion Gap 8.8 mEq/L (5.0-15.0); Bilirubin Total 0.3 mg/dL (0.2-1.0); Globulin 3.7 g/dL (2.3-3.5); Potassium 3.8 mEq/L (3.5-5.1); Protein, Total 7.2 g/dL (6.4-8.2)
[2024-05-01] MEDS ORDERED: NA CHLORIDE 0.9% 1,000 ML ONE (02:53)
[2024-05-01] MEDS ORDERED: FENTANYL CITR 100 MCG/2 ML ONE (02:53)
[2024-05-01] MEDS ORDERED: ONDANSETRON 4 MG/2 ML VIAL ONE (02:53)
[2024-05-01] MEDS ORDERED: FAMOTIDINE 20 MG/2 ML VIAL IV ONE (02:53)
[2024-05-01] MEDS ORDERED: DIPHENHYDRAMINE 50 MG/ML VIAL ONE (03:23)
[2024-05-01] MEDS ORDERED: METHYLPREDNISOLONE 125 MG INJ ONE (03:23)
--- NOTE | 2024-05-01 05:58 | RAD REPORT ---
CLINICAL HISTORY: Abdominal pain. COMPARISON: CT Abdomen Pelvis 06/21/2023. TECHNIQUE: CT ABDOMEN PELVIS WITH IV CONTRAST on 05/01/2024 12:53 AM CROP AND SOIL TECHNICIAN This exam was performed according to our departmental dose-optimization program, which includes autom ated exposure control, adjustment of the mA and/or kV according to patient size and/or use of iterative reconstruction technique. FINDINGS: Lower lungs are clear. Abdomen: Liver is fatty in attenuation. There is mild pneumobilia. There is no biliary dilatation. Ch olecystectomy was performed. The pancreas and spleen are normal in appearance. The adrenal glands and kidneys are unremarkable. Abdominal aorta is normal in course and caliber without aneurysm. There is no free air. There is no r etroperitoneal adenopathy. Pelvis: Short segment focally dilated small bowel loop in the anterior upper abdomen is unchanged. Ur inary bladder is unremarkable. There is no free fluid. Appendix is normal. There is a small fat-containing periumbilical ventral hernia. Skeleton: There are no acute osseous findings. No suspicious bony lesions. IMPRESSION: No definite acute process. Electronically signed by: Jama Saldana MD 05/01/2024 05:30 AM [employer] AND [employer]IL TECHNICIAN RP Due to temporary technical issues with the PACS/[employer] reporting system, reports are being chepe d by the in-house radiologist without review as a courtesy to ensure prompt reporting the interpreting radiologist is fully responsible for the content of the report. Transcribed Date/Time: 05/01/2024 5:57 AM
--- NOTE | 2024-05-01 06:01 | ER ---
Nurse's Notes [facility] Name: Silvina Cohen Age: 43 yrs Sex: Female : 1980 Arrival Date: 05/01/2024 Time: 00:30 Bed 4 Private MD: Diagnosis: Acute epigastric abdominal pain Presentation: 05/01 00:40 Chief complaint: Patient states: abdominal pain that starts in the epigastric area and vc1 radiates to left upper abdomen. If I drink something it feels like something hits and hurts more. Coronavirus screen: Client denies travel out of the [place] in the last 14 days. At this time, the client does not indicate any symptoms associated with coronavirus-19. Ebola Screen: Patient negative for fever greater than or equal to 101.5 degrees Fahrenheit, and additional compatible Ebola Virus Disease symptoms Patient denies exposure to infectious person. Patient denies travel to an Ebola-affected area in the 21 days before illness onset. No symptoms or risks identified at this time. Initial Sepsis Screen: Does the patient meet any 2 criteria? No. Patient's initial sepsis screen is negative. Does the patient have a suspected source of infection? No. Patient's initial sepsis screen is negative. Risk Assessment: Do you want to hurt yourself or someone else? Patient reports no desire to harm self or others. Onset of symptoms was April 30, 2024. 00:40 Method Of Arrival: Ambulatory vc1 00:40 Acuity: CORTEZ 3 vc1 Triage Assessment: 00:44 General: Appears in no apparent distress. uncomfortable, obese, well groomed, well vc1 developed, well nourished, Behavior is calm, cooperative, appropriate for age. Pain: Complains of pain in epigastric area Pain radiates to left upper quadrant Pain currently is 8 out of 10 on a pain scale. Quality of pain is described as burning, Pain began 1 day ago. Is continuous, episodic, Aggravated by drinking, Also complains of nausea. EENT: No deficits noted. No signs and/or symptoms were reported regarding the EENT system. Neuro: Level of Consciousness is awake, alert, obeys commands, Oriented to person, place, time, situation, Appropriate for age. Cardiovascular: Capillary refill < 3 seconds Patient's skin is warm and dry. Respiratory: Airway is patent Respiratory effort is even, unlabored, Respiratory pattern is regular, symmetrical. GI: Abdomen is round non-distended, obese, Reports upper abdominal pain, epigastric pain, intolerance of fluids, nausea. : No deficits noted. No signs and/or symptoms were reported regarding the genitourinary system. Derm: Skin is intact, is healthy with good turgor, Skin is dry, Skin is normal, Skin temperature is warm. Musculoskeletal: Circulation, motion, and sensation intact. Range of motion: intact in all extremities. 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 Flu vaccine is not up to date. - Infectious Disease History:: Denies. - Social history:: Smoking status: Patient denies any tobacco usage or history of. Screenin:44 Abuse screen: Denies threats or abuse. Nutritional screening: No deficits noted. vc1 Tuberculosis screening: No symptoms or risk factors identified. 00:46 [facility] ED Fall Risk Assessment (Adult) History of falling in the last 3 months, vc1 including since admission No falls in past 3 months (0 pts) Confusion or Disorientation No (0 pts) Intoxicated or Sedated No (0 pts) Impaired Gait No (0 pts) Mobility Assist Device Used No (0 pt) Altered Elimination No (0 pt) Score/Fall Risk Level 0 - 2 = Low Risk Oriented to surroundings, Maintained a safe environment, Educated pt \\T\\ family on fall prevention, incl call for assistance when getting out of bed. Assessment: 03:03 Reassessment: Pt denies allergy to Fentanyl. states "' I had it before and nothing jb4 happened.". 03:10 GI: Bowel sounds present X 4 quads. Abd is soft X 4 quads. ay 05:19 Reassessment: Patient appears in no apparent distress at this time. Patient is alert, ay oriented x 3, equal unlabored respirations, skin warm/dry/pink. Vital Signs: 00:40 BP 126 / 89; Pulse 87; Resp 16; Temp 98.5; Pulse Ox 99% ; Weight 127.91 kg; Height 5 vc1 ft. 9 in. ; Pain 8/10; 05:19 BP 144 / 92; Pulse 79; Resp 19; Pulse Ox 96% on R/A; ay 00:40 Body Mass Index 41.64 (127.91 kg, 175.26 cm) vc1 00:40 Pain Scale: Adult vc1 ED Course: 00:33 Patient arrived in ED. im 00:40 Patient has correct armband on for positive identification. Call light in reach. Side ay rails up X2. 00:41 Triage completed. vc1 00:44 Arm band placed on right wrist. vc1 00:47 Patient placed in waiting room, Patient notified of wait time. vc1 00:52 Breezy Gonsales MD is Attending Physician. sp4 01:25 Radiology exam delayed due to test not completed at this time. eh 01:42 CBC with Diff Sent. vk 01:42 CMP Sent. vk 01:42 Lipase Sent. vk 01:42 Test, Urine Sent. vk 01:42 Urinalysis w/ reflexes Sent. vk 01:42 Initial lab(s) drawn, by me, sent to lab. Urine collected: clean catch specimen, clear. vk Inserted saline lock: 22 gauge in right forearm, using aseptic technique. Blood collected. Flushed with 10 mL NS. 02:58 Notified primary nurse of patient stated, "she was not going to CT without getting her vk medication first and it is getting ridiculous that she is having to wait this long".Advised patient that nurse would be as soon as possible and apologized for wait time. Patient then stated " CT can wait for me out in the hallway for me till then". 03:19 CT Abd/Pelvis - IV Contrast Only In Process Unspecified. EDMS 03:33 Alejandra Gooden, RN is Primary Nurse. ay 06:16 IV discontinued, intact, bleeding controlled, No redness/swelling at site. Pressure ay dressing applied. Administered Medications: 03:03 Drug: Famotidine IVP 20 mg IVP once; dilute with 10 mL 0.9% NaCl; give over 2 minutes jb4 Route: IVP; Site: right forearm; 04:41 Follow up: Response: No adverse reaction ay 03:03 Drug: Ondansetron IVP 4 mg IVP once; over 2 minutes Route: IVP; Site: right forearm; jb4 04:41 Follow up: Response: No adverse reaction ay 03:03 Drug: NS 0.9% IV 1000 ml IV at 1 bolus Per protocol; to be given as a bolus over 60 jb4 minutes Route: IV; Rate: 1 bolus; Site: right forearm; 06:19 Follow up: IV Status: Completed infusion; IV Intake: 1000ml ay 03:03 Drug: fentaNYL (PF) IVP 100 mcg IVP once Route: IVP; Site: right forearm; jb4 03:28 Follow up: Response: Adverse reaction, Physician notified; Pain is decreased; RASS: jb4 Alert and Calm (0) 03:28 Drug: diphenhydrAMINE IVP 25 mg IVP once Route: IVP; Site: right forearm; jb4 04:40 Follow up: Response: No adverse reaction ay 03:28 Drug: MethylPrednisoLONE IVP 125 mg IVP once Route: IVP; Site: right forearm; jb4 04:40 Follow up: Response: No adverse reaction ay 03:50 Drug: Dicyclomine IM 20 mg IM once Route: IM; Site: right deltoid; ay 04:41 Follow up: Response: No adverse reaction ay Medication: 00:44 VIS not applicable for this client. vc1 Intake: 06:19 IV: 1000ml; Total: 1000ml. ay Outcome: 06:01 Discharge ordered by . brandy 06:16 Discharged to home ambulatory, ay 06:16 Condition: stable 06:16 Discharge instructions given to patient, Instructed on discharge instructions, follow up and referral plans. Demonstrated understanding of instructions, follow-up care, medications, Prescriptions given X 2, 06:18 Patient left the ED. ay Signatures: Dispatcher [employer] EDMS Ahmet Guardado James, RN RN jb4 Kiarra Dickson RN RN vc1 Breezy Gonsales MD MD sp4 Natalie Chávez Vivian vk Alejandra Gooden, RN RN ay
--- NOTE | 2024-05-01 06:01 | EDPHYS ---
Physician Documentation [facility] Name: Silvina Cohen Age: 43 yrs Sex: Female : 1980 Arrival Date: 05/01/2024 Time: 00:30 Bed 4 Private MD: ED Physician Breezy Gonsales HPI: 05/01 00:52 This 43 yrs old Black Female presents to ER via Ambulatory with complaints of Abdominal sp4 Pain. 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 Flu vaccine is not up to date. - Infectious Disease History:: Denies. - Social history:: Smoking status: Patient denies any tobacco usage or history of. Vital Signs: 00:40 BP 126 / 89; Pulse 87; Resp 16; Temp 98.5; Pulse Ox 99% ; Weight 127.91 kg; Height 5 vc1 ft. 9 in. ; Pain 8/10; 05:19 BP 144 / 92; Pulse 79; Resp 19; Pulse Ox 96% on R/A; ay 00:40 Body Mass Index 41.64 (127.91 kg, 175.26 cm) vc1 00:40 Pain Scale: Adult vc1 MDM: 00:53 Medical Screening Exam initiated sp4 05:57 ED course: CLINICAL HISTORY: Abdominal pain. COMPARISON: CTAbdomen Pelvis 06/21/2023. 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 FINDINGS: Lower lungs are clear. Abdomen: Liver is fatty in attenuation. There is mild pneumobilia. There is no biliary dilatation. Cholecystectomy was performed. The pancreas and spleen are normal in appearance. The adrenal glands and kidneys are unremarkable. Abdominal aorta is normal in course and caliber without aneurysm. There is no free air. There is no retroperitoneal adenopathy. Pelvis: Short segment focally dilated small bowel loop in the anterior upper abdomen is unchanged. Urinary bladder is unremarkable. There is no free fluid. Appendix is normal. There is a small fat-containing periumbilical ventral hernia. Skeleton: There are no acute osseous findings. No suspicious bony lesions. IMPRESSION: No definite acute process. Electronically signed by: Jama Saldana MD 05/01/2024 05:30 AM . 05/01 00:53 Order name: CBC with Diff; Complete Time: 03:22 sp4 05/01 00:53 Order name: CMP; Complete Time: 03:22 sp4 05/01 00:53 Order name: Lipase; Complete Time: 03:22 sp4 05/01 00:53 Order name: Test, Urine; Complete Time: 03:22 sp4 05/01 00:53 Order name: Urinalysis w/ reflexes; Complete Time: 03:22 sp4 05/01 00:53 Order name: CT Abd/Pelvis - IV Contrast Only 4 05/01 00:53 Order name: IV Saline Lock; Complete Time: 01:42 sp4 05/01 00:53 Order name: Labs collected and sent; Complete Time: 01:42 4 Administered Medications: 03:03 Drug: Famotidine IVP 20 mg IVP once; dilute with 10 mL 0.9% NaCl; give over 2 minutes jb4 Route: IVP; Site: right forearm; 04:41 Follow up: Response: No adverse reaction ay 03:03 Drug: Ondansetron IVP 4 mg IVP once; over 2 minutes Route: IVP; Site: right forearm; jb4 04:41 Follow up: Response: No adverse reaction ay 03:03 Drug: NS 0.9% IV 1000 ml IV at 1 bolus Per protocol; to be given as a bolus over 60 jb4 minutes Route: IV; Rate: 1 bolus; Site: right forearm; 06:19 Follow up: IV Status: Completed infusion; IV Intake: 1000ml ay 03:03 Drug: fentaNYL (PF) IVP 100 mcg IVP once Route: IVP; Site: right forearm; jb4 03:28 Follow up: Response: Adverse reaction, Physician notified; Pain is decreased; RASS: jb4 Alert and Calm (0) 03:28 Drug: diphenhydrAMINE IVP 25 mg IVP once Route: IVP; Site: right forearm; jb4 04:40 Follow up: Response: No adverse reaction ay 03:28 Drug: MethylPrednisoLONE IVP 125 mg IVP once Route: IVP; Site: right forearm; jb4 04:40 Follow up: Response: No adverse reaction ay 03:50 Drug: Dicyclomine IM 20 mg IM once Route: IM; Site: right deltoid; ay 04:41 Follow up: Response: No adverse reaction ay Disposition Summary: 05/01/24 06:01 Discharge Ordered Notes: Location: Home sp4 Problem: new sp4 Symptoms: have improved sp4 Condition: Stable sp4 Diagnosis - Acute epigastric abdominal pain sp4 Followup: sp4 - With: Private Physician - When: 7 - 10 days - Reason: Recheck today's complaints Discharge Instructions: - Discharge Summary Sheet sp4 - Abdominal Pain, Adult, [id number] sp4 Forms: - Work release form vc1 - Patient Portal Instructions sp4 Prescriptions: - omeprazole 40 mg Oral capsule,delayed release (e.c.) - dissolve 1 capsule ORAL route every morning; 30 capsule; Refills: 0, Product sp4 Selection Permitted - ondansetron 8 mg Oral Tablet,disintegrating - take 1 tablet ORAL route every 8 hours PRN nausea; 30 tablet; Refills: 0, sp4 Product Selection Permitted Signatures: Dispatcher [employer] EDDelvin Almanza RN RN jb4 Kiarra Dickson RN RN vc1 Breezy Gonsales MD MD sp4 Alejandra Gooden RN RN ay Corrections: (The following items were deleted from the chart) 00:54 00:54 CBC+H.LAB.BRZ ordered. EDMS EDMS 00:54 00:54 COMPREHENSIVE METABOLIC PANEL+C.LAB.BRZ ordered. EDMS EDMS 00:54 00:54 LIPASE+C.LAB.BRZ ordered. EDMS EDMS 00:54 00:54 Test, Urine+UC.LAB.BRZ ordered. EDMS EDMS 00:54 00:54 Urinalysis+U.LAB.BRZ ordered. EDMS EDMS
[2024-05-03 01:59] VITALS: BP 144/92; TEMP 98.5; O2SAT 96
== END 2024-05-01 06:18 | disposition home or self-care (01) ==
LOC: ER 00:30
DX: R10.13 Epigastric pain (principal); F41.9 Anxiety disorder, unspecified; E11.9 Type 2 diabetes mellitus without complications; I10 Essential (primary) hypertension; E11.65 Type 2 diabetes mellitus with hyperglycemia; Z88.5 Allergy status to narcotic agent; Z88.8 Allergy status to other drugs, medicaments and biological substances
CPT/HCPCS: 96361; 85025; 81001; 36415; 81025; 83690; 80053; 74177; 96375; 96372; 96374; 99284; Q9967; J1200; J3010; J2919; J2405; J7030